=== PATIENT | female | born 1960 | race Caucasian/White ===

== ENCOUNTER 2019-03-13 21:57 | Emergency (ER) | payer MEDICAID, SELFPAY ==
--- NOTE | 2019-03-13 22:05 | XR_ITS ---
WS: [id number] Sacrum and coccyx, 3 views, 03/14/2019 Clinical Data: injury Comparison: AP pelvis, 05/30/2015. Findings: No fractures or dislocations are seen. The SI joints and pubic symphysis are unremarkable. No bone de struction or erosion is seen. There is a large amount of air in the small bowel and colon. XR/XR sacrum coccyx min 2V [id number] Impression: Negative sacrum and coccyx.
[2019-03-13 22:13] VITALS: BP 128/95; PULSE 129; RESP 18; TEMP 36.9; O2SAT 95; BMI 15.7
--- NOTE | 2019-03-13 23:39 | ED_ITS ---
Entered by Abbie Nascimento, acting as scribe for Jw Shipman MD Mar 13, 2019 21:57 HPI - General Adult General: Chief complaint: General Medical Stated complaint: tailbone pain Time Seen by Provider: 03/13/19 23:38 Source: patient and family Mode of arrival: ambulatory Limitations: no limitations History of Present Illness: HPI narrative: 58 y/o female presents to the ED with complaint of pain from a fall. Pt states she has a hx of seizures and she fell yesterday after an episode. Pt states she has tailbone pain and difficulty walking. Pt states she has been taking her Kepra as prescribed. MD complaint: pain post fall Onset (ago): day(s) (yesterday) Location: face and buttocks Severity: mild Quality: aching Pain Consistency: constant Relieving factors: rest Exacerbating factors: movement Associated symptoms: Deny chest pain, dyspnea, headache(s), nausea, rash or vomiting Review of Systems Const: Denies: fever or chills Eyes: Denies: change in vision ENMT: Denies: throat pain or mouth pain Card: Denies: chest pain Resp: Denies: shortness of breath GI: Denies: abdominal pain, nausea, vomiting or diarrhea : Denies: difficulty urinating Musc: Reports: back pain; Denies: joint pain Skin/Breast: Denies: rash Neuro: Denies: headache or behavioral changes Psych: Denies: depression Endo: Denies: excessive urination Emmanuel/Lymph: Denies: easy bruising All/Imm: Denies: hives PFSH ED PFSH: Statuses (acute, chronic, etc) shown below reflect problem list status as previously entered and may not be historically accurate Social History Smoking and tobacco status: current every day smoker Physical Exam Const: COMMON NORMALS: no apparent distress, oriented x3 and healthy appearing HENMT: COMMON NORMALS: normocephalic and external nose normal HEAD & SCALP: normocephalic NOSE: external nose normal Eye: COMMON NORMALS: PERRL PUPIL: Yes PERRL Neck/C-Spine: COMMON NORMALS: full ROM and no lymphadenopathy Chest: COMMONS NORMALS: inspection of chest normal Resp: COMMON NORMALS: normal respiratory effort, no use of accessory muscles and clear to auscultation bilaterally AUSCULTATION: clear to auscultation bilaterally Cardio: COMMON NORMALS: regular rate and regular rhythm RATE: regular rate RHYTHM: regular rhythm GI: COMMON NORMALS: normal to inspection, nondistended, normoactive bowel sounds, soft to palpation, non-tender and no masses PALPATION: Yes soft Back/Pelvis: THORACIC SPINE/UPPER BACK: Yes normal to inspection COCCYX: tenderness on direct palpation Extremity: COMMON NORMALS: normal to inspection, full ROM and normal capillary refill Neuro: COMMON NORMALS: oriented x3 Psych: COMMON NORMALS: mental status grossly normal and cooperative Skin: COMMON NORMALS: no rashes or lesions noted GENERAL SKIN EXAM: no rashes or lesions noted Course Vital Signs: Vital signs: Vital Signs Temperature 98.4 F 03/13/19 22:13 Pulse Rate 129 H 03/13/19 22:13 Respiratory Rate 18 03/13/19 22:13 Blood Pressure 128/95 03/13/19 22:13 Pulse Oximetry 95 03/13/19 22:13 MDM - General Adult MDM Narrative: Medical decision making narrative: Patient presents with a fall with likely fracture or contusion to her coccyx. Patient has no signs of major head injury and does not require head CT. Her exam here is benign otherwise. Patient's x-ray shows a possible fracture and will prescribe her pain meds and she is stable to follow-up with primary care doctor in 3 to 5 days and return if worsening. Discharge Plan Discharge Patient Disposition: Home, Self-Care Clinical Impression: Fall Qualifiers: Encounter type: initial encounter Qualified Code(s): W19.XXXA - Unspecified fall, initial encounter Closed fracture of coccyx Qualifiers: Encounter type: initial encounter Qualified Code(s): S32.2XXA - Fracture of coccyx, initial encounter for closed fracture Condition: Stable Prescriptions: New [place] 5-325 mg tablet 1 tab PO Q8H PRN (Reason: pain) Qty: 10 RF: 0 No Action Advair Diskus 100-50 mcg/dose Blister With Device 1 puff INHALATION BID RF: 0 albuterol sulfate 0.63 mg/3 mL Solution For Nebulization 0.63 mg INHALATION QID RF: 0 cetirizine 10 mg Capsule 10 mg PO DAILY RF: 0 guaifenesin 600 mg Tablet Extended Release 12hr 600 mg PO BID RF: 0 Keppra 1,000 mg Tablet 1,000 mg PO BID RF: 0 trazodone 50 mg Tablet 50 mg PO DAILY RF: 0 Miralax 17 gram Powder In Packet 17 g PO DAILY PRN (Reason: Constipation) RF: 0 Tessalon Perles 100 mg Capsule 100 mg PO TID RF: 0 Proventil HFA 90 mcg/actuation Hfa Aerosol Inhaler 1 puff INHALATION QID RF: 0 Nexium 20 mg Capsule,Delayed Release(Dr/Ec) 20 mg PO DAILY RF: 0 Spiriva with HandiHaler 18 mcg Capsule, W/Inhalation Device 1 cap INHALATION DAILY RF: 0 vitamin D3-vitamin K2 1000-90 unit-mcg Tablet,Disintegrating 2,000 tab PO RF: 0 Discharge Orders: Discharge Order (Routine); Ordered 03/14/19 Ordered By: Jw Shipman Referrals: Emma Novoa DO [Primary Care Provider] - 4-7 days Discharge Diet: Advance as tolerated Discharge Activity: Resume usual activity Patient Instructions: Coccyx Injury (ED) Coding Level of Care Code ED Sales Property Manager for Chg Fwd Exam Problem Focused The documentation recorded by the Azam phipps Ashley, accurately reflects the service I personally performed and the decisions made by Umberto nuñez Korby, MD Mar 13, 2019 21:57
[2019-03-14] MEDS: HYDROcodone-acetaminophen 7.5-325 mg Tablet 1 TAB PO (00:30)
[2019-03-14 00:48] VITALS: BP 144/90; PULSE 95; RESP 18; TEMP 36.4; O2SAT 96
== END 2019-03-14 00:49 | disposition home or self-care (01) ==
PROVIDERS: Emergency Provider Emergency Medicine; Family Provider Family Medicine; PCP Family Medicine
DX: S32.2XXA Fracture of coccyx, initial encounter for closed fracture (principal); W19.XXXA Unspecified fall, initial encounter; F17.210 Nicotine dependence, cigarettes, uncomplicated
CPT/HCPCS: 72220; 99281

== ENCOUNTER 2019-03-19 14:20 | Emergency (ER) | payer MEDICAID, SELFPAY ==
[2019-03-19 15:09] VITALS: BP 122/66; PULSE 107; RESP 20; TEMP 36.9; O2SAT 95; BMI 16.2
--- NOTE | 2019-03-19 15:21 | W.ED.GENADLT ---
HPI - General Adult General: Chief complaint: General Medical Stated complaint: tailbone pain Time Seen by Provider: 03/19/19 15:16 Source: patient Mode of arrival: ambulatory Limitations: no limitations History of Present Illness: HPI narrative: Patient is a 58-year-old female who presents to ED today with complaints of tailbone pain; patient states approximately 5 days ago she injured her tailbone after having a seizure; she was evaluated at our facility and told she had a coccyx fracture and given 10 hydrocodone; patient states that hydrocodone has lasted her this long but states she has ran out and continues to have pain; she has follow-up with her PCP in 2 weeks for further evaluation Onset (ago): day(s) Location: pelvis Radiation: non-radiation Pain Consistency: constant Exacerbating factors: other (sitting) Associated symptoms: Reports no associated symptoms Review of Systems GI: Denies: painful bowel movements Musc: Reports: back pain (coccyx); Denies: joint pain PFSH ED PFSH: Statuses (acute, chronic, etc) shown below reflect problem list status as previously entered and may not be historically accurate Social History Smoking and tobacco status: current every day smoker Physical Exam Const: COMMON NORMALS: no apparent distress, average body habitus, oriented x3 and alert Back/Pelvis: COMMON NORMALS: thoracic and lumbar spine normal to inspection, thoraco-lumbar ROM normal and straight leg raise negative bilaterally THORACIC SPINE/UPPER BACK: Yes normal to inspection and Yes thoracic ROM normal LUMBAR SPINE/LOWER BACK: Yes normal to inspection and Yes lumbar ROM normal PELVIS: Yes buttocks normal, Yes no pain with anterior-posterior compression and No tenderness over symphysis pubis SACROILIAC JOINTS: Yes SI joints normal COCCYX: tenderness Neuro: COMMON NORMALS: oriented x3 SENSORIUM/ORIENTATION: Yes alert Course Vital Signs: Vital signs: Vital Signs Temperature 98.5 F 03/19/19 15:09 Pulse Rate 109 H 03/19/19 15:58 Respiratory Rate 20 H 03/19/19 15:58 Blood Pressure 120/70 03/19/19 15:58 Pulse Oximetry 96 03/19/19 15:58 MDM - General Adult MDM Narrative: Medical decision making narrative: radiologist overread from previous XRs does not show coccyx fracture; will step down pain meds from hydrocodone to tramadol and have her follow up with PCP Discharge Plan Discharge Patient Disposition: Home, Self-Care Clinical Impression: Coccyx contusion Qualifiers: Encounter type: initial encounter Qualified Code(s): S30.0XXA - Contusion of lower back and pelvis, initial encounter Condition: Stable Prescriptions: New tramadol 50 mg tablet 50 mg PO TID PRN (Reason: pain) Qty: 14 RF: 0 Discontinued hydrocodone-acetaminophen [[place]] 5-325 mg tablet 1 tab PO Q8H PRN (Reason: pain) Qty: 10 RF: 0 No Action Advair Diskus 100-50 mcg/dose Blister With Device 1 puff INHALATION BID RF: 0 albuterol sulfate 0.63 mg/3 mL Solution For Nebulization 0.63 mg INHALATION QID RF: 0 cetirizine 10 mg Capsule 10 mg PO DAILY RF: 0 guaifenesin 600 mg Tablet Extended Release 12hr 600 mg PO BID RF: 0 Keppra 1,000 mg Tablet 1,000 mg PO BID RF: 0 trazodone 50 mg Tablet 50 mg PO DAILY RF: 0 Miralax 17 gram Powder In Packet 17 g PO DAILY PRN (Reason: Constipation) RF: 0 Tessalon Perles 100 mg Capsule 100 mg PO TID RF: 0 Proventil HFA 90 mcg/actuation Hfa Aerosol Inhaler 1 puff INHALATION QID RF: 0 Nexium 20 mg Capsule,Delayed Release(Dr/Ec) 20 mg PO DAILY RF: 0 Spiriva with HandiHaler 18 mcg Capsule, W/Inhalation Device 1 cap INHALATION DAILY RF: 0 vitamin D3-vitamin K2 1000-90 unit-mcg Tablet,Disintegrating 2,000 tab PO RF: 0 Discharge Orders: Discharge Order (Routine); Ordered 03/19/19 Ordered By: Hortencia Davis Referrals: Emma Novoa DO [Primary Care Provider] - Discharge Diet: Usual diet Discharge Activity: Resume usual activity Patient Instructions: Coccyx Injury, Coccyx Injury (ED) Discharge Date/Time: 03/19/19 15:59 Coding Level of Care Code ED Finisher [employer] for Chg Fwd Exam Problem Focused
[2019-03-19 15:58] VITALS: BP 120/70; PULSE 109; RESP 20; O2SAT 96
== END 2019-03-19 15:59 | disposition home or self-care (01) ==
PROVIDERS: Emergency Provider Emergency Medicine; Family Provider Family Medicine; PCP Family Medicine
DX: S30.0XXA Contusion of lower back and pelvis, initial encounter (principal); X58.XXXA Exposure to other specified factors, initial encounter; F17.210 Nicotine dependence, cigarettes, uncomplicated
CPT/HCPCS: 99281

== ENCOUNTER 2019-03-27 23:27 | Emergency (ER) | payer MEDICAID, SELFPAY ==
[2019-03-27] VITALS (7 sets, daily range): BP systolic 135–136; BP diastolic 76–77; PULSE 112–124; RESP 16–22; TEMP 37.9; O2SAT 92–95; BMI 16.9
--- NOTE | 2019-03-27 23:33 | ED_ITS ---
Entered by Abbie Nascimento, acting as scribe for Mila Foster HPI - Chest Pain General: Chief Complaint: Chest Pain Stated Complaint: CHEST PAIN Time Seen by Provider: 03/27/19 23:34 Source: patient and EMS Mode of arrival: EMS History of Present Illness: HPI narrative: 58 y/o female presents to the ED with complaint of chest pain. Pt states this started around 2100 and felt like heartburn. Pt states she belched and had some relief of pain. Pt has hx of COPD and has had a non productive cough. She is a current smoker. She denies any associated symptoms such as diaphoresis, nausea/vomiting, radiation of her pain or otherwise. She denies any history of heart disease. She states she is feeling better again after belching but she still has minimal burning in her epigastric area. MD complaint: chest pain Pertinent past history: other (COPD) Onset (ago): hour(s) Timing of current episode: constant Prior episodes: Yes Onset: during rest Severity: mild Relieving factors: other (belching) Associated symptoms: Deny diaphoresis or fever(s) Review of Systems Const: Denies: fever, chills, body aches, fatigue, malaise or diaphoresis Eyes: Denies: change in vision or blurry vision ENMT: Denies: throat pain, painful swallowing, hoarseness, ear pain, ear discharge, Change in hearing or nasal discharge Card: Reports: other (see HPI) Resp: Reports: other (see HPI) GI: Reports: other (see HPI) : Denies: flank pain, painful urination, urinary frequency, urinary urgency, decreased urine ouput, urinary incontinence or blood in urine Musc: Denies: neck pain, back pain, extremity pain, extremity swelling, joint pain, joint swelling, joint warmth or joint stiffness Skin/Breast: Denies: rash, skin tenderness or yellow skin Neuro: Denies: headache, numbness in extremities, weakness in extremities, changes in sensation, lack of coordination, difficulty walking, dizziness, vertigo or confusion Endo: Denies: excessive thirst, tired all the time, cold intolerance, excessive sweating, flushing or hot flashes Emmanuel/Lymph: Denies: easy bruising, easy bleeding, petechiae or enlarged lymph nodes All/Imm: Denies: hives, throat swelling, tongue swelling, facial swelling or acute wheezing PFSH ED PFSH: Statuses (acute, chronic, etc) shown below reflect problem list status as previously entered and may not be historically accurate Social History Smoking and tobacco status: current every day smoker Physical Exam Const: COMMON NORMALS: oriented x3 GENERAL APPEARANCE: well kempt HENMT: COMMON NORMALS: normocephalic, head/scalp atraumatic, hearing grossly normal bilaterally, external ears normal, EAC's normal, external nose normal and moist oral mucous membranes HEAD & SCALP: normal to inspection, normocephalic and atraumatic FACE & SINUS: normal facial exam and face symmetric NOSE: external nose normal and nares normal EXTERNAL EAR: Yes external ears normal EXTERNAL AUDITORY CANAL: EAC's normal MOUTH: oral and palatal mucosa normal and tongue normal Eye: COMMON NORMALS: PERRL, EOMs intact bilaterally, conjunctivae normal and no scleral icterus GENERAL EYE: normal appearance of both eyes and normal light reflex CONJUNCTIVA: Yes conjunctivae normal SCLERA: sclerae normal CORNEA: Yes corneas normal PUPIL: Yes PERRL DIRECT OPHTHALMOSCOPY: Yes normal light reflex Neck/C-Spine: COMMON NORMALS: full ROM, no lymphadenopathy, supple, no meningeal signs and no JVD GENERAL: Yes normal visual inspection and Yes trachea midline CERVICAL SPINE: Yes cervical ROM normal Chest: COMMONS NORMALS: inspection of chest normal and palpation of chest normal Cardio: COMMON NORMALS: no JVD GI: COMMON NORMALS: soft to palpation, non-tender, no hepatosplenomegaly and no masses INSPECTION: Yes normal to inspection PALPATION: Yes soft and Yes no hepatosplenomegaly : COMMON NORMALS: Yes no CVA tenderness BLADDER/KIDNEY EXAM: Yes no CVA tenderness Back/Pelvis: COMMON NORMALS: no CVA tenderness, thoracic and lumbar spine normal to inspection, no thoracic nor lumbar tenderness and thoraco-lumbar ROM normal Extremity: COMMON NORMALS: normal to inspection, full ROM, normal capillary refill, no joint enlargement, no clubbing, cyanosis or edema and no calf te nderness Neuro: COMMON NORMALS: oriented x3, CN's II-XII intact bilaterally, moves all extremities, no focal motor deficits and no sensory deficits noted MENINGEAL SIGNS: Yes no meningeal signs Psych: COMMON NORMALS: mental status grossly normal, thought process normal, cooperative, affect normal, speech normal and activity/motor behavior normal APPEARANCE: Yes well kempt SPEECH: Yes normal speech THOUGHT PROCESS: normal thought process Skin: COMMON NORMALS: no rashes or lesions noted, skin turgor normal, no jaundice, no petechiae and no mottling GENERAL SKIN EXAM: no rashes or lesions noted and turgor normal Course Vital Signs: Vital signs: Vital Signs Temperature 100.2 F H 03/27/19 23:32 Pulse Rate 105 H 03/28/19 02:00 Respiratory Rate 16 03/28/19 02:00 Blood Pressure 90/49 03/28/19 02:00 Pulse Oximetry 96 03/28/19 02:00 MDM - Chest Pain MDM Narrative: Medical decision making narrative: Maryjo is a very nice 58-year-old female who comes in complaining of burning epigastric pain with associated nausea. She has no other symptoms do sound as though she has acute coronary syndrome. She had improvement with belching and she had complete resolution of her symptoms here with a GI cocktail. The patient was significantly tachycardic when she came in but she was also wheezing and rhonchorous. She has been given a breathing treatments and she is feeling much better. Her troponin has gone up minimally and I have informed her that she may be at risk of heart attack but she feels as though this is reflux and she declines admission for observation. She understands the risks of heart attack including ultimately or severe permanent disability, I am also informed her about the possibility of pulmonary embolism although this does not clinically sound like pulmonary embolism and the only thing to make me think that is her tachycardia. As her symptoms are gone and she is feeling better she does not want to stay for any further care. The patient has been warned in layman's terms about the possibilities of missed PE or heart attack including ultimately or severe permanent disability but she still refuses and wants to be discharged. She understands that she is welcome to return I will place her on gastritis type medications for home. Lab Data: Attestation: I reviewed the patient's lab results. Labs: Lab Results 03/27/19 03/27/19 03/27/19 Range/Units 00:25 00:25 00:25 WBC 10.6 H (4.0-10.0) 10^3/ uL RBC 4.01 L (4.1-5.3) 10^6/u L Hgb 13.5 (11.5-15.3) g/dL Hct 40.3 (37.0-47.0) % MCV 100.5 H (81-99) fL MCH 33.7 (28.0-34.0) pg MCHC 33.5 (30.0-36.0) g/dL RDW 12.3 (12.1-15.1) % Plt Count 152 (130-400) 10^3/c mm MPV 11.2 H (7.4-10.4) fL Neut % (Auto) 84.2 % Lymph % (Auto) 7.8 % [place] % (Auto) 7.5 % Eos % (Auto) 0.0 % Baso % (Auto) 0.2 % Neut # (Auto) 8.9 H (1.8-7.7) 10^3/u L Lymph # (Auto) 0.8 (0.8-4.8) 10^3/u L [place] # (Auto) 0.8 (0.2-0.9) 10^3/u L Eos # (Auto) 0.0 (0.0-0.8) 10^3/u L Baso # (Auto) 0.0 (0.0-0.1) 10^3/u L Nucleated RBC % (a uto) 0 % Nucleated RBCs # 0.0 /100WBC PT 13.40 H (10.5-13.3) SECO NDS INR 0.99 (0.8-1.2) Sodium 139 (136-145) mmol/L Potassium 3.7 (3.5-5.1) mmol/L Chloride 102 (98-107) mmol/L Carbon Dioxide 23 (22-29) mmol/L Anion Gap 17.7 (5-19) BUN 9 (6-20) mg/dL Creatinine 0.6 (0.5-0.9) mg/dL GFR Calculation 102.3 (90-130) mL/min Glucose 121 H (74-109) mg/dL Calcium 10.0 (8.6-10.0) mg/Dl Magnesium 1.9 (1.7-2.3) mg/dL Total Bilirubin 0.5 (0.15-1.2) mg/dL AST 16 (0-32) U/L ALT 11 (0-33) U/L Alkaline Phosphata se 109 H (35-105) IU/L Troponin T Baselin e (0-10) ng/mL Troponin T 120 Min [place] (0-10) ng/mL NT-Pro-B Natriuret Pep 584 H (0-125) pg/mL Total Protein 6.8 (6.6-8.7) g/dL Albumin 4.6 (3.5-5.2) g/dL Globulin 2.2 (1.3-4.6) g/dL Ethyl Alcohol < 10 (0-10) mg/dL 03/27/19 03/28/19 Range/Units 00:25 02:13 WBC (4.0-10.0) 10^3/ uL RBC (4.1-5.3) 10^6/u L Hgb (11.5-15.3) g/dL Hct (37.0-47.0) % MCV (81-99) fL MCH (28.0-34.0) pg MCHC (30.0-36.0) g/dL RDW (12.1-15.1) % Plt Count (130-400) 10^3/c mm MPV (7.4-10.4) fL Neut % (Auto) % Lymph % (Auto) % [place] % (Auto) % Eos % (Auto) % Baso % (Auto) % Neut # (Auto) (1.8-7.7) 10^3/u L Lymph # (Auto) (0.8-4.8) 10^3/u L [place] # (Auto) (0.2-0.9) 10^3/u L Eos # (Auto) (0.0-0.8) 10^3/u L Baso # (Auto) (0.0-0.1) 10^3/u L Nucleated RBC % (a uto) % Nucleated RBCs # /100WBC PT (10.5-13.3) SECO NDS INR (0.8-1.2) Sodium (136-145) mmol/L Potassium (3.5-5.1) mmol/L Chloride (98-107) mmol/L Carbon Dioxide (22-29) mmol/L Anion Gap (5-19) BUN (6-20) mg/dL Creatinine (0.5-0.9) mg/dL GFR Calculation (90-130) mL/min Glucose (74-109) mg/dL Calcium (8.6-10.0) mg/Dl Magnesium (1.7-2.3) mg/dL Total Bilirubin (0.15-1.2) mg/dL AST (0-32) U/L ALT (0-33) U/L Alkaline Phosphata se (35-105) IU/L Troponin T Baselin e 17 H (0-10) ng/mL Troponin T 120 Min [place] 22.82 H (0-10) ng/mL NT-Pro-B Natriuret Pep (0-125) pg/mL Total Protein (6.6-8.7) g/dL Albumin (3.5-5.2) g/dL Globulin (1.3-4.6) g/dL Ethyl Alcohol (0-10) mg/dL Imaging Data^: CXR: My impression: No acute cardiopulmonary findings. COPD changes. EKG Data^: EKG 1: Attestation: I personally reviewed and interpreted this EKG as follows: Interpretation: EKG performed and read at 2344 -normal sinus rhythm at 104 beats a minute, LVH, nonspecific ST and T wave changes, anterior Q waves, normal QTC. EKG 2: Attestation: I personally reviewed and interpreted this EKG as follows: Interpretation: EKG performed and read at 0311 -normal sinus rhythm at 96 beats a minute, LVH, left axis deviation, possible anterior Q waves, unchanged from previous. Discharge Plan Discharge Patient Disposition: Home, Self-Care Clinical Impression: Chest pain Qualifiers: Chest pain type: unspecified Qualified Code(s): R07.9 - Chest pain, unspecified Gastritis Qualifiers: Gastritis type: unspecified gastritis Chronicity: acute Gastritis bleeding: without bleeding Qualified Code(s): K29.00 - Acute gastritis without bleeding Condition: Stable Prescriptions: New Protonix 40 mg tablet,delayed release (DR/EC) 40 mg PO DAILY Qty: 30 RF: 0 Carafate 1 gram tablet 1 gm PO TID Qty: 30 RF: 0 Zofran 4 mg tablet 4 mg PO DAILY PRN (Reason: nausea and vomiting) 4 Days RF: 0 No Action Advair Diskus 100-50 mcg/dose Blister With Device 1 puff INHALATION BID RF: 0 albuterol sulfate 0.63 mg/3 mL Solution For Nebulization 0.63 mg INHALATION QID RF: 0 cetirizine 10 mg Capsule 10 mg PO DAILY RF: 0 guaifenesin 600 mg Tablet Extended Release 12hr 600 mg PO BID RF: 0 Keppra 1,000 mg Tablet 1,000 mg PO BID RF: 0 trazodone 50 mg Tablet 50 mg PO DAILY RF: 0 Miralax 17 gram Powder In Packet 17 g PO DAILY PRN (Reason: Constipation) RF: 0 Tessalon Perles 100 mg Capsule 100 mg PO TID RF: 0 Proventil HFA 90 mcg/actuation Hfa Aerosol Inhaler 1 puff INHALATION QID RF: 0 Nexium 20 mg Capsule,Delayed Release(Dr/Ec) 20 mg PO DAILY RF: 0 Spiriva with HandiHaler 18 mcg Capsule, W/Inhalation Device 1 cap INHALATION DAILY RF: 0 vitamin D3-vitamin K2 1000-90 unit-mcg Tablet,Disintegrating 2,000 tab PO RF: 0 tramadol 50 mg tablet 50 mg PO TID PRN (Reason: pain) Qty: 14 RF: 0 Discharge Orders: Discharge Order (Routine); Ordered 03/28/19 Ordered By: Mila Foster Referrals: Darinel Styles MD [Physician] - 4-7 days Emma Novoa DO [Primary Care Provider] - 1-3 days Discharge Diet: Advance as tolerated Discharge Activity: Increase activity as tolerated Patient Instructions: Chest Pain (ED), Gastritis (ED) Activity Restrictions/Additional Instructions: You're leaving AGAINST MEDICAL ADVICE and are at risk for or severe permanent disability by doing so. You are more than welcome to return at any time for recheck and for further evaluation and care suture change you change your mind. Your risk of heart attack or blood clot in your chest causing your symptoms and it declined to stay for further evaluation. Of course these problems can be life-threatening so if you change your mind please return to the ER for recheck immediately. Stop your Nexium until the Protonix I have prescribed you is finished. Be certain to follow-up with your doctor as soon as possible as well as with Dr. Styles for possible outpatient scoping of your stomach. Coding Level of Care Code ED Group Supervisor [employer] for Nickg Fwd The documentation recorded by the mikalibAzam de la torre Ashley, accurately reflects the service I personally performed and the decisions made by , Mila Foster Mar 27, 2019 23:27
--- NOTE | 2019-03-27 23:36 | XR_ITS ---
WS: [id number] PORTABLE CHEST HISTORY: cough COMPARISON: 01/13/2019 Marked pulmonary hyperinflation. New opacification at the LEFT lung base. This may involve the lingul a and/or LEFT lower lobe. Pulmonary vasculature is normal. No pleural effusion or pneumothorax. Cardiac size: Normal. Mediastinum/Aorta: Normal mediastinum. Mild osteopenia. XR/XR chest 1V portable [id number] IMPRESSION: 1. New LEFT lower lung opacification consistent with pneumonia. Lingula and/or LEFT lower lobe. 2. Severe emphysema.
--- NOTE | 2019-03-27 23:36 | ECG_ITS ---
Measurements Intervals [place] Rate: 104 P: 71 MO: 137 QRS: -56 QRSD: 93 T: 81 QT: 337 QTc: 445 SINUS TACHYCARDIA INCOMPLETE RIGHT BUNDLE BRANCH BLOCK [90+ ms QRS DURATION, TERMINAL R IN V1/V2, 4 40+ ms S IN I/aVL/V4/V5/V6] LEFT ANTERIOR FASCICULAR BLOCK [QRS AXIS <= -45, QR IN I, RS IN II] VOLTAGE CRITERIA FOR LVH [MEETS CRITERIA IN ONE OF: R(aVL), S(V1), R(V5), R(V5 (V5/V6)+S(V1)] POSSIBLE ANTERIOR MYOCARDIAL INFARCTION , OF INDETERMINATE AGE [30 ms Q WAVE IN V3/V4, OR R < 0.2 mV IN V4] Compared to ECG 01/14/2019 04:37:13 Myocardial infarct finding now present T-wave abnormality no longer present Electronically Signed On 03-28-2019 15:25:49 SECTION HAND by Richard Madsen M.D. [email or web address]
--- NOTE | 2019-03-27 23:58 | PC.NURSE ---
pt refuses flu swab stating she just had one done on 03/13/19 and doesnt need another. also states she has had the flu and PN vaccine this year
[2019-03-28] VITALS (28 sets, daily range): BP systolic 90–136; BP diastolic 49–76; PULSE 94–125; RESP 14–31; O2SAT 92–97
[2019-03-28 00:40] LABS: Basophils % 0.2 %; Hematocrit 40.3 % (37.0-47.0); Hemoglobin 13.5 g/dL (11.5-15.3); Lymphocytes # 0.8 10^3/uL (0.8-4.8); Lymphocytes % 7.8 %; Mean Corpuscular HGB Conc 33.5 g/dL (30.0-36.0); Mean Corpuscular Hemoglobin 33.7 pg (28.0-34.0); Mean Corpuscular Volume 100.5 fL (81-99); Mean Platelet Volume 11.2 fL (7.4-10.4); Monocytes # 0.8 10^3/uL (0.2-0.9); Monocytes % 7.5 %; Neutrophils # 8.9 10^3/uL (1.8-7.7); Neutrophils % 84.2 %; Nucleated Red Blood Cells % 0 %; Platelet Count 152 10^3/cmm (130-400); Red Blood Count 4.01 10^6/uL (4.1-5.3); Red Cell Distribution Width 12.3 % (12.1-15.1); White Blood Count 10.6 10^3/uL (4.0-10.0)
[2019-03-28 00:49] LABS: INR 0.99 (0.8-1.2)
[2019-03-28 00:56] LABS: Troponin(5th) Baseline 17 ng/mL (0-10)
[2019-03-28 01:06] LABS: Alanine Aminotransferase 11 U/L (0-33); Albumin Level 4.6 g/dL (3.5-5.2); Alkaline Phosphatase 109 IU/L (35-105); Anion Gap 17.7 (5-19); Aspartate Amino Transferase 16 U/L (0-32); Blood Urea Nitrogen 9 mg/dL (6-20); Carbon Dioxide 23 mmol/L (22-29); Chloride 102 mmol/L (98-107); Globulin 2.2 g/dL (1.3-4.6); Glomerular Filtration Rate 102.3 mL/min (90-130); Glucose 121 mg/dL (74-109); Magnesium 1.9 mg/dL (1.7-2.3); NT Pro B Type Natriuretic Pept 584 pg/mL (0-125); Potassium 3.7 mmol/L (3.5-5.1); Sodium 139 mmol/L (136-145); Total Bilirubin 0.5 mg/dL (0.15-1.2); Total Protein 6.8 g/dL (6.6-8.7)
[2019-03-28 01:15] LABS: Alcohol Level < 10 mg/dL (0-10)
--- NOTE | 2019-03-28 01:36 | ECG_ITS ---
Measurements Intervals [place] Rate: 96 P: 66 DE: 136 QRS: -57 QRSD: 100 T: 60 QT: 359 QTc: 455 SINUS RHYTHM INCOMPLETE RIGHT BUNDLE BRANCH BLOCK [90+ ms QRS DURATION, TERMINAL R IN V1/V2, 40+ ms S IN I/aVL/V4/V5/V6] LEFT ANTERIOR FASCICULAR BLOCK [QRS AXIS <= -45, QR IN I, RS IN II] VOLTAGE CRITERIA FOR LVH [MEETS CRITERIA IN ONE OF: R(aVL), S(V1), R(V5), R (V5/V6)+S(V1)] POSSIBLE ANTERIOR MYOCARDIAL INFARCTION , OF INDETERMINATE AGE [30 ms Q WAVE IN V3/V4, OR R < 0.2 mV IN V4] Compared to ECG 01/14/2019 04:37:13 Incomplete right bundle-branch block now present Myocardial infarct finding now present T-wave abnormality no longer present Possible ischemia no longer present Electronically Signed On 03-28-2019 15:28:31 SCALLOP BINDER by Richard Madsen M.D. [id number]
--- NOTE | 2019-03-28 01:39 | US_ITS ---
WS: [id number] Complete ABDOMINAL ULTRASOUND HISTORY: Abdominal Pain COMPARISON: None available. Liver: 13.3 cm in length. Liver is normal size. Portal triads are mildly echogenic. No mass or bile d uct dilatation. Gallbladder: Normally distended with no gallstones, wall thickening or pericholecystic fluid. Gallbladder wall thickness: 2.0 mm. Pancreas: Normal size and echogenicity. CBD: 2.4 mm. Right kidney: 10.0 cm x 4.0 cm x 3.5 cm. No mass, cortical thickening or hydronephrosis. Previously described stones are not visualized. Left kidney: 9.3 cm x 4.8 cm x 3.4 cm. No mass, cortical thickening or hydronephrosis. Previous the described stones are not visualized. Spleen: Normal size and echogenicity. Abdominal aorta and IVC are within normal limits. No ascites. US/US abdomen complete* [id number] IMPRESSION: 1. Normal gallbladder. 2. Normal size liver. Mildly echogenic portal triads may be normal but also ca n be seen with hepatitis.
[2019-03-28 02:40] LABS: Troponin 5 2HR 22.82 ng/mL (0-10)
== END 2019-03-28 03:35 | disposition home or self-care (01) ==
PROVIDERS: Emergency Provider Emergency Medicine; Family Provider Family Medicine; PCP Family Medicine
DX: R07.9 Chest pain, unspecified (principal); K29.00 Acute gastritis without bleeding; F17.210 Nicotine dependence, cigarettes, uncomplicated
CPT/HCPCS: 36415; 71045; 76700; 80053; 80307; 83735; 83880; 84484; 85025; 85610; 87040; 93005; 99283

== ENCOUNTER → 2019-10-23 14:53 | Outpatient (BNVA) | payer MEDICAID, SELFPAY | PROVIDERS: Family Provider Family Medicine; PCP Family Medicine; Visit Provider Specialist | DX: G40.309 Generalized idiopathic epilepsy and epileptic syndromes, not intractable, without status epilepticus (principal); F17.210 Nicotine dependence, cigarettes, uncomplicated | CPT/HCPCS: 99213 ==

== ENCOUNTER 2019-10-31 14:22 | Outpatient (CLI) | payer MEDICAID, SELFPAY ==
--- NOTE | 2019-10-31 14:27 | MM_ITS ---
WS: [id number] BILATERAL DIGITAL SCREENING MAMMOGRAPHY WITH CAD CLINICAL INFORMATION: SCREENING HISTORY: Screening mammogram. No current complaints. COMPARISON: TECHNIQUE: Bilateral CC and MLO views. FINDINGS: The breasts are composed of heterogeneous fibroglandular density tissue, which can limit the detectio n of small underlying mass lesions. No suspicious mass, asymmetry, calcifications, or architectural d istortion. No evidence of malignancy. MM/[place] [id number] IMPRESSION: BI-RADS: 1-Negative FOLLOW UP: 1 Year Follow-up Recommend return to annual screening mammography.
== END 2019-10-31 14:23 | disposition home or self-care (01) ==
LOC: RADSHAW 14:26
PROVIDERS: PCP Family Medicine; Visit Provider Family Medicine
DX: Z12.31 Encounter for screening mammogram for malignant neoplasm of breast (principal)
CPT/HCPCS: 77067

== ENCOUNTER 2019-12-17 05:24 | Emergency (ER) | payer MEDICAID, SELFPAY ==
[2019-12-17 05:37] VITALS: BP 138/85; PULSE 103; RESP 26; TEMP 36.9; O2SAT 100; BMI 17.7
--- NOTE | 2019-12-17 05:42 | XRR_ITS ---
PROCEDURE INFORMATION: Exam: XR Chest, 1 View Exam date and time: 12/17/2019 5:51 AM Age: 59 years old Clinical indication: Dyspnea; Additional info: Dyspnea x 2 days TECHNIQUE: Imaging protocol: XR of the chest Views: 1 view. COMPARISON: CR XR chest 1V portable [id number] 03/28/2019 12:00 AM FINDINGS: Lungs: COPD and interstitial prominence. Bilobed 1.6 x 1.0 cm ovoid density overlying the right upper lobe, warranting CT correlation. Pleural space: No pleural effusion. Heart/Mediastinum: No cardiomegaly. Bones/joints: osteopenia and scoliosis. XR/XR chest 1V portable [id number] IMPRESSION: COPD and bilobed 1.6 x 1.0 cm ovoid density overlying the right upper lobe, warranting CT correlation.
--- NOTE | 2019-12-17 05:43 | ECG_ITS ---
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 Measurements Intervals [place] Rate: 97 P: 77 [place]: 159 QRS: -67 QRSD: 103 T: 85 QT: 367 QTc: 468 Interpretive Statements SINUS RHYTHM LEFT ANTERIOR FASCICULAR BLOCK [QRS AXIS <= -45, QR IN I, RS IN II] MODERATE VOLTAGE CRITERIA FOR LVH, CONSIDER NORMAL VARIANT [MEETS CRITERIA IN ONE OF: R(aVL), S(V1), R(V5), R(V5/V6)+S(V1)] POSSIBLE SEPTAL MYOCARDIAL INFARCTION [30 ms Q WAVE IN V1/V2], PROBABLY OLD Compared to ECG 03/28/2019 03:11:18 Incomplete right bundle-branch block no longer present Myocardial infarct finding still present Electronically Signed On 12-17-2019 13:19:22 CDT by Hair Costello M.D. [id number]
--- NOTE | 2019-12-17 05:45 | ED_ITS ---
Documented by User: Mila Foster 12/17/19 05:49 HPI - SOB/Dyspnea General: Chief Complaint: Shortness of Breath/Dyspnea Stated Complaint: cp/sob Time Seen by Provider: 12/17/19 05:38 Source: patient Mode of arrival: ambulatory Limitations: no limitations History of Present Illness: HPI Narrative: Ms. Gomez is a 59-year-old female who comes in complaining of cough, shortness of breath, fever and generalized malaise. Her symptoms have been going on for the past 2 days. She denies any hemoptysis. She has chest pain in her chest describes as a cough that is sharp and hurts when she takes a deep breath. Patient denies any exposure to the COVID-19 virus but states that she is getting progressively worse with her symptoms. She denies any leg pain or swelling. Associated symptoms: Reports fever(s); Deny abdominal pain, chest pain, dizziness, extremity pain, hemoptysis, lightheadedness, nausea, orthopnea, palpitations, syncope or vomiting Review of Systems Const: Reports: fever(s), chills, body aches, fatigue and malaise Eyes: Denies: change in vision, blurry vision, photophobia, eye discomfort, eye discharge, eye redness or yellow eyes ENMT: Denies: throat pain, odynophagia, hoarseness, swelling of lips/tongue, ear or mastoid pain, ear discharge, change in hearing or nasal discharge Card: Denies: chest pain, palpitations, irregular heart rhythm, edema, lightheadedness, syncope, pre-syncope, dyspnea on exertion or orthopnea Resp: Reports: dyspnea, productive cough, non-productive cough and wheezing; Denies: hemoptysis GI: Denies: abdominal pain, nausea, vomiting, hematemesis, coffee ground emesis, heartburn, diarrhea, constipation, GI cramping, hematochezia or melena : Denies: flank pain, dysuria, urinary frequency, urinary urgency or hematuria Musc: Denies: neck pain, back pain, extremity pain, extremity swelling, joint pain, joint swelling, joint redness, joint warmth or joint stiffness Skin/Breast: Denies: rash, pruritus, erythema, skin pain or skin tenderness Neuro: Denies: headache(s), numbness in extremities, weakness in extremities, sensory changes, lack of coordination, difficulty walking, dizziness, vertigo, confusion, Slurred speech present or seizure-like activity Emmanuel/Lymph: Denies: easy bruising, easy bleeding, petechiae, purpura or enlarged lymph nodes All/Imm: Denies: urticaria, throat swelling, tongue swelling, facial swelling or acute wheezing PFSH ED PFSH: Medical History Chronic constipation COPD (chronic obstructive pulmonary disease) GERD (gastroesophageal reflux disease) Insomnia Seizure disorder Surgical History H/O section Family History Other CAD (coronary artery disease) Cancer Diabetes Social History Smoking and tobacco status: current every day smoker cigarettes Packs smoked per day: 0.5 Alcohol intake: never Physical Exam Const: COMMON NORMALS: no acute distress, patient oriented x3, no limitations and alert GENERAL APPEARANCE: cooperative HENMT: COMMON NORMALS: normocephalic, atraumatic, external ears normal, EAC's normal and Normal external nose present HEAD & SCALP: normal to inspection, normocephalic and atraumatic FACE & SINUS: normal facial exam and face symmetric NOSE: Normal external nose present and Normal nares present EXTERNAL EAR: Yes external ears normal EXTERNAL AUDITORY CANAL: EAC's normal MOUTH: Normal oral and palatal mucosa present, lip normal and tongue normal Eye: COMMON NORMALS: Equal, round and reactive pupils present and conjunctivae normal GENERAL EYE: appearance normal, both eyes and all related structures ALIGNMENT: Yes alignment normal PERIORBITAL: periorbital findings normal EYELID: eyelids normal CONJUNCTIVA: Yes conjunctivae normal SCLERA: sclerae normal PUPIL: Yes Equal, round and reactive pupils present Neck/C-Spine: COMMON NORMALS: full ROM, no lymphadenopathy, supple, no meningeal signs and no JVD GENERAL: Yes normal visual inspection and Yes trachea midline Chest: COMMONS NORMALS: normal inspection of the chest and normal palpation of entire chest wall Resp: COMMON NORMALS: normal respiratory effort, No retractions, No use of accessory muscles and clear to auscultation bilaterally EFFORT & INSPECTION: Yes able to speak in complete sentences and Yes symmetric chest movement AUSCULTATION: clear to auscultation bilaterally, no crackles, no rales, rhonchi and wheezes Cardio: COMMON NORMALS: no JVD, regular rate, regular rhythm, S1 normal heart sound present and S2 normal heart sound present RATE: regular rate RHYTHM: regular rhythm HEART SOUNDS: S1 normal heart sound present, S2 normal heart sound present, no click, no gallops, no murmurs and no rubs GI: COMMON NORMALS: Soft to palpation and No hepatosplenomegaly present PALPATION: Yes Soft to palpation, No Tenderness to palpation present (GI), No Guarding due to palpation present (GI), No Rigid due to palpation, Yes No hepatosplenomegaly present, No Hernia present, No Palpable mass present and No Pulsatile mass present : COMMON NORMALS: Yes no CVA tenderness BLADDER/KIDNEY EXAM: Yes no CVA tenderness EXTERNAL FEMALE EXAM: No Hernia present Back/Pelvis: COMMON NORMALS: no CVA tenderness, thoracic and lumbar spine normal to inspection, no thoracic nor lumbar tenderness and thoraco-lumbar ROM normal Extremity: COMMON NORMALS: normal to inspection, full ROM, capillary refill n ormal, no joint enlargement, no clubbing, cyanosis or edema and no calf tenderness Neuro: COMMON NORMALS: patient oriented x3, CN's II-XII intact bilaterally, moves all extremities, no focal motor deficits and no sensory deficits noted SENSORIUM/ORIENTATION: Yes alert MENINGEAL SIGNS: Yes no meningeal signs SPEECH: speech normal Psych: COMMON NORMALS: mental status grossly normal, Normal thought process present, cooperative, normal affect, speech normal and activity/motor behavior normal SPEECH: Yes normal speech THOUGHT PROCESS: Normal thought process present Skin: COMMON NORMALS: no rashes or lesions noted, turgor normal, no jaundice, no petechiae and no mottling GENERAL SKIN EXAM: no rashes or lesions noted and turgor normal Course Vital Signs: Vital signs: Vital Signs Temperature 98.5 F 12/17/19 05:37 Pulse Rate 93 12/17/19 09:35 Respiratory Rate 18 12/17/19 09:35 Blood Pressure 114/72 12/17/19 09:35 Pulse Oximetry 99 12/17/19 09:35 MDM - SOB/Dyspnea Lab Data: Labs: Lab Results 12/17/19 12/17/19 12/17/19 Range/Units 05:45 05:45 05:45 WBC 5.7 (4.0-10.0) 10^3/ uL RBC 4.14 (4.1-5.3) 10^6/u L Hgb 14.1 (11.5-15.3) g/dL Hct 42.6 (37.0-47.0) % MCV 102.9 H (81-99) fL MCH 34.1 H (28.0-34.0) pg MCHC 33.1 (30.0-36.0) g/dL RDW 12.3 (12.1-15.1) % Plt Count 134 (130-400) 10^3/c mm MPV 11.3 H (7.4-10.4) fL Neut % (Auto) 75.2 % Lymph % (Auto) 11.0 % [place] % (Auto) 12.6 % Eos % (Auto) 0.7 % Baso % (Auto) 0.3 % Neut # (Auto) 4.30 (1.8-7.7) 10^3/u L Lymph # (Auto) 0.6 L (0.8-4.8) 10^3/u L [place] # (Auto) 0.7 (0.2-0.9) 10^3/u L Eos # (Auto) 0.0 (0.0-0.8) 10^3/u L Baso # (Auto) 0.0 (0.0-0.1) 10^3/u L Nucleated RBC % (a uto) 0 % Nucleated RBCs # 0.0 /100WBC Specimen Type Sample Site ABG pH (7.35-7.45) ABG pCO2 (35-45) mmHg ABG pO2 (80.0-100.0) mmH g ABG HCO3 (22-26) mmol/L ABG Base Excess (-2.0-2.0) mmol/ L Jean Test Hematocrit (37-47) % O2 Delivery Device O2 Liters/Min % FiO2 % Engineering And Operations Director ID Sodium 143 (136-145) mmol/L Potassium 3.7 (3.5-5.1) mmol/L Chloride 108 H (98-107) mmol/L Carbon Dioxide 23 (22-29) mmol/L Anion Gap 15.7 (5-19) BUN 5 L (8-23) mg/dL Creatinine 0.5 (0.5-0.9) mg/dL GFR Calculation 125.9 (90-130) mL/min Glucose 108 (65-115) mg/dL Calculated Osmolal ity 294 (285-295) mOsm/k g Lactic Acid (0.5-2.2) mmol/L Calcium 9.2 (8.5-10.5) mg/dL Magnesium 2.1 (1.7-2.3) mg/dL Total Bilirubin 0.2 (0.15-1.2) mg/dL AST 20 (0-32) U/L ALT 12 (0-33) U/L Alkaline Phosphata se 114 H (35-105) IU/L Troponin T Baselin e 24 H (0-10) ng/L Troponin T 120 Min [place] (0-10) ng/L Delta Troponin T (0-10) ABS# Total Protein 6.5 L (6.6-8.7) g/dL Albumin 4.4 (3.5-5.2) g/dL Globulin 2.1 (1.3-4.6) g/dL Urine Color (Yellow) Urine Appearance (CLEAR) Urine pH (5-7) Ur Specific Gravit y (1.005-1.030) Urine Protein (Negative) Urine Glucose (UA) (Normal) Urine Ketones (Negative) Urine Blood (Negative) Urine Nitrate (Negative) Urine Bilirubin (Negative) Urine Urobilinogen (Negative) mg/dL Ur Leukocyte [place] ase (Negative) Urine RBC (0-2) /hpf Urine WBC (0-5) /hpf Ur Squamous Epith Cells (0-5) /hpf Amorphous Sediment Urine Bacteria (NONE) /hpf Influenza Type A A g (Negative) Influenza Type B A g (Negative) SARS-CoV-2 Ag (Rap id) (Negative) 12/17/19 12/17/19 12/17/19 Range/Units 05:56 05:56 07:20 WBC (4.0-10.0) 10^3/ uL RBC (4.1-5.3) 10^6/u L Hgb (11.5-15.3) g/dL Hct (37.0-47.0) % MCV (81-99) fL MCH (28.0-34.0) pg MCHC (30.0-36.0) g/dL RDW (12.1-15.1) % Plt Count (130-400) 10^3/c mm MPV (7.4-10.4) fL Neut % (Auto) % Lymph % (Auto) % [place] % (Auto) % Eos % (Auto) % Baso % (Auto) % Neut # (Auto) (1.8-7.7) 10^3/u L Lymph # (Auto) (0.8-4.8) 10^3/u L [place] # (Auto) (0.2-0.9) 10^3/u L Eos # (Auto) (0.0-0.8) 10^3/u L Baso # (Auto) (0.0-0.1) 10^3/u L Nucleated RBC % (a uto) % Nucleated RBCs # /100WBC Specimen Type Arterial Sample Site Brachial, left ABG pH 7.32 L (7.35-7.45) ABG pCO2 43.2 (35-45) mmHg ABG pO2 122.0 H (80.0-100.0) mmH g ABG HCO3 22.4 (22-26) mmol/L ABG Base Excess -3.6 L (-2.0-2.0) mmol/ L Jean Test Pos Hematocrit 41.3 (37-47) % O2 Delivery Device Nc O2 Liters/Min 2.0 % FiO2 28.0 % Engineering And Operations Director ID Amh Sodium (136-145) mmol/L Potassium (3.5-5.1) mmol/L Chloride (98-107) mmol/L Carbon Dioxide (22-29) mmol/L Anion Gap (5-19) BUN (8-23) mg/dL Creatinine (0.5-0.9) mg/dL GFR Calculation (90-130) mL/min Glucose (65-115) mg/dL Calculated Osmolal ity (285-295) mOsm/k g Lactic Acid (0.5-2.2) mmol/L Calcium (8.5-10.5) mg/dL Magnesium (1.7-2.3) mg/dL Total Bilirubin (0.15-1.2) mg/dL AST (0-32) U/L ALT (0-33) U/L Alkaline Phosphata se (35-105) IU/L Troponin T Baselin e (0-10) ng/L Troponin T 120 Min [place] (0-10) ng/L Delta Troponin T (0-10) ABS# Total Protein (6.6-8.7) g/dL Albumin (3.5-5.2) g/dL Globulin (1.3-4.6) g/dL Urine Color (Yellow) Urine Appearance (CLEAR) Urine pH (5-7) Ur Specific Gravit y (1.005-1.030) Urine Protein (Negative) Urine Glucose (UA) (Normal) Urine Ketones (Negative) Urine Blood (Negative) Urine Nitrate (Negative) Urine Bilirubin (Negative) Urine Urobilinogen (Negative) mg/dL Ur Leukocyte [place] ase (Negative) Urine RBC (0-2) /hpf Urine WBC (0-5) /hpf Ur Squamous Epith Cells (0-5) /hpf Amorphous Sediment Urine Bacteria (NONE) /hpf Influenza Type A A g Negative (Negative) Influenza Type B A g Negative (Negative) SARS-CoV-2 Ag (Rap id) Negative (Negative) 12/17/19 12/17/19 12/17/19 Range/Units 07:52 08:12 08:12 WBC (4.0-10.0) 10^3/ uL RBC (4.1-5.3) 10^6/u L Hgb (11.5-15.3) g/dL Hct (37.0-47.0) % MCV (81-99) fL MCH (28.0-34.0) pg MCHC (30.0-36.0) g/dL RDW (12.1-15.1) % Plt Count (130-400) 10^3/c mm MPV (7.4-10.4) fL Neut % (Auto) % Lymph % (Auto) % [place] % (Auto) % Eos % (Auto) % Baso % (Auto) % Neut # (Auto) (1.8-7.7) 10^3/u L Lymph # (Auto) (0.8-4.8) 10^3/u L [place] # (Auto) (0.2-0.9) 10^3/u L Eos # (Auto) (0.0-0.8) 10^3/u L Baso # (Auto) (0.0-0.1) 10^3/u L Nucleated RBC % (a uto) % Nucleated RBCs # /100WBC Specimen Type Sample Site ABG pH (7.35-7.45) ABG pCO2 (35-45) mmHg ABG pO2 (80.0-100.0) mmH g ABG HCO3 (22-26) mmol/L ABG Base Excess (-2.0-2.0) mmol/ L Jean Test Hematocrit (37-47) % O2 Delivery Device O2 Liters/Min % FiO2 % Engineering And Operations Director ID Sodium (136-145) mmol/L Potassium (3.5-5.1) mmol/L Chloride (98-107) mmol/L Carbon Dioxide (22-29) mmol/L Anion Gap (5-19) BUN (8-23) mg/dL Creatinine (0.5-0.9) mg/dL GFR Calculation (90-130) mL/min Glucose (65-115) mg/dL Calculated Osmolal ity (285-295) mOsm/k g Lactic Acid 0.6 (0.5-2.2) mmol/L Calcium (8.5-10.5) mg/dL Magnesium (1.7-2.3) mg/dL Total Bilirubin (0.15-1.2) mg/dL AST (0-32) U/L ALT (0-33) U/L Alkaline Phosphata se (35-105) IU/L Troponin T Baselin e (0-10) ng/L Troponin T 120 Min [place] 21.67 H (0-10) ng/L Delta Troponin T -2.33 L (0-10) ABS# Total Protein (6.6-8.7) g/dL Albumin (3.5-5.2) g/dL Globulin (1.3-4.6) g/dL Urine Color Yellow (Yellow) Urine Appearance Sl hazy (CLEAR) Urine pH 5.0 (5-7) Ur Specific Gravit y 1.005 (1.005-1.030) Urine Protein Neg (Negative) Urine Glucose (UA) Norm (Normal) Urine Ketones Negative (Negative) Urine Blood Neg (Negative) Urine Nitrate Negative (Negative) Urine Bilirubin Neg (Negative) Urine Urobilinogen Norm (Negative) mg/dL Ur Leukocyte [place] ase Trace H (Negative) Urine RBC None (0-2) /hpf Urine WBC 0-4 H (0-5) /hpf Ur Squamous Epith Cells Rare (0-5) /hpf Amorphous Sediment Not Reportable Urine Bacteria 2+ H (NONE) /hpf Influenza Type A A g (Negative) Influenza Type B A g (Negative) SARS-CoV-2 Ag (Rap id) (Negative) Imaging Data^: CXR: Attestation: I personally reviewed and interpreted this imaging study as follows: My impression: No acute cardiopulmonary findings. EKG Data^: EKG 1: Attestation: I personally reviewed and interpreted this EKG as follows: EKG Interpretation Date: 12/17/19 EKG interpretation time: 05:40 Interpretation: Sinus tachycardia 103 beats a minute, LVH, left axis deviation, nonspecific ST and T wave changes. Discharge Plan Discharge Patient Disposition: Home Clinical Impression: Acute exacerbation of chronic obstructive airways disease Condition: Stable Prescriptions: New Medrol (Ihsan) 4 mg tablets,dose pack See Rx Instructions .ROUTE .COMPLEX Qty: 21 RF: 0 No Action Chantix 1 mg tablet 1 mg PO BID Qty: 56 RF: 3 levetiracetam 500 mg tablet extended release 24 hr 2,000 mg PO Q24H Qty: 120 RF: 11 fluticasone propion-salmeterol [Wixela Inhub] 250-50 mcg/dose blister with device 1 inh INHALATION BID RF: 0 doxycycline hyclate 100 mg capsule 100 mg PO BID Qty: 20 RF: 0 Miralax 17 gram powder in packet 17 g PO DAILY Qty: 30 RF: 1 albuterol sulfate 2.5 mg /3 mL (0.083 %) solution for nebulization 2.5 mg INHALATION QID PRN (Reason: shortness of breath or wheezing) Qty: 180 RF: 3 trazodone 50 mg tablet 50 mg PO DAILY Qty: 90 RF: 0 Carafate 1 gram tablet 1 gm PO TID Qty: 90 RF: 3 Proventil HFA 90 mcg/actuation HFA aerosol inhaler 1 puff INHALATION QID Qty: 6.7 RF: 2 cetirizine 10 mg capsule 10 mg PO DAILY Qty: 90 RF: 1 Spiriva with HandiHaler 18 mcg capsule, w/inhalation device 1 cap INHALATION DAILY Qty: 90 RF: 1 cholecalciferol (vitamin D3) 50 mcg (2,000 unit) capsule 50 mcg PO DAILY Qty: 30 RF: 5 fluticasone propionate [Flonase Allergy Relief] 50 mcg/actuation spray,s uspension 2 spray INTRANASAL DAILY Qty: 15.8 RF: 0 guaifenesin 600 mg Tablet Extended Release 12hr 600 mg PO BID RF: 0 Tessalon Perles 100 mg Capsule 100 mg PO TID RF: 0 vitamin D3-vitamin K2 1000-90 unit-mcg Tablet,Disintegrating 2,000 tab PO RF: 0 tramadol 50 mg tablet 50 mg PO TID PRN (Reason: pain) Qty: 14 RF: 0 Protonix 40 mg tablet,delayed release (DR/EC) 40 mg PO DAILY Qty: 30 RF: 0 Discharge Orders: Discharge Order (Routine); Ordered 12/17/19 Ordered By: Dex Phillips Referrals: Emma Novoa DO [Primary Care Provider] - Discharge Diet: Usual diet Discharge Activity: Limit activity as instructed Activity Restrictions/Additional Instructions: Discharge home on steroid taper, complete doxycycline previously prescribed. Follow-up with primary care provider within the next 3 to 5 days. A second more definitive Covid test has been ordered you should remain in self quarantine until that result is returned. Discharge Date/Time: 12/17/19 09:35 Sign Out Sign Out Data: Patient Sign Out occurred on 12/17/19 at 07:09. Patient's care was discussed, and care was transferred from to Dex Phillips DO. Coding Level of Care Code ED Product Safety Associate for Chg Fwd Exam Comprehensive Documented by User: Dex Phillips DO 12/17/19 09:57 HPI - SOB/Dyspnea General: Chief Complaint: Shortness of Breath/Dyspnea Stated Complaint: cp/sob Time Seen by Provider: 12/17/19 05:38 PFSH ED PFSH: Medical History Chronic constipation COPD (chronic obstructive pulmonary disease) GERD (gastroesophageal reflux disease) Insomnia Seizure disorder Surgical History H/O section Family History Other CAD (coronary artery disease) Cancer Diabetes Social History Smoking and tobacco status: current every day smoker cigarettes Packs smoked per day: 0.5 Alcohol intake: never Course Vital Signs: Vital signs: Vital Signs Temperature 98.5 F 12/17/19 05:37 Pulse Rate 93 12/17/19 09:35 Respiratory Rate 18 12/17/19 09:35 Blood Pressure 114/72 12/17/19 09:35 Pulse Oximetry 99 12/17/19 09:35 MDM - SOB/Dyspnea MDM Narrative: Medical decision making narrative: Case assumed from Dr. Cruz at change of shift. Rapid Covid is negative we will get a [facility] PCR test. UA is unremarkable for infection she is maintaining her oxygenation on her usual 2 L/min. Complete the course of doxycycline previously prescribed add Medrol Dosepak continue to use beta agonist monitor sats at home and follow-up with your primary care doctor within the week return sooner if has further problems. Lab Data: Labs: Lab Results 12/17/19 12/17/19 12/17/19 Range/Units 05:45 05:45 05:45 WBC 5.7 (4.0-10.0) 10^3/ uL RBC 4.14 (4.1-5.3) 10^6/u L Hgb 14.1 (11.5-15.3) g/dL Hct 42.6 (37.0-47.0) % MCV 102.9 H (81-99) fL MCH 34.1 H (28.0-34.0) pg MCHC 33.1 (30.0-36.0) g/dL RDW 12.3 (12.1-15.1) % Plt Count 134 (130-400) 10^3/c mm MPV 11.3 H (7.4-10.4) fL Neut % (Auto) 75.2 % Lymph % (Auto) 11.0 % [place] % (Auto) 12.6 % Eos % (Auto) 0.7 % Baso % (Auto) 0.3 % Neut # (Auto) 4.30 (1.8-7.7) 10^3/u L Lymph # (Auto) 0.6 L (0.8-4.8) 10^3/u L [place] # (Auto) 0.7 (0.2-0.9) 10^3/u L Eos # (Auto) 0.0 (0.0-0.8) 10^3/u L Baso # (Auto) 0.0 (0.0-0.1) 10^3/u L Nucleated RBC % (a uto) 0 % Nucleated RBCs # 0.0 /100WBC Specimen Type Sample Site ABG pH (7.35-7.45) ABG pCO2 (35-45) mmHg ABG pO2 (80.0-100.0) mmH g ABG HCO3 (22-26) mmol/L ABG Base Excess (-2.0-2.0) mmol/ L Jean Test Hematocrit (37-47) % O2 Delivery Device O2 Liters/Min % FiO2 % Engineering And Operations Director ID Sodium 143 (136-145) mmol/L Potassium 3.7 (3.5-5.1) mmol/L Chloride 108 H (98-107) mmol/L Carbon Dioxide 23 (22-29) mmol/L Anion Gap 15.7 (5-19) BUN 5 L (8-23) mg/dL Creatinine 0.5 (0.5-0.9) mg/dL GFR Calculation 125.9 (90-130) mL/min Glucose 108 (65-115) mg/dL Calculated Osmolal ity 294 (285-295) mOsm/k g Lactic Acid (0.5-2.2) mmol/L Calcium 9.2 (8.5-10.5) mg/dL Magnesium 2.1 (1.7-2.3) mg/dL Total Bilirubin 0.2 (0.15-1.2) mg/dL AST 20 (0-32) U/L ALT 12 (0-33) U/L Alkaline Phosphata se 114 H (35-105) IU/L Troponin T Baselin e 24 H (0-10) ng/L Troponin T 120 Min [place] (0-10) ng/L Delta Troponin T (0-10) ABS# Total Protein 6.5 L (6.6-8.7) g/dL Albumin 4.4 (3.5-5.2) g/dL Globulin 2.1 (1.3-4.6) g/dL Urine Color (Yellow) Urine Appearance (CLEAR) Urine pH (5-7) Ur Specific Gravit y (1.005-1.030) Urine Protein (Negative) Urine Glucose (UA) (Normal) Urine Ketones (Negative) Urine Blood (Negative) Urine Nitrate (Negative) Urine Bilirubin (Negative) Urine Urobilinogen (Negative) mg/dL Ur Leukocyte [place] ase (Negative) Urine RBC (0-2) /hpf Urine WBC (0-5) /hpf Ur Squamous Epith Cells (0-5) /hpf Amorphous Sediment Urine Bacteria (NONE) /hpf Influenza Type A A g (Negative) Influenza Type B A g (Negative) SARS-CoV-2 Ag (Rap id) (Negative) 12/17/19 12/17/19 12/17/19 Range/Units 05:56 05:56 07:20 WBC (4.0-10.0) 10^3/ uL RBC (4.1-5.3) 10^6/u L Hgb (11.5-15.3) g/dL Hct (37.0-47.0) % MCV (81-99) fL MCH (28.0-34.0) pg MCHC (30.0-36.0) g/dL RDW (12.1-15.1) % Plt Count (130-400) 10^3/c mm MPV (7.4-10.4) fL Neut % (Auto) % Lymph % (Auto) % [place] % (Auto) % Eos % (Auto) % Baso % (Auto) % Neut # (Auto) (1.8-7.7) 10^3/u L Lymph # (Auto) (0.8-4.8) 10^3/u L [place] # (Auto) (0.2-0.9) 10^3/u L Eos # (Auto) (0.0-0.8) 10^3/u L Baso # (Auto) (0.0-0.1) 10^3/u L Nucleated RBC % (a uto) % Nucleated RBCs # /100WBC Specimen Type Arterial Sample Site Brachial, left ABG pH 7.32 L (7.35-7.45) ABG pCO2 43.2 (35-45) mmHg ABG pO2 122.0 H (80.0-100.0) mmH g ABG HCO3 22.4 (22-26) mmol/L ABG Base Excess -3.6 L (-2.0-2.0) mmol/ L Jean Test Pos Hematocrit 41.3 (37-47) % O2 Delivery Device Nc O2 Liters/Min 2.0 % FiO2 28.0 % Engineering And Operations Director ID Amh Sodium (136-145) mmol/L Potassium (3.5-5.1) mmol/L Chloride (98-107) mmol/L Carbon Dioxide (22-29) mmol/L Anion Gap (5-19) BUN (8-23) mg/dL Creatinine (0.5-0.9) mg/dL GFR Calculation (90-130) mL/min Glucose (65-115) mg/dL Calculated Osmolal ity (285-295) mOsm/k g Lactic Acid (0.5-2.2) mmol/L Calcium (8.5-10.5) mg/dL Magnesium (1.7-2.3) mg/dL Total Bilirubin (0.15-1.2) mg/dL AST (0-32) U/L ALT (0-33) U/L Alkaline Phosphata se (35-105) IU/L Troponin T Baselin e (0-10) ng/L Troponin T 120 Min [place] (0-10) ng/L Delta Troponin T (0-10) ABS# Total Protein (6.6-8.7) g/dL Albumin (3.5-5.2) g/dL Globulin (1.3-4.6) g/dL Urine Color (Yellow) Urine Appearance (CLEAR) Urine pH (5-7) Ur Specific Gravit y (1.005-1.030) Urine Protein (Negative) Urine Glucose (UA) (Normal) Urine Ketones (Negative) Urine Blood (Negative) Urine Nitrate (Negative) Urine Bilirubin (Negative) Urine Urobilinogen (Negative) mg/dL Ur Leukocyte [place] ase (Negative) Urine RBC (0-2) /hpf Urine WBC (0-5) /hpf Ur Squamous Epith Cells (0-5) /hpf Amorphous Sediment Urine Bacteria (NONE) /hpf Influenza Type A A g Negative (Negative) Influenza Type B A g Negative (Negative) SARS-CoV-2 Ag (Rap id) Negative (Negative) 12/17/19 12/17/19 12/17/19 Range/Units 07:52 08:12 08:12 WBC (4.0-10.0) 10^3/ uL RBC (4.1-5.3) 10^6/u L Hgb (11.5-15.3) g/dL Hct (37.0-47.0) % MCV (81-99) fL MCH (28.0-34.0) pg MCHC (30.0-36.0) g/dL RDW (12.1-15.1) % Plt Count (130-400) 10^3/c mm MPV (7.4-10.4) fL Neut % (Auto) % Lymph % (Auto) % [place] % (Auto) % Eos % (Auto) % Baso % (Auto) % Neut # (Auto) (1.8-7.7) 10^3/u L Lymph # (Auto) (0.8-4.8) 10^3/u L [place] # (Auto) (0.2-0.9) 10^3/u L Eos # (Auto) (0.0-0.8) 10^3/u L Baso # (Auto) (0.0-0.1) 10^3/u L Nucleated RBC % (a uto) % Nucleated RBCs # /100WBC Specimen Type Sample Site ABG pH (7.35-7.45) ABG pCO2 (35-45) mmHg ABG pO2 (80.0-100.0) mmH g ABG HCO3 (22-26) mmol/L ABG Base Excess (-2.0-2.0) mmol/ L Jean Test Hematocrit (37-47) % O2 Delivery Device O2 Liters/Min % FiO2 % Engineering And Operations Director ID Sodium (136-145) mmol/L Potassium (3.5-5.1) mmol/L Chloride (98-107) mmol/L Carbon Dioxide (22-29) mmol/L Anion Gap (5-19) BUN (8-23) mg/dL Creatinine (0.5-0.9) mg/dL GFR Calculation (90-130) mL/min Glucose (65-115) mg/dL Calculated Osmolal ity (285-295) mOsm/k g Lactic Acid 0.6 (0.5-2.2) mmol/L Calcium (8.5-10.5) mg/dL Magnesium (1.7-2.3) mg/dL Total Bilirubin (0.15-1.2) mg/dL AST (0-32) U/L ALT (0-33) U/L Alkaline Phosphata se (35-105) IU/L Troponin T Baselin e (0-10) ng/L Troponin T 120 Min [place] 21.67 H (0-10) ng/L Delta Troponin T -2.33 L (0-10) ABS# Total Protein (6.6-8.7) g/dL Albumin (3.5-5.2) g/dL Globulin (1.3-4.6) g/dL Urine Color Yellow (Yellow) Urine Appearance Sl hazy (CLEAR) Urine pH 5.0 (5-7) Ur Specific Gravit y 1.005 (1.005-1.030) Urine Protein Neg (Negative) Urine Glucose (UA) Norm (Normal) Urine Ketones Negative (Negative) Urine Blood Neg (Negative) Urine Nitrate Negative (Negative) Urine Bilirubin Neg (Negative) Urine Urobilinogen Norm (Negative) mg/dL Ur Leukocyte [place] Trace H (Negative) Urine RBC None (0-2) /hpf Urine WBC 0-4 H (0-5) /hpf Ur Squamous Epith Cells Rare (0-5) /hpf Amorphous Sediment Not Reportable Urine Bacteria 2+ H (NONE) /hpf Influenza Type A A g (Negative) Influenza Type B A g (Negative) SARS-CoV-2 Ag (Rap id) (Negative) Discharge Plan Discharge Patient Disposition: Home Clinical Impression: Acute exacerbation of chronic obstructive airways disease Condition: Stable Prescriptions: New Medrol (Ihsan) 4 mg tablets,dose pack See Rx Instructions .ROUTE .COMPLEX Qty: 21 RF: 0 No Action Chantix 1 mg tablet 1 mg PO BID Qty: 56 RF: 3 levetiracetam 500 mg tablet extended release 24 hr 2,000 mg PO Q24H Qty: 120 RF: 11 fluticasone propion-salmeterol [Wixela Inhub] 250-50 mcg/dose blister with device 1 inh INHALATION BID RF: 0 doxycycline hyclate 100 mg capsule 100 mg PO BID Qty: 20 RF: 0 Miralax 17 gram powder in packet 17 g PO DAILY Qty: 30 RF: 1 albuterol sulfate 2.5 mg /3 mL (0.083 %) solution for nebulization 2.5 mg INHALATION QID PRN (Reason: shortness of breath or wheezing) Qty: 180 RF: 3 trazodone 50 mg tablet 50 mg PO DAILY Qty: 90 RF: 0 Carafate 1 gram tablet 1 gm PO TID Qty: 90 RF: 3 Proventil HFA 90 mcg/actuation HFA aerosol inhaler 1 puff INHALATION QID Qty: 6.7 RF: 2 cetirizine 10 mg capsule 10 mg PO DAILY Qty: 90 RF: 1 Spiriva with HandiHaler 18 mcg capsule, w/inhalation device 1 cap INHALATION DAILY Qty: 90 RF: 1 cholecalciferol (vitamin D3) 50 mcg (2,000 unit) capsule 50 mcg PO DAILY Qty: 30 RF: 5 fluticasone propionate [Flonase Allergy Relief] 50 mcg/actuation spray,suspension 2 spray INTRANASAL DAILY Qty: 15.8 RF: 0 guaifenesin 600 mg Tablet Extended Release 12hr 600 mg PO BID RF: 0 Tessalon Perles 100 mg Capsule 100 mg PO TID RF: 0 vitamin D3-vitamin K2 1000-90 unit-mcg Tablet,Disintegrating 2,000 tab PO RF: 0 tramadol 50 mg tablet 50 mg PO TID PRN (Reason: pain) Qty: 14 RF: 0 Protonix 40 mg tablet,delayed release (DR/EC) 40 mg PO DAILY Qty: 30 RF: 0 Discharge Orders: Discharge Order (Routine); Ordered 12/17/19 Ordered By: Dex Phillips Referrals: Emma Novoa DO [Primary Care Provider] - Discharge Diet: Usual diet Discharge Activity: Limit activity as instructed Activity Restrictions/Additional Instructions: Discharge home on steroid taper, complete doxycycline previously prescribed. Follow-up with primary care provider within the next 3 to 5 days. A second more definitive Covid test has been ordered you should remain in self quarantine until that result is returned. Discharge Date/Time: 12/17/19 09:35 Sign Out Sign Out Data: Patient Sign Out occurred on 12/17/19 at 07:09. Patient's care was discussed, and care was transferred from to Dex Phillips DO. Coding Level of Care Code ED Product Safety Associate for Nickg Fwd Exam Comprehensive
[2019-12-17 05:48] VITALS: BP 91/59; PULSE 76; RESP 19; O2SAT 97
[2019-12-17 05:55] LABS: Basophils % 0.3 %; Eosinophils % 0.7 %; Hematocrit 42.6 % (37.0-47.0); Hemoglobin 14.1 g/dL (11.5-15.3); Lymphocytes # 0.6 10^3/uL (0.8-4.8); Mean Corpuscular HGB Conc 33.1 g/dL (30.0-36.0); Mean Corpuscular Hemoglobin 34.1 pg (28.0-34.0); Mean Corpuscular Volume 102.9 fL (81-99); Mean Platelet Volume 11.3 fL (7.4-10.4); Monocytes # 0.7 10^3/uL (0.2-0.9); Monocytes % 12.6 %; Neutrophils % 75.2 %; Nucleated Red Blood Cells % 0 %; Platelet Count 134 10^3/cmm (130-400); Red Blood Count 4.14 10^6/uL (4.1-5.3); Red Cell Distribution Width 12.3 % (12.1-15.1); White Blood Count 5.7 10^3/uL (4.0-10.0)
[2019-12-17 06:08] LABS: Alanine Aminotransferase 12 U/L (0-33); Albumin Level 4.4 g/dL (3.5-5.2); Alkaline Phosphatase 114 IU/L (35-105); Anion Gap 15.7 (5-19); Aspartate Amino Transferase 20 U/L (0-32); Blood Urea Nitrogen 5 mg/dL (8-23); Calcium 9.2 mg/dL (8.5-10.5); Carbon Dioxide 23 mmol/L (22-29); Chloride 108 mmol/L (98-107); Globulin 2.1 g/dL (1.3-4.6); Glomerular Filtration Rate 125.9 mL/min (90-130); Glucose 108 mg/dL (65-115); Magnesium 2.1 mg/dL (1.7-2.3); Osmolality Calculated 294 mOsm/kg (285-295); Potassium 3.7 mmol/L (3.5-5.1); Sodium 143 mmol/L (136-145); Total Bilirubin 0.2 mg/dL (0.15-1.2); Total Protein 6.5 g/dL (6.6-8.7)
[2019-12-17 06:20] LABS: Troponin(5th) Baseline 24 ng/L (0-10)
[2019-12-17 06:36] LABS: Influenza A by IFA Negative (Negative); Influenza B by IFA Negative (Negative); SARS Covid-2 Antigen Negative (Negative)
[2019-12-17] MEDS: dexamethasone 10 mg/mL INJ IVP (06:42)
[2019-12-17] MEDS: sodium chloride 0.9% 1,000 ML 100 ML IV (06:44)
[2019-12-17 06:45] VITALS: BP 126/84; PULSE 100; RESP 16; O2SAT 98
[2019-12-17] MEDS: albuterol 8 gm MDI 6 PUFF INHALATION (07:15)
[2019-12-17 07:35] LABS: ABG PCO2 43.2 mmHg (35-45); ABG PH Result 7.32 (7.35-7.45); Arterial Blood Gas Hematocrit 41.3 % (37-47); Base Excess ABG -3.6 mmol/L (-2.0-2.0); Blood Gas Allen Test Pos; Blood Gas Operator Identificat AMH; Blood Gas Sample Site Brachial, left; Blood Gas Sample Type Arterial; HCO3 ABG 22.4 mmol/L (22-26); Oxygen Device NC
[2019-12-17 07:36] VITALS: PULSE 100; RESP 16; O2SAT 98
[2019-12-17 08:43] LABS: Urine Appearance SL Hazy (CLEAR); Urine Color Yellow (Yellow)
[2019-12-17 08:44] LABS: Add Urine Culture? Yes; Add Urine Microscopic? YES; Bacteria Urine 2+ /hpf; Bilirubin Urine Neg (Negative); Blood Urine Neg (Negative); Glucose Urine UA Norm (Normal); Ketones Urine Negative (Negative); Leukocyte Esterase Urine Trace (Negative); Nitrate Urine Negative (Negative); Protein Urine Neg (Negative); Specific Gravity, Urine 1.005 (1.005-1.030); Squamous Epithelial Cell Urine RARE /hpf (0-5); Urobilinogen Urine Norm (Negative); WBC Urine 0-4 /hpf (0-5)
[2019-12-17 08:54] LABS: Lactic Sepsis W/Reflex 0.6 mmol/L (0.5-2.2)
[2019-12-17 09:02] LABS: Troponin 5 2HR 21.67 ng/L (0-10)
[2019-12-17 09:03] LABS: Troponin 5 2HR Delta -2.33 ABS# (0-10)
[2019-12-17 09:35] VITALS: BP 114/72; PULSE 93; RESP 18; O2SAT 99
[2019-12-18 22:28] LABS: Quest SARS-CoV-2 RNA NOT DETECTED (NOT DETECTED)
--- NOTE | 2019-12-20 16:56 | PC.NURSE ---
Pt called and notified of negative COVID result.
== END 2019-12-17 09:35 | disposition home or self-care (01) ==
PROVIDERS: Emergency Medicine; Emergency Provider Family Medicine; PCP Family Medicine
DX: J44.1 Chronic obstructive pulmonary disease with (acute) exacerbation (principal); F17.210 Nicotine dependence, cigarettes, uncomplicated
CPT/HCPCS: 12345; 36415; 36600; 71045; 80053; 81001; 82803; 83605; 83735; 84484; 85025; 87040; 87077; 87086; 87186; 87426; 87635; 87804; 93005; 94640; 96361; 96374; 96375; 99284; J1100; J3535; J7030

== ENCOUNTER 2020-01-15 21:01 | Observation (INO) | payer MEDICAID, SELFPAY ==
--- NOTE | 2020-01-15 21:12 | XR_ITS ---
WS: [id number] Portable AP upright chest, 01/16/2020 Clinical Data: cp Comparison: Portable chest, 12/17/2019. Findings: No masses or effusions are seen. The heart is normal. The pulmonary vascularity is not incr eased. No pneumonia or pneumothorax is seen. The right upper lobe nodule remains unchanged. The diaph ragms are flattened. Monitor leads are on the chest wall. There is minimal left lower lobe linear ate lectasis. XR/XR chest 1V portable [id number] Impression: 1. No change in right upper lobe nodule. 2. Hyperinflation.
--- NOTE | 2020-01-15 21:13 | ECG_ITS ---
[facility] Test Date: 2020-01-15 Pat Name: Maryjo Gomez Department: Room: Gender: Female Solutions Developer: : 1960 Requested By: Jw Shipman Order Number: [id number] Serina MD: Hair Costello M.D. Measurements Intervals [place] Rate: 135 P: 85 VT: 135 QRS: -64 QRSD: 98 T: 92 QT: 278 QTc: 418 Interpretive Statements SINUS TACHYCARDIA LEFT ANTERIOR FASCICULAR BLOCK [QRS AXIS <= -45, QR IN I, RS IN II] LEFT VENTRICULAR HYPERTROPHY AND ST-T CHANGE [VOLTAGE CRITERIA PLUS ST/T ABNORMALITY] Compared to ECG 12/17/2019 07:44:07 ST (T wave) deviation now present Sinus rhythm no longer present Myocardial infarct finding still present Electronically Signed On 01-17-2020 20:10:29 TORCH HEATER by Hair Costello M.D. [id number] f
[2020-01-15 21:15] VITALS: BP 125/84; PULSE 143; RESP 22; TEMP 36.8; O2SAT 94; BMI 17.2
--- NOTE | 2020-01-15 22:49 | W.ED.SOB ---
HPI - SOB/Dyspnea General: Chief Complaint: Shortness of Breath/Dyspnea Stated Complaint: CHEST PAID, SOB, COUGH Time Seen by Provider: 01/15/20 22:47 Source: patient Mode of arrival: ambulatory Limitations: no limitations History of Present Illness: HPI Narrative: Maryjo is a nice 59-year-old female who comes in complaining of shortness of breath, cough and flulike symptoms. Patient states that she has COPD and has to wear 2 L of nasal cannula oxygen. She has flareups like this quite often. She states this 1 most recently started about 3 to 4 days ago. Her cough is dry but occasionally productive of colored sputum. She is not had a fever. She not been chilled. She not been around anybody that has the Covid virus that she is aware of. She otherwise denies any complaints or concerns. She has chest discomfort only when she coughs. She denies any chest pain when she takes a deep breath. Associated symptoms: Reports chest congestion; Deny abdominal pain, chest pain, diaphoresis, dizziness, extremity pain, fever(s), hemoptysis, lightheadedness, nausea, orthopnea, palpitations, syncope or vomiting Review of Systems Const: Reports: body aches, fatigue and malaise; Denies: fever(s), chills or diaphoresis Eyes: Denies: change in vision, blurry vision, photophobia, eye discomfort, eye discharge, eye redness or yellow eyes ENMT: Denies: throat pain, odynophagia, hoarseness, swelling of lips/tongue, ear or mastoid pain, ear discharge, change in hearing or nasal discharge Card: Denies: chest pain, palpitations, irregular heart rhythm, edema, lightheadedness, syncope, pre-syncope, dyspnea on exertion or orthopnea Resp: Reports: dyspnea, non-productive cough, wheezing and chest congestion; Denies: productive cough or hemoptysis GI: Denies: abdominal pain, nausea, vomiting, hematemesis, coffee ground emesis, heartburn, diarrhea, constipation, GI cramping, hematochezia or melena : Denies: flank pain, dysuria, urinary frequency, urinary urgency or hematuria Musc: Denies: neck pain, back pain, extremity pain, extremity swelling, joint pain, joint swelling, joint redness, joint warmth or joint stiffness Skin/Breast: Denies: rash, pruritus, erythema, skin pain or skin tenderness Neuro: Denies: headache(s), numbness in extremities, weakness in extremities, sensory changes, lack of coordination, difficulty walking, dizziness, vertigo, confusion, Slurred speech present or seizure-like activity Emmanuel/Lymph: Denies: easy bruising, easy bleeding, petechiae, purpura or enlarged lymph nodes All/Imm: Denies: urticaria, throat swelling, tongue swelling, facial swelling or acute wheezing PFSH ED PFSH: Medical History Chronic constipation COPD (chronic obstructive pulmonary disease) GERD (gastroesophageal reflux disease) Insomnia Seizure disorder Surgical History H/O section Family History Other CAD (coronary artery disease) Cancer Diabetes Social History Smoking and tobacco status: current every day smoker cigarettes Packs smoked per day: 0.5 Alcohol intake: never Physical Exam Const: COMMON NORMALS: no acute distress, patient oriented x3, no limitations and alert GENERAL APPEARANCE: cooperative HENMT: COMMON NORMALS: normocephalic, atraumatic, external ears normal, EAC's normal and Normal external nose present HEAD & SCALP: normal to inspection, normocephalic and atraumatic FACE & SINUS: normal facial exam and face symmetric NOSE: Normal external nose present and Normal nares present EXTERNAL EAR: Yes external ears normal EXTERNAL AUDITORY CANAL: EAC's normal MOUTH: Normal oral and palatal mucosa present, lip normal and tongue normal Eye: COMMON NORMALS: Equal, round and reactive pupils present and conjunctivae normal GENERAL EYE: appearance normal, both eyes and all related structures ALIGNMENT: Yes alignment normal PERIORBITAL: periorbital findings normal EYELID: eyelids normal CONJUNCTIVA: Yes conjunctivae normal SCLERA: sclerae normal PUPIL: Yes Equal, round and reactive pupils present Neck/C-Spine: COMMON NORMALS: full ROM, no lymphadenopathy, supple, no meningeal signs and no JVD GENERAL: Yes normal visual inspection and Yes trachea midline Chest: COMMONS NORMALS: normal inspection of the chest and normal palpation of entire chest wall Resp: EFFORT & INSPECTION: Yes symmetric chest movement, Yes Actively coughing, Yes uses accessory muscles and Yes audible wheezes AUSCULTATION: no crackles, no rales, rhonchi, wheezes and diminished lung sounds Cardio: COMMON NORMALS: no JVD, regular rhythm, S1 normal heart sound present and S2 normal heart sound present RATE: tachycardic RHYTHM: regular rhythm HEART SOUNDS: S1 normal heart sound present, S2 normal heart sound present, no click, no gallops, no murmurs and no rubs GI: COMMON NORMALS: Soft to palpation and No hepatosplenomegaly present PALPATION: Yes Soft to palpation, No Tenderness to palpation present (GI), No Guarding due to palpation present (GI), No Rigid due to palpation, Yes No hepatosplenomegaly present, No Hernia present, No Palpable mass present and No Pulsatile mass present : COMMON NORMALS: Yes no CVA tenderness BLADDER/KIDNEY EXAM: Yes no CVA tenderness EXTERNAL FEMALE EXAM: No Hernia present Back/Pelvis: COMMON NORMALS: no CVA tenderness, thoracic and lumbar spine normal to inspection, no thoracic nor lumbar tenderness and thoraco-lumbar ROM normal Extremity: COMMON NORMALS: normal to inspection, full ROM, capillary refill normal, no joint enlargement, no clubbing, cyanosis or edema and no calf tenderness Neuro: COMMON NORMALS: patient oriented x3, CN's II-XII intact bilaterally, moves all extremities, no focal motor deficits and no sensory deficits noted SENSORIUM/ORIENTATION: Yes alert MENINGEAL SIGNS: Yes no meningeal signs SPEECH: speech normal Psych: COMMON NORMALS: mental status grossly normal, Normal thought process present, cooperative, normal affect, speech normal and activity/motor behavior normal SPEECH: Yes normal speech THOUGHT PROCESS: Normal thought process present Skin: COMMON NORMALS: no rashes or lesions noted, turgor normal, no jaundice, no petechiae and no mottling GENERAL SKIN EXAM: no rashes or lesions noted and turgor normal Course Vital Signs: Vital signs: Vital Signs Temperature 98.3 F 01/15/20 21:15 Pulse Rate 128 H 01/16/20 00:26 Respiratory Rate 20 H 01/16/20 00:26 Blood Pressure 118/76 01/16/20 00:26 Pulse Oximetry 99 01/16/20 00:26 MDM - SOB/Dyspnea Lab Data: Labs: Lab Results 01/15/20 01/15/20 01/15/20 Range/Units 22:44 22:44 22:44 WBC 10.3 H (4.0-10.0) 10^3/ uL RBC 4.31 (4.1-5.3) 10^6/u L Hgb 14.7 (11.5-15.3) g/dL Hct 44.5 (37.0-47.0) % MCV 103.2 H (81-99) fL MCH 34.1 H (28.0-34.0) pg MCHC 33.0 (30.0-36.0) g/dL RDW 12.9 (12.1-15.1) % Plt Count 197 (130-400) 10^3/c mm MPV 11.5 H (7.4-10.4) fL Neut % (Auto) 86.5 % Lymph % (Auto) 5.3 % Bath % (Auto) 7.3 % Eos % (Auto) 0.2 % Baso % (Auto) 0.3 % Neut # (Auto) 8.93 H (1.8-7.7) 10^3/u L Lymph # (Auto) 0.6 L (0.8-4.8) 10^3/u L Bath # (Auto) 0.8 (0.2-0.9) 10^3/u L Eos # (Auto) 0.0 (0.0-0.8) 10^3/u L Baso # (Auto) 0.0 (0.0-0.1) 10^3/u L Nucleated RBC % (a uto) 0 % Nucleated RBCs # 0.0 /100WBC D-Dimer (0-0.59) ug/mIFE U Specimen Type Sample Site ABG pH (7.35-7.45) ABG pCO2 (35-45) mmHg ABG pO2 (80.0-100.0) mmH g ABG HCO3 (22-26) mmol/L ABG Base Excess (-2.0-2.0) mmol/ L Jean Test Hematocrit (37-47) % O2 Delivery Device O2 Liters/Min % Spray Drier Operator ID Sodium 136 (136-145) mmol/L Potassium 3.7 (3.5-5.1) mmol/L Chloride 101 (98-107) mmol/L Carbon Dioxide 25 (22-29) mmol/L Anion Gap 13.7 (5-19) BUN 12 (8-23) mg/dL Creatinine 0.6 (0.5-0.9) mg/dL GFR Calculation 102.0 (90-130) mL/min Glucose 113 (65-115) mg/dL Calculated Osmolal ity 283 L (285-295) mOsm/k g Calcium 9.7 (8.5-10.5) mg/dL Total Bilirubin 0.3 (0.15-1.2) mg/dL AST 14 (0-32) U/L ALT 10 (0-33) U/L Alkaline Phosphata se 141 H (35-105) IU/L Troponin T Baselin e 37 H (0-10) ng/L Total Protein 7.4 (6.6-8.7) g/dL Albumin 4.3 (3.5-5.2) g/dL Globulin 3.1 (1.3-4.6) g/dL 01/15/20 01/16/20 Range/Units 23:29 00:01 WBC (4.0-10.0) 10^3/ uL RBC (4.1-5.3) 10^6/u L Hgb (11.5-15.3) g/dL Hct (37.0-47.0) % MCV (81-99) fL MCH (28.0-34.0) pg MCHC (30.0-36.0) g/dL RDW (12.1-15.1) % Plt Count (130-400) 10^3/c mm MPV (7.4-10.4) fL Neut % (Auto) % Lymph % (Auto) % Bath % (Auto) % Eos % (Auto) % Baso % (Auto) % Neut # (Auto) (1.8-7.7) 10^3/u L Lymph # (Auto) (0.8-4.8) 10^3/u L Bath # (Auto) (0.2-0.9) 10^3/u L Eos # (Auto) (0.0-0.8) 10^3/u L Baso # (Auto) (0.0-0.1) 10^3/u L Nucleated RBC % (a uto) % Nucleated RBCs # /100WBC D-Dimer 0.80 H (0-0.59) ug/mIFE U Specimen Type Arterial Sample Site Brachial, right ABG pH 7.39 (7.35-7.45) ABG pCO2 37.9 (35-45) mmHg ABG pO2 60.3 L (80.0-100.0) mmH g ABG HCO3 22.7 (22-26) mmol/L ABG Base Excess -2.0 (-2.0-2.0) mmol/ L Jean Test N/a Hematocrit 46.6 (37-47) % O2 Delivery Device Nc O2 Liters/Min 2.0 % Spray Drier Operator ID [email or web address] Sodium (136-145) mmol/L Potassium (3.5-5.1) mmol/L Chloride (98-107) mmol/L Carbon Dioxide (22-29) mmol/L Anion Gap (5-19) BUN (8-23) mg/dL Creatinine (0.5-0.9) mg/dL GFR Calculation (90-130) mL/min Glucose (65-115) mg/dL Calculated Osmolal ity (285-295) mOsm/k g Calcium (8.5-10.5) mg/dL Total Bilirubin (0.15-1.2) mg/dL AST (0-32) U/L ALT (0-33) U/L Alkaline Phosphata se (35-105) IU/L Troponin T Baselin e (0-10) ng/L Total Protein (6.6-8.7) g/dL Albumin (3.5-5.2) g/dL Globulin (1.3-4.6) g/dL Imaging Data^: CXR: Attestation: I personally reviewed and interpreted this imaging study as follows: My impression: No acute cardiopulmonary findings. Discharge Plan Discharge Prescriptions: No Action Chantix 1 mg tablet 1 mg PO BID Qty: 56 RF: 3 levetiracetam 500 mg tablet extended release 24 hr 2,000 mg PO Q24H Qty: 120 RF: 11 doxycycline hyclate 100 mg capsule 100 mg PO BID Qty: 20 RF: 0 Miralax 17 gram powder in packet 17 g PO DAILY Qty: 30 RF: 1 albuterol sulfate 2.5 mg /3 mL (0.083 %) solution for nebulization 2.5 mg INHALATION QID PRN (Reason: shortness of breath or wheezing) Qty: 180 RF: 3 trazodone 50 mg tablet 50 mg PO DAILY Qty: 90 RF: 0 Carafate 1 gram tablet 1 gm PO TID Qty: 90 RF: 3 Proventil HFA 90 mcg/actuation HFA aerosol inhaler 1 puff INHALATION QID Qty: 6.7 RF: 2 cetirizine 10 mg capsule 10 mg PO DAILY Qty: 90 RF: 1 Spiriva with HandiHaler 18 mcg capsule, w/inhalation device 1 cap INHALATION DAILY Qty: 90 RF: 1 cholecalciferol (vitamin D3) 50 mcg (2,000 unit) capsule 50 mcg PO DAILY Qty: 30 RF: 5 fluticasone propionate [Flonase Allergy Relief] 50 mcg/actuation spray,suspension 2 spray INTRANASAL DAILY Qty: 15.8 RF: 0 fluticasone propion-salmeterol [Wixela Inhub] 250-50 mcg/dose blister with device 1 inh INHALATION BID Qty: 60 RF: 0 guaifenesin 600 mg Tablet Extended Release 12hr 600 mg PO BID RF: 0 Tessalon Perles 100 mg Capsule 100 mg PO TID RF: 0 vitamin D3-vitamin K2 1000-90 unit-mcg Tablet,Disintegrating 2,000 tab PO RF: 0 tramadol 50 mg tablet 50 mg PO TID PRN (Reason: pain) Qty: 14 RF: 0 Medrol (Ihsan) 4 mg tablets,dose pack See Rx Instructions .ROUTE .COMPLEX Qty: 21 RF: 0 Protonix 40 mg tablet,delayed release (DR/EC) 40 mg PO DAILY Qty: 30 RF: 0 Coding Level of Care Code ED Medical Device Engineer for Chg Fwd Exam Comprehensive
[2020-01-15 23:04] LABS: Basophils % 0.3 %; Eosinophils % 0.2 %; Hematocrit 44.5 % (37.0-47.0); Hemoglobin 14.7 g/dL (11.5-15.3); Lymphocytes # 0.6 10^3/uL (0.8-4.8); Lymphocytes % 5.3 %; Mean Corpuscular Hemoglobin 34.1 pg (28.0-34.0); Mean Corpuscular Volume 103.2 fL (81-99); Mean Platelet Volume 11.5 fL (7.4-10.4); Monocytes # 0.8 10^3/uL (0.2-0.9); Monocytes % 7.3 %; Neutrophils # 8.93 10^3/uL (1.8-7.7); Neutrophils % 86.5 %; Nucleated Red Blood Cells % 0 %; Platelet Count 197 10^3/cmm (130-400); Red Blood Count 4.31 10^6/uL (4.1-5.3); Red Cell Distribution Width 12.9 % (12.1-15.1); White Blood Count 10.3 10^3/uL (4.0-10.0)
[2020-01-15] MEDS: albuterol 8 gm MDI 6 PUFF INHALATION (23:12)
[2020-01-15 23:13] VITALS: PULSE 140; RESP 22; O2SAT 96
[2020-01-15 23:13] LABS: Alanine Aminotransferase 10 U/L (0-33); Albumin Level 4.3 g/dL (3.5-5.2); Alkaline Phosphatase 141 IU/L (35-105); Anion Gap 13.7 (5-19); Aspartate Amino Transferase 14 U/L (0-32); Blood Urea Nitrogen 12 mg/dL (8-23); Calcium 9.7 mg/dL (8.5-10.5); Carbon Dioxide 25 mmol/L (22-29); Chloride 101 mmol/L (98-107); Creatinine Clr Calc Pharmacy 77.1913; Globulin 3.1 g/dL (1.3-4.6); Glucose 113 mg/dL (65-115); Osmolality Calculated 283 mOsm/kg (285-295); Potassium 3.7 mmol/L (3.5-5.1); Sodium 136 mmol/L (136-145); Total Bilirubin 0.3 mg/dL (0.15-1.2); Total Protein 7.4 g/dL (6.6-8.7)
--- NOTE | 2020-01-15 23:13 | ECG_ITS ---
[facility] Test Date: 2020-01-15 Pat Name: Maryjo Gomez Department: Room: Gender: Female Emt Driver: : 1960 Requested By: Jw Shipman Order Number: [id number] Smalls MD: Hair Costello M.D. Measurements Intervals [place] Rate: 138 P: 81 IN: 128 QRS: -62 QRSD: 104 T: 95 QT: 285 QTc: 433 Interpretive Statements SINUS TACHYCARDIA LEFT ANTERIOR FASCICULAR BLOCK [QRS AXIS <= -45, QR IN I, RS IN II] LEFT VENTRICULAR HYPERTROPHY AND ST-T CHANGE [VOLTAGE CRITERIA PLUS ST/T ABNORMALITY] Compared to ECG 01/15/2020 22:35:58 No significant changes Electronically Signed On 01-17-2020 20:23:15 REMOTE MORTGAGE UNDERWRITER by Hair Costello M.D. [id number]
[2020-01-15 23:14] LABS: Troponin(5th) Baseline 37 ng/L (0-10)
[2020-01-15 23:17] VITALS: BP 136/80; PULSE 135; RESP 23; O2SAT 95
[2020-01-15 23:41] LABS: ABG PCO2 37.9 mmHg (35-45); ABG PH Result 7.39 (7.35-7.45); Arterial Blood Gas Hematocrit 46.6 % (37-47); Blood Gas Sample Site Brachial, right; Blood Gas Sample Type Arterial; HCO3 ABG 22.7 mmol/L (22-26); Oxygen Device NC; PO2 ABG 60.3 mmHg (80.0-100.0)
[2020-01-15 23:43] VITALS: PULSE 142; RESP 42; O2SAT 100
[2020-01-15 23:56] VITALS: BP 120/86; PULSE 138; RESP 31; O2SAT 97
[2020-01-16] VITALS (10 sets, daily range): BP systolic 102–118; BP diastolic 67–85; PULSE 89–128; RESP 16–25; TEMP 36.5–37; O2SAT 85–99
--- NOTE | 2020-01-16 00:58 | P.HP_ITS ---
Providers/Chief Complaint Primary Care Provider: Emma Novoa DO Chief Complaint: CHEST PAID, SOB, COUGH History of Present Illness Maryjo Gomez is a 59 year old female who is an active smoker, oxygen dependent COPD uses 2 L mostly at night, came in with chief complaint of worsening shortness of breath. Patient is stating that for last few weeks she has been experiencing nonproductive cough, she has not noticed any fever, nausea, or vomiting. Today she started experiencing right shoulder pain, with epigastric discomfort and worsening shortness of breath. Initially dyspnea was on exertion now experiencing at rest, smoking half pack a day, she is also noticing some nasal congestion. She is pointing towards epigastric region for discomfort which has subsided after albuterol regimen. Diagnosis in the ER revealed tachycardia, sinus tachycardia, tachypnea, hypoxic respiratory failure on 2 L nasal cannula, currently she is on CPAP settings 12 cmH2O, D-dimer high, Covid antigen negative, I have requested CTA chest, she received doxycycline in the ER. At the time my evaluation no active wheezing or respiratory distress no active chest pain, friend at the bedside. She has received 6 puffs of albuterol which relieved her symptoms. Review of Systems Const: Reports: chills, body aches and fatigue; Denies: fever(s) Eyes: Denies: change in vision ENMT: Denies: throat pain Card: Reports: dyspnea on exertion; Denies: chest pain, palpitations, swelling of feet/ankles or orthopnea Resp: Reports: dyspnea, non-productive cough and chest congestion GI: Reports: abdominal pain; Denies: nausea or diarrhea : Denies: flank pain Musc: Denies: neck pain Skin/Breast: Denies: rash Neuro: Denies: headache(s) Psych: Reports: anxiety Endo: Denies: polyuria Emmanuel/Lymph: Denies: easy bruising All/Imm: Denies: urticaria Medications/Allergies Home Medications Medication Instructions Recorded Confirmed Last Taken Type benzonatate [Tessalon Perles] 100 mg PO TID 03/13/19 10/23/19 03/13/19 History 100 guaifenesin 600 mg PO BID 03/13/19 10/23/19 03/13/19 History 600 vitamin D3-vitamin K2 2,000 tab PO 03/13/19 10/23/19 03/13/19 History 1000 tramadol 50 mg PO TID PRN #14 tab 03/19/19 10/23/19 Unknown Rx pantoprazole [Protonix] 40 mg PO DAILY #30 tab 03/28/19 10/23/19 Unknown Rx doxycycline hyclate 100 mg capsule 100 mg PO BID #20 cap 04/05/19 10/23/19 Unknown Rx polyethylene glycol 3350 17 gram 17 g PO DAILY #30 packet 05/13/19 10/23/19 Unknown Rx oral powder packet albuterol sulfate 2.5 mg INHALATION QID PRN #180 ml 05/28/19 10/23/19 Unknown Rx sucralfate 1 gram tablet 1 gm PO TID #90 tab 08/07/19 10/23/19 Unknown Rx trazodone 50 mg tablet 50 mg PO DAILY #90 tab 08/07/19 10/23/19 Unknown Rx albuterol sulfate 90 mcg/actuation 1 puff INHALATION QID #6.7 gm 09/03/19 10/23/19 Unknown Rx aerosol inhaler cetirizine 10 mg capsule 10 mg PO DAILY #90 cap 09/03/19 10/23/19 Unknown Rx tiotropium bromide 18 mcg capsule 1 cap INHALATION DAILY #90 inh 10/10/19 10/23/19 Unknown Rx with inhalation device levetiracetam 500 mg 2,000 mg PO Q24H #120 tab 10/23/19 10/23/19 Unknown Rx tablet,extended release 24 hr varenicline 1 mg tablet 1 mg PO BID #56 tab 10/23/19 10/23/19 Unknown Rx cholecalciferol (vitamin D3) 50 50 mcg PO DAILY #30 cap 11/12/19 Unknown Rx mcg (2,000 unit) capsule methylprednisolone [Medrol (Ihsan)] See Rx Instructions .ROUTE 12/17/19 Unknown Rx .COMPLEX #21 each fluticasone 250 mcg-salmeterol 50 1 inh INHALATION BID #60 each 01/10/20 Unknown Rx mcg/dose blistr powdr for inhalation fluticasone propionate 50 2 spray INTRANASAL DAILY #15.8 ml 01/10/20 Unknown Rx mcg/actuation nasal spray,suspension Allergies Allergy/AdvReac Type Severity Reaction Status Date / Time No Known Allergies Allergy Verified 12/17/19 05:43 PFSH Acute PFSH: Medical History (Updated 01/16/20 @ 01:42 by Vel Zamorano MD) Chronic constipation COPD (chronic obstructive pulmonary disease) GERD (gastroesophageal reflux disease) Insomnia Seizure disorder Surgical History H/O section Family History (Updated 01/16/20 @ 01:40 by Vel Zamorano MD) Other CAD (coronary artery disease) Cancer Diabetes Social History (Updated 01/16/20 @ 01:39 by Vel Zamorano MD) Smoking and tobacco status: current every day smoker cigarettes Packs smoked per day: 0.5 Alcohol intake: never Substance/Drug Use: never Lives independently: Yes Housing: House Vitals/I&O/Wt Last Vital Signs Temp 98.3 F 01/15/20 21:15 Pulse 128 H 01/16/20 00:26 Resp 20 H 01/16/20 00:26 BP 118/76 01/16/20 00:26 Pulse Ox 99 01/16/20 00:26 Weight last 48 hrs Weight 43.998 kg Physical Exam Narrative: EXAM NARRATIVE: Frail middle-aged female Appears more than stated age currently on CPAP settings 12 cmH2O Saturating 97% Very agitated and irritable No active wheezing or stridor heard No acute respiratory distress, bilateral assisted breath sounds without significant wheezing There was strong nicotine smell in the room when I entered Friend at the bedside Patient is awake alert oriented x3 GCS 15, no neurological deficit EOMI, PERRLA S1, S2 sinus tach cardia no signs of heart failure Abdomen soft nontender bowel sound present Lower extremity no edema gangrene ulcer Irritable mood Data : 01/15/20 22:44 01/15/20 22:44 A&P Assessment and plan (1) Acute and chronic respiratory failure with hypoxia: Status: Acute (2) Sinus tachycardia: Status: Acute (3) Nicotine dependence, cigarettes, with unspecified nicotine-induced disorders: Status: Acute (4) Gastritis: Status: Acute Qualifiers: Gastritis type: unspecified gastritis Chronicity: chronic Gastritis bleeding: presence of bleeding unspecified Qualified Code(s): K29.50 - Unspecified chronic gastritis without bleeding Additional A&P Information Acute on chronic hypoxic respiratory failure with underlying COPD Worsening hypoxia due to active smoking, no infiltrate seen on chest x-ray Rule out PE Patient currently has sinus tachycardia along high D-dimer, I have requested CTA chest First therapeutic dose of Lovenox given in the ER She received first dose of doxycycline as well which I will discontinue, Patient is endorsing nonproductive cough, she is not septic afebrile, mild leukocytosis We will keep her on prednisone 40 mg Patient counseled on smoking cessation Epigastric discomfort secondary to gastritis I will keep her on Protonix for now Nicotine dependence Patient is stating that she is try to cut down her cigarette usage, she has cut down from 2 packs a day to half a pack a day Need extensive reinforcement History of epilepsy: Continue Keppra regimen Full code DVT prophylaxis Lovenox Cardiac diet Attestations Medical Necessity Statement*: During discharge in less than 48 hours continued overnight monitoring for acute on chronic hypoxic respiratory failure, need to rule out PE awaiting CTA results Time Spent in Patient Care: (>than 50% of time spent in counselling and/or direct pt care on unit) . 35mins Coding Level of Care Code Acute Land Measurer for [place] Diagnoses Acute and chronic respiratory failure with hypoxia J96.21 Sinus tachycardia R00.0 Nicotine dependence, cigarettes, with unspecified nicotine-induced disorders F17.219 Gastritis K29.50 Gastritis type: unspecified gastritis Chronicity: chronic Gastritis bleeding: presence of bleeding unspecified
--- NOTE | 2020-01-16 01:08 | CTR_ITS ---
PROCEDURE INFORMATION: Exam: CT Angiography Chest With Contrast Exam date and time: 01/16/2020 1:26 AM Age: 59 years old Clinical indication: Cough and shortness of breath; Chest pain; Additional info: Pe TECHNIQUE: Imaging protocol: Computed tomographic angiography of the chest with intravenous contrast. 3D rendering (Not supervised by radiologist): MIP and/or 3D reconstructed images were created by the technologist. Radiation optimization: All CT scans at this facility use at least one of these dose optimization techniques: automated exposure control; mA and/or kV adjustment per patient size (includes targeted exams where dose is matched to clinical indication); or iterative reconstruction. Contrast material: OMNI 350; Contrast volume: 95 ml; Contrast route: INTRAVENOUS (IV); COMPARISON: CT Chest/Abdomen/Pelvis w IV* 07/31/2014 9:53 AM RADIATION DOSE METRICS: Total DLP (mGy-cm): 359.01 FINDINGS: Pulmonary arteries: Normal. No pulmonary emboli. Motion degradation limits detailed assessment of peripheral segmental and subsegmental arteries. Aorta: Unremarkable. No aortic aneurysm. No aortic dissection. Lungs: Emphysematous changes with areas of pleuroparenchymal scarring. Partially calcified nodule right upper lobe measures 2.0 cm demonstrates interval progression of the noncalcified component at the superior aspect of the nodule. 0.37 cm nodule right lower lobe is stable. Oval slightly nodular configured pleuroparenchymal opacity right lower lobe posteriorly near the diaphragmatic margin is similar. Slightly more focal interstitial process in the left lower lobe medially could not exclude minor acute pneumonitis. Perihilar airway thickening with areas of bronchiectasis. Pleural space: Unremarkable. No pneumothorax. No pleural effusion. Heart: Cardiac enlargement with left ventricular dilatation. Trace calcification thoracic aorta and distribution of coronary arteries. Mediastinal space: Air distention throughout the esophagus. Lymph nodes: Few scattered paratracheal in subcarinal mediastinal lymph nodes largest at the tracheal bifurcation measures 1.5 cm. Liver: Two indeterminate foci of irregular hyperenhancement in the right hepatic lobe laterally measures 1.2 cm and within the lower anterior margin of right hepatic lobe measures 0.9 cm. Adrenals: Nodular thickening left adrenal gland. Bones/joints: Unremarkable. No acute fracture. Soft tissues: Unremarkable. CT/CT angio chest PE protcl [id number] IMPRESSION: 1. No visualized pulmonary embolus. 2. Cardiomegaly. 3. Mild mediastinal adenopathy could be reactive. 4. Partially calcified nodule right upper lobe with interval progression of the noncalcified component superiorly. Additional nodule right lower lobe. For patients at low risk (minimal or absent history of smoking and of other known risk factors), recommend CT Chest at 3-6 months, then consider CT Chest at 18-24 months. For patients at high risk (history of smoking or of other known risk factors), recommend CT Chest at 3-6 months, then CT Chest at 18-24 months. (Reference: Tami) 5. Emphysematous changes with multifocal areas of pleuroparenchymal scarring bilaterally. 6. Indeterminate hyperenhancing foci within the right hepatic lobe. Consider further follow-up multiphase CT of the abdomen. REFERENCES: Tami Piña, et al. Guidelines for Management of Incidental Pulmonary Nodules Detected on CT Images: From the Fleischner Society 2017. Radiology. 2017;284(1):228-243. Radiation Dose CTDIVOL = (mGy): DLP = 359.01 (mGy-cm)
[2020-01-16 01:15] LABS: SARS Covid-2 Antigen Negative (Negative)
[2020-01-16] MEDS: iohexol 350 mg/mL 100 mL Btl IV (01:42)
--- NOTE | 2020-01-16 02:08 | PC.NURSE ---
Patient refused subcutaneous Lovenox
[2020-01-16] MEDS: levETIRAcetam 500 mg Tablet 2000 MG PO (03:37)
[2020-01-16 04:16] LABS: Troponin 5 6HR 26.53 ng/L (0-10)
[2020-01-16 04:17] LABS: Basophils % 0.1 %; Hematocrit 41.1 % (37.0-47.0); Hemoglobin 13.3 g/dL (11.5-15.3); Lymphocytes # 0.2 10^3/uL (0.8-4.8); Lymphocytes % 2.1 %; Mean Corpuscular HGB Conc 32.4 g/dL (30.0-36.0); Mean Corpuscular Hemoglobin 33.9 pg (28.0-34.0); Mean Corpuscular Volume 104.8 fL (81-99); Mean Platelet Volume 11.5 fL (7.4-10.4); Monocytes # 0.1 10^3/uL (0.2-0.9); Monocytes % 1.2 %; Neutrophils # 9.09 10^3/uL (1.8-7.7); Neutrophils % 96.3 %; Nucleated Red Blood Cells % 0 %; Platelet Count 175 10^3/cmm (130-400); Red Blood Count 3.92 10^6/uL (4.1-5.3); White Blood Count 9.4 10^3/uL (4.0-10.0)
[2020-01-16 04:20] LABS: Troponin 5 6HR Delta -10.47 ng/L (0-12)
[2020-01-16 04:57] LABS: Blood Urea Nitrogen 13 mg/dL (8-23); Calcium 9.7 mg/dL (8.5-10.5); Carbon Dioxide 24 mmol/L (22-29); Chloride 106 mmol/L (98-107); Creatinine Clr Calc Pharmacy 77.1913; Glucose 109 mg/dL (65-115); Osmolality Calculated 295 mOsm/kg (285-295); Sodium 142 mmol/L (136-145)
[2020-01-16] MEDS: pantoprazole DR 40 mg Tablet PO (08:50)
[2020-01-16] MEDS: benzonatate 100 mg Capsule PO ×2 (08:50→15:14)
[2020-01-16] MEDS: predniSONE 20 mg Tablet 40 MG PO (08:50)
[2020-01-16] MEDS: ipratropium-albuterol 3 mL Neb INHALATION (11:18)
--- NOTE | 2020-01-16 12:46 | P.DS_ITS ---
Discharge Providers Date of Admission: 01/16/20 01:03 Date of Discharge: January 16, 2020 Attending Provider at Admission: Vel Zamorano MD Attending Provider at Discharge: Jairo Ham MD Primary Care Provider: Emma Novoa DO Diagnoses at Discharge Discharge Diagnosis (1) Acute and chronic respiratory failure with hypoxia: Status: Acute (2) Sinus tachycardia: Status: Acute (3) Nicotine dependence, cigarettes, with unspecified nicotine-induced disorders: Status: Acute (4) Gastritis: Status: Acute Qualifiers: Gastritis type: unspecified gastritis Chronicity: chronic Gastritis bleeding: presence of bleeding unspecified Qualified Code(s): K29.50 - Unspecified chronic gastritis without bleeding Reason for Visit Reason for Visit: CHEST PAID, SOB, COUGH Hospital Course Hospital Course Maryjo is a 59-year-old white female smoker who presented to the hospital with cough, shortness of breath. She had had some epigastric discomfort as well. This seemed to improve with the breathing treatment. While in the emergency department she had some tachycardia, was actively wheezing. Chest x-ray demonstrated no infiltrate. She was started on Protonix, pulmonary toilet, prednisone. A CTA was obtained which demonstrated no evidence of pneumonia or pulmonary embolism. A pulmonary nodule was noted that will require follow-up in 3 months. Liver demonstrated some decreased attenuation which can be followed up as an outpatient. While in the hospital she rapidly improved, reporting her breathing was back to baseline in the afternoon on January 15. She indicated she would like to go home. A home oxygen evaluation will be done. She will discharge on 4 more days of prednisone. Doxycycline will be added for concern of bronchitis. Protonix will be continued. She will follow-up with her primary care provider regarding her pulmonary nodule. When she gets follow-up of her CT chest in [address] abdomen and pelvis with contrast for follow- up of liver abnormality.. Discussed briefly with radiology. Note that abdominal ultrasound March 2019 demonstrated normal liver, echogenic portal triads, no masses. Physical Exam Narrative: EXAM NARRATIVE: General exam no apparent distress Cardiovascular regular rate and rhythm without murmur Lungs clear Abdomen is soft with positive bowel sounds Extremities no cyanosis clubbing or edema. Discharge Data Data Completed and Pending: Completed Studies During Hospitalization Category Date Time Status CT angio chest PE protcl [id number] Stat Cat Scan 01/16/20 01:08 Completed XR chest 1V maria dolores ble [id number] Stat Exams 01/15/20 21:12 Completed Labs from last 24 hours 01/16/20 01/16/20 01/16/20 03:30 03:30 03:30 WBC 9.4 RBC 3.92 L Hgb 13.3 Hct 41.1 MCV 104.8 H MCH 33.9 MCHC 32.4 RDW 13.0 Plt Count 175 MPV 11.5 H Neut % (Auto) 96.3 Lymph % (Auto) 2.1 [place] % (Auto) 1.2 Eos % (Auto) 0.0 Baso % (Auto) 0.1 Neut # (Auto) 9.09 H Lymph # (Auto) 0.2 L [place] # (Auto) 0.1 L Eos # (Auto) 0.0 Baso # (Auto) 0.0 Nucleated RBC % (a uto) 0 Nucleated RBCs # 0.0 D-Dimer Specimen Type Sample Site ABG pH ABG pCO2 ABG pO2 ABG HCO3 ABG Base Excess Jean Test Hematocrit O2 Delivery Device O2 Liters/Min Laboratory Apparatus Glass Grinder ID Sodium 142 Potassium 4.0 Chloride 106 Carbon Dioxide 24 Anion Gap 16.0 BUN 13 Creatinine 0.6 GFR Calculation 102.0 Glucose 109 Calculated Osmolal ity 295 Calcium 9.7 Total Bilirubin AST ALT Alkaline Phosphata se Troponin T Baselin e Troponin T 120 Min tanesha Delta Troponin T Troponin T Hi Sens 6Hr 26.53 H Troponin T Hi Sens 6Hr Delta -10.47 L Total Protein Albumin Globulin SARS-CoV-2 Ag (Rap id) 01/16/20 01/16/20 01/16/20 01:41 00:14 00:01 WBC RBC Hgb Hct MCV MCH MCHC RDW Plt Count MPV Neut % (Auto) Lymph % (Auto) [place] % (Auto) Eos % (Auto) Baso % (Auto) Neut # (Auto) Lymph # (Auto) [place] # (Auto) Eos # (Auto) Baso # (Auto) Nucleated RBC % (a uto) Nucleated RBCs # D-Dimer 0.80 H Specimen Type Sample Site ABG pH ABG pCO2 ABG pO2 ABG HCO3 ABG Base Excess Jean Test Hematocrit O2 Delivery Device O2 Liters/Min Laboratory Apparatus Glass Grinder ID Sodium Potassium Chloride Carbon Dioxide Anion Gap BUN Creatinine GFR Calculation Glucose Calculated Osmolal ity Calcium Total Bilirubin AST ALT Alkaline Phosphata se Troponin T Baselin e Troponin T 120 Min tanesha 30.10 H Delta Troponin T -6.90 L Troponin T Hi Sens 6Hr Troponin T Hi Sens 6Hr Delta Total Protein Albumin Globulin SARS-CoV-2 Ag (Rap id) Negative 01/15/20 01/15/20 01/15/20 23:29 22:44 22:44 WBC RBC Hgb Hct MCV MCH MCHC RDW Plt Count MPV Neut % (Auto) Lymph % (Auto) [place] % (Auto) Eos % (Auto) Baso % (Auto) Neut # (Auto) Lymph # (Auto) [place] # (Auto) Eos # (Auto) Baso # (Auto) Nucleated RBC % (a uto) Nucleated RBCs # D-Dimer Specimen Type Arterial Sample Site Brachial, right ABG pH 7.39 ABG pCO2 37.9 ABG pO2 60.3 L ABG HCO3 22.7 ABG Base Excess -2.0 Jean Test N/a Hematocrit 46.6 O2 Delivery Device Nc O2 Liters/Min 2.0 Laboratory Apparatus Glass Grinder ID vossa Sodium 136 Potassium 3.7 Chloride 101 Carbon Dioxide 25 Anion Gap 13.7 BUN 12 Creatinine 0.6 GFR Calculation 102.0 Glucose 113 Calculated Osmolal ity 283 L Calcium 9.7 Total Bilirubin 0.3 AST 14 ALT 10 Alkaline Phosphata se 141 H Troponin T Baselin e 37 H Troponin T 120 Min tanesha Delta Troponin T Troponin T Hi Sens 6Hr Troponin T Hi Sens 6Hr Delta Total Protein 7.4 Albumin 4.3 Globulin 3.1 SARS-CoV-2 Ag (Rap id) 01/15/20 22:44 WBC 10.3 H RBC 4.31 Hgb 14.7 Hct 44.5 MCV 103.2 H MCH 34.1 H MCHC 33.0 RDW 12.9 Plt Count 197 MPV 11.5 H Neut % (Auto) 86.5 Lymph % (Auto) 5.3 [place] % (Auto) 7.3 Eos % (Auto) 0.2 Baso % (Auto) 0.3 Neut # (Auto) 8.93 H Lymph # (Auto) 0.6 L [place] # (Auto) 0.8 Eos # (Auto) 0.0 Baso # (Auto) 0.0 Nucleated RBC % (a uto) 0 Nucleated RBCs # 0.0 D-Dimer Specimen Type Sample Site ABG pH ABG pCO2 ABG pO2 ABG HCO3 ABG Base Excess Jean Test Hematocrit O2 Delivery Device O2 Liters/Min Laboratory Apparatus Glass Grinder ID Sodium Potassium Chloride Carbon Dioxide Anion Gap BUN Creatinine GFR Calculation Glucose Calculated Osmolal ity Calcium Total Bilirubin AST ALT Alkaline Phosphata se Troponin T Baselin e Troponin T 120 Min tanesha Delta Troponin T Troponin T Hi Sens 6Hr Troponin T Hi Sens 6Hr Delta Total Protein Albumin Globulin SARS-CoV-2 Ag (Rap id) Vitals: Last Vital Signs Temp 98.6 F 01/16/20 11:07 Pulse 100 01/16/20 11:19 Resp 18 01/16/20 11:19 BP 103/67 01/16/20 11:07 Pulse Ox 92 01/16/20 11:19 Discharge Plan Discharge Patient Disposition: Home Condition: Stable Prescriptions: New doxycycline monohydrate 100 mg capsule 100 mg PO BID 7 Days Qty: 14 RF: 0 pantoprazole 40 mg Tablet,Delayed Release (Dr/Ec) 40 mg PO DAILY Qty: 30 RF: 0 prednisone 20 mg Tablet 40 mg PO DAILY Qty: 8 RF: 0 Continued levetiracetam 500 mg tablet extended release 24 hr 2,000 mg PO Q24H Qty: 120 RF: 11 Miralax 17 gram powder in packet 17 g PO DAILY Qty: 30 RF: 1 albuterol sulfate 2.5 mg /3 mL (0.083 %) solution for nebulization 2.5 mg INHALATION QID PRN (Reason: shortness of breath or wheezing) Qty: 180 RF: 3 trazodone 50 mg tablet 50 mg PO DAILY Qty: 90 RF: 0 Proventil HFA 90 mcg/actuation HFA aerosol inhaler 1 puff INHALATION QID Qty: 6.7 RF: 2 cetirizine 10 mg capsule 10 mg PO DAILY Qty: 90 RF: 1 Spiriva with HandiHaler 18 mcg capsule, w/inhalation device 1 cap INHALATION DAILY Qty: 90 RF: 1 cholecalciferol (vitamin D3) 50 mcg (2,000 unit) capsule 50 mcg PO DAILY Qty: 30 RF: 5 fluticasone propionate [Flonase Allergy Relief] 50 mcg/actuation spray,suspension 2 spray INTRANASAL DAILY Qty: 15.8 RF: 0 guaifenesin 600 mg Tablet Extended Release 12hr 600 mg PO BID PRN (Reason: Congestion) RF: 0 benzonatate [Tessalon Perles] 100 mg Capsule 100 mg PO TID PRN (Reason: Cough) RF: 0 vitamin D3-vitamin K2 1000-90 unit-mcg Tablet,Disintegrating 2,000 tab PO DAILY RF: 0 tramadol 50 mg tablet 50 mg PO TID PRN (Reason: pain) Qty: 14 RF: 0 Advair Diskus 250-50 mcg/dose Blister With Device 1 inh INHALATION BID RF: 0 Discharge Orders: Discharge Order (Routine); Ordered 01/16/20 Ordered By: Jairo Ham Referrals: Emma Novoa DO [Primary Care Provider] - 4-7 days (Consider follow-up CT chest, noncontrast, 3 to 6 months secondary to pulmonary nodule. ) Discharge Diet: Regular Discharge Activity: Increase activity as tolerated Activity Restrictions/Additional Instructions: Home oxygen evaluation prior to discharge Do not smoke Take all medicine as prescribed Your CT scan demonstrated a pulmonary nodule, your primary care provider will arrange follow-up for this. 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
--- NOTE | 2020-01-16 15:16 | PC.NURSE ---
DC instruction given to patient. IV DC'd cath intact bleeding controlled with 2x2 's and coban.to main entrance via wheelchair to private vehicle with zero difficulties
--- NOTE | 2020-01-17 08:24 | PC.RESP ---
SMOKING CESSATION AND PULMONARY REHAB INFORMATION SENT TO PATIENT.
--- NOTE | 2020-01-17 10:22 | PC.SOCIAL ---
[facility] pharmacy called to see if can change Doxycycline Monohydrate to Doxycycline Hydrate. Verified with Dr Ham that this is acceptable. updated pharmacy
== END 2020-01-16 15:16 | disposition home or self-care (01) ==
LOC: ER 01-16 02:00 → MEDSURG 01-16 02:42
PROVIDERS: Emergency Medicine; Admitting Provider Internal Medicine; Emergency Provider Emergency Medicine; PCP Family Medicine; Visit Provider Internal Medicine
DX: J96.21 Acute and chronic respiratory failure with hypoxia (principal); J44.9 Chronic obstructive pulmonary disease, unspecified; K59.00 Constipation, unspecified; K21.9 Gastro-esophageal reflux disease without esophagitis; G47.00 Insomnia, unspecified; F17.210 Nicotine dependence, cigarettes, uncomplicated; R91.8 Other nonspecific abnormal finding of lung field; G40.909 Epilepsy, unspecified, not intractable, without status epilepticus; K29.50 Unspecified chronic gastritis without bleeding; R00.0 Tachycardia, unspecified; Z99.81 Dependence on supplemental oxygen; Z79.51 Long term (current) use of inhaled steroids
CPT/HCPCS: 12345; 36415; 36600; 71045; 71275; 80048; 80053; 82803; 84484; 85025; 85378; 87426; 93005; 94640; 96372; 96374; 99283; 99285; G0378; J2930; J3535; J7512; Q9967

== ENCOUNTER 2020-01-17 21:14 | Emergency (ER) | payer MEDICAID, SELFPAY ==
[2020-01-17] VITALS (8 sets, daily range): BP systolic 103–120; BP diastolic 50–93; PULSE 92–116; RESP 15–26; TEMP 36.2; O2SAT 95–100; BMI 17.2
--- NOTE | 2020-01-17 21:44 | XRR_ITS ---
PROCEDURE INFORMATION: Exam: XR Chest, 1 View Exam date and time: 01/17/2020 10:08 PM Age: 59 years old Clinical indication: Shortness of breath; Patient HX: Cough; Additional info: SOB TECHNIQUE: Imaging protocol: XR of the chest Views: 1 view. COMPARISON: CR XR chest 1V portable [id number] 01/16/2020 12:02 AM FINDINGS: Lungs: The there is a background of emphysema and mild parenchymal scarring. There are some increased interstitial markings seen in the lower hemithoraces bilaterally, findings that could represent mild superimposed interstitial pneumonitis versus atelectasis. Pleural space: Unremarkable. No pleural effusion. No pneumothorax. Heart/Mediastinum: Unremarkable. No cardiomegaly. Bones/joints: Unremarkable. XR/XR chest 1V portable [id number] IMPRESSION: There is a background of emphysema. Increased interstitial markings are seen in the lower hemithoraces bilaterally, findings could represent mild superimposed interstitial pneumonitis versus atelectasis.
--- NOTE | 2020-01-17 21:48 | ECG_ITS ---
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 Measurements Intervals [place] Rate: 100 P: 73 MI: 130 QRS: -67 QRSD: 107 T: 85 QT: 347 QTc: 448 Interpretive Statements SINUS TACHYCARDIA POSSIBLE LEFT ATRIAL ENLARGEMENT [-0.1mV P WAVE IN V1/V2] POSSIBLE RIGHT VENTRICULAR CONDUCTION DELAY [RSR (QR) IN V1/V2] Nonspecific T wave changes LEFT ANTERIOR FASCICULAR BLOCK [QRS AXIS <= -45, QR IN I, RS IN II] LEFT VENTRICULAR HYPERTROPHY AND ST-T CHANGE [VOLTAGE CRITERIA PLUS ST/T ABNORMALITY] POSSIBLE ANTERIOR MYOCARDIAL INFARCTION , OF INDETERMINATE AGE [30 ms Q WAVE IN V3/V4, OR R < 0.2 mV IN V4] Compared to ECG 01/15/2020 23:19:51 Myocardial infarct finding now present ST (T wave) deviation still present Electronically Signed On 01-18-2020 18:52:49 ROTARY VENEER MACHINE OPERATOR by Deny Casper M.D. [id number]
--- NOTE | 2020-01-17 21:51 | ED_ITS ---
HPI - SOB/Dyspnea General: Chief Complaint: Shortness of Breath/Dyspnea Stated Complaint: DIFF BREATHING, CP, THROAT SORE/DRY Time Seen by Provider: 01/17/20 21:24 History of Present Illness: MD elicited complaint: shortness of breath, cough and pain with inspiration Pertinent past history: COPD and congestive heart failure Onset (ago): day(s) Context: recent illness Severity: moderate Exacerbating factors: lying flat and exertion Relieving factors: oxygen Known history of: COPD and congestive heart failure Associated symptoms: Reports cough and myalgias; Deny abdominal pain, chest pain, dizziness, fever(s), nausea, palpitations or vomiting Treatment prior to arrival: oxygen and bronchodilator Review of Systems Const: Denies: fever(s) Eyes: Denies: change in vision ENMT: Reports: odynophagia; Denies: swelling of lips/tongue or sinus pain Card: Denies: chest pain, palpitations or irregular heart rhythm Resp: Denies: dyspnea, productive cough, non-productive cough or wheezing GI: Denies: abdominal pain, nausea or vomiting : Denies: dysuria or hematuria Musc: Denies: back pain or joint warmth Skin/Breast: Denies: rash Neuro: Denies: dizziness Psych: Denies: anxiety PFSH ED PFSH: Medical History (Updated 01/17/20 @ 00:00 by ) Chronic constipation COPD (chronic obstructive pulmonary disease) GERD (gastroesophageal reflux disease) Insomnia Seizure disorder Surgical History H/O section Family History (Updated 01/16/20 @ 01:40 by Vel Zamorano MD) Other CAD (coronary artery disease) Cancer Diabetes Social History (Updated 01/16/20 @ 01:39 by Vel Zamorano MD) Smoking and tobacco status: current every day smoker cigarettes Packs smoked per day: 0.5 Alcohol intake: never Lives independently: Yes Housing: House Physical Exam Const: GENERAL APPEARANCE: frail appearing and appears older than stated age ORIENTATION/CONSCIOUSNESS: Yes oriented to person, Yes oriented to place and Yes oriented to time HENMT: COMMON NORMALS: normocephalic, external ears normal and Normal external nose present HEAD & SCALP: normocephalic; no scalp tenderness FACE & SINUS: normal facial exam NOSE: Normal external nose present and No nasal discharge present EXTERNAL EAR: Yes external ears normal MOUTH: tongue normal THROAT: posterior oropharynx normal; no peritonsillar mass Eye: COMMON NORMALS: Equal, round and reactive pupils present, EOMs intact bilaterally and conjunctivae normal EYELID: eyelids normal CONJUNCTIVA: Yes conjunctivae normal PUPIL: Yes Equal, round and reactive pupils present Neck/C-Spine: GENERAL: No tracheal deviation Chest: COMMONS NORMALS: normal inspection of the chest CHEST: No tenderness Resp: COMMON NORMALS: clear to auscultation bilaterally EFFORT & IN SPECTION: Yes tachypneic, No respiratory distress, No retractions, No uses accessory muscles and No tracheal deviation AUSCULTATION: clear to auscultation bilaterally, no rhonchi, no wheezes and lung sounds not diminished Cardio: COMMON NORMALS: regular rate and regular rhythm RATE: regular rate RHYTHM: regular rhythm HEART SOUNDS: no murmurs PERIPHERAL PULSES: radial pulses present GI: INSPECTION: No abdominal distension AUSCULTATION: No Hyperactive bowel sounds present and No Hypoactive bowel sounds present PALPATION: No Guarding due to palpation present (GI) and No Rigid due to palpation PERCUSSION: no dullness to percussion and no tympanic to percussion Neuro: SENSORIUM/ORIENTATION: Yes oriented to person, Yes oriented to place and Yes oriented to time Psych: COMMON NORMALS: mental status grossly normal Skin: COMMON NORMALS: no rashes or lesions noted GENERAL SKIN EXAM: no rashes or lesions noted Course Vital Signs: Vital signs: Vital Signs Temperature 97.2 F L 01/17/20 21:18 Pulse Rate 112 H 01/18/20 00:45 Respiratory Rate 22 H 01/18/20 00:45 Blood Pressure 118/75 01/18/20 00:06 Pulse Oximetry 96 01/18/20 00:45 MDM - SOB/Dyspnea MDM Narrative: Medical decision making narrative: 59-year-old female, recently discharged from the hospital. She comes in short of breath, and with a sore throat and trouble swallowing. She does not have any significant tonsillar swelling or signs of Ole's angina on exam. She is tolerating her own secretions well. She received a breathing treatment and did well here. She is satting above 95% on her home O2 settings, and there is no retention of CO2 on her blood gas. Her pH is 7.4. Her chest x-ray looks essentially stable from prior her white blood cell count is 11, but she has had steroids. She has been covered with doxycycline and prednisone. She is received 80 mg of Solu-Medrol here with some improvement. She will be allowed discharge. She knows to return for any worsening symptoms. Lab Data: Labs: Lab Results 01/17/20 01/17/20 01/17/20 Range/Units 21:40 21:40 21:40 WBC 11.2 H (4.0-10.0) 10^3/ uL RBC 3.93 L (4.1-5.3) 10^6/u L Hgb 13.3 (11.5-15.3) g/dL Hct 40.3 (37.0-47.0) % MCV 102.5 H (81-99) fL MCH 33.8 (28.0-34.0) pg MCHC 33.0 (30.0-36.0) g/dL RDW 13.2 (12.1-15.1) % Plt Count 217 (130-400) 10^3/c mm MPV 12.6 H (7.4-10.4) fL Neut % (Auto) 94.9 % Lymph % (Auto) 2.4 % [place] % (Auto) 2.1 % Eos % (Auto) 0.0 % Baso % (Auto) 0.4 % Neut # (Auto) 10.63 H (1.8-7.7) 10^3/u L Lymph # (Auto) 0.3 L (0.8-4.8) 10^3/u L [place] # (Auto) 0.2 (0.2-0.9) 10^3/u L Eos # (Auto) 0.0 (0.0-0.8) 10^3/u L Baso # (Auto) 0.0 (0.0-0.1) 10^3/u L Nucleated RBC % (a uto) 0 % Nucleated RBCs # 0.0 /100WBC Specimen Type Sample Site ABG pH (7.35-7.45) ABG pCO2 (35-45) mmHg ABG pO2 (80.0-100.0) mmH g ABG HCO3 (22-26) mmol/L ABG Base Excess (-2.0-2.0) mmol/ L Jean Test Hematocrit (37-47) % Hgb O2 Saturation (95-100) % Carboxyhemoglobin (0.4-20.1) %THgb Methemoglobin (0.4-1.5) % Total Hemoglobin (12-16) g/dL O2 Delivery Device O2 Liters/Min % FiO2 % Leaflet Or Newspaper Deliverer ID Sodium 142 (136-145) mmol/L Potassium 4.0 (3.5-5.1) mmol/L Chloride 105 (98-107) mmol/L Carbon Dioxide 25 (22-29) mmol/L Anion Gap 16.0 (5-19) BUN 13 (8-23) mg/dL Creatinine 0.5 (0.5-0.9) mg/dL GFR Calculation 125.9 (90-130) mL/min Glucose 130 H (65-115) mg/dL Calculated Osmolal ity 296 H (285-295) mOsm/k g Lactic Acid 1.3 (0.5-2.2) mmol/L Calcium 9.7 (8.5-10.5) mg/dL Total Bilirubin 0.3 (0.15-1.2) mg/dL AST 122 H (0-32) U/L ALT 63 H (0-33) U/L Alkaline Phosphata se 280 H (35-105) IU/L Troponin T Baselin e (0-10) ng/L NT-Pro-B Natriuret Pep 2420 H (0-125) pg/mL Total Protein 6.7 (6.6-8.7) g/dL Albumin 4.2 (3.5-5.2) g/dL Globulin 2.5 (1.3-4.6) g/dL 01/17/20 01/17/20 Range/Units 21:40 22:05 WBC (4.0-10.0) 10^3/ uL RBC (4.1-5.3) 10^6/u L Hgb (11.5-15.3) g/dL Hct (37.0-47.0) % MCV (81-99) fL MCH (28.0-34.0) pg MCHC (30.0-36.0) g/dL RDW (12.1-15.1) % Plt Count (130-400) 10^3/c mm MPV (7.4-10.4) fL Neut % (Auto) % Lymph % (Auto) % [place] % (Auto) % Eos % (Auto) % Baso % (Auto) % Neut # (Auto) (1.8-7.7) 10^3/u L Lymph # (Auto) (0.8-4.8) 10^3/u L [place] # (Auto) (0.2-0.9) 10^3/u L Eos # (Auto) (0.0-0.8) 10^3/u L Baso # (Auto) (0.0-0.1) 10^3/u L Nucleated RBC % (a uto) % Nucleated RBCs # /100WBC Specimen Type Arterial Sample Site Brachial, right ABG pH 7.40 (7.35-7.45) ABG pCO2 42.7 (35-45) mmHg ABG pO2 98.9 (80.0-100.0) mmH g ABG HCO3 26.2 H (22-26) mmol/L ABG Base Excess 1.1 (-2.0-2.0) mmol/ L Jean Test Pos Hematocrit 41.1 (37-47) % Hgb O2 Saturation 96.1 (95-100) % Carboxyhemoglobin 1.5 (0.4-20.1) %THgb Methemoglobin 0.7 (0.4-1.5) % Total Hemoglobin 13.4 (12-16) g/dL O2 Delivery Device Nc O2 Liters/Min 3.0 % FiO2 32.0 % Leaflet Or Newspaper Deliverer ID [id number] Sodium (136-145) mmol/L Potassium (3.5-5.1) mmol/L Chloride (98-107) mmol/L Carbon Dioxide (22-29) mmol/L Anion Gap (5-19) BUN (8-23) mg/dL Creatinine (0.5-0.9) mg/dL GFR Calculation (90-130) mL/min Glucose (65-115) mg/dL Calculated Osmolal ity (285-295) mOsm/k g Lactic Acid (0.5-2.2) mmol/L Calcium (8.5-10.5) mg/dL Total Bilirubin (0.15-1.2) mg/dL AST (0-32) U/L ALT (0-33) U/L Alkaline Phosphata se (35-105) IU/L Troponin T Baselin e 21 H (0-10) ng/L NT-Pro-B Natriuret Pep (0-125) pg/mL Total Protein (6.6-8.7) g/dL Albumin (3.5-5.2) g/dL Globulin (1.3-4.6) g/dL Discharge Plan Discharge Condition: Stable Prescriptions: No Action levetiracetam 500 mg tablet extended release 24 hr 2,000 mg PO Q24H Qty: 120 RF: 11 Miralax 17 gram powder in packet 17 g PO DAILY Qty: 30 RF: 1 albuterol sulfate 2.5 mg /3 mL (0.083 %) solution for nebulization 2.5 mg INHALATION QID PRN (Reason: shortness of breath or wheezing) Qty: 180 RF: 3 trazodone 50 mg tablet 50 mg PO DAILY Qty: 90 RF: 0 Proventil HFA 90 mcg/actuation HFA aerosol inhaler 1 puff INHALATION QID Qty: 6.7 RF: 2 cetirizine 10 mg capsule 10 mg PO DAILY Qty: 90 RF: 1 Spiriva with HandiHaler 18 mcg capsule, w/inhalation device 1 cap INHALATION DAILY Qty: 90 RF: 1 cholecalciferol (vitamin D3) 50 mcg (2,000 unit) capsule 50 mcg PO DAILY Qty: 30 RF: 5 fluticasone propionate [Flonase Allergy Relief] 50 mcg/actuation spray, suspension 2 spray INTRANASAL DAILY Qty: 15.8 RF: 0 guaifenesin 600 mg Tablet Extended Release 12hr 600 mg PO BID PRN (Reason: Congestion) RF: 0 benzonatate [Tessalon Perles] 100 mg Capsule 100 mg PO TID PRN (Reason: Cough) RF: 0 vitamin D3-vitamin K2 1000-90 unit-mcg Tablet,Disintegrating 2,000 tab PO DAILY RF: 0 tramadol 50 mg tablet 50 mg PO TID PRN (Reason: pain) Qty: 14 RF: 0 Advair Diskus 250-50 mcg/dose Blister With Device 1 inh INHALATION BID RF: 0 prednisone 20 mg Tablet 40 mg PO DAILY Qty: 8 RF: 0 pantoprazole 40 mg Tablet,Delayed Release (Dr/Ec) 40 mg PO DAILY Qty: 30 RF: 0 doxycycline monohydrate 100 mg capsule 100 mg PO BID 7 Days Qty: 14 RF: 0 Discharge Orders: Discharge Order (Routine); Ordered 01/18/20 Ordered By: Jhon Schneider Referrals: Emma Novoa DO [Primary Care Provider] - 1-3 days Discharge Diet: Advance as tolerated Discharge Activity: Increase activity as tolerated Patient Instructions: Chronic Obstructive Pulmonary Disease (ED) Activity Restrictions/Additional Instructions: Return for worsening shortness of breath despite treatment, fever greater than 100, mental status changes, other concerning symptoms. You may skip your prednisone tonight, as you were given steroids in the ER. Resume medications tomorrow. Use your nebulizer treatments instead of your inhaler for the next 48 hours. Coding Level of Care Code ED Die Baker for [place] Fwd Exam Comprehensive
[2020-01-17 21:58] LABS: Basophils % 0.4 %; Hematocrit 40.3 % (37.0-47.0); Hemoglobin 13.3 g/dL (11.5-15.3); Lymphocytes # 0.3 10^3/uL (0.8-4.8); Lymphocytes % 2.4 %; Mean Corpuscular Hemoglobin 33.8 pg (28.0-34.0); Mean Corpuscular Volume 102.5 fL (81-99); Mean Platelet Volume 12.6 fL (7.4-10.4); Monocytes # 0.2 10^3/uL (0.2-0.9); Monocytes % 2.1 %; Neutrophils # 10.63 10^3/uL (1.8-7.7); Neutrophils % 94.9 %; Nucleated Red Blood Cells % 0 %; Platelet Count 217 10^3/cmm (130-400); Red Blood Count 3.93 10^6/uL (4.1-5.3); Red Cell Distribution Width 13.2 % (12.1-15.1); White Blood Count 11.2 10^3/uL (4.0-10.0)
[2020-01-17 22:10] LABS: Lactic Sepsis W/Reflex 1.3 mmol/L (0.5-2.2)
[2020-01-17 22:13] LABS: Troponin(5th) Baseline 21 ng/L (0-10)
[2020-01-17 22:17] LABS: ABG PCO2 42.7 mmHg (35-45); Arterial Blood Gas Hematocrit 41.1 % (37-47); Base Excess ABG 1.1 mmol/L (-2.0-2.0); Blood Gas Allen Test Pos; Blood Gas Sample Site Brachial, right; Blood Gas Sample Type Arterial; Carboxyhemoglobin 1.5 %THgb (0.4-20.1); HCO3 ABG 26.2 mmol/L (22-26); HGB O2 Sat 96.1 % (95-100); Methemoglobin 0.7 % (0.4-1.5); Oxygen Device NC; PO2 ABG 98.9 mmHg (80.0-100.0); Total Hemoglobin 13.4 g/dL (12-16)
[2020-01-17 22:22] LABS: Alanine Aminotransferase 63 U/L (0-33); Albumin Level 4.2 g/dL (3.5-5.2); Alkaline Phosphatase 280 IU/L (35-105); Aspartate Amino Transferase 122 U/L (0-32); Blood Urea Nitrogen 13 mg/dL (8-23); Calcium 9.7 mg/dL (8.5-10.5); Carbon Dioxide 25 mmol/L (22-29); Chloride 105 mmol/L (98-107); Globulin 2.5 g/dL (1.3-4.6); Glomerular Filtration Rate 125.9 mL/min (90-130); Glucose 130 mg/dL (65-115); NT Pro B Type Natriuretic Pept 2420 pg/mL (0-125); Osmolality Calculated 296 mOsm/kg (285-295); Sodium 142 mmol/L (136-145); Total Bilirubin 0.3 mg/dL (0.15-1.2); Total Protein 6.7 g/dL (6.6-8.7)
--- NOTE | 2020-01-17 23:48 | ECG_ITS ---
[facility] Test Date: 2020-01-17 Pat Name: Maryjo Gomez Department: Room: Gender: Female Exhibition Specialist: : 1960 Requested By: Jhon Schmitt Order Number: [id number] Smalls MD: Deny Casper M.D. Measurements Intervals [place] Rate: 97 P: 72 CO: 140 QRS: -63 QRSD: 101 T: 85 QT: 344 QTc: 438 Interpretive Statements SINUS RHYTHM POSSIBLE LEFT ATRIAL ENLARGEMENT [-0.1mV P WAVE IN V1/V2] POSSIBLE RIGHT VENTRICULAR CONDUCTION DELAY [RSR (QR) IN V1/V2] LEFT ANTERIOR FASCICULAR BLOCK [QRS AXIS <= -45, QR IN I, RS IN II] LEFT VENTRICULAR HYPERTROPHY AND ST-T CHANGE [VOLTAGE CRITERIA PLUS ST/T ABNORMALITY] POSSIBLE ANTEROSEPTAL MYOCARDIAL INFARCTION , OF INDETERMINATE AGE [30 ms Q WAVE IN V1-V4] Compared to ECG 01/17/2020 21:46:42 Sinus tachycardia no longer present ST (T wave) deviation still present Myocardial infarct finding still present Electronically Signed On 01-18-2020 18:59:03 TECHNOLOGY INSTRUCTOR by Deny Casper M.D. [id number]
--- NOTE | 2020-01-17 23:55 | PC.NURSE ---
EKG done at 2350 and shown to ER doctor
[2020-01-18 00:06] VITALS: BP 118/75; PULSE 105; RESP 22; O2SAT 97
[2020-01-18] MEDS: ipratropium-albuterol 3 mL Neb INHALATION (00:40)
[2020-01-18 00:41] VITALS: PULSE 108; RESP 24; O2SAT 96
[2020-01-18 00:45] VITALS: PULSE 112; RESP 22; O2SAT 96
[2020-01-18 00:48] LABS: Troponin 5 2HR 19.93 ng/L (0-10)
[2020-01-18 00:57] LABS: Troponin 5 2HR Delta -1.07 ABS# (0-10)
[2020-01-18 01:00] VITALS: BP 117/67; PULSE 101; RESP 17; O2SAT 94
[2020-01-18 01:24] VITALS: BP 117/69; PULSE 99; RESP 20; O2SAT 96
== END 2020-01-18 01:47 ==
PROVIDERS: Emergency Provider Emergency Medicine; PCP Family Medicine
DX: R06.02 Shortness of breath (principal); R05 Cough; J44.9 Chronic obstructive pulmonary disease, unspecified; F17.210 Nicotine dependence, cigarettes, uncomplicated
CPT/HCPCS: 12345; 36600; 71045; 80053; 82805; 83605; 83880; 84484; 85025; 87040; 93005; 94640; 96374; 99283; 99284; J2930

== ENCOUNTER → 2020-01-29 14:26 | Outpatient (BNVA) | payer MEDICAID, SELFPAY | PROVIDERS: PCP Family Medicine; Visit Provider Family Medicine | DX: J44.1 Chronic obstructive pulmonary disease with (acute) exacerbation (principal); R91.1 Solitary pulmonary nodule | CPT/HCPCS: 87635 ==

== ENCOUNTER 2020-02-04 07:07 | Outpatient (CLI) | payer MEDICAID, SELFPAY ==
--- NOTE | 2020-02-04 11:02 | PFTS_ITS ---
Date of Study:02/04/20 Date of Dictation: MECHANICS: Forced vital capacity (FVC) is reduced. Forced expiratory volume in one second (FEV1) is reduced. FEV1/FVC is reduced. FLOW VOLUME LOOP: Reduced flow at all lung volumes with significant scooping. LUNG VOLUMES: Lung volumes are not measured DIFFUSING CAPACITY FOR CARBON MONOXIDE: Gas exchange was not measured. INTERPRETATION: The prebronchodilator spirometry is consistent with severe airflow obstruction. A component of restriction cannot be ruled out in the absence of lung volume measurements. MTDD
== END 2020-02-04 07:08 | disposition home or self-care (01) ==
LOC: RT 07:13
PROVIDERS: PCP Family Medicine; Visit Provider Family Medicine
DX: J44.1 Chronic obstructive pulmonary disease with (acute) exacerbation (principal)
CPT/HCPCS: 94010

== ENCOUNTER 2020-02-11 12:00 | Outpatient (CLI) | payer MEDICAID, SELFPAY | END 2020-02-11 12:01 | disposition home or self-care (01) | LOC: SLEEP 02-12 16:26 | PROVIDERS: PCP Family Medicine; Visit Provider Family Medicine | DX: R09.02 Hypoxemia (principal) | CPT/HCPCS: 94762 ==

== ENCOUNTER 2020-02-14 21:37 | Emergency (ER) | payer MEDICAID, SELFPAY ==
[2020-02-14 21:42] VITALS: BP 108/69; PULSE 118; RESP 20; TEMP 36.5; O2SAT 997; BMI 15.5
--- NOTE | 2020-02-14 21:47 | ECG_ITS ---
[facility] Test Date: 2020-02-14 Pat Name: Maryjo Gomez Department: Room: Gender: Female Room Service Runner: : 1960 Requested By: Mila Monk Order Number: [id number] Serina MD: FAYE SANTOYO Measurements Intervals Lane Rate: 105 P: 69 ME: 120 QRS: -54 QRSD: 107 T: 92 QT: 346 QTc: 458 Interpretive Statements SINUS TACHYCARDIA WITH OCCASIONAL VENTRICULAR PREMATURE COMPLEXES POSSIBLE LEFT ATRIAL ENLARGEMENT [-0.1mV P WAVE IN V1/V2] LEFT ANTERIOR FASCICULAR BLOCK [QRS AXIS <= -45, QR IN I, RS IN II] LEFT VENTRICULAR HYPERTROPHY AND ST-T CHANGE [VOLTAGE CRITERIA PLUS ST/T ABNORMALITY] POSSIBLE SEPTAL MYOCARDIAL INFARCTION [30 ms Q WAVE IN V1/V2], OF INDETERMINATE AGE Compared to ECG 01/17/2020 23:52:48 Ventricular premature complex(es) now present Sinus rhythm no longer present ST (T wave) deviation still present Myocardial infarct finding still present Electronically Signed On 02-15-2020 18:55:18 INDUSTRIAL HIRE SALES ASSISTANT by FAYE SANTOYO [id number]
--- NOTE | 2020-02-14 21:48 | XRR_ITS ---
PROCEDURE INFORMATION: Exam: XR Chest, 1 View Exam date and time: 02/14/2020 10:09 PM Age: 59 years old Clinical indication: Cough and shortness of breath and other: Dizziness; Patient HX: C/O shortness of breath; Cough; Dizziness; Additional info: SOB TECHNIQUE: Imaging protocol: XR of the chest Views: 1 view. COMPARISON: CR XR chest 1V portable [id number] 01/17/2020 10:04 PM FINDINGS: Lungs: There is a partially calcified density seen in the right upper hemithorax compatible with a benign partially calcified granuloma. Pleural space: Unremarkable. No pleural effusion. No pneumothorax. Heart/Mediastinum: Unremarkable. No cardiomegaly. Bones/joints: Unremarkable. XR/XR chest 1V portable [id number] IMPRESSION: There are no acute chest findings.
--- NOTE | 2020-02-14 21:48 | ECG_ITS ---
[facility] Test Date: 2020-02-15 Pat Name: Maryjo Gomez Department: Room: Gender: Female Property Loss Insurance Claim Adjuster: : 1960 Requested By: Esmer Forrest Order Number: [id number] Reading MD: FAYE SANTOYO Measurements Intervals [place] Rate: 92 P: 75 OH: 145 QRS: -64 QRSD: 109 T: 89 QT: 369 QTc: 458 Interpretive Statements SINUS RHYTHM POSSIBLE LEFT ATRIAL ENLARGEMENT [-0.1mV P WAVE IN V1/V2] LEFT ANTERIOR FASCICULAR BLOCK [QRS AXIS <= -45, QR IN I, RS IN II] LEFT VENTRICULAR HYPERTROPHY AND ST-T CHANGE [VOLTAGE CRITERIA PLUS ST/T ABNORMALITY] POSSIBLE SEPTAL MYOCARDIAL INFARCTION [30 ms Q WAVE IN V1/V2], PROBABLY OLD WARNING: DATA QUALITY MAY AFFECT INTERPRETATION Compared to ECG 02/14/2020 21:55:27 Sinus tachycardia no longer present Ventricular premature complex(es) no longer present ST (T wave) deviation still present Myocardial infarct finding still present Electronically Signed On 02-15-2020 18:55:08 CANTILEVER CRANE OPERATOR by FAYE SANTOYO [id number]
--- NOTE | 2020-02-14 22:11 | ED_ITS ---
Documented by User: Esmer Cantrell MD 02/15/20 00:24 HPI - Chest Pain General: Chief Complaint: Chest Pain Stated Complaint: COUGH/SOB Time Seen by Provider: 02/14/20 21:48 History of Present Illness: HPI narrative: This patient is a 59 year old female with history of severe COPD, presenting today with chest pain for the past 2 days. The pain comes and goes, without pattern. She says that she is very active and that activity doesn't seem to make it worse. She also doesn't notice that it gets worse with cough or breathing. Her SOB is slightly worse than normal for her. She was admitted to the hospital in the middle of January for COPD exacerbation and was treated with doxycycline and prednisone - she has completed both. She was also started on protonix and has run out of that. She has had a follow up with her PCP. She normally uses 3 L oxygen at home. She smokes at least a pack per day. She is out of her albuterol inhaler. She has had similar chest pains in the past - she has never had a heart attack. She has not had a fever. She had one episode of diarrhea yesterday. complaint: chest pain Onset (ago): day(s) (2) Timing of current episode: episodic Prior episodes: Yes Onset: during rest and during exertion Pain location: substernal and epigastric Pain radiation: left shoulder and right shoulder Severity: moderate Quality: aching and sharp Relieving factors: nothing Exacerbating factors: nothing Associated symptoms: Reports no associated symptoms and dyspnea; Deny abdominal pain, fever(s), nausea or vomiting Review of Systems General: Reports: 10 or more systems reviewed and unremarkable except in HPI and below Const: Denies: fever(s), chills, fatigue or malaise Eyes: Denies: change in vision ENMT: Denies: odynophagia Card: Reports: chest pain; Denies: swelling of feet/ankles Resp: Reports: dyspnea and non-productive cough; Denies: productive cough GI: Denies: abdominal pain, nausea or vomiting : Denies: flank pain or difficulty voiding Musc: Denies: neck pain or back pain Skin/Breast: Denies: rash Neuro: Denies: headache(s), numbness in extremities or weakness in extremities Emmanuel/Lymph: Denies: easy bruising or easy bleeding PFSH ED PFSH: Medical History (Updated 02/15/20 @ 01:09 by Mila Foster) Chronic constipation COPD (chronic obstructive pulmonary disease) GERD (gastroesophageal reflux disease) Insomnia Seizure disorder Surgical History H/O section Family History Other CAD (coronary artery disease) Cancer Diabetes Social History Smoking and tobacco status: current every day smoker cigarettes Packs smoked per day: 0.5 Alcohol intake: never Lives independently: Yes Housing: House Physical Exam Const: COMMON NORMALS: no acute distress, patient oriented x3, no limitations and alert GENERAL APPEARANCE: cooperative and comfortable NUTRITIONAL APPEARANCE: cachectic HENMT: HEAD & SCALP: normal to inspection FACE & SINUS: normal facial exam Eye: GENERAL EYE: appearance normal, both eyes and all related structures Neck/C-Spine: COMMON NORMALS: supple, no meningeal signs and no JVD Chest: COMMONS NORMALS: normal inspection of the chest Resp: EFFORT & INSPECTION: Yes retractions and Yes uses accessory muscles AUSCULTATION: diminished lung sounds Cardio: COMMON NORMALS: no JVD, regular rate, regular rhythm and No murmurs present (Cardio) RATE: regular rate RHYTHM: regular rhythm GI: COMMON NORMALS: Normal to inspection, nondistended, normoactive bowel so unds present, Soft to palpation and non-tender INSPECTION: Yes normal to inspection AUSCULTATION: Yes normoactive bowel sounds PALPATION: Yes Soft to palpation Back/Pelvis: COMMON NORMALS: thoracic and lumbar spine normal to inspection Extremity: COMMON NORMALS: normal to inspection Neuro: COMMON NORMALS: patient oriented x3, moves all extremities, no focal motor deficits and no sensory deficits noted SENSORIUM/ORIENTATION: Yes alert MENINGEAL SIGNS: Yes no meningeal signs Psych: COMMON NORMALS: mental status grossly normal, cooperative and normal affect Skin: COMMON NORMALS: no rashes or lesions noted and turgor normal GENERAL SKIN EXAM: no rashes or lesions noted and turgor normal Course ED course: Patient with COPD, gastritis, anxiety history. Here with epigastric pain. Initial trop slightly elevated, but appears to be baseline after review or prior labs. CXR unremarkable for any acute findings. Sat 100%. Waiting on second troponin, if neg will d/c home. Vital Signs: Vital signs: Vital Signs Temperature 97.7 F 02/14/20 21:42 Pulse Rate 94 02/15/20 01:46 Respiratory Rate 26 H 02/15/20 01:46 Blood Pressure 95/66 02/15/20 01:46 Pulse Oximetry 99 02/15/20 01:46 MDM - Chest Pain Lab Data: Labs: Lab Results 02/14/20 02/14/20 02/14/20 Range/Units 22:22 22:22 22:22 WBC 6.3 (4.0-10.0) 10^3/ uL RBC 3.74 L (4.1-5.3) 10^6/u L Hgb 12.5 (11.5-15.3) g/dL Hct 39.5 (37.0-47.0) % MCV 105.6 H (81-99) fL MCH 33.4 (28.0-34.0) pg MCHC 31.6 (30.0-36.0) g/dL RDW 13.5 (12.1-15.1) % Plt Count 159 (130-400) 10^3/c mm MPV 10.9 H (7.4-10.4) fL Neut % (Auto) 69.2 % Lymph % (Auto) 19.6 % Bradford % (Auto) 9.9 % Eos % (Auto) 0.8 % Baso % (Auto) 0.3 % Neut # (Auto) 4.34 (1.8-7.7) 10^3/u L Lymph # (Auto) 1.2 (0.8-4.8) 10^3/u L Bradford # (Auto) 0.6 (0.2-0.9) 10^3/u L Eos # (Auto) 0.1 (0.0-0.8) 10^3/u L Baso # (Auto) 0.0 (0.0-0.1) 10^3/u L Nucleated RBC % (a uto) 0 % Nucleated RBCs # 0.0 /100WBC Sodium 143 (136-145) mmol/L Potassium 3.3 L (3.5-5.1) mmol/L Chloride 109 H (98-107) mmol/L Carbon Dioxide 27 (22-29) mmol/L Anion Gap 10.3 (5-19) BUN 14 (8-23) mg/dL Creatinine 0.5 (0.5-0.9) mg/dL GFR Calculation 125.9 (90-130) mL/min Glucose 124 H (65-115) mg/dL Calculated Osmolal ity 298 H (285-295) mOsm/k g Calcium 9.3 (8.5-10.5) mg/dL Total Bilirubin 0.2 (0.15-1.2) mg/dL AST 16 (0-32) U/L ALT 13 (0-33) U/L Alkaline Phosphata se 109 H (35-105) IU/L Troponin T Baselin e 27 H (0-10) ng/L Troponin T 120 Min [place] (0-10) ng/L Delta Troponin T (0-10) ABS# Total Protein 5.8 L (6.6-8.7) g/dL Albumin 3.8 (3.5-5.2) g/dL Globulin 2.0 (1.3-4.6) g/dL 02/15/20 Range/Units 00:10 WBC (4.0-10.0) 10^3/ uL RBC (4.1-5.3) 10^6/u L Hgb (11.5-15.3) g/dL Hct (37.0-47.0) % MCV (81-99) fL MCH (28.0-34.0) pg MCHC (30.0-36.0) g/dL RDW (12.1-15.1) % Plt Count (130-400) 10^3/c mm MPV (7.4-10.4) fL Neut % (Auto) % Lymph % (Auto) % Bradford % (Auto) % Eos % (Auto) % Baso % (Auto) % Neut # (Auto) (1.8-7.7) 10^3/u L Lymph # (Auto) (0.8-4.8) 10^3/u L Bradford # (Auto) (0.2-0.9) 10^3/u L Eos # (Auto) (0.0-0.8) 10^3/u L Baso # (Auto) (0.0-0.1) 10^3/u L Nucleated RBC % (a uto) % Nucleated RBCs # /100WBC Sodium (136-145) mmol/L Potassium (3.5-5.1) mmol/L Chloride (98-107) mmol/L Carbon Dioxide (22-29) mmol/L Anion Gap (5-19) BUN (8-23) mg/dL Creatinine (0.5-0.9) mg/dL GFR Calculation (90-130) mL/min Glucose (65-115) mg/dL Calculated Osmolal ity (285-295) mOsm/k g Calcium (8.5-10.5) mg/dL Total Bilirubin (0.15-1.2) mg/dL AST (0-32) U/L ALT (0-33) U/L Alkaline Phosphata se (35-105) IU/L Troponin T Baselin e (0-10) ng/L Troponin T 120 Min [place] 27.64 H (0-10) ng/L Delta Troponin T 0.64 (0-10) ABS# Total Protein (6.6-8.7) g/dL Albumin (3.5-5.2) g/dL Globulin (1.3-4.6) g/dL Discharge Plan Discharge Patient Disposition: Home Clinical Impression: Chest pain Qualifiers: Chest pain type: unspecified Qualified Code(s): R07.9 - Chest pain, unspecified Gastritis Qualifiers: Gastritis type: unspecified gastritis Chronicity: acute Gastritis bleeding: without bleeding Qualified Code(s): K29.00 - Acute gastritis without bleeding Condition: Stable Prescriptions: New Protonix 40 mg tablet,delayed release (DR/EC) 40 mg PO DAILY Qty: 30 RF: 0 albuterol sulfate 90 mcg/actuation HFA aerosol inhaler 2 inh INHALATION Q4H PRN (Reason: shortness of breath or wheezing) Qty: 6.7 RF: 0 No Action levetiracetam 500 mg tablet extended release 24 hr 2,000 mg PO Q24H Qty: 120 RF: 11 Advair Diskus 250-50 mcg/dose blister with device 1 inh INHALATION BID Qty: 60 RF: 3 fluticasone propionate [Flonase Allergy Relief] 50 mcg/actuation spray,suspension 2 spray INTRANASAL DAILY Qty: 15.8 RF: 3 Miralax 17 gram powder in packet 17 g PO DAILY Qty: 30 RF: 1 trazodone 50 mg tablet 50 mg PO DAILY Qty: 90 RF: 0 Proventil HFA 90 mcg/actuation HFA aerosol inhaler 1 puff INHALATION QID Qty: 6.7 RF: 2 cetirizine 10 mg capsule 10 mg PO DAILY Qty: 90 RF: 1 Spiriva with HandiHaler 18 mcg capsule, w/inhalation device 1 cap INHALATION DAILY Qty: 90 RF: 1 cholecalciferol (vitamin D3) 50 mcg (2,000 unit) capsule 50 mcg PO DAILY Qty: 30 RF: 5 guaifenesin 600 mg Tablet Extended Release 12hr 600 mg PO BID PRN (Reason: Congestion) RF: 0 benzonatate [Tessalon Perles] 100 mg Capsule 100 mg PO TID PRN (Reason: Cough) RF: 0 tramadol 50 mg tablet 50 mg PO TID PRN (Reason: pain) Qty: 14 RF: 0 pantoprazole 40 mg Tablet,Delayed Release (Dr/Ec) 40 mg PO DAILY Qty: 30 RF: 0 Discharge Orders: Discharge ED (Routine); Ordered 02/15/20 Ordered By: Mila Foster Referrals: Emma Novoa DO [Primary Care Provider] - 1-3 days Discharge Diet: Advance as tolerated Discharge Activity: Increase activity as tolerated Patient Instructions: Chest Pain (ED) Activity Restrictions/Additional Instructions: Please return to the ER immediately for any of the signs or symptoms listed on your discharge instruction sheets, worsening/changing of your symptoms, you are not getting better as quickly as expected, or for ANY other cause or concerns. You have been offered further evaluation and care of your heart but have declined. If your symptoms change or worsen or you become sicker in any way please return here to the ER immediately for recheck. Sign Out Sign Out Data: Patient Sign Out occurred on 02/15/20 at 00:31. Patient's care was discussed, and care was transferred from to Mila Foster. Coding Level of Care Code ED Pack Mule Worker for Chg Fwd Exam Comprehensive Documented by User: Mila Foster 02/15/20 03:48 HPI - Chest Pain General: Chief Complaint: Chest Pain Stated Complaint: COUGH/SOB Time Seen by Provider: 02/14/20 21:48 PFSH ED PFSH: Medical History (Updated 02/15/20 @ 01:09 by Mila Foster) Chronic constipation COPD (chronic obstructive pulmonary disease) GERD (gastroesophageal reflux disease) Insomnia Seizure disorder Surgical History H/O section Family History Other CAD (coronary artery disease) Cancer Diabetes Social History Smoking and tobacco status: current every day smoker cigarettes Packs smoked per day: 0.5 Alcohol intake: never Lives independently: Yes Housing: House Course Vital Signs: Vital signs: Vital Signs Temperature 97.7 F 02/14/20 21:42 Pulse Rate 94 02/15/20 01:46 Respiratory Rate 26 H 02/15/20 01:46 Blood Pressure 95/66 02/15/20 01:46 Pulse Oximetry 99 02/15/20 01:46 MDM - Chest Pain MDM Narrative: Medical decision making narrative: 0112 -patient care turned over to me at change of shift from Dr. Cantrell. Please see her note for history, physical exam and medical decision-making notes. Patient's pain sounds atypical to me. Her cardiac enzymes are within the normal range for her and if not had a significant delta to suggest ongoing acute coronary syndrome. Because of her multiple risk factors though I have offered to put her in the hospital for further evaluation and care including formal cardiac rule out and stress testing but she declines. She wants to go home. She agrees to return should her symptoms change or worsen but at this time she is ready for discharge. She does verbalize her understanding of how serious a heart problem can be including candy th or severe permanent disability. The patient has been warned that she is also been welcomed to return. At this time I definitely do not see any sign of acute coronary syndrome, pulmonary embolism, aortic dissection or otherwise. Patient's symptoms, history, exam and findings do favor gastritis at this time. Patient is adamant I refill her albuterol and Protonix at discharge. I will do this and dispense home and albuterol inhaler with her and give her a dose of Protonix here before she goes. Lab Data: Attestation: I reviewed the patient's lab results. Labs: Lab Results 02/14/20 02/14/20 02/14/20 Range/Units 22:22 22:22 22:22 WBC 6.3 (4.0-10.0) 10^3/ uL RBC 3.74 L (4.1-5.3) 10^6/u L Hgb 12.5 (11.5-15.3) g/dL Hct 39.5 (37.0-47.0) % MCV 105.6 H (81-99) fL MCH 33.4 (28.0-34.0) pg MCHC 31.6 (30.0-36.0) g/dL RDW 13.5 (12.1-15.1) % Plt Count 159 (130-400) 10^3/c mm MPV 10.9 H (7.4-10.4) fL Neut % (Auto) 69.2 % Lymph % (Auto) 19.6 % Bradford % (Auto) 9.9 % Eos % (Auto) 0.8 % Baso % (Auto) 0.3 % Neut # (Auto) 4.34 (1.8-7.7) 10^3/u L Lymph # (Auto) 1.2 (0.8-4.8) 10^3/u L Bradford # (Auto) 0.6 (0.2-0.9) 10^3/u L Eos # (Auto) 0.1 (0.0-0.8) 10^3/u L Baso # (Auto) 0.0 (0.0-0.1) 10^3/u L Nucleated RBC % (a uto) 0 % Nucleated RBCs # 0.0 /100WBC Sodium 143 (136-145) mmol/L Potassium 3.3 L (3.5-5.1) mmol/L Chloride 109 H (98-107) mmol/L Carbon Dioxide 27 (22-29) mmol/L Anion Gap 10.3 (5-19) BUN 14 (8-23) mg/dL Creatinine 0.5 (0.5-0.9) mg/dL GFR Calculation 125.9 (90-130) mL/min Glucose 124 H (65-115) mg/dL Calculated Osmolal ity 298 H (285-295) mOsm/k g Calcium 9.3 (8.5-10.5) mg/dL Total Bilirubin 0.2 (0.15-1.2) mg/dL AST 16 (0-32) U/L ALT 13 (0-33) U/L Alkaline Phosphata se 109 H (35-105) IU/L Troponin T Baselin e 27 H (0-10) ng/L Troponin T 120 Min [place] (0-10) ng/L Delta Troponin T (0-10) ABS# Total Protein 5.8 L (6.6-8.7) g/dL Albumin 3.8 (3.5-5.2) g/dL Globulin 2.0 (1.3-4.6) g/dL 02/15/20 Range/Units 00:10 WBC (4.0-10.0) 10^3/ uL RBC (4.1-5.3) 10^6/u L Hgb (11.5-15.3) g/dL Hct (37.0-47.0) % MCV (81-99) fL MCH (28.0-34.0) pg MCHC (30.0-36.0) g/dL RDW (12.1-15.1) % Plt Count (130-400) 10^3/c mm MPV (7.4-10.4) fL Neut % (Auto) % Lymph % (Auto) % Bradford % (Auto) % Eos % (Auto) % Baso % (Auto) % Neut # (Auto) (1.8-7.7) 10^3/u L Lymph # (Auto) (0.8-4.8) 10^3/u L Bradford # (Auto) (0.2-0.9) 10^3/u L Eos # (Auto) (0.0-0.8) 10^3/u L Baso # (Auto) (0.0-0.1) 10^3/u L Nucleated RBC % (a uto) % Nucleated RBCs # /100WBC Sodium (136-145) mmol/L Potassium (3.5-5.1) mmol/L Chloride (98-107) mmol/L Carbon Dioxide (22-29) mmol/L Anion Gap (5-19) BUN (8-23) mg/dL Creatinine (0.5-0.9) mg/dL GFR Calculation (90-130) mL/min Glucose (65-115) mg/dL Calculated Osmolal ity (285-295) mOsm/k g Calcium (8.5-10.5) mg/dL Total Bilirubin (0.15-1.2) mg/dL AST (0-32) U/L ALT (0-33) U/L Alkaline Phosphata se (35-105) IU/L Troponin T Baselin e (0-10) ng/L Troponin T 120 Min [place] 27.64 H (0-10) ng/L Delta Troponin T 0.64 (0-10) ABS# Total Protein (6.6-8.7) g/dL Albumin (3.5-5.2) g/dL Globulin (1.3-4.6) g/dL Imaging Data^: CXR: Attestation: I personally reviewed and interpreted this imaging study as follows: My impression: Changes consistent with COPD. No focal infiltrates. No acute cardiopulmonary findings. EKG Data^: EKG 1: Attestation: I personally reviewed and interpreted this EKG as follows: EKG interpretation date: 02/15/20 EKG interpretation time: 21:55 Interpretation: Sinus tachycardia 105 beats a minute, LVH, interventricular conduction delay, unchanged from previous. EKG 2: Attestation: I personally reviewed and interpreted this EKG as follows: EKG interpretation date: 02/15/20 EKG interpretation time: 00:20 Interpretation: Normal sinus rhythm at 92 beats a minute, LVH, no blocks, no ST- T wave changes. Similar to previous. Discharge Plan Discharge Patient Disposition: Home Clinical Impression: Chest pain Qualifiers: Chest pain type: unspecified Qualified Code(s): R07.9 - Chest pain, unspecified Gastritis Qualifiers: Gastritis type: unspecified gastritis Chronicity: acute Gastritis bleeding: without bleeding Qualified Code(s): K29.00 - Acute gastritis without bleeding Condition: Stable Prescriptions: New Protonix 40 mg tablet,delayed release (DR/EC) 40 mg PO DAILY Qty: 30 RF: 0 albuterol sulfate 90 mcg/actuation HFA aerosol inhaler 2 inh INHALATION Q4H PRN (Reason: shortness of breath or wheezing) Qty: 6.7 RF: 0 No Action levetiracetam 500 mg tablet extended release 24 hr 2,000 mg PO Q24H Qty: 120 RF: 11 Advair Diskus 250-50 mcg/dose blister with device 1 inh INHALATION BID Qty: 60 RF: 3 fluticasone propionate [Flonase Allergy Relief] 50 mcg/actuation spray,suspension 2 spray INTRANASAL DAILY Qty: 15.8 RF: 3 Miralax 17 gram powder in packet 17 g PO DAILY Qty: 30 RF: 1 trazodone 50 mg tablet 50 mg PO DAILY Qty: 90 RF: 0 Proventil HFA 90 mcg/actuation HFA aerosol inhaler 1 puff INHALATION QID Qty: 6.7 RF: 2 cetirizine 10 mg capsule 10 mg PO DAILY Qty: 90 RF: 1 Spiriva with HandiHaler 18 mcg capsule, w/inhalation device 1 cap INHALATION DAILY Qty: 90 RF: 1 cholecalciferol (vitamin D3) 50 mcg (2,000 unit) capsule 50 mcg PO DAILY Qty: 30 RF: 5 guaifenesin 600 mg Tablet Extended Release 12hr 600 mg PO BID PRN (Reason: Congestion) RF: 0 benzonatate [Tessalon Perles] 100 mg Capsule 100 mg PO TID PRN (Reason: Cough) RF: 0 tramadol 50 mg tablet 50 mg PO TID PRN (Reason: pain) Qty: 14 RF: 0 pantoprazole 40 mg Tablet,Delayed Release (Dr/Ec) 40 mg PO DAILY Qty: 30 RF: 0 Discharge Orders: Discharge ED (Routine); Ordered 02/15/20 Ordered By: Mila Foster Referrals: Emma Novoa DO [Primary Care Provider] - 1-3 days Discharge Diet: Advance as tolerated Discharge Activity: Increase activity as tolerated Patient Instructions: Chest Pain (ED) Activity Restrictions/Additional Instructions: Please return to the ER immediately for any of the signs or symptoms listed on your discharge instruction sheets, worsening/changing of your symptoms, you are not getting better as quickly as expected, or for ANY other cause or concerns. You have been offered further evaluation and care of your heart but have declined. If your symptoms change or worsen or you become sicker in any way please return here to the ER immediately for recheck. Sign Out Sign Out Data: Patient Sign Out occurred on 02/15/20 at 00:31. Patient's care was discussed, and care was transferred from to Mila Foster. Coding Level of Care Code ED Pack Mule Worker for Nickg Fwd Exam Comprehensive
[2020-02-14] MEDS: lidocaine 2% viscous 15 ML, aluminum-mag hydrox-simethicon 30 ML, sucralfate oral liq 1 GM PO (22:29)
[2020-02-14 22:46] LABS: Basophils % 0.3 %; Eosinophils # 0.1 10^3/uL (0.0-0.8); Eosinophils % 0.8 %; Hematocrit 39.5 % (37.0-47.0); Hemoglobin 12.5 g/dL (11.5-15.3); Lymphocytes # 1.2 10^3/uL (0.8-4.8); Lymphocytes % 19.6 %; Mean Corpuscular HGB Conc 31.6 g/dL (30.0-36.0); Mean Corpuscular Hemoglobin 33.4 pg (28.0-34.0); Mean Corpuscular Volume 105.6 fL (81-99); Mean Platelet Volume 10.9 fL (7.4-10.4); Monocytes # 0.6 10^3/uL (0.2-0.9); Monocytes % 9.9 %; Neutrophils # 4.34 10^3/uL (1.8-7.7); Neutrophils % 69.2 %; Nucleated Red Blood Cells % 0 %; Platelet Count 159 10^3/cmm (130-400); Red Blood Count 3.74 10^6/uL (4.1-5.3); Red Cell Distribution Width 13.5 % (12.1-15.1); White Blood Count 6.3 10^3/uL (4.0-10.0)
[2020-02-14 23:01] LABS: Alanine Aminotransferase 13 U/L (0-33); Albumin Level 3.8 g/dL (3.5-5.2); Alkaline Phosphatase 109 IU/L (35-105); Anion Gap 10.3 (5-19); Aspartate Amino Transferase 16 U/L (0-32); Blood Urea Nitrogen 14 mg/dL (8-23); Calcium 9.3 mg/dL (8.5-10.5); Carbon Dioxide 27 mmol/L (22-29); Chloride 109 mmol/L (98-107); Glomerular Filtration Rate 125.9 mL/min (90-130); Glucose 124 mg/dL (65-115); Osmolality Calculated 298 mOsm/kg (285-295); Potassium 3.3 mmol/L (3.5-5.1); Sodium 143 mmol/L (136-145); Total Bilirubin 0.2 mg/dL (0.15-1.2); Total Protein 5.8 g/dL (6.6-8.7); Troponin(5th) Baseline 27 ng/L (0-10)
[2020-02-15 01:00] LABS: Troponin 5 2HR 27.64 ng/L (0-10); Troponin 5 2HR Delta 0.64 ABS# (0-10)
[2020-02-15 01:30] VITALS: PULSE 103; RESP 18; O2SAT 99
[2020-02-15] MEDS: albuterol 8 gm MDI 2 PUFF INHALATION (01:30)
[2020-02-15 01:35] VITALS: PULSE 101
[2020-02-15] MEDS: pantoprazole DR 40 mg Tablet 80 MG PO (01:40)
[2020-02-15 01:46] VITALS: BP 95/66; PULSE 94; RESP 26; O2SAT 99
== END 2020-02-15 01:46 | disposition home or self-care (01) ==
PROVIDERS: Emergency Medicine; Emergency Provider Emergency Medicine; PCP Family Medicine
DX: R07.9 Chest pain, unspecified (principal); K29.00 Acute gastritis without bleeding; J44.9 Chronic obstructive pulmonary disease, unspecified; F17.210 Nicotine dependence, cigarettes, uncomplicated
CPT/HCPCS: 12345; 36415; 71045; 80053; 84484; 85025; 93005; 94640; 99282; 99284; J3535

== ENCOUNTER 2020-02-17 00:08 | Emergency (ER) | payer MEDICAID, SELFPAY ==
[2020-02-17 00:11] VITALS: BP 119/82; PULSE 91; RESP 20; TEMP 36.8; O2SAT 99; BMI 16.5
--- NOTE | 2020-02-17 00:19 | XR_ITS ---
WS: [id number] XR chest 1V portable [id number] REASON FOR EXAM: cp FINDINGS: The chest is unchanged compared to 02/14/2020. The heart and mediastinum are within normal limits. Calcified granulomatous changes in both hemithoraces. Possibly minimal infiltrate residual from bibasilar infiltrates noted 01/17/2020. XR/XR chest 1V portable [id number] IMPRESSION: The chest is unchanged compared to 02/14/2020. There may be minimal infiltrative residual in the left lower lung.
--- NOTE | 2020-02-17 00:19 | ECG_ITS ---
[facility] Test Date: 2020-02-17 Pat Name: Maryjo Gomez Department: Room: Gender: Female Mobile Marketing Manager: : 1960 Requested By: Jhon Schmitt Order Number: [id number] Smalls MD: Madyson Chen M.D. Measurements Intervals [place] Rate: 90 P: 72 MS: 139 QRS: -58 QRSD: 110 T: 88 QT: 356 QTc: 438 Interpretive Statements SINUS RHYTHM WITH OCCASIONAL VENTRICULAR PREMATURE COMPLEXES POSSIBLE LEFT ATRIAL ENLARGEMENT [-0.1mV P WAVE IN V1/V2] INCOMPLETE RIGHT BUNDLE BRANCH BLOCK LEFT ANTERIOR FASCICULAR BLOCK LEFT VENTRICULAR HYPERTROPHY AND ST-T CHANGE POSSIBLE SEPTAL MYOCARDIAL INFARCTION, OF INDETERMINATE AGE Compared to ECG 02/15/2020 00:20:33 Ventricular premature complex(es) now present Incomplete right bundle-branch block now present ST (T wave) deviation still present Myocardial infarct finding still present Electronically Signed On 02-18-2020 19:50:52 AGRICULTURAL EQUIPMENT TEST ENGINEER by Madyson Chen M.D. [id number]
--- NOTE | 2020-02-17 00:28 | W.ED.CHESTPA ---
HPI - Chest Pain General: Chief Complaint: Chest Pain Stated Complaint: CP Time Seen by Provider: 02/17/20 00:09 History of Present Illness: HPI narrative: 59-year-old female who was here 2 days ago with chest discomfort, presents with similar complaint. She notes pain to the upper abdomen and lower chest. It does not seem to radiate. She has shortness of breath, which is mildly above her baseline. She has a history of severe COPD. She has no coronary disease history. She is mildly nauseated. She is tender to the touch in her abdomen she says. The pain became worse tonight again, so she called an ambulance. She received minimal relief with nitroglycerin. She has had aspirin as well in route. MD complaint: chest pain Pertinent past history: other Onset (ago): day(s) (4) Timing of current episode: episodic Prior episodes: Yes Onset: during rest Pain location: substernal and epigastric Pain radiation: none Severity: moderate Quality: aching Relieving factors: nitroglycerin Exacerbating factors: nothing Associated symptoms: Reports abdominal pain, dyspnea and nausea; Deny diaphoresis, fever(s), leg edema, palpitations or vomiting Review of Systems Const: Denies: fever(s) or diaphoresis Eyes: Denies: change in vision Card: Reports: chest pain; Denies: palpitations, irregular heart rhythm or edema Resp: Reports: dyspnea GI: Reports: abdominal pain and nausea; Denies: vomiting : Denies: difficulty voiding Neuro: Reports: dizziness; Denies: headache(s) PFS ED PFSH: Medical History (Updated 02/17/20 @ 03:32 by Jhon Schneider DO) Chronic constipation COPD (chronic obstructive pulmonary disease) GERD (gastroesophageal reflux disease) Insomnia Seizure disorder Surgical History H/O section Family History Other CAD (coronary artery disease) Cancer Diabetes Social History Smoking and tobacco status: current every day smoker cigarettes Packs smoked per day: 0.5 Alcohol intake: never Lives independently: Yes Housing: House Physical Exam Const: GENERAL APPEARANCE: anxious NUTRITIONAL APPEARANCE: thin ORIENTATION/CONSCIOUSNESS: Yes awake, Yes oriented to person, Yes oriented to place and Yes oriented to time HENMT: COMMON NORMALS: normocephalic HEAD & SCALP: normocephalic Chest: COMMONS NORMALS: normal inspection of the chest and normal palpation of entire chest wall Resp: COMMON NORMALS: normal respiratory effort, No retractions, No use of accessory muscles and clear to auscultation bilaterally AUSCULTATION: clear to auscultation bilaterally Cardio: COMMON NORMALS: regular rhythm RATE: tachycardic RHYTHM: regular rhythm HEART SOUNDS: no murmurs Neuro: SENSORIUM/ORIENTATION: Yes oriented to person, Yes oriented to place and Yes oriented to time Course Vital Signs: Vital signs: Vital Signs Temperature 98.2 F 02/17/20 00:11 Pulse Rate 91 02/17/20 02:54 Respiratory Rate 19 H 02/17/20 02:54 Blood Pressure 100/70 02/17/20 02:54 Pulse Oximetry 99 02/17/20 02:54 MDM - Chest Pain MDM Narrative: Medical decision making narrative: 59-year-old female with epigastric discomfort. Pain is reproducible. EKG shows a sinus rhythm with both incomplete right and left blocks, stable from prior. Her troponin is stable from prior and did not change at 2 hours. Her lipase is normal her liver enzymes are normal. Other labs are benign. Chest x-ray is clear. Pain improved with GI cocktail. She will be allowed home. She has Protonix prescription. We will write her for Carafate as well. Lab Data: Labs: Lab Results 02/17/20 02/17/20 02/17/20 Range/Units 00:15 00:15 00:15 WBC 7.3 (4.0-10.0) 10^3/ uL RBC 4.14 (4.1-5.3) 10^6/u L Hgb 13.9 (11.5-15.3) g/dL Hct 43.4 (37.0-47.0) % MCV 104.8 H (81-99) fL MCH 33.6 (28.0-34.0) pg MCHC 32.0 (30.0-36.0) g/dL RDW 13.4 (12.1-15.1) % Plt Count 166 (130-400) 10^3/c mm MPV 11.9 H (7.4-10.4) fL Neut % (Auto) 73.4 % Lymph % (Auto) 16.2 % Banks % (Auto) 8.9 % Eos % (Auto) 0.8 % Baso % (Auto) 0.4 % Neut # (Auto) 5.38 (1.8-7.7) 10^3/u L Lymph # (Auto) 1.2 (0.8-4.8) 10^3/u L Banks # (Auto) 0.7 (0.2-0.9) 10^3/u L Eos # (Auto) 0.1 (0.0-0.8) 10^3/u L Baso # (Auto) 0.0 (0.0-0.1) 10^3/u L Nucleated RBC % (a uto) 0 % Nucleated RBCs # 0.0 /100WBC Sodium 143 (136-145) mmol/L Potassium 3.8 (3.5-5.1) mmol/L Chloride 106 (98-107) mmol/L Carbon Dioxide 28 (22-29) mmol/L Anion Gap 12.8 (5-19) BUN 8 (8-23) mg/dL Creatinine 0.5 (0.5-0.9) mg/dL GFR Calculation 125.9 (90-130) mL/min Glucose 129 H (65-115) mg/dL Calculated Osmolal ity 296 H (285-295) mOsm/k g Calcium 9.7 (8.5-10.5) mg/dL Total Bilirubin 0.3 (0.15-1.2) mg/dL AST 40 H (0-32) U/L ALT 33 (0-33) U/L Alkaline Phosphata se 150 H (35-105) IU/L Creatine Kinase 55 (26-192) U/L Troponin T Baselin e 31 H (0-10) ng/L Troponin T 120 Min upper [place] (0-10) ng/L Delta Troponin T (0-10) ABS# NT-Pro-B Natriuret Pep 4104 H (0-125) pg/mL Total Protein 6.7 (6.6-8.7) g/dL Albumin 4.3 (3.5-5.2) g/dL Globulin 2.4 (1.3-4.6) g/dL Lipase 23 (13-60) U/L Urine Color (Yellow) Urine Appearance (CLEAR) Urine pH (5-7) Ur Specific Gravit y (1.005-1.030) Urine Protein (Negative) Urine Glucose (UA) (Normal) Urine Ketones (Negative) Urine Blood (Negative) Urine Nitrate (Negative) Urine Bilirubin (Negative) Urine Urobilinogen (Negative) mg/dL Ur Leukocyte [place] ase (Negative) 02/17/20 02/17/20 Range/Units 01:22 02:20 WBC (4.0-10.0) 10^3/ uL RBC (4.1-5.3) 10^6/u L Hgb (11.5-15.3) g/dL Hct (37.0-47.0) % MCV (81-99) fL MCH (28.0-34.0) pg MCHC (30.0-36.0) g/dL RDW (12.1-15.1) % Plt Count (130-400) 10^3/c mm MPV (7.4-10.4) fL Neut % (Auto) % Lymph % (Auto) % Banks % (Auto) % Eos % (Auto) % Baso % (Auto) % Neut # (Auto) (1.8-7.7) 10^3/u L Lymph # (Auto) (0.8-4.8) 10^3/u L Banks # (Auto) (0.2-0.9) 10^3/u L Eos # (Auto) (0.0-0.8) 10^3/u L Baso # (Auto) (0.0-0.1) 10^3/u L Nucleated RBC % (a uto) % Nucleated RBCs # /100WBC Sodium (136-145) mmol/L Potassium (3.5-5.1) mmol/L Chloride (98-107) mmol/L Carbon Dioxide (22-29) mmol/L Anion Gap (5-19) BUN (8-23) mg/dL Creatinine (0.5-0.9) mg/dL GFR Calculation (90-130) mL/min Glucose (65-115) mg/dL Calculated Osmolal ity (285-295) mOsm/k g Calcium (8.5-10.5) mg/dL Total Bilirubin (0.15-1.2) mg/dL AST (0-32) U/L ALT (0-33) U/L Alkaline Phosphata se (35-105) IU/L Creatine Kinase (26-192) U/L Troponin T Baselin e (0-10) ng/L Troponin T 120 Min upper [place] 34.36 H (0-10) ng/L Delta Troponin T 3.36 (0-10) ABS# NT-Pro-B Natriuret Pep (0-125) pg/mL Total Protein (6.6-8.7) g/dL Albumin (3.5-5.2) g/dL Globulin (1.3-4.6) g/dL Lipase (13-60) U/L Urine Color Yellow (Yellow) Urine Appearance Clear (CLEAR) Urine pH 5 (5-7) Ur Specific Gravit y 1.010 (1.005-1.030) Urine Protein Neg (Negative) Urine Glucose (UA) Norm (Normal) Urine Ketones Negative (Negative) Urine Blood Neg (Negative) Urine Nitrate Negative (Negative) Urine Bilirubin Neg (Negative) Urine Urobilinogen Norm (Negative) mg/dL Ur Leukocyte [place] ase Negative (Negative) Discharge Plan Discharge Patient Disposition: Home Clinical Impression: Gastritis Qualifiers: Gastritis type: unspecified gastritis Chronicity: acute Gastritis bleeding: without bleeding Qualified Code(s): K29.00 - Acute gastritis without bleeding Condition: Stable Prescriptions: New Carafate 1 gram tablet 1 g PO Q6H Qty: 60 RF: 0 No Action levetiracetam 500 mg tablet extended release 24 hr 2,000 mg PO Q24H Qty: 120 RF: 11 Advair Diskus 250-50 mcg/dose blister with device 1 inh INHALATION BID Qty: 60 RF: 3 fluticasone propionate [Flonase Allergy Relief] 50 mcg/actuation spray,suspension 2 spray INTRANASAL DAILY Qty: 15.8 RF: 3 Miralax 17 gram powder in packet 17 g PO DAILY Qty: 30 RF: 1 trazodone 50 mg tablet 50 mg PO DAILY Qty: 90 RF: 0 Proventil HFA 90 mcg/actuation HFA aerosol inhaler 1 puff INHALATION QID Qty: 6.7 RF: 2 cetirizine 10 mg capsule 10 mg PO DAILY Qty: 90 RF: 1 Spiriva with HandiHaler 18 mcg capsule, w/inhalation device 1 cap INHALATION DAILY Qty: 90 RF: 1 cholecalciferol (vitamin D3) 50 mcg (2,000 unit) capsule 50 mcg PO DAILY Qty: 30 RF: 5 guaifenesin 600 mg Tablet Extended Release 12hr 600 mg PO BID PRN (Reason: Congestion) RF: 0 benzonatate [Tessalon Perles] 100 mg Capsule 100 mg PO TID PRN (Reason: Cough) RF: 0 tramadol 50 mg tablet 50 mg PO TID PRN (Reason: pain) Qty: 14 RF: 0 Protonix 40 mg tablet,delayed release (DR/EC) 40 mg PO DAILY Qty: 30 RF: 0 albuterol sulfate 90 mcg/actuation HFA aerosol inhaler 2 inh INHALATION Q4H PRN (Reason: shortness of breath or wheezing) Qty: 6.7 RF: 0 pantoprazole 40 mg Tablet,Delayed Release (Dr/Ec) 40 mg PO DAILY Qty: 30 RF: 0 Discharge Orders: Discharge ED (Routine); Ordered 02/17/20 Ordered By: Jhon Schneider Referrals: Emma Novoa DO [Primary Care Provider] - 1-3 days Discharge Diet: Advance as tolerated Discharge Activity: Increase activity as tolerated Patient Instructions: Gastritis (ED) Activity Restrictions/Additional Instructions: Return for worsening symptoms despite treatment. See your family doctor in the next couple of days. More outpatient tests may need to be done. Coding Level of Care Code ED Credit Department Manager for Chg Fwd Exam Detailed
[2020-02-17 00:31] VITALS: RESP 26; O2SAT 99
[2020-02-17] MEDS: ondansetron 2 mg/ML SDV 2 mL 4 MG IVP (00:31)
[2020-02-17] MEDS: morphine 4 mg/mL SDV 1 mL IVP (00:31)
[2020-02-17 00:32] LABS: Basophils % 0.4 %; Eosinophils # 0.1 10^3/uL (0.0-0.8); Eosinophils % 0.8 %; Hematocrit 43.4 % (37.0-47.0); Hemoglobin 13.9 g/dL (11.5-15.3); Lymphocytes # 1.2 10^3/uL (0.8-4.8); Lymphocytes % 16.2 %; Mean Corpuscular Hemoglobin 33.6 pg (28.0-34.0); Mean Corpuscular Volume 104.8 fL (81-99); Mean Platelet Volume 11.9 fL (7.4-10.4); Monocytes # 0.7 10^3/uL (0.2-0.9); Monocytes % 8.9 %; Neutrophils # 5.38 10^3/uL (1.8-7.7); Neutrophils % 73.4 %; Nucleated Red Blood Cells % 0 %; Platelet Count 166 10^3/cmm (130-400); Red Blood Count 4.14 10^6/uL (4.1-5.3); Red Cell Distribution Width 13.4 % (12.1-15.1); White Blood Count 7.3 10^3/uL (4.0-10.0)
[2020-02-17] MEDS: lidocaine 2% viscous 15 ML, aluminum-mag hydrox-simethicon 30 ML, sucralfate oral liq 1 GM PO (00:33)
[2020-02-17 00:36] VITALS: BP 114/73; PULSE 98; RESP 16; O2SAT 98
[2020-02-17 00:49] LABS: Troponin(5th) Baseline 31 ng/L (0-10)
[2020-02-17 00:58] LABS: Alanine Aminotransferase 33 U/L (0-33); Albumin Level 4.3 g/dL (3.5-5.2); Alkaline Phosphatase 150 IU/L (35-105); Anion Gap 12.8 (5-19); Aspartate Amino Transferase 40 U/L (0-32); Blood Urea Nitrogen 8 mg/dL (8-23); Calcium 9.7 mg/dL (8.5-10.5); Carbon Dioxide 28 mmol/L (22-29); Chloride 106 mmol/L (98-107); Creatine Phosphokinase 55 U/L (26-192); Globulin 2.4 g/dL (1.3-4.6); Glomerular Filtration Rate 125.9 mL/min (90-130); Glucose 129 mg/dL (65-115); Lipase 23 U/L (13-60); NT Pro B Type Natriuretic Pept 4104 pg/mL (0-125); Osmolality Calculated 296 mOsm/kg (285-295); Potassium 3.8 mmol/L (3.5-5.1); Sodium 143 mmol/L (136-145); Total Bilirubin 0.3 mg/dL (0.15-1.2); Total Protein 6.7 g/dL (6.6-8.7)
[2020-02-17 01:12] VITALS: BP 105/68; PULSE 92; RESP 16; O2SAT 98
[2020-02-17 01:36] LABS: Add Urine Microscopic? NO
[2020-02-17 01:46] LABS: Bilirubin Urine Neg (Negative); Blood Urine Neg (Negative); Glucose Urine UA Norm (Normal); Ketones Urine Negative (Negative); Leukocyte Esterase Urine Negative (Negative); Nitrate Urine Negative (Negative); Protein Urine Neg (Negative); Urine Appearance Clear (CLEAR); Urine Color Yellow (Yellow); Urobilinogen Urine Norm (Negative); pH Urine 5 (5-7)
[2020-02-17] MEDS: sodium chloride 0.9% 500 ML 999 ML IV (02:00)
--- NOTE | 2020-02-17 02:19 | ECG_ITS ---
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 Measurements Intervals [place] Rate: 80 P: 68 NC: 143 QRS: -62 QRSD: 113 T: 76 QT: 390 QTc: 451 Interpretive Statements SINUS RHYTHM WITH OCCASIONAL VENTRICULAR PREMATURE COMPLEXES MARKED LEFT AXIS DEVIATION [QRS AXIS < -30] INCOMPLETE RIGHT BUNDLE BRANCH BLOCK VOLTAGE CRITERIA FOR LVH POSSIBLE SEPTAL MYOCARDIAL INFARCTION, PROBABLY OLD Compared to ECG 02/15/2020 00:20:33 Ventricular premature complex(es) now present Left-axis deviation now present Incomplete right bundle-branch block now present Left anterior fascicular block no longer present ST (T wave) deviation no longer present Myocardial infarct finding still present Electronically Signed On 02-18-2020 20:33:57 OBSERVATION ASSISTANT by Madyson Chen M.D. [email or web address]
[2020-02-17 02:52] LABS: Troponin 5 2HR 34.36 ng/L (0-10); Troponin 5 2HR Delta 3.36 ABS# (0-10)
[2020-02-17 02:54] VITALS: BP 100/70; PULSE 91; RESP 19; O2SAT 99
[2020-02-17 04:18] VITALS: BP 98/69; PULSE 77; RESP 18; O2SAT 100
== END 2020-02-17 04:18 | disposition home or self-care (01) ==
PROVIDERS: Emergency Provider Emergency Medicine; PCP Family Medicine
DX: K29.00 Acute gastritis without bleeding (principal); J44.9 Chronic obstructive pulmonary disease, unspecified; F17.210 Nicotine dependence, cigarettes, uncomplicated
CPT/HCPCS: 12345; 71045; 80053; 81003; 82550; 83690; 83880; 84484; 85025; 93005; 96374; 96375; 99283; 99284; J2270; J2405; J7040

== ENCOUNTER 2020-02-24 19:41 | Emergency (ER) | payer MEDICAID, SELFPAY ==
--- NOTE | 2020-02-24 19:51 | XRR_ITS ---
PROCEDURE INFORMATION: Exam: XR Chest, 2 Views Exam date and time: 02/24/2020 8:12 PM Age: 59 years old Clinical indication: Cough; Chest pain; Type not specified TECHNIQUE: Imaging protocol: XR of the chest Views: 2 views. COMPARISON: CR XR chest 1V portable [id number] 02/17/2020 12:15 AM FINDINGS: Lungs: No focal consolidation. Pleural space: Unremarkable. No pleural effusion. No pneumothorax. Heart/Mediastinum: Heart size is similar. Bones/joints: Irregular slightly hyperdense partially rounded or nodular opacity in the right upper lobe overlying the level of 4th anterior and 5th posterior ribs. Osteopenia. XR/XR chest 2V* [id number] IMPRESSION: 1. No focal consolidation. 2. Opacity of the right upper lobe somewhat hyperdense is similar to the prior chest image of 02/14/2020. This finding corresponds to recent CT demonstrated nodule with partial calcification. Further follow-up recommendations based on CT recommended follow-up.
[2020-02-24 20:26] VITALS: BP 115/77; PULSE 121; RESP 18; TEMP 36.6; O2SAT 94; BMI 16.5
[2020-02-25] MEDS: ondansetron 2 mg/ML SDV 2 mL 4 MG IVP (02:49)
[2020-02-25] MEDS: sodium chloride 0.9% 1,000 ML 999 ML IV (02:50)
--- NOTE | 2020-02-25 02:51 | ED_ITS ---
HPI - Nausea/Vomiting/Diarrhea General: Chief complaint: Nausea/Vomiting/Diarrhea Stated complaint: COUGH W/CP, STUFFY NOSE, H/A Time Seen by Provider: 02/25/20 02:38 Source: patient Mode of arrival: ambulatory Limitations: no limitations History of Present Illness: HPI Narrative: Maryjo is a 59-year-old female who states she has had nausea vomiting over the last 2 to 3 days. States she had slight abdominal pain she rates a 1 out of 10 that is been cramping in nature. States she is also had left ear pain and a sore throat. She denies any fevers. Denies any worsening improving factors. Patient is resting comfortably in the room currently. Associated nausea: Yes Associated symtoms: Reports nausea; Denies chest pain, dysuria or headache(s) Review of Systems Const: Denies: fever(s), chills, body aches or change in appetite Eyes: Denies: blurry vision or eye discomfort ENMT: Denies: throat pain or dental pain Card: Denies: chest pain Resp: Denies: dyspnea GI: Reports: nausea and vomiting : Denies: dysuria Musc: Denies: neck pain or back pain Skin/Breast: Denies: rash Neuro: Denies: headache(s) Psych: Denies: depression Emmanuel/Lymph: Denies: easy bruising All/Imm: Denies: urticaria PFSH ED PFSH: Medical History (Updated 02/25/20 @ 03:36 by Jw Shipman MD) Chronic constipation COPD (chronic obstructive pulmonary disease) GERD (gastroesophageal reflux disease) Insomnia Seizure disorder Surgical History H/O section Family History Other CAD (coronary artery disease) Cancer Diabetes Social History Smoking and tobacco status: current every day smoker cigarettes Packs smoked per day: 0.5 Alcohol intake: never Lives independently: Yes Housing: House Physical Exam Const: COMMON NORMALS: no acute distress, patient oriented x3 and healthy appearing HENMT: COMMON NORMALS: normocephalic and atraumatic HEAD & SCALP: normocephalic and atraumatic Eye: COMMON NORMALS: Equal, round and reactive pupils present and EOMs intact bilaterally PUPIL: Yes Equal, round and reactive pupils present Neck/C-Spine: COMMON NORMALS: full ROM and supple Chest: COMMONS NORMALS: normal inspection of the chest and normal palpation of entire chest wall Resp: COMMON NORMALS: normal respiratory effort, No retractions, No use of accessory muscles and clear to auscultation bilaterally AUSCULTATION: clear to auscultation bilaterally Cardio: COMMON NORMALS: regular rate, regular rhythm and No murmurs present (Cardio) RATE: regular rate RHYTHM: regular rhythm GI: COMMON NORMALS: Normal to inspection, nondistended, normoactive bowel sounds present, Soft to palpation, non-tender and no masses PALPATION: Yes Soft to palpation Extremity: COMMON NORMALS: normal to inspection and full ROM Neuro: COMMON NORMALS: patient oriented x3, moves all extremities and no focal motor deficits Psych: COMMON NORMALS: mental status grossly normal, Normal thought process present and cooperative THOUGHT PROCESS: Normal thought process present Skin: COMMON NORMALS: no rashes or lesions noted and no wounds GENERAL SKIN EXAM: no rashes or lesions noted Course Vital Signs: Vital signs: Vital Signs Temperature 97.9 F 02/24/20 20:26 Pulse Rate 94 02/25/20 02:57 Respiratory Rate 18 02/24/20 20:26 Blood Pressure 122/78 02/25/20 02:57 Pulse Oximetry 100 02/25/20 02:57 MDM - Nausea/Vomiting/Diarrhea MDM Narrative: Medical decision making narrative: Maryjo presents here with nausea vomiting since resolved. Her abdominal exam here is benign she has no signs of acute surgical abdomen. Patient's blood work here is normal as well. She has had some congestion and sore throat we will test her for Covid. Will prescribe her Zofran. She is to follow-up with PCP in 2 to 4 days. She is to return if she has any worsening symptoms and is to return immediately she has any abdominal pain. She understands and agrees to this plan. Lab Data: Labs: Lab Results 02/25/20 02/25/20 02/25/20 Range/Units 02:53 02:53 02:53 WBC 5.9 (4.0-10.0) 10^3/ uL RBC 4.15 (4.1-5.3) 10^6/u L Hgb 13.7 (11.5-15.3) g/dL Hct 43.9 (37.0-47.0) % MCV 105.8 H (81-99) fL MCH 33.0 (28.0-34.0) pg MCHC 31.2 (30.0-36.0) g/dL RDW 13.5 (12.1-15.1) % Plt Count 190 (130-400) 10^3/c mm MPV 11.7 H (7.4-10.4) fL Neut % (Auto) 68.5 % Lymph % (Auto) 20.8 % [place] % (Auto) 9.5 % Eos % (Auto) 0.7 % Baso % (Auto) 0.3 % Neut # (Auto) 4.04 (1.8-7.7) 10^3/u L Lymph # (Auto) 1.2 (0.8-4.8) 10^3/u L [place] # (Auto) 0.6 (0.2-0.9) 10^3/u L Eos # (Auto) 0.0 (0.0-0.8) 10^3/u L Baso # (Auto) 0.0 (0.0-0.1) 10^3/u L Nucleated RBC % (a uto) 0 % Nucleated RBCs # 0.0 /100WBC PT 13.40 (12.1-14.9) SECO NDS INR 0.99 (0.8-1.2) Sodium 142 (136-145) mmol/L Potassium 3.8 (3.5-5.1) mmol/L Chloride 104 (98-107) mmol/L Carbon Dioxide 29 (22-29) mmol/L Anion Gap 12.8 (5-19) BUN 6 L (8-23) mg/dL Creatinine 0.6 (0.5-0.9) mg/dL GFR Calculation 102.0 (90-130) mL/min Glucose 89 (65-115) mg/dL Calculated Osmolal ity 291 (285-295) mOsm/k g Calcium 9.6 (8.5-10.5) mg/dL Total Bilirubin 0.5 (0.15-1.2) mg/dL AST 19 (0-32) U/L ALT 21 (0-33) U/L Alkaline Phosphata se 134 H (35-105) IU/L Total Protein 6.9 (6.6-8.7) g/dL Albumin 4.3 (3.5-5.2) g/dL Globulin 2.6 (1.3-4.6) g/dL Lipase 16 (13-60) U/L Discharge Plan Discharge Patient Disposition: Home Clinical Impression: Sore throat Vomiting Qualifiers: Vomiting type: unspecified Vomiting Intractability: non-intractable Nausea presence: with nausea Qualified Code(s): R11.2 - Nausea with vomiting, unspecified Condition: Stable Prescriptions: New ondansetron 4 mg tablet,disintegrating 4 mg PO Q6H PRN (Reason: nausea and vomiting) Qty: 14 RF: 0 No Action levetiracetam 500 mg tablet extended release 24 hr 2,000 mg PO Q24H Qty: 120 RF: 11 Advair Diskus 250-50 mcg/dose blister with device 1 inh INHALATION BID Qty: 60 RF: 3 fluticasone propionate [Flonase Allergy Relief] 50 mcg/actuation spray,suspension 2 spray INTRANASAL DAILY Qty: 15.8 RF: 3 Miralax 17 gram powder in packet 17 g PO DAILY Qty: 30 RF: 1 trazodone 50 mg tablet 50 mg PO DAILY Qty: 90 RF: 0 cetirizine 10 mg capsule 10 mg PO DAILY Qty: 90 RF: 1 Spiriva with HandiHaler 18 mcg capsule, w/inhalation device 1 cap INHALATION DAILY Qty: 90 RF: 1 cholecalciferol (vitamin D3) 50 mcg (2,000 unit) capsule 50 mcg PO DAILY Qty: 30 RF: 5 benzonatate [Tessalon Perles] 100 mg Capsule 100 mg PO TID PRN (Reason: Cough) RF: 0 albuterol sulfate 90 mcg/actuation HFA aerosol inhaler 2 inh INHALATION Q4H PRN (Reason: shortness of breath or wheezing) Qty: 6.7 RF: 0 Protonix 40 mg tablet,delayed release (DR/EC) 40 mg PO BID Qty: 60 RF: 0 Carafate 1 gram tablet 1 g PO Q6H Qty: 60 RF: 0 Discharge Orders: Discharge ED (Routine); Ordered 12/22/20 Ordered By: Jw Shipman Referrals: Emma Novoa DO [Primary Care Provider] - 1-3 days Discharge Diet: Advance as tolerated Discharge Activity: Resume usual activity Patient Instructions: Acute Nausea and Vomiting (ED) Coding Level of Care Code ED Hosiery Bagger for Chg Fwd Exam Comprehensive
[2020-02-25 02:57] VITALS: BP 122/78; PULSE 94; O2SAT 100
[2020-02-25 03:04] LABS: Basophils % 0.3 %; Eosinophils % 0.7 %; Hematocrit 43.9 % (37.0-47.0); Hemoglobin 13.7 g/dL (11.5-15.3); Lymphocytes # 1.2 10^3/uL (0.8-4.8); Lymphocytes % 20.8 %; Mean Corpuscular HGB Conc 31.2 g/dL (30.0-36.0); Mean Corpuscular Volume 105.8 fL (81-99); Mean Platelet Volume 11.7 fL (7.4-10.4); Monocytes # 0.6 10^3/uL (0.2-0.9); Monocytes % 9.5 %; Neutrophils # 4.04 10^3/uL (1.8-7.7); Neutrophils % 68.5 %; Nucleated Red Blood Cells % 0 %; Platelet Count 190 10^3/cmm (130-400); Red Blood Count 4.15 10^6/uL (4.1-5.3); Red Cell Distribution Width 13.5 % (12.1-15.1); White Blood Count 5.9 10^3/uL (4.0-10.0)
[2020-02-25 03:17] LABS: INR 0.99 (0.8-1.2)
[2020-02-25 03:23] LABS: Alanine Aminotransferase 21 U/L (0-33); Albumin Level 4.3 g/dL (3.5-5.2); Alkaline Phosphatase 134 IU/L (35-105); Anion Gap 12.8 (5-19); Aspartate Amino Transferase 19 U/L (0-32); Blood Urea Nitrogen 6 mg/dL (8-23); Calcium 9.6 mg/dL (8.5-10.5); Carbon Dioxide 29 mmol/L (22-29); Chloride 104 mmol/L (98-107); Globulin 2.6 g/dL (1.3-4.6); Glucose 89 mg/dL (65-115); Lipase 16 U/L (13-60); Osmolality Calculated 291 mOsm/kg (285-295); Potassium 3.8 mmol/L (3.5-5.1); Sodium 142 mmol/L (136-145); Total Bilirubin 0.5 mg/dL (0.15-1.2); Total Protein 6.9 g/dL (6.6-8.7)
[2020-02-25 03:49] VITALS: BP 101/73; PULSE 117; O2SAT 98
[2020-02-25 15:11] LABS: Coronavirus Test Green County Not Detected
== END 2020-02-25 04:24 | disposition home or self-care (01) ==
PROVIDERS: Emergency Provider Emergency Medicine; PCP Family Medicine
DX: R11.2 Nausea with vomiting, unspecified (principal); J02.9 Acute pharyngitis, unspecified; J44.9 Chronic obstructive pulmonary disease, unspecified; F17.210 Nicotine dependence, cigarettes, uncomplicated
CPT/HCPCS: 12345; 71046; 80053; 83690; 85025; 85610; 87635; 96374; 99283; J2405; J7030

== ENCOUNTER 2020-02-27 20:05 | Emergency (ER) | payer MEDICAID, SELFPAY ==
[2020-02-27 20:13] VITALS: BP 110/75; PULSE 130; RESP 18; TEMP 36.3; O2SAT 98; BMI 16.5
[2020-02-27 21:30] LABS: Basophils % 0.3 %; Eosinophils % 0.2 %; Hematocrit 43.1 % (37.0-47.0); Hemoglobin 13.5 g/dL (11.5-15.3); Lymphocytes # 0.8 10^3/uL (0.8-4.8); Lymphocytes % 8.7 %; Mean Corpuscular HGB Conc 31.3 g/dL (30.0-36.0); Mean Corpuscular Hemoglobin 32.8 pg (28.0-34.0); Mean Corpuscular Volume 104.6 fL (81-99); Mean Platelet Volume 12.1 fL (7.4-10.4); Monocytes # 0.6 10^3/uL (0.2-0.9); Monocytes % 6.9 %; Neutrophils # 7.24 10^3/uL (1.8-7.7); Neutrophils % 83.7 %; Nucleated Red Blood Cells % 0 %; Platelet Count 175 10^3/cmm (130-400); Red Blood Count 4.12 10^6/uL (4.1-5.3); Red Cell Distribution Width 13.3 % (12.1-15.1); White Blood Count 8.7 10^3/uL (4.0-10.0)
[2020-02-27 21:42] LABS: Alanine Aminotransferase 20 U/L (0-33); Albumin Level 3.9 g/dL (3.5-5.2); Alkaline Phosphatase 129 IU/L (35-105); Anion Gap 14.3 (5-19); Aspartate Amino Transferase 22 U/L (0-32); Blood Urea Nitrogen 7 mg/dL (8-23); Calcium 9.1 mg/dL (8.5-10.5); Carbon Dioxide 26 mmol/L (22-29); Chloride 105 mmol/L (98-107); Globulin 2.6 g/dL (1.3-4.6); Glomerular Filtration Rate 125.9 mL/min (90-130); Glucose 134 mg/dL (65-115); Lipase 19 U/L (13-60); Osmolality Calculated 292 mOsm/kg (285-295); Potassium 4.3 mmol/L (3.5-5.1); Sodium 141 mmol/L (136-145); Total Bilirubin 0.5 mg/dL (0.15-1.2); Total Protein 6.5 g/dL (6.6-8.7)
[2020-02-27 22:05] LABS: Slide Review Slide Review Perform
--- NOTE | 2020-02-27 22:20 | ED_ITS ---
HPI - Abdominal Pain General: Chief Complaint: Abdominal Pain Stated Complaint: constipation, n/v Time Seen by Provider: 02/27/20 22:10 Source: patient Mode of arrival: ambulatory Limitations: no limitations History of Present Illness: HPI narrative: 59-year-old female states been having abdominal pain along with nausea vomiting for last 2 days. She states that she is feels like she is not been able to eat anything. States pain is cramping and rates it a 7 out of 10. She denies any fever or diarrhea. Associated Symptoms: Reports nausea and vomiting; Denies chills, dysuria and fever(s) Review of Systems Const: Denies: fever(s), chills, body aches or change in appetite Eyes: Denies: blurry vision or eye discomfort ENMT: Denies: throat pain or dental pain Card: Denies: chest pain Resp: Denies: dyspnea GI: Reports: abdominal pain, nausea and vomiting : Denies: dysuria Musc: Denies: neck pain or back pain Skin/Breast: Denies: rash Neuro: Denies: headache(s) Psych: Denies: depression Emmanuel/Lymph: Denies: easy bruising All/Imm: Denies: urticaria PFSH ED PFSH: Medical History (Updated 02/28/20 @ 01:18 by Jw Shipman MD) Chronic constipation COPD (chronic obstructive pulmonary disease) GERD (gastroesophageal reflux disease) Insomnia Seizure disorder Surgical History H/O section Family History Other CAD (coronary artery disease) Cancer Diabetes Social History Smoking and tobacco status: current every day smoker cigarettes Packs smoked per day: 0.5 Alcohol intake: never Lives independently: Yes Housing: House Physical Exam Const: COMMON NORMALS: no acute distress, patient oriented x3 and healthy appearing HENMT: COMMON NORMALS: normocephalic and atraumatic HEAD & SCALP: normocephalic and atraumatic Eye: COMMON NORMALS: Equal, round and reactive pupils present and EOMs intact bilaterally PUPIL: Yes Equal, round and reactive pupils present Neck/C-Spine: COMMON NORMALS: full ROM and supple Chest: COMMONS NORMALS: normal inspection of the chest and normal palpation of entire chest wall Resp: COMMON NORMALS: normal respiratory effort, No retractions, No use of accessory muscles and clear to auscultation bilaterally AUSCULTATION: clear to auscultation bilaterally Cardio: COMMON NORMALS: regular rate, regular rhythm and No murmurs present (Cardio) RATE: regular rate RHYTHM: regular rhythm GI: COMMON NORMALS: Normal to inspection, nondistended, normoactive bowel sounds present, Soft to palpation, non-tender and no masses PALPATION: Yes Soft to palpation Extremity: COMMON NORMALS: normal to inspection and full ROM Neuro: COMMON NORMALS: patient oriented x3, moves all extremities and no focal motor deficits Psych: COMMON NORMALS: mental status grossly normal, Normal thought process present and cooperative THOUGHT PROCESS: Normal thought process present Skin: COMMON NORMALS: no rashes or lesions noted and no wounds GENERAL SKIN EXAM: no rashes or lesions noted Course Vital Signs: Vital signs: Vital Signs Temperature 97.4 F L 02/27/20 20:13 Pulse Rate 84 02/28/20 00:46 Respiratory Rate 20 H 02/28/20 00:55 Blood Pressure 115/79 02/28/20 00:46 Pulse Oximetry 97 02/28/20 00:55 MDM - Abdominal Pain MDM Narrative: Medical decision making narrative: Maryjo presents here with abdominal pain has been chronic in nature. Patient's blood work here is normal. Patient's ultrasound showed pericholecystic fluid is likely from her ascites less likely cholecystitis. She has no right upper quadrant tenderness. Patient stable for discharge and is to follow-up with PCP and return if worsening. She also has an appointment with Dr. Garnett in 2 weeks. Lab Data: Labs: Lab Results 02/27/20 02/27/20 Range/Units 21:17 21:17 WBC 8.7 (4.0-10.0) 10^3/ uL RBC 4.12 (4.1-5.3) 10^6/u L Hgb 13.5 (11.5-15.3) g/dL Hct 43.1 (37.0-47.0) % MCV 104.6 H (81-99) fL MCH 32.8 (28.0-34.0) pg MCHC 31.3 (30.0-36.0) g/dL RDW 13.3 (12.1-15.1) % Plt Count 175 (130-400) 10^3/c mm MPV 12.1 H (7.4-10.4) fL Neut % (Auto) 83.7 % Lymph % (Auto) 8.7 % [place] % (Auto) 6.9 % Eos % (Auto) 0.2 % Baso % (Auto) 0.3 % Neut # (Auto) 7.24 (1.8-7.7) 10^3/u L Lymph # (Auto) 0.8 (0.8-4.8) 10^3/u L [place] # (Auto) 0.6 (0.2-0.9) 10^3/u L Eos # (Auto) 0.0 (0.0-0.8) 10^3/u L Baso # (Auto) 0.0 (0.0-0.1) 10^3/u L Nucleated RBC % (a uto) 0 % Nucleated RBCs # 0.0 /100WBC Sodium 141 (136-145) mmol/L Potassium 4.3 (3.5-5.1) mmol/L Chloride 105 (98-107) mmol/L Carbon Dioxide 26 (22-29) mmol/L Anion Gap 14.3 (5-19) BUN 7 L (8-23) mg/dL Creatinine 0.5 (0.5-0.9) mg/dL GFR Calculation 125.9 (90-130) mL/min Glucose 134 H (65-115) mg/dL Calculated Osmolal ity 292 (285-295) mOsm/k g Calcium 9.1 (8.5-10.5) mg/dL Total Bilirubin 0.5 (0.15-1.2) mg/dL AST 22 (0-32) U/L ALT 20 (0-33) U/L Alkaline Phosphata se 129 H (35-105) IU/L Total Protein 6.5 L (6.6-8.7) g/dL Albumin 3.9 (3.5-5.2) g/dL Globulin 2.6 (1.3-4.6) g/dL Lipase 19 (13-60) U/L Imaging Data ^: US: Radiologist's impression: [employer] [place] [id number] Ultrasound Report Signed Patient: Maryjo Gomez Unit #: [id number] : 1960 Age/Sex: 59 / F ADM Date: 02/27/20 Loc: ER Room/Bed: Attending Dr: Ordering Provider/Ordering MD: Jw Shipman MD Date of Service: 02/28/20 Procedure(s): US gall bladder [id number] Accession Number(s): [id number] Report Number: [id number] PROCEDURE INFORMATION: Exam: US Abdomen, Limited; Right Upper Quadrant Exam date and time: 02/28/2020 12:00 PM Age: 59 years old Clinical indication: Abdominal pain; Acute; Patient HX: PT is npo. Complaint of constipation. PT states this is ongoing problem. Is scheduled for endo on mar 16; Additional info: Abd pain TECHNIQUE: Imaging protocol: US abdomen. Real time ultrasound with image documentation. Limited exam focused on the right upper quadrant. COMPARISON: CT abdomen pelvis w con* [id number] 02/27/2020 10:55 PM FINDINGS: Liver: 2.4 cm hyperechoic lesion in the left hepatic lobe likely reflect some focal fatty infiltration. Gallbladder: Gallbladder wall thickening with some pericholecystic edema without cholelithiasis, may be related to liver dysfunction given some ascites in the abdomen, acalculous cholecystitis is felt less likely, please correlate clinically. Common bile duct: Normal. No stones. No dilation. Pancreas: Visualized pancreas is unremarkable. Right kidney: Normal. No mass. No hydronephrosis. Intraperitoneal space: Small amount of ascites. US/US gall bladder [id number] IMPRESSION: 1. Gallbladder wall thickening with some pericholecystic edema without cholelithiasis, may be related to liver dysfunction given some ascites in the abdomen, acalculous cholecystitis is felt less likely, please correlate clinically. 2. 2.4 cm hyperechoic lesion in the left hepatic lobe likely reflect some focal fatty infiltration. 3. Small amount of ascites. CT Abd/Pel: Radiologist's impression: [employer] [address] [place] [id number] Scan Report Signed Patient: Maryjo Gomez Unit #: [id number] : 1960 Age/Sex: 59 / F ADM Date: 02/27/20 Loc: ER Room/Bed: Attending Dr: Ordering Provider/Ordering MD: Jw Shipman MD Date of Service: 02/27/20 Procedure(s): CT abdomen pelvis w con* [id number] Accession Number(s): [id number] Report Number: [id number] PROCEDURE INFORMATION: Exam: CT Abdomen And Pelvis With Contrast Exam date and time: 02/27/2020 10:50 PM Age: 59 years old Clinical indication: Abdominal pain; Generalized; Additional info: Abd pain TECHNIQUE: Imaging protocol: Computed tomography of the abdomen and pelvis with intravenous contrast. Radiation optimization: All CT scans at this facility use at least one of these dose optimization techniques: automated exposure control; mA and/or kV adjustment per patient size (includes targeted exams where dose is matched to clinical indication); or iterative reconstruction. Contrast material: OMNI 300; Contrast volume: 75 ml; Contrast route: INTRAVENOUS (IV); COMPARISON: CT abdomen pelvis w con* [id number] 03/25/2017 9:22 AM RADIATION DOSE METRICS: Total DLP (mGy-cm): 163.14 FINDINGS: Lungs: Bibasilar atelectasis versus minimal infiltrate. Right lower lobe 4.1 mm nodule. Heart: Cardiomegaly. Liver: Normal. No mass. Gallbladder and bile ducts: Pericholecystic edema and nonlocalized fluid, ultrasound could further characterize this if there is concern for cholecystitis. Pancreas: Normal. No ductal dilation. Spleen: Normal. No splenomegaly. Adrenal glands: Normal. No mass. Kidneys and ureters: Right kidney benign cyst, negative for follow-up. Stomach and bowel: Left colon mild wall thickening may be due to underlying ascites in the abdomen, a colitis is also consideration depending on the clinical scenario. Appendix: No evidence of appendicitis. Intraperitoneal space: Moderate nonspecific fluid/ascites in the pelvis. Vasculature: Unremarkable. No abdominal aortic aneurysm. Lymph nodes: Unremarkable. No enlarged lymph nodes. Urinary bladder: Unremarkable as visualized. Reproductive: Bilateral benign renal cysts, negative for follow-up. Bones/joints: Unremarkable. No acute fracture. Soft tissues: Unremarkable. Other findings: Emphysematous changes. CT/CT abdomen pelvis w con* [id number] IMPRESSION: 1. Pericholecystic edema and nonlocalized fluid, ultrasound could further characterize this if there is concern for cholecystitis. 2. Left colon mild wall thickening may be due to underlying ascites in the abdomen, a colitis is also consideration depending on the clinical scenario. 3. Emphysematous changes. 4. Bibasilar atelectasis versus minimal infiltrate. 5. Right lower lobe 4.1 mm nodule. For patients at low risk (minimal or absent history of smoking and of other known risk factors), no routine follow-up is indicated. For patients at high risk (history of smoking or of other known risk factors), consider optional CT Chest at 12 months. (Reference: Tami) 6. Cardiomegaly. 7. Bilateral benign renal cysts, negative for follow-up. 8. Moderate nonspecific fluid/ascites in the pelvis. 9. Right ovary 2.4 cm cyst.No further imaging is recommended. (Reference: Laci) COMMENTS: Consistent with the [employer]'s Incidental Findings Committee white paper (J Am Aparna Radiol 2018): Any incidental renal lesion less than 1 cm or classified as too small to characterize, or any incidental cystic renal lesion characterized as simple-appearing, is likely benign. No follow-up imaging is recommended for these lesions per consensus recommendations based on imaging criteria. Discharge Plan Discharge Patient Disposition: Home Clinical Impression: Abdominal pain Qualifiers: Abdominal location: generalized Qualified Code(s): R10.84 - Generalized abdominal pain Vomiting Qualifiers: Vomiting type: unspecified Vomiting Intractability: non-intractable Nausea presence: with nausea Qualified Code(s): R11.2 - Nausea with vomiting, unspecified Condition: Stable Prescriptions: No Action levetiracetam 500 mg tablet extended release 24 hr 2,000 mg PO Q24H Qty: 120 RF: 11 Advair Diskus 250-50 mcg/dose blister with device 1 inh INHALATION BID Qty: 60 RF: 3 fluticasone propionate [Flonase Allergy Relief] 50 mcg/actuation spray,suspension 2 spray INTRANASAL DAILY Qty: 15.8 RF: 3 Miralax 17 gram powder in packet 17 g PO DAILY Qty: 30 RF: 1 trazodone 50 mg tablet 50 mg PO DAILY Qty: 90 RF: 0 cetirizine 10 mg capsule 10 mg PO DAILY Qty: 90 RF: 1 Spiriva with HandiHaler 18 mcg capsule, w/inhalation device 1 cap INHALATION DAILY Qty: 90 RF: 1 cholecalciferol (vitamin D3) 50 mcg (2,000 unit) capsule 50 mcg PO DAILY Qty: 30 RF: 5 benzonatate [Tessalon Perles] 100 mg Capsule 100 mg PO TID PRN (Reason: Cough) RF: 0 albuterol sulfate 90 mcg/actuation HFA aerosol inhaler 2 inh INHALATION Q4H PRN (Reason: shortness of breath or wheezing) Qty: 6.7 RF: 0 Protonix 40 mg tablet,delayed release (DR/EC) 40 mg PO BID Qty: 60 RF: 0 Carafate 1 gram tablet 1 g PO Q6H Qty: 60 RF: 0 ondansetron 4 mg tablet,disintegrating 4 mg PO Q6H PRN (Reason: nausea and vomiting) Qty: 14 RF: 0 Discharge Orders: Discharge ED (Routine); Ordered 02/28/20 Ordered By: Jw Shipman Referrals: Darinel Styles MD [Physician] - 1-3 days Emma Novoa DO [Primary Care Provider] - Discharge Diet: Advance as tolerated Discharge Activity: Resume usual activity Patient Instructions: Abdominal Pain (ED) Coding Level of Care Code ED Activity Therapy Teacher for Chg Fwd Exam Comprehensive
[2020-02-27] MEDS: iohexol 300 mg/mL 100 mL Btl IV (23:08)
[2020-02-28] MEDS: sodium chloride 0.9% 1,000 ML 999 ML IV (00:19)
[2020-02-28 00:46] VITALS: BP 115/79; PULSE 84; RESP 20; O2SAT 100
[2020-02-28 00:55] VITALS: RESP 20; O2SAT 97
[2020-02-28] MEDS: morphine 4 mg/mL SDV 1 mL IVP (00:55)
[2020-02-28 03:14] VITALS: BP 115/83; PULSE 93; RESP 18; O2SAT 95
--- NOTE | 2020-02-28 23:29 | USR_ITS ---
PROCEDURE INFORMATION: Exam: US Abdomen, Limited; Right Upper Quadrant Exam date and time: 02/28/2020 12:00 PM Age: 59 years old Clinical indication: Abdominal pain; Acute; Patient HX: PT is npo. Complaint of constipation. PT states this is ongoing problem. Is scheduled for endo on mar 16; Additional info: Abd pain TECHNIQUE: Imaging protocol: US abdomen. Real time ultrasound with image documentation. Limited exam focused on the right upper quadrant. COMPARISON: CT abdomen pelvis w con* [id number] 02/27/2020 10:55 PM FINDINGS: Liver: 2.4 cm hyperechoic lesion in the left hepatic lobe likely reflect some focal fatty infiltration. Gallbladder: Gallbladder wall thickening with some pericholecystic edema without cholelithiasis, may be related to liver dysfunction given some ascites in the abdomen, acalculous cholecystitis is felt less likely, please correlate clinically. Common bile duct: Normal. No stones. No dilation. Pancreas: Visualized pancreas is unremarkable. Right kidney: Normal. No mass. No hydronephrosis. Intraperitoneal space: Small amount of ascites. US/US gall bladder [id number] IMPRESSION: 1. Gallbladder wall thickening with some pericholecystic edema without cholelithiasis, may be related to liver dysfunction given some ascites in the abdomen, acalculous cholecystitis is felt less likely, please correlate clinically. 2. 2.4 cm hyperechoic lesion in the left hepatic lobe likely reflect some focal fatty infiltration. 3. Small amount of ascites.
== END 2020-02-28 02:45 | disposition home or self-care (01) ==
PROVIDERS: Emergency Provider Emergency Medicine; PCP Family Medicine
DX: R10.84 Generalized abdominal pain (principal); R11.2 Nausea with vomiting, unspecified; J44.9 Chronic obstructive pulmonary disease, unspecified; F17.210 Nicotine dependence, cigarettes, uncomplicated
CPT/HCPCS: 12345; 74177; 76705; 80053; 83690; 85025; 96361; 96374; 99282; 99283; J2270; J7030; Q9967

== ENCOUNTER 2020-02-29 20:42 | Emergency (ER) | payer MEDICAID, SELFPAY ==
[2020-02-29 21:01] VITALS: BP 107/72; PULSE 116; RESP 18; TEMP 36.7; O2SAT 100; BMI 16.5
--- NOTE | 2020-03-01 00:43 | XRR_ITS ---
PROCEDURE INFORMATION: Exam: XR Abdomen, 1 View Exam date and time: 03/01/2020 12:47 AM Age: 59 years old Clinical indication: Constipation TECHNIQUE: Imaging protocol: XR of the abdomen. Views: Frontal supine view of the abdomen. 1 View. COMPARISON: CT abdomen pelvis w con* [id number] 02/27/2020 10:55 PM FINDINGS: Gastrointestinal tract: Normal. No bowel dilation. Bones/joints: Unremarkable. XR/XR KUB portable [id number] IMPRESSION: No acute findings.
--- NOTE | 2020-03-01 00:44 | ED_ITS ---
HPI - General Adult General: Chief complaint: Abdominal Pain Stated complaint: DIZZNESS, DIFFICULTY BREATHING, PAIN ALL OVER Time Seen by Provider: 03/01/20 00:39 History of Present Illness: HPI narrative: Patient complains about generalized pain and constipation. Said that her MiraLAX not help anymore and her pain medicine which is Tylenol does not help with her pain that she has. complaint: Generalized pain and constipation Onset (ago): week(s) Location: abdomen Associated symptoms: Deny chest pain, dyspnea, headache(s), nausea, rash or vomiting Review of Systems Const: Denies: fever(s), chills or body aches Eyes: Denies: change in vision or blurry vision ENMT: Denies: throat pain or nasal congestion Card: Denies: chest pain or dyspnea on exertion Resp: Denies: dyspnea, productive cough or non-productive cough GI: Reports: change in bowel habits; Denies: abdominal pain, nausea or vomiting Musc: Reports: extremity pain Skin/Breast: Denies: rash Neuro: Denies: headache(s) Psych: Denies: anxiety or depression Emmanuel/Lymph: Denies: easy bruising PFSH ED PFSH: Medical History (Updated 02/28/20 @ 01:18 by Jw Shipman MD) Chronic constipation COPD (chronic obstructive pulmonary disease) GERD (gastroesophageal reflux disease) Insomnia Seizure disorder Surgical History H/O section Family History Other CAD (coronary artery disease) Cancer Diabetes Social History Smoking and tobacco status: current every day smoker cigarettes Packs smoked per day: 0.5 Alcohol intake: never Lives independently: Yes Housing: House Physical Exam Const: COMMON NORMALS: no acute distress, average body habitus and patient oriented x3 HENMT: COMMON NORMALS: normocephalic HEAD & SCALP: normal to inspection and normocephalic FACE & SINUS: normal facial exam Eye: COMMON NORMALS: conjunctivae normal GENERAL EYE: appearance normal, both eyes and all related structures CONJUNCTIVA: Yes conjunctivae normal Neck/C-Spine: COMMON NORMALS: no JVD Chest: COMMONS NORMALS: normal inspection of the chest Resp: COMMON NORMALS: normal respiratory effort and clear to auscultation bilaterally AUSCULTATION: clear to auscultation bilaterally Cardio: COMMON NORMALS: no JVD, regular rate and regular rhythm RATE: regular rate RHYTHM: regular rhythm GI: INSPECTION: Yes normal to inspection AUSCULTATION: Yes Hypoactive bowel sounds present Extremity: COMMON NORMALS: normal to inspection and full ROM Neuro: COMMON NORMALS: patient oriented x3 Course Vital Signs: Vital signs: Vital Signs Temperature 98.0 F 02/29/20 21:01 Pulse Rate 116 H 02/29/20 21:01 Respiratory Rate 18 02/29/20 21:01 Blood Pressure 107/72 02/29/20 21:01 Pulse Oximetry 100 02/29/20 21:01 Discharge Plan Discharge Prescriptions: No Action levetiracetam 500 mg tablet extended release 24 hr 2,000 mg PO Q24H Qty: 120 RF: 11 Advair Diskus 250-50 mcg/dose blister with device 1 inh INHALATION BID Qty: 60 RF: 3 fluticasone propionate [Flonase Allergy Relief] 50 mcg/actuation spray,suspension 2 spray INTRANASAL DAILY Qty: 15.8 RF: 3 Miralax 17 gram powder in packet 17 g PO DAILY Qty: 30 RF: 1 trazodone 50 mg tablet 50 mg PO DAILY Qty: 90 RF: 0 cetirizine 10 mg capsule 10 mg PO DAILY Qty: 90 RF: 1 Spiriva with HandiHaler 18 mcg capsule, w/inhalation device 1 cap INHALATION DAILY Qty: 90 RF: 1 cholecalciferol (vitamin D3) 50 mcg (2,000 unit) capsule 50 mcg PO DAILY Qty: 30 RF: 5 benzonatate [Tessalon Perles] 100 mg Capsule 100 mg PO TID PRN (Reason: Cough) RF: 0 albuterol sulfate 90 mcg/actuation HFA aerosol inhaler 2 inh INHALATION Q4H PRN (Reason: shortness of breath or wheezing) Qty: 6.7 RF: 0 Protonix 40 mg tablet,delayed release (DR/EC) 40 mg PO BID Qty: 60 RF: 0 Carafate 1 gram tablet 1 g PO Q6H Qty: 60 RF: 0 ondansetron 4 mg tablet,disintegrating 4 mg PO Q6H PRN (Reason: nausea and vomiting) Qty: 14 RF: 0 Coding Level of Care Code ED Stained Glass Joiner for Juana Byrd
[2020-03-01] MEDS: ondansetron 2 mg/ML SDV 2 mL 4 MG IVP (01:06)
[2020-03-01 01:08] VITALS: RESP 18; O2SAT 92
[2020-03-01] MEDS: morphine 4 mg/mL SDV 1 mL 2 MG IVP (01:08)
[2020-03-01] MEDS: lactulose oral liq 20 gm/30 mL UDC PO (01:09)
[2020-03-01 01:11] VITALS: BP 111/71; PULSE 99; RESP 18; O2SAT 99
[2020-03-01 01:31] LABS: Basophils % 0.4 %; Eosinophils % 0.4 %; Hemoglobin 13.2 g/dL (11.5-15.3); Lymphocytes # 1.1 10^3/uL (0.8-4.8); Lymphocytes % 16.1 %; Mean Corpuscular HGB Conc 31.4 g/dL (30.0-36.0); Mean Platelet Volume 12.2 fL (7.4-10.4); Monocytes # 0.7 10^3/uL (0.2-0.9); Monocytes % 10.3 %; Neutrophils # 5.04 10^3/uL (1.8-7.7); Neutrophils % 72.5 %; Nucleated Red Blood Cells % 0 %; Platelet Count 159 10^3/cmm (130-400); Red Cell Distribution Width 13.5 % (12.1-15.1)
[2020-03-01 01:49] LABS: Alanine Aminotransferase 19 U/L (0-33); Albumin Level 3.7 g/dL (3.5-5.2); Alkaline Phosphatase 125 IU/L (35-105); Anion Gap 11.7 (5-19); Aspartate Amino Transferase 21 U/L (0-32); Blood Urea Nitrogen 7 mg/dL (8-23); Calcium 9.3 mg/dL (8.5-10.5); Carbon Dioxide 28 mmol/L (22-29); Chloride 104 mmol/L (98-107); Globulin 2.6 g/dL (1.3-4.6); Glomerular Filtration Rate 125.9 mL/min (90-130); Glucose 101 mg/dL (65-115); Lipase 17 U/L (13-60); Osmolality Calculated 288 mOsm/kg (285-295); Potassium 3.7 mmol/L (3.5-5.1); Sodium 140 mmol/L (136-145); Total Bilirubin 0.6 mg/dL (0.15-1.2); Total Protein 6.3 g/dL (6.6-8.7)
[2020-03-01 02:00] VITALS: BP 116/66; PULSE 103; RESP 20; O2SAT 99
[2020-03-01 02:18] VITALS: BP 102/71; PULSE 101; RESP 18; O2SAT 97
== END 2020-03-01 02:19 | disposition home or self-care (01) ==
PROVIDERS: Emergency Medicine; Emergency Provider Nurse Practitioner Family; PCP Family Medicine
DX: R10.9 Unspecified abdominal pain (principal); J44.9 Chronic obstructive pulmonary disease, unspecified; F17.210 Nicotine dependence, cigarettes, uncomplicated
CPT/HCPCS: 12345; 74018; 80053; 83690; 83735; 85025; 96374; 96375; 99283; J2270; J2405

== ENCOUNTER 2020-03-02 20:19 | Emergency (ER) | payer MEDICAID, SELFPAY ==
[2020-03-02 20:28] VITALS: BP 117/82; PULSE 120; RESP 18; TEMP 36.6; O2SAT 99; BMI 16.5
[2020-03-03 00:52] VITALS: BP 80/61; PULSE 92; RESP 18; O2SAT 100
[2020-03-03 01:10] LABS: Basophils % 0.7 %; Eosinophils # 0.1 10^3/uL (0.0-0.8); Eosinophils % 1.2 %; Hematocrit 43.2 % (37.0-47.0); Hemoglobin 13.2 g/dL (11.5-15.3); Lymphocytes # 1.2 10^3/uL (0.8-4.8); Mean Corpuscular HGB Conc 30.6 g/dL (30.0-36.0); Mean Corpuscular Hemoglobin 32.8 pg (28.0-34.0); Mean Corpuscular Volume 107.2 fL (81-99); Mean Platelet Volume 12.4 fL (7.4-10.4); Monocytes # 0.7 10^3/uL (0.2-0.9); Monocytes % 11.2 %; Neutrophils # 3.93 10^3/uL (1.8-7.7); Neutrophils % 66.7 %; Nucleated Red Blood Cells % 0 %; Platelet Count 176 10^3/cmm (130-400); Red Blood Count 4.03 10^6/uL (4.1-5.3); Red Cell Distribution Width 13.7 % (12.1-15.1); White Blood Count 5.9 10^3/uL (4.0-10.0)
--- NOTE | 2020-03-03 01:25 | ED_ITS ---
HPI - Abdominal Pain General: Chief Complaint: Abdominal Pain Stated Complaint: pain on left side body Time Seen by Provider: 03/03/20 00:40 History of Present Illness: HPI narrative: Patient is a 59-year-old female comes to the ED with abdominal pain and constipation. Patient has a past medical history of COPD, and GERD. She is on 3 L of oxygen continuously at home. Patient was seen here for same complaint on February 26 and . Patient says she has not had a bowel movement in over a week. She is having left lower quadrant abdominal pain. Pain is rated an 8 out of 10. Patient says she takes MiraLAX daily, but is not helping. Patient says she has been able to eat and drink normally and denies any nausea/vomiting, fever, chills. Associated Symptoms: Reports constipation; Denies chills, diarrhea, dysuria, fever(s), hematochezia, hematuria, nausea and vomiting Review of Systems Const: Denies: fever(s), chills or fatigue Eyes: Denies: change in vision or eye discomfort ENMT: Denies: throat pain, odynophagia, nasal discharge or nasal congestion Card: Denies: chest pain, palpitations, edema, swelling of feet/ankles, dyspnea on exertion or orthopnea Resp: Denies: dyspnea, productive cough or non-productive cough GI: Reports: abdominal pain (LLQ) and constipation; Denies: nausea, vomiting, diarrhea or hematochezia : Denies: flank pain, dysuria or hematuria Musc: Denies: neck pain, back pain or extremity swelling Skin/Breast: Denies: rash or new lesions Neuro: Denies: headache(s), numbness in extremities or weakness in extremities PFSH ED PFSH: Medical History Chronic constipation COPD (chronic obstructive pulmonary disease) GERD (gastroesophageal reflux disease) Insomnia Seizure disorder Surgical History H/O section Family History Other CAD (coronary artery disease) Cancer Diabetes Social History Smoking and tobacco status: current every day smoker cigarettes Packs smoked per day: 0.5 Alcohol intake: never Lives independently: Yes Housing: House Physical Exam Const: COMMON NORMALS: no acute distress, patient oriented x3 and alert GENERAL APPEARANCE: cooperative and comfortable NUTRITIONAL APPEARANCE: thin HENMT: COMMON NORMALS: normocephalic HEAD & SCALP: normocephalic MOUTH: Normal oral and palatal mucosa present THROAT: posterior oropharynx normal and uvula midline Eye: COMMON NORMALS: Equal, round and reactive pupils present PUPIL: Yes Equal, round and reactive pupils present Neck/C-Spine: COMMON NORMALS: supple GENERAL: Yes normal visual inspection Resp: COMMON NORMALS: normal respiratory effort, No retractions, No use of accessory muscles and clear to auscultation bilaterally AUSCULTATION: clear to auscultation bilaterally Cardio: COMMON NORMALS: regular rate, regular rhythm, S1 normal heart sound present, S2 normal heart sound present, No gallops present (Cardio), No clicks present (Cardio), No murmurs present (Cardio) and Peripheral pulses 2+ throughout RATE: regular rate RHYTHM: regular rhythm HEART SOUNDS: S1 normal heart sound present and S2 normal heart sound present PERIPHERAL PULSES: Peripheral pulses 2+ throughout GI: COMMON NORMALS: Normal to inspection, nondistended, normoactive bowel sounds present, Soft to palpation and no masses PALPATION: Yes Soft to palpation and Yes Tenderness to palpation present (GI) Details: LLQ (mild tenderness) : COMMON NORMALS: Yes no CVA tenderness BLADDER/KIDNEY EXAM: Yes no CVA tenderness Back/Pelvis: COMMON NORMALS: no CVA tenderness Extremity: COMMON NORMALS: normal to inspection Neuro: COMMON NORMALS: patient oriented x3 SENSORIUM/ORIENTATION: Yes alert GAIT: Yes Normal gait present Skin: GENERAL SKIN EXAM: dry skin Course Vital Signs: Vital signs: Vital Signs Temperature 97.9 F 03/02/20 20:28 Pulse Rate 87 03/03/20 03:17 Respiratory Rate 16 03/03/20 03:17 Blood Pressure 93/70 03/03/20 03:17 Pulse Oximetry 96 03/03/20 03:17 MDM - Abdominal Pain MDM Narrative: Medical decision making narrative: Patient is a 59-year-old female comes to the ED with constipation. She has been seen here for same complaint on February 26 March 01. Exam findings unremarkable. CBC and CMP were unremarkable. KUB showed no acute findings and no signs of fecal impaction. Patient was discharged with a bottle of mag citrate to take at home to help cleanse the bowels. She was told to drink plenty of fluids and stay hydrated. Continue using MiraLAX and eat high fiber diet. Return to ED precautions given. Follow-up with PCP in 7 to 10 days. Patient understood agree with plan. Lab Data: Attestation: I reviewed the patient's lab results. Labs: Lab Results 03/02/20 03/02/20 Range/Units 00:55 00:55 WBC 5.9 (4.0-10.0) 10^3/ uL RBC 4.03 L (4.1-5.3) 10^6/u L Hgb 13.2 (11.5-15.3) g/dL Hct 43.2 (37.0-47.0) % MCV 107.2 H (81-99) fL MCH 32.8 (28.0-34.0) pg MCHC 30.6 (30.0-36.0) g/dL RDW 13.7 (12.1-15.1) % Plt Count 176 (130-400) 10^3/c mm MPV 12.4 H (7.4-10.4) fL Neut % (Auto) 66.7 % Lymph % (Auto) 20.0 % [place] % (Auto) 11.2 % Eos % (Auto) 1.2 % Baso % (Auto) 0.7 % Neut # (Auto) 3.93 (1.8-7.7) 10^3/u L Lymph # (Auto) 1.2 (0.8-4.8) 10^3/u L [place] # (Auto) 0.7 (0.2-0.9) 10^3/u L Eos # (Auto) 0.1 (0.0-0.8) 10^3/u L Baso # (Auto) 0.0 (0.0-0.1) 10^3/u L Nucleated RBC % (a uto) 0 % Nucleated RBCs # 0.0 /100WBC Sodium 141 (136-145) mmol/L Potassium 3.9 (3.5-5.1) mmol/L Chloride 105 (98-107) mmol/L Carbon Dioxide 30 H (22-29) mmol/L Anion Gap 9.9 (5-19) BUN 8 (8-23) mg/dL Creatinine 0.5 (0.5-0.9) mg/dL GFR Calculation 125.9 (90-130) mL/min Glucose 90 (65-115) mg/dL Calculated Osmolal ity 290 (285-295) mOsm/k g Calcium 9.2 (8.5-10.5) mg/dL Total Bilirubin 0.3 (0.15-1.2) mg/dL AST 20 (0-32) U/L ALT 18 (0-33) U/L Alkaline Phosphata se 129 H (35-105) IU/L Total Protein 6.1 L (6.6-8.7) g/dL Albumin 3.7 (3.5-5.2) g/dL Globulin 2.4 (1.3-4.6) g/dL Lipase 17 (13-60) U/L Imaging Data ^: KUB: Attestation: I personally reviewed and interpreted this imaging study as follows: Radiologist's impression: [address] [address] XRay Report Signed Patient: Maryjo Gomez Unit #: [id number] : 1960 Age/Sex: 59 / F ADM Date: 03/02/20 Loc: ER Room/Bed: Attending Dr: Ordering Provider/Ordering MD: Oskar Ba Date of Service: 03/03/20 Procedure(s): XR KUB portable [id number] Accession Number(s): [id number] Report Number: [id number] PROCEDURE INFORMATION: Exam: XR Abdomen, 1 View Exam date and time: 03/03/2020 1:42 AM Age: 59 years old Clinical indication: Constipation TECHNIQUE: Imaging protocol: XR of the abdomen. Views: Frontal supine view of the abdomen. 1 View. COMPARISON: CR (ABDOMEN, ) 03/01/2020 12:46 AM FINDINGS: Gastrointestinal tract: Normal. No bowel dilation. Bones/joints: Unremarkable. XR/XR KUB portable [id number] IMPRESSION: No acute findings. Dictated By: Ezequiel Pimentel Signed By: Ezequiel Pimentel Signed Date/Time: 03/03/20305 DD/ 030 Discharge Plan Discharge Patient Disposition: Home Clinical Impression: Constipation Qualifiers: Constipation type: slow transit constipation Qualified Code(s): K59.01 - Slow transit constipation Condition: Stable Prescriptions: No Action levetiracetam 500 mg tablet extended release 24 hr 2,000 mg PO Q24H Qty: 120 RF: 11 Miralax 17 gram powder in packet 17 g PO DAILY Qty: 30 RF: 1 trazodone 50 mg tablet 50 mg PO DAILY Qty: 90 RF: 0 cetirizine 10 mg capsule 10 mg PO DAILY Qty: 90 RF: 1 Spiriva with HandiHaler 18 mcg capsule, w/inhalation device 1 cap INHALATION DAILY Qty: 90 RF: 1 cholecalciferol (vitamin D3) 50 mcg (2,000 unit) capsule 50 mcg PO DAILY Qty: 30 RF: 5 fluticasone propionate [Flonase Allergy Relief] 50 mcg/actuation spray,suspension 2 spray INTRANASAL DAILY Qty: 15.8 RF: 3 Advair Diskus 250-50 mcg/dose blister with device 1 inh INHALATION BID Qty: 60 RF: 3 benzonatate [Tessalon Perles] 100 mg Capsule 100 mg PO TID PRN (Reason: Cough) RF: 0 albuterol sulfate 90 mcg/actuation HFA aerosol inhaler 2 inh INHALATION Q4H PRN (Reason: shortness of breath or wheezing) Qty: 6.7 RF: 0 Protonix 40 mg tablet,delayed release (DR/EC) 40 mg PO BID Qty: 60 RF: 0 Carafate 1 gram tablet 1 g PO Q6H Qty: 60 RF: 0 ondansetron 4 mg tablet,disintegrating 4 mg PO Q6H PRN (Reason: nausea and vomiting) Qty: 14 RF: 0 lactulose 10 gram packet 10 g PO DAILY PRN (Reason: constipation) Qty: 15 RF: 0 tramadol 50 mg tablet 50 mg PO TID PRN (Reason: pain) Qty: 14 RF: 0 Discharge Orders: Discharge ED (Routine); Ordered 03/03/20 Ordered By: Oskar Ba Referrals: Emma Novoa DO [Primary Care Provider] - Discharge Diet: Regular Discharge Activity: Resume usual activity Patient Instructions: Constipation (ED) Activity Restrictions/Additional Instructions: Follow-up with medical provider as directed in 7 to 10 days for reevaluation. Take mag citrate tomorrow to help clear out bowels. Make sure you drink plenty of fluids and stay hydrated. Continue using your MiraLAX daily and to eat a high-fiber diet. Continue taking all home medications as prescribed. Return to the ER or your medical provider if condition worsens. Please read and understand discharge instructions. If any questions, please ask. Coding Level of Care Code ED Sem Manager for Chg Fwd Exam Comprehensive
[2020-03-03 01:43] VITALS: BP 116/70; PULSE 99; RESP 16; O2SAT 97
[2020-03-03 01:51] LABS: Alanine Aminotransferase 18 U/L (0-33); Albumin Level 3.7 g/dL (3.5-5.2); Alkaline Phosphatase 129 IU/L (35-105); Anion Gap 9.9 (5-19); Aspartate Amino Transferase 20 U/L (0-32); Blood Urea Nitrogen 8 mg/dL (8-23); Calcium 9.2 mg/dL (8.5-10.5); Carbon Dioxide 30 mmol/L (22-29); Chloride 105 mmol/L (98-107); Globulin 2.4 g/dL (1.3-4.6); Glomerular Filtration Rate 125.9 mL/min (90-130); Glucose 90 mg/dL (65-115); Lipase 17 U/L (13-60); Osmolality Calculated 290 mOsm/kg (285-295); Potassium 3.9 mmol/L (3.5-5.1); Sodium 141 mmol/L (136-145); Total Bilirubin 0.3 mg/dL (0.15-1.2); Total Protein 6.1 g/dL (6.6-8.7)
[2020-03-03 03:17] VITALS: BP 93/70; PULSE 87; RESP 16; O2SAT 96
[2020-03-03 03:41] VITALS: RESP 16; O2SAT 97
[2020-03-03] MEDS: morphine 4 mg/mL SDV 1 mL IVP (03:41)
[2020-03-03 03:43] VITALS: BP 111/78; PULSE 100; RESP 16; O2SAT 97
[2020-03-03] MEDS: magnesium citrate Btl 296 mL PO (03:47)
[2020-03-03 03:53] VITALS: BP 111/78; PULSE 100; RESP 18; O2SAT 96
== END 2020-03-03 03:57 | disposition home or self-care (01) ==
PROVIDERS: Emergency Medicine; Emergency Provider Physician Assistant; PCP Family Medicine
DX: K59.01 Slow transit constipation (principal); J44.9 Chronic obstructive pulmonary disease, unspecified; F17.210 Nicotine dependence, cigarettes, uncomplicated
CPT/HCPCS: 12345; 74018; 80053; 83690; 85025; 96374; 99283; J2270

== ENCOUNTER 2020-03-04 03:21 | Emergency (ER) | payer MEDICAID, SELFPAY ==
[2020-03-04 03:28] VITALS: BP 123/63; PULSE 114; RESP 18; TEMP 36.1; O2SAT 98; BMI 16.5
--- NOTE | 2020-03-04 03:29 | XRR_ITS ---
PROCEDURE INFORMATION: Exam: XR Abdomen, 1 View Exam date and time: 03/04/2020 3:42 AM Age: 59 years old Clinical indication: Constipation; Prior surgery; Surgery type: C section TECHNIQUE: Imaging protocol: XR of the abdomen. Views: Frontal supine view of the abdomen. 1 View. COMPARISON: CR XR KUB portable [id number] 03/03/2020 1:43 AM FINDINGS: Gastrointestinal tract: Normal. No bowel dilation. Bones/joints: Degenerative changes are present in the hip joints with osteophytes on the femoral heads.. XR/XR KUB portable [id number] IMPRESSION: No acute findings.
--- NOTE | 2020-03-04 03:44 | W.ED.ABDPA2 ---
HPI - Abdominal Pain General: Chief Complaint: Abdominal Pain Stated Complaint: constipation, lower back pain Time Seen by Provider: 03/04/20 03:33 Source: patient Mode of arrival: ambulatory Limitations: no limitations History of Present Illness: HPI narrative: 59-year-old female who has been seen here multiple times over the last week for constipation. Patient states she has not had a bowel movement. She is got some cramping pain in her lower abdomen she rates 2 out of 10. She denies any worsening or improving factors. She denies any vomiting or diarrhea. She denies any fevers. Associated Symptoms: Reports constipation; Denies chills, dysuria and fever(s) Review of Systems Const: Denies: fever(s), chills, body aches or change in appetite Eyes: Denies: blurry vision or eye discomfort ENMT: Denies: throat pain or dental pain Card: Denies: chest pain Resp: Denies: dyspnea GI: Reports: abdominal pain and constipation : Denies: dysuria Musc: Denies: neck pain or back pain Skin/Breast: Denies: rash Neuro: Denies: headache(s) Psych: Denies: depression Emmanuel/Lymph: Denies: easy bruising All/Imm: Denies: urticaria PFSH ED PFSH: Medical History (Updated 03/04/20 @ 05:29 by Jw Shipman MD) Chronic constipation COPD (chronic obstructive pulmonary disease) GERD (gastroesophageal reflux disease) Insomnia Seizure disorder Surgical History H/O section Family History Other CAD (coronary artery disease) Cancer Diabetes Social History Smoking and tobacco status: current every day smoker cigarettes Packs smoked per day: 0.5 Alcohol intake: never Lives independently: Yes Housing: House Physical Exam Const: COMMON NORMALS: no acute distress, patient oriented x3 and healthy appearing HENMT: COMMON NORMALS: normocephalic and atraumatic HEAD & SCALP: normocephalic and atraumatic Eye: COMMON NORMALS: Equal, round and reactive pupils present and EOMs intact bilaterally PUPIL: Yes Equal, round and reactive pupils present Neck/C-Spine: COMMON NORMALS: full ROM and supple Chest: COMMONS NORMALS: normal inspection of the chest and normal palpation of entire chest wall Resp: COMMON NORMALS: normal respiratory effort, No retractions, No use of accessory muscles and clear to auscultation bilaterally AUSCULTATION: clear to auscultation bilaterally Cardio: COMMON NORMALS: regular rate, regular rhythm and No murmurs present (Cardio) RATE: regular rate RHYTHM: regular rhythm GI: COMMON NORMALS: Normal to inspection, nondistended, normoactive bowel sounds present, Soft to palpation, non-tender and no masses PALPATION: Yes Soft to palpation Extremity: COMMON NORMALS: normal to inspection and full ROM Neuro: COMMON NORMALS: patient oriented x3, moves all extremities and no focal motor deficits Psych: COMMON NORMALS: mental status grossly normal, Normal thought process present and cooperative THOUGHT PROCESS: Normal thought process present Skin: COMMON NORMALS: no rashes or lesions noted and no wounds GENERAL SKIN EXAM: no rashes or lesions noted Course Vital Signs: Vital signs: Vital Signs Temperature 96.9 F L 03/04/20 03:28 Pulse Rate 100 03/04/20 05:11 Respiratory Rate 18 03/04/20 05:11 Blood Pressure 118/72 03/04/20 05:11 Pulse Oximetry 100 03/04/20 05:11 MDM - Abdominal Pain MDM Narrative: Medical decision making narrative: Patient presents here with what she thinks is constipation. Her CT scan here shows no signs of constipation informed her she needs to eat a regular diet high in fiber. CT shows no acute findings and blood work is normal. She is stable for discharge and is to follow-up PCP and return if worsening. She understands and agrees to plan. Lab Data: Labs: Lab Results 03/04/20 03/04/20 Range/Units 03:55 04:00 WBC 5.0 (4.0-10.0) 10^3/ uL RBC 3.83 L (4.1-5.3) 10^6/u L Hgb 12.5 (11.5-15.3) g/dL Hct 39.7 (37.0-47.0) % MCV 103.7 H (81-99) fL MCH 32.6 (28.0-34.0) pg MCHC 31.5 (30.0-36.0) g/dL RDW 13.6 (12.1-15.1) % Plt Count 153 (130-400) 10^3/c mm MPV 12.3 H (7.4-10.4) fL Neut % (Auto) 65.3 % Lymph % (Auto) 22.6 % [place] % (Auto) 10.5 % Eos % (Auto) 0.6 % Baso % (Auto) 0.4 % Neut # (Auto) 3.23 (1.8-7.7) 10^3/u L Lymph # (Auto) 1.1 (0.8-4.8) 10^3/u L [place] # (Auto) 0.5 (0.2-0.9) 10^3/u L Eos # (Auto) 0.0 (0.0-0.8) 10^3/u L Baso # (Auto) 0.0 (0.0-0.1) 10^3/u L Nucleated RBC % (a uto) 0 % Nucleated RBCs # 0.0 /100WBC Sodium 139 (136-145) mmol/L Potassium 3.5 (3.5-5.1) mmol/L Chloride 103 (98-107) mmol/L Carbon Dioxide 25 (22-29) mmol/L Anion Gap 14.5 (5-19) BUN 7 L (8-23) mg/dL Creatinine 0.5 (0.5-0.9) mg/dL GFR Calculation 125.9 (90-130) mL/min Glucose 115 (65-115) mg/dL Calculated Osmolal ity 287 (285-295) mOsm/k g Calcium 9.4 (8.5-10.5) mg/dL Total Bilirubin 0.5 (0.15-1.2) mg/dL AST 25 (0-32) U/L ALT 19 (0-33) U/L Alkaline Phosphata se 128 H (35-105) IU/L Total Protein 6.4 L (6.6-8.7) g/dL Albumin 3.8 (3.5-5.2) g/dL Globulin 2.6 (1.3-4.6) g/dL Lipase 15 (13-60) U/L Imaging Data ^: CT Abd/Pel: Radiologist's impression: [employer] [address] [address] Scan Report Signed Patient: Maryjo Gomez Unit #: [id number] : 1960 Age/Sex: 59 / F ADM Date: 03/04/20 Loc: ER Room/Bed: Attending Dr: Ordering Provider/Ordering MD: Jw Shipman MD Date of Service: 03/04/20 Procedure(s): CT abdomen pelvis w con* [id number] Accession Number(s): [id number] Report Number: [id number] PROCEDURE INFORMATION: Exam: CT Abdomen And Pelvis With Contrast Exam date and time: 03/04/2020 4:08 AM Age: 59 years old Clinical indication: Abdominal pain; Generalized; Prior surgery; Surgery type: Csection; Patient HX: Abd pain with constipation TECHNIQUE: Imaging protocol: Computed tomography of the abdomen and pelvis with intravenous contrast. Radiation optimization: All CT scans at this facility use at least one of these dose optimization techniques: automated exposure control; mA and/or kV adjustment per patient size (includes targeted exams where dose is matched to clinical indication); or iterative reconstruction. Contrast material: VISI 320; Contrast volume: 75 ml; Contrast route: INTRAVENOUS (IV); COMPARISON: CT abdomen pelvis w con* [id number] 02/27/2020 10:55 PM RADIATION DOSE METRICS: Total DLP (mGy-cm): 280.95 FINDINGS: Pleural space: Bilateral trace pleural effusions are again seen. Liver: Fatty change is present. No mass. Gallbladder and bile ducts: Normal. No calcified stones. No ductal dilation. Pancreas: Normal. No ductal dilation. Spleen: Normal. No splenomegaly. Adrenal glands: Normal. No mass. Kidneys and ureters: Bilateral tiny simple cortical cysts are again seen. No hydronephrosis. Stomach and bowel: Unremarkable. No obstruction. Fluid content is noted in the colon. No mucosal thickening. Appendix: No evidence of appendicitis. The appendix is partially seen. Intraperitoneal space: Unremarkable. No free air. Small amount of fluid is seen in the pelvis. Vasculature: Unremarkable. No abdominal aortic aneurysm. Lymph nodes: Unremarkable. No enlarged lymph nodes. Urinary bladder: Unremarkable as visualized. Reproductive: Unremarkable as visualized. The right ovarian cyst seen on the previous examination not identified Bones/joints: Degenerative changes are present. No acute fracture. Soft tissues: Unremarkable. CT/CT abdomen pelvis w con* [id number] IMPRESSION: 1. Small amount of free fluid is still seen in the pelvis. 2. Resolution of the pericholecystic fluid is seen. 3. Resolution of the right ovarian cyst is seen. 4. Mild fatty change is present liver. 5. Bilateral simple renal cortical cysts are again seen. 6. Bilateral trace pleural effusions are again seen. 7. Fluid content is seen in the colon usually seen with diarrheal conditions. No wall thickening or inflammation is present. Discharge Plan Discharge Patient Disposition: Home Clinical Impression: Constipation Qualifiers: Constipation type: unspecified constipation type Qualified Code(s): K59.00 - Constipation, unspecified Condition: Stable Prescriptions: No Action levetiracetam 500 mg tablet extended release 24 hr 2,000 mg PO Q24H Qty: 120 RF: 11 Miralax 17 gram powder in packet 17 g PO DAILY Qty: 30 RF: 1 trazodone 50 mg tablet 50 mg PO DAILY Qty: 90 RF: 0 cetirizine 10 mg capsule 10 mg PO DAILY Qty: 90 RF: 1 Spiriva with HandiHaler 18 mcg capsule, w/inhalation device 1 cap INHALATION DAILY Qty: 90 RF: 1 cholecalciferol (vitamin D3) 50 mcg (2,000 unit) capsule 50 mcg PO DAILY Qty: 30 RF: 5 fluticasone propionate [Flonase Allergy Relief] 50 mcg/actuation spray,suspension 2 spray INTRANASAL DAILY Qty: 15.8 RF: 3 Advair Diskus 250-50 mcg/dose blister with device 1 inh INHALATION BID Qty: 60 RF: 3 benzonatate [Tessalon Perles] 100 mg Capsule 100 mg PO TID PRN (Reason: Cough) RF: 0 albuterol sulfate 90 mcg/actuation HFA aerosol inhaler 2 inh INHALATION Q4H PRN (Reason: shortness of breath or wheezing) Qty: 6.7 RF: 0 Protonix 40 mg tablet,delayed release (DR/EC) 40 mg PO BID Qty: 60 RF: 0 Carafate 1 gram tablet 1 g PO Q6H Qty: 60 RF: 0 ondansetron 4 mg tablet,disintegrating 4 mg PO Q6H PRN (Reason: nausea and vomiting) Qty: 14 RF: 0 lactulose 10 gram packet 10 g PO DAILY PRN (Reason: constipation) Qty: 15 RF: 0 tramadol 50 mg tablet 50 mg PO TID PRN (Reason: pain) Qty: 14 RF: 0 Discharge Orders: Discharge ED (Routine); Ordered 03/04/20 Ordered By: Jw Shipman Referrals: Emma Novoa DO [Primary Care Provider] - 1-3 days Discharge Diet: Advance as tolerated Discharge Activity: Resume usual activity Patient Instructions: Constipation (ED) Coding Level of Care Code ED Price Accuracy Supervisor for Chg Fwd Exam Comprehensive
--- NOTE | 2020-03-04 03:51 | CTR_ITS ---
PROCEDURE INFORMATION: Exam: CT Abdomen And Pelvis With Contrast Exam date and time: 03/04/2020 4:08 AM Age: 59 years old Clinical indication: Abdominal pain; Generalized; Prior surgery; Surgery type: Csection; Patient HX: Abd pain with constipation TECHNIQUE: Imaging protocol: Computed tomography of the abdomen and pelvis with intravenous contrast. Radiation optimization: All CT scans at this facility use at least one of these dose optimization techniques: automated exposure control; mA and/or kV adjustment per patient size (includes targeted exams where dose is matched to clinical indication); or iterative reconstruction. Contrast material: VISI 320; Contrast volume: 75 ml; Contrast route: INTRAVENOUS (IV); COMPARISON: CT abdomen pelvis w con* [id number] 02/27/2020 10:55 PM RADIATION DOSE METRICS: Total DLP (mGy-cm): 280.95 FINDINGS: Pleural space: Bilateral trace pleural effusions are again seen. Liver: Fatty change is present. No mass. Gallbladder and bile ducts: Normal. No calcified stones. No ductal dilation. Pancreas: Normal. No ductal dilation. Spleen: Normal. No splenomegaly. Adrenal glands: Normal. No mass. Kidneys and ureters: Bilateral tiny simple cortical cysts are again seen. No hydronephrosis. Stomach and bowel: Unremarkable. No obstruction. Fluid content is noted in the colon. No mucosal thickening. Appendix: No evidence of appendicitis. The appendix is partially seen. Intraperitoneal space: Unremarkable. No free air. Small amount of fluid is seen in the pelvis. Vasculature: Unremarkable. No abdominal aortic aneurysm. Lymph nodes: Unremarkable. No enlarged lymph nodes. Urinary bladder: Unremarkable as visualized. Reproductive: Unremarkable as visualized. The right ovarian cyst seen on the previous examination not identified Bones/joints: Degenerative changes are present. No acute fracture. Soft tissues: Unremarkable. CT/CT abdomen pelvis w con* [id number] IMPRESSION: 1. Small amount of free fluid is still seen in the pelvis. 2. Resolution of the pericholecystic fluid is seen. 3. Resolution of the right ovarian cyst is seen. 4. Mild fatty change is present liver. 5. Bilateral simple renal cortical cysts are again seen. 6. Bilateral trace pleural effusions are again seen. 7. Fluid content is seen in the colon usually seen with diarrheal conditions. No wall thickening or inflammation is present. Radiation Dose CTDIVOL = (mGy): DLP = 280.95 (mGy-cm)
[2020-03-04 04:14] LABS: Basophils % 0.4 %; Eosinophils % 0.6 %; Hematocrit 39.7 % (37.0-47.0); Hemoglobin 12.5 g/dL (11.5-15.3); Lymphocytes # 1.1 10^3/uL (0.8-4.8); Lymphocytes % 22.6 %; Mean Corpuscular HGB Conc 31.5 g/dL (30.0-36.0); Mean Corpuscular Hemoglobin 32.6 pg (28.0-34.0); Mean Corpuscular Volume 103.7 fL (81-99); Mean Platelet Volume 12.3 fL (7.4-10.4); Monocytes # 0.5 10^3/uL (0.2-0.9); Monocytes % 10.5 %; Neutrophils # 3.23 10^3/uL (1.8-7.7); Neutrophils % 65.3 %; Nucleated Red Blood Cells % 0 %; Platelet Count 153 10^3/cmm (130-400); Red Blood Count 3.83 10^6/uL (4.1-5.3); Red Cell Distribution Width 13.6 % (12.1-15.1)
[2020-03-04 04:15] LABS: Alanine Aminotransferase 19 U/L (0-33); Albumin Level 3.8 g/dL (3.5-5.2); Alkaline Phosphatase 128 IU/L (35-105); Blood Urea Nitrogen 7 mg/dL (8-23); Calcium 9.4 mg/dL (8.5-10.5); Carbon Dioxide 25 mmol/L (22-29); Chloride 103 mmol/L (98-107); Globulin 2.6 g/dL (1.3-4.6); Glomerular Filtration Rate 125.9 mL/min (90-130); Glucose 115 mg/dL (65-115); Lipase 15 U/L (13-60); Osmolality Calculated 287 mOsm/kg (285-295); Sodium 139 mmol/L (136-145); Total Bilirubin 0.5 mg/dL (0.15-1.2); Total Protein 6.4 g/dL (6.6-8.7)
[2020-03-04 04:17] LABS: Anion Gap 14.5 (5-19); Aspartate Amino Transferase 25 U/L (0-32); Potassium 3.5 mmol/L (3.5-5.1)
[2020-03-04] MEDS: iohexol 300 mg/mL 100 mL Btl IV (04:55)
[2020-03-04 05:11] VITALS: BP 118/72; PULSE 100; RESP 18; O2SAT 100
[2020-03-04 06:04] VITALS: BP 109/77; PULSE 105; RESP 18; O2SAT 100
== END 2020-03-04 06:08 | disposition home or self-care (01) ==
PROVIDERS: Physician Assistant; Emergency Provider Emergency Medicine; PCP Family Medicine
DX: K59.00 Constipation, unspecified (principal); J44.9 Chronic obstructive pulmonary disease, unspecified; F17.210 Nicotine dependence, cigarettes, uncomplicated
CPT/HCPCS: 12345; 74018; 74177; 80053; 83690; 85025; 99283; Q9967

== ENCOUNTER 2020-03-04 21:29 | Emergency (ER) | payer MEDICAID, SELFPAY ==
[2020-03-04 21:32] VITALS: BP 116/65; RESP 17; TEMP 36.6; O2SAT 97; BMI 16.5
--- NOTE | 2020-03-04 21:35 | ECG_ITS ---
[facility] Test Date: 2020-03-04 Pat Name: Maryjo Gomez Department: Room: Gender: Female Hop Weigher: : 1960 Requested By: Jw Shipman Order Number: [id number] Smalls MD: Madyson Chen M.D. Measurements Intervals [place] Rate: 106 P: 71 MN: 116 QRS: -56 QRSD: 109 T: 92 QT: 351 QTc: 468 Interpretive Statements SINUS TACHYCARDIA WITH SHORT MN INTERVAL WITH OCCASIONAL VENTRICULAR PREMATURE COMPLEXES POSSIBLE LEFT ATRIAL ENLARGEMENT [-0.1mV P WAVE IN V1/V2] LEFT ANTERIOR FASCICULAR BLOCK [QRS AXIS <= -45, QR IN I, RS IN II] LEFT VENTRICULAR HYPERTROPHY AND ST-T CHANGE POSSIBLE SEPTAL MYOCARDIAL INFARCTION , OF INDETERMINATE AGE Compared to ECG 02/17/2020 02:14:48 Left anterior fascicular block now present ST (T wave) deviation now present Left-axis deviation no longer present Incomplete right bundle-branch block no longer present Myocardial infarct finding still present Electronically Signed On 03-05-2020 9:23:56 SAP DATA ANALYST by Madyson Chen M.D. [id number]
--- NOTE | 2020-03-04 21:35 | XR_ITS ---
WS: [id number] Exam: XR chest 1V portable [id number] Date/Time of Exam: 03/04/2020 9:53 PM Reason For Exam: cp Comparison 02/24/2020. The lungs are hyperinflated and clear. Stable partially calcified nodule in the right upper lobe. No pleural effusions. Heart size is top limits normal. There has been some increase in heart size since previous exams. Regional bony elements are intact. Monitoring leads superimpose the chest. XR/XR chest 1V portable [id number] IMPRESSION: 1. Pulmonary hyperinflation which may indicate obstructive lung disease. No acu te process. 2. Heart size top limits normal. There has been some increase in heart size sin ce prior exams.
--- NOTE | 2020-03-04 21:36 | W.ED.CHESTPA ---
HPI - Chest Pain General: Chief Complaint: Chest Pain Stated Complaint: STEMI Time Seen by Provider: 03/04/20 21:34 Source: patient and EMS Mode of arrival: EMS Limitations: no limitations History of Present Illness: HPI narrative: 59-year-old female who is well-known to the ER states started having chest pain at 6 tonight. States pain is sharp in nature and worse with palpation. She denies any shortness of breath. She denies any fever. She states she still has abdominal pain and has not had a bowel movement. Denies any vomiting or radiation of her pain. MD complaint: chest pain Associated symptoms: Deny abdominal pain, dyspnea, fever(s), nausea or vomiting Review of Systems Const: Denies: fever(s), chills, body aches or change in appetite Eyes: Denies: blurry vision or eye discomfort ENMT: Denies: throat pain or dental pain Card: Reports: chest pain Resp: Denies: dyspnea GI: Denies: abdominal pain, nausea, vomiting or diarrhea : Denies: dysuria Musc: Denies: neck pain or back pain Skin/Breast: Denies: rash Neuro: Denies: headache(s) Psych: Denies: depression Emmanuel/Lymph: Denies: easy bruising All/Imm: Denies: urticaria PFSH ED PFSH: Medical History (Updated 03/05/20 @ 00:31 by Jw Shipman MD) Chronic constipation COPD (chronic obstructive pulmonary disease) GERD (gastroesophageal reflux disease) Insomnia Seizure disorder Surgical History H/O section Family History Other CAD (coronary artery disease) Cancer Diabetes Social History Smoking and tobacco status: current every day smoker cigarettes Packs smoked per day: 0.5 Alcohol intake: never Lives independently: Yes Housing: House Physical Exam Const: COMMON NORMALS: no acute distress, patient oriented x3 and healthy appearing HENMT: COMMON NORMALS: normocephalic and atraumatic HEAD & SCALP: normocephalic and atraumatic Eye: COMMON NORMALS: Equal, round and reactive pupils present and EOMs intact bilaterally PUPIL: Yes Equal, round and reactive pupils present Neck/C-Spine: COMMON NORMALS: full ROM and supple Chest: COMMONS NORMALS: normal inspection of the chest and normal palpation of entire chest wall Resp: COMMON NORMALS: normal respiratory effort, No retractions, No use of accessory muscles and clear to auscultation bilaterally AUSCULTATION: clear to auscultation bilaterally Cardio: COMMON NORMALS: regular rate, regular rhythm and No murmurs present (Cardio) RATE: regular rate RHYTHM: regular rhythm GI: COMMON NORMALS: Normal to inspection, nondistended, normoactive bowel sounds present, Soft to palpation, non-tender and no masses PALPATION: Yes Soft to palpation Extremity: COMMON NORMALS: normal to inspection and full ROM Neuro: COMMON NORMALS: patient oriented x3, moves all extremities and no focal motor deficits Psych: COMMON NORMALS: mental status grossly normal, Normal thought process present and cooperative THOUGHT PROCESS: Normal thought process present Skin: COMMON NORMALS: no rashes or lesions noted and no wounds GENERAL SKIN EXAM: no rashes or lesions noted Course Vital Signs: Vital signs: Vital Signs Temperature 97.8 F 03/04/20 21:32 Pulse Rate 104 H 03/05/20 00:42 Respiratory Rate 28 H 03/05/20 00:42 Blood Pressure 106/74 03/05/20 00:42 Pulse Oximetry 100 03/05/20 00:42 MDM - Chest Pain MDM Narrative: Medical decision making narrative: Maryjo presents with chest pain is atypical in nature. She is point tender on exam and repeat troponin shows no change. She has no signs of acute coronary syndrome. She has no signs of pulmonary embolism. She is stable for discharge and is to follow-up PCP and return if worsening. Lab Data: Labs: Lab Results 03/04/20 03/04/20 03/04/20 Range/Units 21:40 21:40 21:40 WBC 5.6 (4.0-10.0) 10^3/ uL RBC 4.13 (4.1-5.3) 10^6/u L Hgb 13.4 (11.5-15.3) g/dL Hct 42.3 (37.0-47.0) % MCV 102.4 H (81-99) fL MCH 32.4 (28.0-34.0) pg MCHC 31.7 (30.0-36.0) g/dL RDW 13.5 (12.1-15.1) % Plt Count 176 (130-400) 10^3/c mm MPV 12.2 H (7.4-10.4) fL Neut % (Auto) 76.4 % Lymph % (Auto) 15.1 % Todd % (Auto) 7.6 % Eos % (Auto) 0.2 % Baso % (Auto) 0.5 % Neut # (Auto) 4.31 (1.8-7.7) 10^3/u L Lymph # (Auto) 0.9 (0.8-4.8) 10^3/u L Todd # (Auto) 0.4 (0.2-0.9) 10^3/u L Eos # (Auto) 0.0 (0.0-0.8) 10^3/u L Baso # (Auto) 0.0 (0.0-0.1) 10^3/u L Nucleated RBC % (a uto) 0 % Nucleated RBCs # 0.0 /100WBC Sodium 141 (136-145) mmol/L Potassium 3.5 (3.5-5.1) mmol/L Chloride 103 (98-107) mmol/L Carbon Dioxide 28 (22-29) mmol/L Anion Gap 13.5 (5-19) BUN 6 L (8-23) mg/dL Creatinine 0.5 (0.5-0.9) mg/dL GFR Calculation 125.9 (90-130) mL/min Glucose 144 H (65-115) mg/dL Calculated Osmolal ity 292 (285-295) mOsm/k g Calcium 9.3 (8.5-10.5) mg/dL Total Bilirubin 0.6 (0.15-1.2) mg/dL AST 19 (0-32) U/L ALT 16 (0-33) U/L Alkaline Phosphata se 121 H (35-105) IU/L Troponin T Baselin e 34 H (0-10) ng/L Troponin T 120 Min [place] (0-10) ng/L Delta Troponin T (0-10) ABS# Total Protein 5.9 L (6.6-8.7) g/dL Albumin 3.7 (3.5-5.2) g/dL Globulin 2.2 (1.3-4.6) g/dL 03/04/ Range/Units 23:37 WBC (4.0-10.0) 10^3/ uL RBC (4.1-5.3) 10^6/u L Hgb (11.5-15.3) g/dL Hct (37.0-47.0) % MCV (81-99) fL MCH (28.0-34.0) pg MCHC (30.0-36.0) g/dL RDW (12.1-15.1) % Plt Count (130-400) 10^3/c mm MPV (7.4-10.4) fL Neut % (Auto) % Lymph % (Auto) % Todd % (Auto) % Eos % (Auto) % Baso % (Auto) % Neut # (Auto) (1.8-7.7) 10^3/u L Lymph # (Auto) (0.8-4.8) 10^3/u L Todd # (Auto) (0.2-0.9) 10^3/u L Eos # (Auto) (0.0-0.8) 10^3/u L Baso # (Auto) (0.0-0.1) 10^3/u L Nucleated RBC % (a uto) % Nucleated RBCs # /100WBC Sodium (136-145) mmol/L Potassium (3.5-5.1) mmol/L Chloride (98-107) mmol/L Carbon Dioxide (22-29) mmol/L Anion Gap (5-19) BUN (8-23) mg/dL Creatinine (0.5-0.9) mg/dL GFR Calculation (90-130) mL/min Glucose (65-115) mg/dL Calculated Osmolal ity (285-295) mOsm/k g Calcium (8.5-10.5) mg/dL Total Bilirubin (0.15-1.2) mg/dL AST (0-32) U/L ALT (0-33) U/L Alkaline Phosphata se (35-105) IU/L Troponin T Baselin e (0-10) ng/L Troponin T 120 Min [place] 34.25 H (0-10) ng/L Delta Troponin T 0.25 (0-10) ABS# Total Protein (6.6-8.7) g/dL Albumin (3.5-5.2) g/dL Globulin (1.3-4.6) g/dL Imaging Data^: CXR: Attestation: I personally reviewed and interpreted this imaging study as follows: My impression: no acute abnormalities EKG Data^: EKG 1: Attestation: I personally reviewed and interpreted this EKG as follows: EKG interpretation date: 03/04/20 EKG interpretation time: 21:32 Interpretation: sinus tach hr [address] elevation qrs 109 qtc 413 unchanged 02/17/20 EKG 2: Attestation: I personally reviewed and interpreted this EKG as follows: EKG interpretation date: 03/04/20 EKG interpretation time: 23:33 Interpretation: Sinus tach heart rate [address] or T wave normalities QRS 110 QTC 417 Discharge Plan Discharge Patient Disposition: Home Clinical Impression: Chest pain Qualifiers: Chest pain type: unspecified Qualified Code(s): R07.9 - Chest pain, unspecified Condition: Stable Prescriptions: No Action levetiracetam 500 mg tablet extended release 24 hr 2,000 mg PO Q24H Qty: 120 RF: 11 Miralax 17 gram powder in packet 17 g PO DAILY Qty: 30 RF: 1 trazodone 50 mg tablet 50 mg PO DAILY Qty: 90 RF: 0 cetirizine 10 mg capsule 10 mg PO DAILY Qty: 90 RF: 1 Spiriva with HandiHaler 18 mcg capsule, w/inhalation device 1 cap INHALATION DAILY Qty: 90 RF: 1 cholecalciferol (vitamin D3) 50 mcg (2,000 unit) capsule 50 mcg PO DAILY Qty: 30 RF: 5 fluticasone propionate [Flonase Allergy Relief] 50 mcg/actuation spray,suspension 2 spray INTRANASAL DAILY Qty: 15.8 RF: 3 Advair Diskus 250-50 mcg/dose blister with device 1 inh INHALATION BID Qty: 60 RF: 3 benzonatate [Tessalon Perles] 100 mg Capsule 100 mg PO TID PRN (Reason: Cough) RF: 0 albuterol sulfate 90 mcg/actuation HFA aerosol inhaler 2 inh INHALATION Q4H PRN (Reason: shortness of breath or wheezing) Qty: 6.7 RF: 0 Protonix 40 mg tablet,delayed release (DR/EC) 40 mg PO BID Qty: 60 RF: 0 Carafate 1 gram tablet 1 g PO Q6H Qty: 60 RF: 0 ondansetron 4 mg tablet,disintegrating 4 mg PO Q6H PRN (Reason: nausea and vomiting) Qty: 14 RF: 0 lactulose 10 gram packet 10 g PO DAILY PRN (Reason: constipation) Qty: 15 RF: 0 tramadol 50 mg tablet 50 mg PO TID PRN (Reason: pain) Qty: 14 RF: 0 Discharge Orders: Discharge ED (Routine); Ordered 03/05/20 Ordered By: Jw Shipman Referrals: Emma Novoa DO [Primary Care Provider] - 1-3 days Discharge Diet: Advance as tolerated Discharge Activity: Resume usual activity Patient Instructions: Chest Pain (ED) Coding Level of Care Code ED Message Broker Developer for Chg Fwd Exam Comprehensive
[2020-03-04 21:48] LABS: Basophils % 0.5 %; Eosinophils % 0.2 %; Hematocrit 42.3 % (37.0-47.0); Hemoglobin 13.4 g/dL (11.5-15.3); Lymphocytes # 0.9 10^3/uL (0.8-4.8); Lymphocytes % 15.1 %; Mean Corpuscular HGB Conc 31.7 g/dL (30.0-36.0); Mean Corpuscular Hemoglobin 32.4 pg (28.0-34.0); Mean Corpuscular Volume 102.4 fL (81-99); Mean Platelet Volume 12.2 fL (7.4-10.4); Monocytes # 0.4 10^3/uL (0.2-0.9); Monocytes % 7.6 %; Neutrophils # 4.31 10^3/uL (1.8-7.7); Neutrophils % 76.4 %; Nucleated Red Blood Cells % 0 %; Platelet Count 176 10^3/cmm (130-400); Red Blood Count 4.13 10^6/uL (4.1-5.3); Red Cell Distribution Width 13.5 % (12.1-15.1); White Blood Count 5.6 10^3/uL (4.0-10.0)
[2020-03-04 22:08] LABS: Alanine Aminotransferase 16 U/L (0-33); Albumin Level 3.7 g/dL (3.5-5.2); Alkaline Phosphatase 121 IU/L (35-105); Anion Gap 13.5 (5-19); Aspartate Amino Transferase 19 U/L (0-32); Blood Urea Nitrogen 6 mg/dL (8-23); Calcium 9.3 mg/dL (8.5-10.5); Carbon Dioxide 28 mmol/L (22-29); Chloride 103 mmol/L (98-107); Globulin 2.2 g/dL (1.3-4.6); Glomerular Filtration Rate 125.9 mL/min (90-130); Glucose 144 mg/dL (65-115); Osmolality Calculated 292 mOsm/kg (285-295); Potassium 3.5 mmol/L (3.5-5.1); Sodium 141 mmol/L (136-145); Total Bilirubin 0.6 mg/dL (0.15-1.2); Total Protein 5.9 g/dL (6.6-8.7)
[2020-03-04 22:09] LABS: Troponin(5th) Baseline 34 ng/L (0-10)
[2020-03-04 22:17] VITALS: BP 105/69; PULSE 112; RESP 24; O2SAT 98
[2020-03-04 22:58] VITALS: BP 108/73; PULSE 100; RESP 16; O2SAT 98
--- NOTE | 2020-03-04 23:35 | ECG_ITS ---
[facility] Test Date: 2020-03-04 Pat Name: Maryjo Gomez Department: Room: Gender: Female Director Orange: : 1960 Requested By: Jw Shipman Order Number: [id number] Smalls MD: Madyson Chen M.D. Measurements Intervals [place] Rate: 103 P: 75 MD: 135 QRS: -63 QRSD: 110 T: 89 QT: 357 QTc: 469 Interpretive Statements SINUS TACHYCARDIA LEFT ANTERIOR FASCICULAR BLOCK [QRS AXIS <= -45, QR IN I, RS IN II] LEFT VENTRICULAR HYPERTROPHY AND ST-T CHANGE [VOLTAGE CRITERIA PLUS ST/T ABNORMALITY] POSSIBLE ANTEROSEPTAL MYOCARDIAL INFARCTION , OF INDETERMINATE AGE [30 ms Q WAVE IN V1-V4] Compared to ECG 02/17/2020 02:14:48 Left anterior fascicular block now present ST (T wave) deviation now present Sinus rhythm no longer present Ventricular premature complex(es) no longer present Left-axis deviation no longer present Incomplete right bundle-branch block no longer present Myocardial infarct finding still present Electronically Signed On 03-05-2020 9:24:48 PROFESSOR OF ENVIRONMENTAL ENGINEERING by Madyson Chen M.D. [id number]
--- NOTE | 2020-03-04 23:44 | PC.NURSE ---
EKG done at 2335 and shown to ER doctor
[2020-03-05] LABS: Troponin 5 2HR 34.25 ng/L (0-10); Troponin 5 2HR Delta 0.25 ABS# (0-10)
[2020-03-05 00:21] VITALS: BP 89/71; PULSE 87; RESP 19; O2SAT 99
[2020-03-05 00:42] VITALS: BP 106/74; PULSE 104; RESP 28; O2SAT 100
== END 2020-03-05 00:42 | disposition home or self-care (01) ==
PROVIDERS: Emergency Provider Emergency Medicine; PCP Family Medicine
DX: R07.9 Chest pain, unspecified (principal); J44.9 Chronic obstructive pulmonary disease, unspecified; F17.210 Nicotine dependence, cigarettes, uncomplicated
CPT/HCPCS: 12345; 71045; 80053; 84484; 85025; 93005; 99281; 99283

== ENCOUNTER 2020-03-05 20:04 | Emergency (ER) | payer MEDICAID, SELFPAY ==
[2020-03-05 20:09] VITALS: BP 121/78; PULSE 111; RESP 16; TEMP 36.8; O2SAT 98; BMI 16.5
[2020-03-05 20:30] VITALS: BP 116/69; PULSE 115; RESP 16; O2SAT 99
--- NOTE | 2020-03-05 20:30 | XR_ITS ---
WS: [id number] Exam: XR hip LT 2-3V wo/w pel* [id number] Date/Time of Exam: 03/05/2020 8:45 PM Reason For Exam: pain No acute fracture or dislocation. Moderate DJD of the joint compartment narrowing. Normal soft tissue s. XR/XR hip LT 2-3V wo/w pel* [id number] IMPRESSION: 1. Moderate osteoarthritis of the left hip. No fracture or dislocation.
--- NOTE | 2020-03-05 20:30 | ECG_ITS ---
[facility] Test Date: 2020-03-05 Pat Name: Maryjo Gomez Department: Room: Gender: Female Lifter: : 1960 Requested By: Dragan Dhillon Order Number: [id number] Smalls MD: Hair Costello M.D. Measurements Intervals [place] Rate: 110 P: 73 DE: 137 QRS: -61 QRSD: 110 T: 107 QT: 333 QTc: 451 Interpretive Statements SINUS TACHYCARDIA WITH OCCASIONAL VENTRICULAR PREMATURE COMPLEXES LEFT ATRIAL ENLARGEMENT [-0.15mV P WAVE IN V1/V2] LEFT ANTERIOR FASCICULAR BLOCK [QRS AXIS <= -45, QR IN I, RS IN II] LEFT VENTRICULAR HYPERTROPHY AND ST-T CHANGE [VOLTAGE CRITERIA PLUS ST/T ABNORMALITY] POSSIBLE SEPTAL MYOCARDIAL INFARCTION , OF INDETERMINATE AGE [30 ms Q WAVE IN V1/V2] Compared to ECG 03/04/2020 23:33:00 Ventricular premature complex(es) now present Atrial abnormality now present ST (T wave) deviation still present Myocardial infarct finding still present Electronically Signed On 03-06-2020 18:29:32 KNITTED CLOTH EXAMINER by Hair Costello M.D. [id number]
--- NOTE | 2020-03-05 20:32 | XR_ITS ---
WS: [id number] Exam: XR ankle LT 2V [id number] Date/Time of Exam: 03/05/2020 8:40 PM Reason For Exam: ankle pain No fracture or dislocation. Soft tissues are unremarkable. XR/XR ankle LT 2V [id number] IMPRESSION: 1. Negative left ankle.
[2020-03-05] MEDS: acetaminophen 325 mg Tablet 650 MG PO (20:46)
[2020-03-05 21:10] VITALS: BP 116/69; PULSE 107; RESP 16; O2SAT 99
[2020-03-05 21:13] LABS: Basophils % 0.5 %; Eosinophils % 0.5 %; Hematocrit 37.8 % (37.0-47.0); Hemoglobin 11.9 g/dL (11.5-15.3); Lymphocytes % 18.2 %; Mean Corpuscular HGB Conc 31.5 g/dL (30.0-36.0); Mean Corpuscular Hemoglobin 32.5 pg (28.0-34.0); Mean Corpuscular Volume 103.3 fL (81-99); Mean Platelet Volume 12.1 fL (7.4-10.4); Monocytes # 0.5 10^3/uL (0.2-0.9); Monocytes % 9.6 %; Neutrophils # 3.93 10^3/uL (1.8-7.7); Nucleated Red Blood Cells % 0 %; Platelet Count 159 10^3/cmm (130-400); Red Blood Count 3.66 10^6/uL (4.1-5.3); Red Cell Distribution Width 13.7 % (12.1-15.1); White Blood Count 5.5 10^3/uL (4.0-10.0)
[2020-03-05 21:30] VITALS: BP 116/69; PULSE 107; RESP 16; O2SAT 98
[2020-03-05 21:36] LABS: Troponin(5th) Baseline 32 ng/L (0-10)
[2020-03-05 21:44] LABS: Alanine Aminotransferase 13 U/L (0-33); Albumin Level 3.5 g/dL (3.5-5.2); Alkaline Phosphatase 105 IU/L (35-105); Anion Gap 9.5 (5-19); Aspartate Amino Transferase 15 U/L (0-32); Blood Urea Nitrogen 7 mg/dL (8-23); Carbon Dioxide 30 mmol/L (22-29); Chloride 108 mmol/L (98-107); Glomerular Filtration Rate 125.9 mL/min (90-130); Glucose 126 mg/dL (65-115); NT Pro B Type Natriuretic Pept 7968 pg/mL (0-125); Osmolality Calculated 298 mOsm/kg (285-295); Potassium 3.5 mmol/L (3.5-5.1); Sodium 144 mmol/L (136-145); Total Bilirubin 0.4 mg/dL (0.15-1.2); Total Protein 5.5 g/dL (6.6-8.7)
--- NOTE | 2020-03-05 22:12 | W.ED.EXTPRO ---
HPI - Extremity Problem General: Chief complaint: Extremity Injury, Lower Stated complaint: edema in ankles Time Seen by Provider: 03/05/20 20:15 History of Present Illness: HPI Narrative: The patient is a 59-year-old female who comes to the ER today complaining of left hip and left ankle pain. She was seen here yesterday for abdominal pain and was discharged home. She denies complaints of abdominal pain today. She also denies injury to her hip and ankle but says her ankle has hurt her for years and she is not sure why her hip hurts but she came to get it checked out. She says she also has chronic CHF and COPD so was chronically fatigued with walking so the extra ache in her hip and ankle is especially cumbersome. Complaint: joint pain Onset (ago): hour(s) (3) Pain Consistency: intermittent Location: left Quality: aching Exacerbating factors: walking Associated symptoms: Deny chest pain or rash Review of Systems General: Reports: 10 or more systems reviewed and unremarkable except in HPI and below Const: Denies: fatigue Eyes: Denies: change in vision, blurry vision or eye redness ENMT: Denies: throat pain, swelling of lips/tongue, ear or mastoid pain or nasal congestion Card: Denies: chest pain, palpitations, irregular heart rhythm, edema, dyspnea on exertion or orthopnea Resp: Denies: dyspnea, productive cough or non-productive cough GI: Denies: abdominal pain, diarrhea or GI cramping : Denies: flank pain, difficulty voiding, urinary frequency or urinary urgency Musc: Denies: neck pain, back pain, extremity pain, joint pain, joint redness, limited range of motion or muscle weakness Skin/Breast: Denies: rash, pruritus, erythema, skin pain or skin tenderness Neuro: Denies: headache(s), numbness in extremities, weakness in extremities, sensory changes, difficulty walking, dizziness, confusion or Slurred speech present Psych: Denies: anxiety or depression Endo: Denies: polyuria All/Imm: Denies: urticaria, throat swelling or tongue swelling PFSH ED PFSH: Medical History (Updated 03/05/20 @ 22:17 by Dragan Dhillon MD) Chronic constipation COPD (chronic obstructive pulmonary disease) GERD (gastroesophageal reflux disease) Insomnia Seizure disorder Surgical History H/O section Family History Other CAD (coronary artery disease) Cancer Diabetes Social History Smoking and tobacco status: current every day smoker cigarettes Packs smoked per day: 0.5 Alcohol intake: never Lives independently: Yes Housing: House Physical Exam Const: COMMON NORMALS: no acute distress, average body habitus, patient oriented x3, no limitations, healthy appearing, alert and well nourished GENERAL APPEARANCE: cooperative, comfortable, well kempt and well developed ORIENTATION/CONSCIOUSNESS: Yes awake, Yes oriented to person, Yes oriented to place and Yes oriented to time HENMT: COMMON NORMALS: normocephalic, external ears normal and Normal external nose present HEAD & SCALP: normal to inspection and normocephalic NOSE: Normal external nose present EXTERNAL EAR: Yes external ears normal MOUTH: Normal oral and palatal mucosa present THROAT: posterior oropharynx normal Eye: COMMON NORMALS: Equal, round and reactive pupils present and EOMs intact bilaterally GENERAL EYE: appearance normal, both eyes and all related structures PUPIL: Yes Equal, round and reactive pupils present Neck/C-Spine: COMMON NORMALS: full ROM, no lymphadenopathy, no meningeal signs and no JVD GENERAL: Yes normal visual inspection Lymph: LYMPHATIC: no lymphadenopathy noted Chest: COMMONS NORMALS: normal inspection of the chest and normal palpation of entire chest wall Resp: COMMON NORMALS: normal respiratory effort, No retractions, No use of accessory muscles, clear to auscultation bilaterally and percussion normal EFFORT & INSPECTION: Yes able to speak in complete sentences AUSCULTATION: clear to auscultation bilaterally PERCUSSION: percussion normal Cardio: COMMON NORMALS: no JVD, regular rate, regular rhythm, S1 normal heart sound present, S2 normal heart sound present and Peripheral pulses 2+ throughout RATE: regular rate RHYTHM: regular rhythm HEART SOUNDS: S1 normal heart sound present and S2 normal heart sound present PERIPHERAL PULSES: Peripheral pulses 2+ throughout GI: COMMON NORMALS: Normal to inspection, nondistended, normoactive bowel sounds present, Soft to palpation, non-tender and no masses INSPECTION: Yes normal to inspection PALPATION: Yes Soft to palpation : COMMON NORMALS: Yes no CVA tenderness BLADDER/KIDNEY EXAM: Yes no CVA tenderness Back/Pelvis: COMMON NORMALS: no CVA tenderness, thoracic and lumbar spine normal to inspection, no thoracic nor lumbar tenderness and thoraco-lumbar ROM normal Extremity: COMMON NORMALS: normal to inspection, full ROM, capillary refill normal, no joint enlargement and no pedal edema NARRATIVE EXTREMITY EXAM: Mild tenderness to motion of the left hip joint and mild tenderness over the left ATFL ligament of her ankle. Ligaments are grossly intact and joints are stable. Neurovascularly intact throughout GENERAL: Yes normal exam except as noted Neuro: COMMON NORMALS: patient oriented x3, CN's II-XII intact bilaterally, moves all extremities, no focal motor deficits, no sensory deficits noted and gait normal SENSORIUM/ORIENTATION: Yes alert, Yes oriented to person, Yes oriented to place and Yes oriented to time MENINGEAL SIGNS: Yes no meningeal signs Psych: COMMON NORMALS: mental status grossly normal, Normal thought process present, cooperative, normal affect and speech normal APPEARANCE: Yes well kempt ATTITUDE: Yes calm SPEECH: Yes normal speech THOUGHT PROCESS: Normal thought process present Skin: COMMON NORMALS: no rashes or lesions noted GENERAL SKIN EXAM: no rashes or lesions noted Course Vital Signs: Vital signs: Vital Signs Temperature 98.2 F 03/05/20 20:09 Pulse Rate 107 H 03/05/20 21:30 Respiratory Rate 16 03/05/20 21:30 Blood Pressure 116/69 03/05/20 21:30 Pulse Oximetry 98 03/05/20 21:30 MDM - Extremity (Nontraumatic) MDM Narrative: Medical decision making narrative: She comes in today for left hip pain and left ankle pain. Imaging are grossly normal. Lab studies are also not acute. She has chronic CHF which is why her BN P is elevated significantly. She denies chest pain, shortness of breath, and abdominal pain this evening. Stable for discharge. Recommended following up with her primary care physician in a few days to discuss further. Return to the ER with worsening symptoms Lab Data: Labs: Lab Results 03/05/20 03/05/20 03/05/20 Range/Units 20:50 20:50 20:50 WBC 5.5 (4.0-10.0) 10^3/ uL RBC 3.66 L (4.1-5.3) 10^6/u L Hgb 11.9 (11.5-15.3) g/dL Hct 37.8 (37.0-47.0) % MCV 103.3 H (81-99) fL MCH 32.5 (28.0-34.0) pg MCHC 31.5 (30.0-36.0) g/dL RDW 13.7 (12.1-15.1) % Plt Count 159 (130-400) 10^3/c mm MPV 12.1 H (7.4-10.4) fL Neut % (Auto) 71.0 % Lymph % (Auto) 18.2 % [place] % (Auto) 9.6 % Eos % (Auto) 0.5 % Baso % (Auto) 0.5 % Neut # (Auto) 3.93 (1.8-7.7) 10^3/u L Lymph # (Auto) 1.0 (0.8-4.8) 10^3/u L [place] # (Auto) 0.5 (0.2-0.9) 10^3/u L Eos # (Auto) 0.0 (0.0-0.8) 10^3/u L Baso # (Auto) 0.0 (0.0-0.1) 10^3/u L Nucleated RBC % (a uto) 0 % Nucleated RBCs # 0.0 /100WBC Sodium 144 (136-145) mmol/L Potassium 3.5 (3.5-5.1) mmol/L Chloride 108 H (98-107) mmol/L Carbon Dioxide 30 H (22-29) mmol/L Anion Gap 9.5 (5-19) BUN 7 L (8-23) mg/dL Creatinine 0.5 (0.5-0.9) mg/dL GFR Calculation 125.9 (90-130) mL/min Glucose 126 H (65-115) mg/dL Calculated Osmolal ity 298 H (285-295) mOsm/k g Calcium 9.0 (8.5-10.5) mg/dL Total Bilirubin 0.4 (0.15-1.2) mg/dL AST 15 (0-32) U/L ALT 13 (0-33) U/L Alkaline Phosphata se 105 (35-105) IU/L Troponin T Baselin e 32 H (0-10) ng/L NT-Pro-B Natriuret Pep 7968 H (0-125) pg/mL Total Protein 5.5 L (6.6-8.7) g/dL Albumin 3.5 (3.5-5.2) g/dL Globulin 2.0 (1.3-4.6) g/dL Discharge Plan Discharge Patient Disposition: Home Clinical Impression: Acute hip pain Qualifiers: Laterality: left Qualified Code(s): M25.552 - Pain in left hip Acute ankle pain Qualifiers: Laterality: left Qualified Code(s): M25.572 - Pain in left ankle and joints of left foot Condition: Stable Prescriptions: No Action levetiracetam 500 mg tablet extended release 24 hr 2,000 mg PO Q24H Qty: 120 RF: 11 Miralax 17 gram powder in packet 17 g PO DAILY Qty: 30 RF: 1 trazodone 50 mg tablet 50 mg PO DAILY Qty: 90 RF: 0 cetirizine 10 mg capsule 10 mg PO DAILY Qty: 90 RF: 1 Spiriva with HandiHaler 18 mcg capsule, w/inhalation device 1 cap INHALATION DAILY Qty: 90 RF: 1 cholecalciferol (vitamin D3) 50 mcg (2,000 unit) capsule 50 mcg PO DAILY Qty: 30 RF: 5 fluticasone propionate [Flonase Allergy Relief] 50 mcg/actuation spray,suspension 2 spray INTRANASAL DAILY Qty: 15.8 RF: 3 Advair Diskus 250-50 mcg/dose blister with device 1 inh INHALATION BID Qty: 60 RF: 3 benzonatate [Tessalon Perles] 100 mg Capsule 100 mg PO TID PRN (Reason: Cough) RF: 0 albuterol sulfate 90 mcg/actuation HFA aerosol inhaler 2 inh INHALATION Q4H PRN (Reason: shortness of breath or wheezing) Qty: 6.7 RF: 0 Protonix 40 mg tablet,delayed release (DR/EC) 40 mg PO BID Qty: 60 RF: 0 Carafate 1 gram tablet 1 g PO Q6H Qty: 60 RF: 0 ondansetron 4 mg tablet,disintegrating 4 mg PO Q6H PRN (Reason: nausea and vomiting) Qty: 14 RF: 0 lactulose 10 gram packet 10 g PO DAILY PRN (Reason: constipation) Qty: 15 RF: 0 tramadol 50 mg tablet 50 mg PO TID PRN (Reason: pain) Qty: 14 RF: 0 Discharge Orders: Discharge ED (Routine); Ordered 03/05/20 Ordered By: Dragan Dhillon Referrals: Emma Novoa DO [Primary Care Provider] - Discharge Diet: Advance as tolerated Discharge Activity: Resume usual activity Patient Instructions: Arthralgia (ED) Activity Restrictions/Additional Instructions: You have hip and ankle pain of unclear cause. they are likely chronic aches that you have that are extra cumbersome with your other chronic diagnoses of heart failure and COPD. Please follow-up with your primary care physician in a few days to monitor improvement of the symptoms and return to the ER with worsening symptoms. Coding Level of Care Code ED Communications Manager for Juana Fwadwoa Exam Comprehensive
--- NOTE | 2020-03-05 22:40 | PC.NURSE ---
Call to Laura for discharge ride home. Laura stated I'm on the way .
[2020-03-05 23:46] VITALS: BP 117/67; PULSE 101; RESP 17; TEMP 36.8; O2SAT 99
== END 2020-03-05 23:46 | disposition home or self-care (01) ==
PROVIDERS: Emergency Provider Family Medicine; PCP Family Medicine
DX: M25.552 Pain in left hip (principal); M25.572 Pain in left ankle and joints of left foot; J44.9 Chronic obstructive pulmonary disease, unspecified; F17.210 Nicotine dependence, cigarettes, uncomplicated
CPT/HCPCS: 12345; 73502; 73600; 80053; 83880; 84484; 85025; 93005; 99283

== ENCOUNTER 2020-03-06 22:44 | Emergency (ER) | payer MEDICAID, SELFPAY ==
[2020-03-06 23:02] VITALS: BP 126/85; PULSE 129; RESP 22; TEMP 36.7; O2SAT 97; BMI 16.5
--- NOTE | 2020-03-06 23:17 | ECG_ITS ---
[facility] Test Date: 2020-03-06 Pat Name: Maryjo Gomez Department: Room: Gender: Female Clothing Sorter: : 1960 Requested By: Jhon Schmitt Order Number: [id number] Serina MD: Hair Costello M.D. Measurements Intervals [place] Rate: 122 P: 91 MD: 99 QRS: -67 QRSD: 137 T: 92 QT: 319 QTc: 455 Interpretive Statements SINUS TACHYCARDIA WITH SHORT MD INTERVAL MARKED LEFT AXIS DEVIATION [QRS AXIS < -30] INTRAVENTRICULAR CONDUCTION DELAY [130+ ms QRS DURATION] ANTEROSEPTAL MYOCARDIAL INFARCTION [40+ ms Q WAVE IN V1-V4], OF INDETERMINATE AGE Compared to ECG 03/05/2020 20:45:16 Short MD interval now present Left-axis deviation now present Intraventricular conduction delay now present Ventricular premature complex(es) no longer present Left anterior fascicular block no longer present Myocardial infarct finding still present Electronically Signed On 03-07-2020 17:52:49 KILN PULLER by Hair Costello M.D. [id number]
[2020-03-07 00:08] VITALS: BP 111/75; PULSE 114; RESP 16; O2SAT 99
[2020-03-07 01:24] VITALS: BP 110/75; PULSE 109; RESP 21; O2SAT 100
--- NOTE | 2020-03-07 02:33 | XRR_ITS ---
PROCEDURE INFORMATION: Exam: XR Chest, 1 View Exam date and time: 03/07/2020 2:38 AM Age: 59 years old Clinical indication: Tachypnea; Patient HX: Tachycardic; Additional info: SOB TECHNIQUE: Imaging protocol: XR of the chest Views: 1 view. COMPARISON: CR XR chest 1V portable [id number] 03/04/2020 9:43 PM FINDINGS: Lungs: No CHF/pulmonary edema. As before, hyperinflation of the lungs may indicate COPD. Partially calcified nodule in the right upper lung is not significantly changed in the short interval. This has been previously evaluated on CT thorax from 01/16/2020. Please see that report for further recommendations regarding follow-up/surveillance. Mild left lower lung opacities may represent atelectasis or parenchymal scarring. Subtle pneumonitis not excluded. Pleural space: No visible pneumothorax. Possible small bilateral pleural effusions versus pleural thickening. Heart/Mediastinum: Heart size is upper normal to mildly prominent, unchanged. Bones/joints: No significant acute finding. XR/XR chest 1V portable [id number] IMPRESSION: 1. Mild left lower lung opacities may represent atelectasis or parenchymal scarring. Subtle pneumonitis not excluded. 2. Possible small bilateral pleural effusions versus pleural thickening. 3. Right upper lung nodule, see above. 4. Other findings/details discussed above.
--- NOTE | 2020-03-07 03:18 | ED_ITS ---
HPI - SOB/Dyspnea General: Chief Complaint: Shortness of Breath/Dyspnea Stated Complaint: sob Time Seen by Provider: 03/07/20 02:26 History of Present Illness: HPI Narrative: 59-year-old female well-known to the ER. She presents with a period of palpitations and shortness of breath at home. She states she was watching TV when it happened. Its improved on exam currently, but she still having some chest tenderness. No fever. She has had a nonproductive cough. MD elicited complaint: shortness of breath and cough Pertinent past history: COPD Onset (ago): hour(s) Timing: intermittent and improved Severity: moderate Exacerbating factors: exertion and coughing Relieving factors: oxygen Known history of: COPD Associated symptoms: Reports chest pain and cough; Deny dizziness, fever(s), lightheadedness or nausea Treatment prior to arrival: oxygen Review of Systems Const: Denies: fever(s) Card: Reports: chest pain; Denies: lightheadedness Resp: Reports: dyspnea, non-productive cough and wheezing GI: Denies: nausea Neuro: Denies: headache(s), dizziness or confusion PFSH ED PFSH: Medical History (Updated 03/07/20 @ 06:00 by Jhon Schneider DO) Chronic constipation COPD (chronic obstructive pulmonary disease) GERD (gastroesophageal reflux disease) Insomnia Seizure disorder Surgical History H/O section Family History Other CAD (coronary artery disease) Cancer Diabetes Social History Smoking and tobacco status: current every day smoker cigarettes Packs smoked per day: 0.5 Alcohol intake: never Lives independently: Yes Housing: House Physical Exam Const: GENERAL APPEARANCE: well kempt and frail appearing Chest: COMMONS NORMALS: normal inspection of the chest Resp: COMMON NORMALS: normal respiratory effort, No retractions, No use of accessory muscles and clear to auscultation bilaterally AUSCULTATION: clear to auscultation bilaterally Cardio: COMMON NORMALS: regular rate and regular rhythm RATE: regular rate RHYTHM: regular rhythm GI: COMMON NORMALS: Soft to palpation INSPECTION: Yes normal to inspection PALPATION: Yes Soft to palpation and Yes Tenderness to palpation present (GI) (epigastric) Psych: APPEARANCE: Yes well kempt Course Vital Signs: Vital signs: Vital Signs Temperature 98.0 F 03/06/20 23:02 Pulse Rate 109 H 03/07/20 01:24 Respiratory Rate 21 H 03/07/20 01:24 Blood Pressure 110/75 03/07/20 01:24 Pulse Oximetry 100 03/07/20 01:24 MDM - SOB/Dyspnea MDM Narrative: Medical decision making narrative: 59-year-old female well- known to the ER. She presents with a reproducible chest and epigastric discomfort. She was given a GI cocktail with improvement, essentially resolution in her pain. Her EKG shows sinus rhythm to sinus tachycardia. There is minimal anterior ST elevation, with deflection, which appears mostly stable from prior. Her troponin was 45, which is not far off her baseline. Her chest x-ray shows minimal pleural thickening bilaterally in the lower lobes. She does have a history of esophageal reflux disease. Lab Data: Labs: Lab Results 03/07/20 03/07/20 03/07/20 Range/Units 03:05 03:15 03:15 WBC 6.3 (4.0-10.0) 10^3/ uL RBC 3.95 L (4.1-5.3) 10^6/u L Hgb 12.8 (11.5-15.3) g/dL Hct 41.1 (37.0-47.0) % MCV 104.1 H (81-99) fL MCH 32.4 (28.0-34.0) pg MCHC 31.1 (30.0-36.0) g/dL RDW 13.6 (12.1-15.1) % Plt Count 163 (130-400) 10^3/c mm MPV 11.8 H (7.4-10.4) fL Neut % (Auto) 64.7 % Lymph % (Auto) 24.1 % [place] % (Auto) 10.1 % Eos % (Auto) 0.6 % Baso % (Auto) 0.3 % Neut # (Auto) 4.05 (1.8-7.7) 10^3/u L Lymph # (Auto) 1.5 (0.8-4.8) 10^3/u L [place] # (Auto) 0.6 (0.2-0.9) 10^3/u L Eos # (Auto) 0.0 (0.0-0.8) 10^3/u L Baso # (Auto) 0.0 (0.0-0.1) 10^3/u L Nucleated RBC % (a uto) 0 % Nucleated RBCs # 0.0 /100WBC Sodium 145 (136-145) mmol/L Potassium 3.7 (3.5-5.1) mmol/L Chloride 107 (98-107) mmol/L Carbon Dioxide 26 (22-29) mmol/L Anion Gap 15.7 (5-19) BUN 9 (8-23) mg/dL Creatinine 0.5 (0.5-0.9) mg/dL GFR Calculation 125.9 (90-130) mL/min Glucose 86 (65-115) mg/dL Calculated Osmolal ity 298 H (285-295) mOsm/k g Calcium 9.0 (8.5-10.5) mg/dL Total Bilirubin 0.4 (0.15-1.2) mg/dL AST 16 (0-32) U/L ALT 12 (0-33) U/L Alkaline Phosphata se 101 (35-105) IU/L Troponin T Gen 5 n g/L 45 H (0-10) ng/L Total Protein 5.9 L (6.6-8.7) g/dL Albumin 3.5 (3.5-5.2) g/dL Globulin 2.4 (1.3-4.6) g/dL Discharge Plan Discharge Patient Disposition: Home Clinical Impression: Chest pain Qualifiers: Chest pain type: unspecified Qualified Code(s): R07.9 - Chest pain, unspecified Condition: Stable Prescriptions: No Action levetiracetam 500 mg tablet extended release 24 hr 2,000 mg PO Q24H Qty: 120 RF: 11 Miralax 17 gram powder in packet 17 g PO DAILY Qty: 30 RF: 1 trazodone 50 mg tablet 50 mg PO DAILY Qty: 90 RF: 0 cetirizine 10 mg capsule 10 mg PO DAILY Qty: 90 RF: 1 Spiriva with HandiHaler 18 mcg capsule, w/inhalation device 1 cap INHALATION DAILY Qty: 90 RF: 1 cholecalciferol (vitamin D3) 50 mcg (2,000 unit) capsule 50 mcg PO DAILY Qty: 30 RF: 5 fluticasone propionate [Flonase Allergy Relief] 50 mcg/actuation spray,suspension 2 spray INTRANASAL DAILY Qty: 15.8 RF: 3 Advair Diskus 250-50 mcg/dose blister with device 1 inh INHALATION BID Qty: 60 RF: 3 benzonatate [Tessalon Perles] 100 mg Capsule 100 mg PO TID PRN (Reason: Cough) RF: 0 albuterol sulfate 90 mcg/actuation HFA aerosol inhaler 2 inh INHALATION Q4H PRN (Reason: shortness of breath or wheezing) Qty: 6.7 RF: 0 Protonix 40 mg tablet,delayed release (DR/EC) 40 mg PO BID Qty: 60 RF: 0 Carafate 1 gram tablet 1 g PO Q6H Qty: 60 RF: 0 ondansetron 4 mg tablet,disintegrating 4 mg PO Q6H PRN (Reason: nausea and vomiting) Qty: 14 RF: 0 lactulose 10 gram packet 10 g PO DAILY PRN (Reason: constipation) Qty: 15 RF: 0 tramadol 50 mg tablet 50 mg PO TID PRN (Reason: pain) Qty: 14 RF: 0 Discharge Orders: Discharge ED (Routine); Ordered 03/07/20 Ordered By: Jhon Schneider Referrals: Emma Novoa DO [Primary Care Provider] - 4-7 days Discharge Diet: Advance as tolerated Discharge Activity: Limit activity as instructed Activity Restrictions/Additional Instructions: Return to the emergency department for return of chest discomfort, palpitations or racing heart, shortness of breath, fever, other concerning symptoms. Coding Level of Care Code ED Family Services Coordinator for Chg Fwd Exam Detailed
[2020-03-07] MEDS: lidocaine 2% viscous 15 ML, aluminum-mag hydrox-simethicon 30 ML, sucralfate oral liq 1 GM PO (03:40)
[2020-03-07 04:03] LABS: Basophils % 0.3 %; Eosinophils % 0.6 %; Hematocrit 41.1 % (37.0-47.0); Hemoglobin 12.8 g/dL (11.5-15.3); Lymphocytes # 1.5 10^3/uL (0.8-4.8); Lymphocytes % 24.1 %; Mean Corpuscular HGB Conc 31.1 g/dL (30.0-36.0); Mean Corpuscular Hemoglobin 32.4 pg (28.0-34.0); Mean Corpuscular Volume 104.1 fL (81-99); Mean Platelet Volume 11.8 fL (7.4-10.4); Monocytes # 0.6 10^3/uL (0.2-0.9); Monocytes % 10.1 %; Neutrophils # 4.05 10^3/uL (1.8-7.7); Neutrophils % 64.7 %; Nucleated Red Blood Cells % 0 %; Platelet Count 163 10^3/cmm (130-400); Red Blood Count 3.95 10^6/uL (4.1-5.3); Red Cell Distribution Width 13.6 % (12.1-15.1); White Blood Count 6.3 10^3/uL (4.0-10.0)
[2020-03-07 04:27] LABS: Troponin T (5th) Once 45 ng/L (0-10)
[2020-03-07 05:25] LABS: Slide Review Slide Review Perform
[2020-03-07 05:36] LABS: Alanine Aminotransferase 12 U/L (0-33); Albumin Level 3.5 g/dL (3.5-5.2); Alkaline Phosphatase 101 IU/L (35-105); Anion Gap 15.7 (5-19); Aspartate Amino Transferase 16 U/L (0-32); Blood Urea Nitrogen 9 mg/dL (8-23); Carbon Dioxide 26 mmol/L (22-29); Chloride 107 mmol/L (98-107); Globulin 2.4 g/dL (1.3-4.6); Glomerular Filtration Rate 125.9 mL/min (90-130); Glucose 86 mg/dL (65-115); Osmolality Calculated 298 mOsm/kg (285-295); Potassium 3.7 mmol/L (3.5-5.1); Sodium 145 mmol/L (136-145); Total Bilirubin 0.4 mg/dL (0.15-1.2); Total Protein 5.9 g/dL (6.6-8.7)
[2020-03-07 09:22] VITALS: BP 100/73; PULSE 99; RESP 19; O2SAT 100
== END 2020-03-07 08:00 | disposition home or self-care (01) ==
PROVIDERS: Emergency Provider Emergency Medicine; PCP Family Medicine
DX: R07.9 Chest pain, unspecified (principal); J44.9 Chronic obstructive pulmonary disease, unspecified; F17.210 Nicotine dependence, cigarettes, uncomplicated
CPT/HCPCS: 12345; 71045; 80053; 84484; 85025; 93005; 99281; 99283

== ENCOUNTER 2020-03-09 20:32 | Emergency (ER) | payer MEDICAID, SELFPAY ==
[2020-03-09] VITALS (32 sets, daily range): BP systolic 110–127; BP diastolic 68–76; PULSE 96–127; RESP 10–27; TEMP 36.7; O2SAT 93–100; BMI 17.2
--- NOTE | 2020-03-09 20:37 | XRR_ITS ---
PROCEDURE INFORMATION: Exam: XR Chest, 1 View Exam date and time: 03/09/2020 8:40 PM Age: 59 years old Clinical indication: Shortness of breath; Chest pain; Type not specified; Additional info: SOB TECHNIQUE: Imaging protocol: XR of the chest Views: 1 view. COMPARISON: CR XR chest 1V portable [id number] 03/07/2020 2:34 AM FINDINGS: Lungs: Lungs are well aerated without a focal area of consolidation. Pleural space: Unremarkable. No pleural effusion. No pneumothorax. Heart/Mediastinum: Cardiac silhouette is enlarged. Bones/joints: Unremarkable. XR/XR chest 1V portable [id number] IMPRESSION: Lungs are well aerated without a focal area of consolidation. Minimal scarring versus platelike atelectasis right costophrenic angle.
--- NOTE | 2020-03-09 20:38 | ECG_ITS ---
[facility] Test Date: 2020-03-09 Pat Name: Maryjo Gomez Department: Room: Gender: Female Art Coordinator: : 1960 Requested By: Jw Shipman Order Number: [id number] Reading MD: FAYE SANTOYO Measurements Intervals [place] Rate: 122 P: 74 WA: 128 QRS: -59 QRSD: 113 T: 89 QT: 325 QTc: 464 Interpretive Statements SINUS TACHYCARDIA LEFT ANTERIOR FASCICULAR BLOCK [QRS AXIS <= -45, QR IN I, RS IN II] LEFT VENTRICULAR HYPERTROPHY AND ST-T CHANGE [VOLTAGE CRITERIA PLUS ST/T ABNORMALITY] POSSIBLE ANTERIOR MYOCARDIAL INFARCTION , OF INDETERMINATE AGE [30 ms Q WAVE IN V3/V4, OR R < 0.2 mV IN V4] Compared to ECG 03/06/2020 23:12:30 Left anterior fascicular block now present Left ventricular hypertrophy now present ST (T wave) deviation now present Short [place] interval no longer present Left-axis deviation no longer present Intraventricular conduction delay no longer present Myocardial infarct finding still present Electronically Signed On 03-10-2020 19:58:54 PIPE ASSEMBLY WORKER by FAYE SANTOYO [email or web address]
--- NOTE | 2020-03-09 20:55 | ED_ITS ---
HPI - Chest Pain General: Chief Complaint: Chest Pain Stated Complaint: Chest Pain/Can't Breathe Time Seen by Provider: 03/09/20 20:54 Source: patient Mode of arrival: ambulatory Limitations: no limitations History of Present Illness: HPI narrative: Maryjo is a 59-year-old female who states she has been having shortness of breath for days. Patient has been seen in the ER multiple times over the last 2 weeks. Patient does have a history of COPD is on 3 L at baseline. Her pulse ox here is 98% on that 3 L. She denies any cough or fever. Denies any vomiting or diarrhea. MD complaint: chest pain Associated symptoms: Reports dyspnea; Deny abdominal pain, fever(s), nausea or vomiting Review of Systems Const: Denies: fever(s), chills, body aches or change in appetite Eyes: Denies: blurry vision or eye discomfort ENMT: Denies: throat pain or dental pain Card: Reports: chest pain Resp: Reports: dyspnea GI: Denies: abdominal pain, nausea, vomiting or diarrhea : Denies: dysuria Musc: Denies: neck pain or back pain Skin/Breast: Denies: rash Neuro: Denies: headache(s) Psych: Denies: depression Emmanuel/Lymph: Denies: easy bruising All/Imm: Denies: urticaria PFSH ED PFSH: Medical History (Updated 03/09/20 @ 23:55 by Jw Shipman MD) Chronic constipation COPD (chronic obstructive pulmonary disease) GERD (gastroesophageal reflux disease) Insomnia Seizure disorder Surgical History H/O section Family History Other CAD (coronary artery disease) Cancer Diabetes Social History Smoking and tobacco status: current every day smoker cigarettes Packs smoked per day: 0.5 Alcohol intake: never Lives independently: Yes Housing: House Physical Exam Const: COMMON NORMALS: no acute distress, patient oriented x3 and healthy appearing HENMT: COMMON NORMALS: normocephalic and atraumatic HEAD & SCALP: normocephalic and atraumatic Eye: COMMON NORMALS: Equal, round and reactive pupils present and EOMs intact bilaterally PUPIL: Yes Equal, round and reactive pupils present Neck/C-Spine: COMMON NORMALS: full ROM and supple Chest: COMMONS NORMALS: normal inspection of the chest and normal palpation of entire chest wall Resp: COMMON NORMALS: normal respiratory effort, No retractions, No use of accessory muscles and clear to auscultation bilaterally AUSCULTATION: clear to auscultation bilaterally Cardio: COMMON NORMALS: regular rhythm and No murmurs present (Cardio) RATE: tachycardic RHYTHM: regular rhythm GI: COMMON NORMALS: Normal to inspection, nondistended, normoactive bowel sounds present, Soft to palpation, non-tender and no masses PALPATION: Yes Soft to palpation Extremity: COMMON NORMALS: normal to inspection and full ROM Neuro: COMMON NORMALS: patient oriented x3, moves all extremities and no focal motor deficits Psych: COMMON NORMALS: mental status grossly normal, Normal thought process present and cooperative THOUGHT PROCESS: Normal thought process present Skin: COMMON NORMALS: no rashes or lesions noted and no wounds GENERAL SKIN EXAM: no rashes or lesions noted Course Vital Signs: Vital signs: Vital Signs Temperature 98.1 F 03/09/20 20:38 Pulse Rate 109 H 03/10/20 00:25 Respiratory Rate 16 03/10/20 00:25 Blood Pressure 124/77 03/10/20 00:25 Pulse Oximetry 98 03/10/20 00:25 MDM - Chest Pain MDM Narrative: Medical decision making narrative: Cherry presents with dyspnea. She does have slightly elevated BNP but no increase in weight over her oxygen requirement. CT shows no pulmonary embolism or pulmonary edema. Patient is stable for discharge we will start her on Lasix. She is to follow-up with PCP in 2 to 4 days and return to ER if worsening. She understands and agrees to plan. She had no changes in her troponin. Lab Data: Labs: Lab Results 03/09/20 03/09/20 03/09/20 Range/Units 21:15 21:15 21:15 WBC 6.2 (4.0-10.0) 10^3/ uL RBC 4.02 L (4.1-5.3) 10^6/u L Hgb 13.1 (11.5-15.3) g/dL Hct 41.2 (37.0-47.0) % MCV 102.5 H (81-99) fL MCH 32.6 (28.0-34.0) pg MCHC 31.8 (30.0-36.0) g/dL RDW 13.7 (12.1-15.1) % Plt Count 169 (130-400) 10^3/c mm MPV 12.2 H (7.4-10.4) fL Lymph % (Auto) Not Reportable [place] % (Auto) Not Reportable Lymph # (Auto) Not Reportable [place] # (Auto) Not Reportable Total Counted 100 (0-100) Atypical Lymphs % 0.0 (0-5) % Absolute Neutrophi ls 4.9 (1.4-6.5) 10^3/c mm Segmented Neutroph ils 79 % Abs Segm Neuts (Ma n) 4.9 (1.6-7.1) 10/cmm Band Neutrophils 0.0 % Abs Band Neuts (Ma n) 0.0 (0.0-1.2) 10^3/c mm Lymphocytes (Manua l) 14 % Monocytes (Manual) 7.0 % Absolute Monocytes 0.4 (0.1-0.6) 10^3/c mm Eosinophils (Manua l) 0 % Absolute Eosinophi ls 0.0 (0.0-0.7) 10^3/c mm Basophils (Manual) 0.0 % Absolute Basophils 0.0 (0.0-0.2) 10^3/c mm Platelet Estimate Normal (Normal) Anisocytosis Trace Macrocytosis Trace PT 14.00 (12.1-14.9) SECO NDS INR 1.05 (0.8-1.2) D-Dimer 0.68 H (0-0.59) ug/mIFE U Sodium 141 (136-145) mmol/L Potassium 4.0 (3.5-5.1) mmol/L Chloride 105 (98-107) mmol/L Carbon Dioxide 27 (22-29) mmol/L Anion Gap 13.0 (5-19) BUN 7 L (8-23) mg/dL Creatinine 0.4 L (0.5-0.9) mg/dL GFR Calculation 162.8 H (90-130) mL/min Glucose 139 H (65-115) mg/dL Calculated Osmolal ity 292 (285-295) mOsm/k g Calcium 9.5 (8.5-10.5) mg/dL Total Bilirubin 0.3 (0.15-1.2) mg/dL AST 25 (0-32) U/L ALT 13 (0-33) U/L Alkaline Phosphata se 95 (35-105) IU/L Troponin T Baselin e (0-10) ng/L Troponin T 120 Min [place] (0-10) ng/L Delta Troponin T (0-10) ABS# NT-Pro-B Natriuret Pep [id number] H (0-125) pg/mL Total Protein 6.2 L (6.6-8.7) g/dL Albumin 4.0 (3.5-5.2) g/dL Globulin 2.2 (1.3-4.6) g/dL 03/09/20 03/09/20 Range/Units 21:15 23:02 WBC (4.0-10.0) 10^3/ uL RBC (4.1-5.3) 10^6/u L Hgb (11.5-15.3) g/dL Hct (37.0-47.0) % MCV (81-99) fL MCH (28.0-34.0) pg MCHC (30.0-36.0) g/dL RDW (12.1-15.1) % Plt Count (130-400) 10^3/c mm MPV (7.4-10.4) fL Lymph % (Auto) [place] % (Auto) Lymph # (Auto) [place] # (Auto) Total Counted (0-100) Atypical Lymphs % (0-5) % Absolute Neutrophi ls (1.4-6.5) 10^3/c mm Segmented Neutroph ils % Abs Segm Neuts (Ma n) (1.6-7.1) 10/cmm Band Neutrophils % Abs Band Neuts (Ma n) (0.0-1.2) 10^3/c mm Lymphocytes (Manua l) % Monocytes (Manual) % Absolute Monocytes (0.1-0.6) 10^3/c mm Eosinophils (Manua l) % Absolute Eosinophi ls (0.0-0.7) 10^3/c mm Basophils (Manual) % Absolute Basophils (0.0-0.2) 10^3/c mm Platelet Estimate (Normal) Anisocytosis Macrocytosis PT (12.1-14.9) SECO NDS INR (0.8-1.2) D-Dimer (0-0.59) ug/mIFE U Sodium (136-145) mmol/L Potassium (3.5-5.1) mmol/L Chloride (98-107) mmol/L Carbon Dioxide (22-29) mmol/L Anion Gap (5-19) BUN (8-23) mg/dL Creatinine (0.5-0.9) mg/dL GFR Calculation (90-130) mL/min Glucose (65-115) mg/dL Calculated Osmolal ity (285-295) mOsm/k g Calcium (8.5-10.5) mg/dL Total Bilirubin (0.15-1.2) mg/dL AST (0-32) U/L ALT (0-33) U/L Alkaline Phosphata se (35-105) IU/L Troponin T Baselin e 37 H (0-10) ng/L Troponin T 120 Min [place] 42.06 H (0-10) ng/L Delta Troponin T 5.06 (0-10) ABS# NT-Pro-B Natriuret Pep (0-125) pg/mL Total Protein (6.6-8.7) g/dL Albumin (3.5-5.2) g/dL Globulin (1.3-4.6) g/dL Imaging Data^: CT Chest: Radiologist's impression: [address] [address] [address] Scan Report Signed Patient: Maryjo Gomez Unit #: [id number] : 1960 Age/Sex: 59 / F ADM Date: 03/09/20 Loc: ER Room/Bed: Attending Dr: Ordering Provider/Ordering MD: Jw Shipman MD Date of Service: 03/09/20 Procedure(s): CT angio chest PE protcl [id number] Accession Number(s): [id number] Report Number: [id number] PROCEDURE INFORMATION: Exam: CT Angiography Chest With Contrast Exam date and time: 03/09/2020 9:42 PM Age: 59 years old Clinical indication: Shortness of breath; Chest pain; Additional info: Cp TECHNIQUE: Imaging protocol: Computed tomographic angiography of the chest with intravenous contrast. 3D rendering (Not supervised by radiologist): MIP and/or 3D reconstructed images were created by the technologist. Total images: 799 Radiation optimization: All CT scans at this facility use at least one of these dose optimization techniques: automated exposure control; mA and/or kV adjustment per patient size (includes targeted exams where dose is matched to clinical indication); or iterative reconstruction. Contrast material: OMNI 350; Contrast volume: 72 ml; Contrast route: INTRAVENOUS (IV); COMPARISON: CT angio chest PE protcl [id number] 01/16/2020 1:38 AM RADIATION DOSE METRICS: Total DLP (mGy-cm): 366.65 FINDINGS: Pulmonary arteries: No visible evidence of pulmonary embolism/pulmonary arterial thrombus. Aorta: The thoracic aorta is nonaneurysmal. Mild arterial sclerotic disease. Lungs: COPD/chronic bronchitis. Mild centrilobular emphysema. Calcified granulomas of antecedent disease the largest right upper lobe posterior segment measuring 14 mm in maximum diameter. Mild senile fibrosis. No visible active interstitial or alveolar airspace disease. Pleural space: Unremarkable. No pneumothorax. No pleural effusion. Heart: Cardiomegaly with left ventricular hypertrophy. Coronary artery disease. No visible pericardial effusion. Lymph nodes: Marginally prominent mediastinal and hilar lymph nodes again noted essentially stable since last evaluation. Calcified complexes of antecedent granulomatous disease. Spleen: Calcified splenic granulomas of antecedent disease. Kidneys and ureters: Stable parapelvic left renal lipoma. Bones/joints: No visible active or acute osseous pathology. Mild scoliotic curvature. Soft tissues: Cachexia. CT/CT angio chest PE protcl [id number] IMPRESSION: No visible evidence of pulmonary embolism/pulmonary arterial thrombus. Radiation Dose CTDIVOL = (mGy): DLP = 366.65 (mGy-cm) EKG Data^: EKG 1: Attestation: I personally reviewed and interpreted this EKG as follows: EKG interpretation date: 03/09/20 EKG interpretation time: 20:44 Interpretation: sinus tach hr [address] or t wave abnormalities qrs 109 qtc 379 EKG 2: Attestation: I personally reviewed and interpreted this EKG as follows: EKG interpretation date: 03/09/20 EKG interpretation time: 22:52 Interpretation: Sinus tach heart rate [address] or T wave abnormalities QRS 113 QTC 397 Discharge Plan Discharge Patient Disposition: Home Clinical Impression: CHF (congestive heart failure) Condition: Stable Prescriptions: New Lasix 40 mg tablet 40 mg PO DAILY Qty: 30 RF: 0 No Action levetiracetam 500 mg tablet extended release 24 hr 2,000 mg PO Q24H Qty: 120 RF: 11 Miralax 17 gram powder in packet 17 g PO DAILY Qty: 30 RF: 1 benzonatate [Tessalon Perles] 100 mg Capsule 100 mg PO TID PRN (Reason: Cough) RF: 0 albuterol sulfate 90 mcg/actuation HFA aerosol inhaler 2 inh INHALATION Q4H PRN (Reason: shortness of breath or wheezing) Qty: 6.7 RF: 0 Advair Diskus 250-50 mcg/dose blister with device 1 inh INHALATION BID@00,1999 RF: 0 trazodone 50 mg tablet 50 mg PO DAILY@0900 RF: 0 tramadol 50 mg tablet 50 mg PO TID@0900,1400,1999 PRN (Reason: pain) RF: 0 Protonix 40 mg tablet,delayed release (DR/EC) 40 mg PO BID@899,1999 RF: 0 Flonase Allergy Relief 50 mcg/actuation spray,suspension 2 spray INTRANASAL DAILY@0900 RF: 0 Spiriva with HandiHaler 18 mcg capsule, w/inhalation device 1 cap INHALATION DAILY@0900 RF: 0 cholecalciferol (vitamin D3) 50 mcg (2,000 unit) capsule 50 mcg PO DAILY@0900 RF: 0 cetirizine 10 mg capsule 10 mg PO DAILY@0900 RF: 0 sucralfate [Carafate] 1 gram tablet 1 g PO Q6H Qty: 60 RF: 0 ondansetron 4 mg tablet,disintegrating 4 mg PO Q6H PRN (Reason: nausea and vomiting) Qty: 14 RF: 0 lactulose 10 gram packet 10 g PO DAILY PRN (Reason: constipation) Qty: 15 RF: 0 Discharge Orders: Discharge ED (Routine); Ordered 03/10/20 Ordered By: Jw Shipman Referrals: Emma Novoa DO [Primary Care Provider] - 1-3 days Discharge Diet: Advance as tolerated Discharge Activity: Resume usual activity Patient Instructions: Heart Failure (ED) Coding Level of Care Code ED Epic Ambulatory Analysts for Chg Fwd Exam Comprehensive
[2020-03-09] MEDS: morphine 4 mg/mL SDV 1 mL IVP (21:19)
[2020-03-09] MEDS: ondansetron 2 mg/ML SDV 2 mL 4 MG IVP (21:19)
[2020-03-09 21:35] LABS: INR 1.05 (0.8-1.2)
[2020-03-09 21:37] LABS: D Dimer 0.68 ug/mIFEU (0-0.59)
[2020-03-09 21:39] LABS: Hematocrit 41.2 % (37.0-47.0); Hemoglobin 13.1 g/dL (11.5-15.3); Mean Corpuscular HGB Conc 31.8 g/dL (30.0-36.0); Mean Corpuscular Hemoglobin 32.6 pg (28.0-34.0); Mean Corpuscular Volume 102.5 fL (81-99); Mean Platelet Volume 12.2 fL (7.4-10.4); Platelet Count 169 10^3/cmm (130-400); Red Blood Count 4.02 10^6/uL (4.1-5.3); Red Cell Distribution Width 13.7 % (12.1-15.1); White Blood Count 6.2 10^3/uL (4.0-10.0)
--- NOTE | 2020-03-09 21:40 | CTR_ITS ---
PROCEDURE INFORMATION: Exam: CT Angiography Chest With Contrast Exam date and time: 03/09/2020 9:42 PM Age: 59 years old Clinical indication: Shortness of breath; Chest pain; Additional info: Cp TECHNIQUE: Imaging protocol: Computed tomographic angiography of the chest with intravenous contrast. 3D rendering (Not supervised by radiologist): MIP and/or 3D reconstructed images were created by the technologist. Total images: 799 Radiation optimization: All CT scans at this facility use at least one of these dose optimization techniques: automated exposure control; mA and/or kV adjustment per patient size (includes targeted exams where dose is matched to clinical indication); or iterative reconstruction. Contrast material: OMNI 350; Contrast volume: 72 ml; Contrast route: INTRAVENOUS (IV); COMPARISON: CT angio chest PE protcl [id number] 01/16/2020 1:38 AM RADIATION DOSE METRICS: Total DLP (mGy-cm): 366.65 FINDINGS: Pulmonary arteries: No visible evidence of pulmonary embolism/pulmonary arterial thrombus. Aorta: The thoracic aorta is nonaneurysmal. Mild arterial sclerotic disease. Lungs: COPD/chronic bronchitis. Mild centrilobular emphysema. Calcified granulomas of antecedent disease the largest right upper lobe posterior segment measuring 14 mm in maximum diameter. Mild senile fibrosis. No visible active interstitial or alveolar airspace disease. Pleural space: Unremarkable. No pneumothorax. No pleural effusion. Heart: Cardiomegaly with left ventricular hypertrophy. Coronary artery disease. No visible pericardial effusion. Lymph nodes: Marginally prominent mediastinal and hilar lymph nodes again noted essentially stable since last evaluation. Calcified complexes of antecedent granulomatous disease. Spleen: Calcified splenic granulomas of antecedent disease. Kidneys and ureters: Stable parapelvic left renal lipoma. Bones/joints: No visible active or acute osseous pathology. Mild scoliotic curvature. Soft tissues: Cachexia. CT/CT angio chest PE protcl [id number] IMPRESSION: No visible evidence of pulmonary embolism/pulmonary arterial thrombus. Radiation Dose CTDIVOL = (mGy): DLP = 366.65 (mGy-cm)
[2020-03-09 21:46] LABS: Troponin(5th) Baseline 37 ng/L (0-10)
[2020-03-09] MEDS: iohexol 350 mg/mL 100 mL Btl IV (21:54)
[2020-03-09 21:55] LABS: Alkaline Phosphatase 95 IU/L (35-105); Blood Urea Nitrogen 7 mg/dL (8-23); Calcium 9.5 mg/dL (8.5-10.5); Carbon Dioxide 27 mmol/L (22-29); Chloride 105 mmol/L (98-107); Globulin 2.2 g/dL (1.3-4.6); Glomerular Filtration Rate 162.8 mL/min (90-130); Glucose 139 mg/dL (65-115); NT Pro B Type Natriuretic Pept 10162 pg/mL (0-125); Osmolality Calculated 292 mOsm/kg (285-295); Sodium 141 mmol/L (136-145); Total Bilirubin 0.3 mg/dL (0.15-1.2); Total Protein 6.2 g/dL (6.6-8.7)
[2020-03-09 22:01] LABS: Alanine Aminotransferase 13 U/L (0-33); Aspartate Amino Transferase 25 U/L (0-32)
[2020-03-09 22:02] LABS: Total Cells Counted 100 (0-100)
[2020-03-09 22:03] LABS: Absolute Segmented Neutrophil 4.9 10/cmm (1.6-7.1); Segmented Neutrophils 79 %
[2020-03-09 22:04] LABS: Absolute Neutrophil 4.9 10^3/cmm (1.4-6.5); Anisocytosis Trace; Eosinophils 0 %; Lymphocytes 14 %; Macrocytosis Trace; Monocytes Absolute 0.4 10^3/cmm (0.1-0.6); Platelet Estimate Normal (Normal)
[2020-03-09] MEDS: LORazepam 2 mg/mL INJ 1 mL 1 MG IVP (22:28)
[2020-03-09] MEDS: FUROsemide 10 mg/mL SDV 4mL 40 MG IVP (22:28)
--- NOTE | 2020-03-09 22:38 | ECG_ITS ---
[facility] Test Date: 2020-03-09 Pat Name: Maryjo Gomez Department: Room: Gender: Female Manager Crisis: : 1960 Requested By: Jw Shipman Order Number: [id number] Reading MD: FAYE SANTOYO Measurements Intervals [place] Rate: 125 P: 72 MA: 140 QRS: -66 QRSD: 109 T: 93 QT: 305 QTc: 440 Interpretive Statements SINUS TACHYCARDIA LEFT ANTERIOR FASCICULAR BLOCK [QRS AXIS <= -45, QR IN I, RS IN II] LEFT VENTRICULAR HYPERTROPHY AND ST-T CHANGE [VOLTAGE CRITERIA PLUS ST/T ABNORMALITY] POSSIBLE ANTERIOR MYOCARDIAL INFARCTION [30 ms Q WAVE IN V3/V4, OR R < 0.2 mV IN V4], OF INDETERMINATE AGE Compared to ECG 03/06/2020 23:12:30 No significant change Electronically Signed On 03-10-2020 20:01:44 COPRA PROCESSOR by FAYE SANTOYO [email or web address] Textbook Time/store/NU/[id number] f
[2020-03-09 23:49] LABS: Troponin 5 2HR 42.06 ng/L (0-10); Troponin 5 2HR Delta 5.06 ABS# (0-10)
[2020-03-10] VITALS: BP 127/76; PULSE 102; RESP 10; O2SAT 99
[2020-03-10 00:05] VITALS: BP 127/76; PULSE 100; RESP 10; O2SAT 97
[2020-03-10 00:25] VITALS: BP 124/77; PULSE 109; RESP 16; O2SAT 98
--- NOTE | 2020-03-10 00:52 | PC.NURSE ---
Pt picked up by Laura, friend at this time. Out via wheelchair in stable condition
== END 2020-03-10 00:53 | disposition home or self-care (01) ==
PROVIDERS: Emergency Provider Emergency Medicine; PCP Family Medicine
DX: I50.9 Heart failure, unspecified (principal); J44.9 Chronic obstructive pulmonary disease, unspecified; F17.210 Nicotine dependence, cigarettes, uncomplicated
CPT/HCPCS: 12345; 71045; 71275; 80053; 83880; 84484; 85007; 85025; 85378; 85610; 93005; 96374; 96375; 99284; J1940; J2060; J2270; J2405; Q9967

== ENCOUNTER 2020-03-11 23:34 | Emergency (ER) | payer MEDICAID, SELFPAY ==
--- NOTE | 2020-03-11 23:37 | XR_ITS ---
WS: [id number] PORTABLE CHEST HISTORY: Acute onset of chest pain LEFT side. COMPARISON: 1 40,021 Mild pulmonary hyperinflation. No pneumonia. 17 mm nodule in the RIGHT upper lobe corresponds to a pa rtially calcified nodule which is probably a granuloma or hamartoma. This nodule has been present ove r multiple prior years. No pleural effusion or pneumothorax. Cardiac size: Normal. Mediastinum/Aorta: Normal mediastinum. No osseous abnormality seen. XR/XR chest 1V portable [id number] IMPRESSION: Chronic emphysema. No pneumonia.
--- NOTE | 2020-03-11 23:37 | ECG_ITS ---
[facility] Test Date: 2020-03-11 Pat Name: Maryjo Gomez Department: Room: Gender: Female Construction Secretary: : 1960 Requested By: Jw Shipman Order Number: [id number] Serina MD: Madyson Chen M.D. Measurements Intervals [place] Rate: 107 P: 74 AR: 116 QRS: -65 QRSD: 113 T: 99 QT: 352 QTc: 472 Interpretive Statements SINUS TACHYCARDIA WITH SHORT AR INTERVAL WITH OCCASIONAL VENTRICULAR PREMATURE COMPLEXES POSSIBLE LEFT ATRIAL ENLARGEMENT [-0.1mV P WAVE IN V1/V2] LEFT ANTERIOR FASCICULAR BLOCK [QRS AXIS <= -45, QR IN I, RS IN II] LEFT VENTRICULAR HYPERTROPHY AND ST-T CHANGE [VOLTAGE CRITERIA PLUS ST/T ABNORMALITY] POSSIBLE ANTERIOR MYOCARDIAL INFARCTION , OF INDETERMINATE AGE [30 ms Q WAVE IN V3/V4, OR R < 0.2 mV IN V4] Compared to ECG 03/09/2020 22:52:16 Ventricular premature complex(es) now present Short AR interval now present ST (T wave) deviation still present Myocardial infarct finding still present Electronically Signed On 03-12-2020 20:49:01 TRANSPORTATION ECONOMICS TEACHER by Madyson Chen M.D. [email or web address]/[id number]
[2020-03-11 23:39] VITALS: BP 109/61; PULSE 58; RESP 16; TEMP 36.8; O2SAT 93; BMI 16.5
[2020-03-11 23:50] LABS: Basophils % 0.5 %; Eosinophils % 0.7 %; Hematocrit 42.4 % (37.0-47.0); Hemoglobin 13.5 g/dL (11.5-15.3); Lymphocytes # 1.4 10^3/uL (0.8-4.8); Lymphocytes % 23.6 %; Mean Corpuscular HGB Conc 31.8 g/dL (30.0-36.0); Mean Corpuscular Hemoglobin 31.6 pg (28.0-34.0); Mean Corpuscular Volume 99.3 fL (81-99); Mean Platelet Volume 12.5 fL (7.4-10.4); Monocytes # 0.7 10^3/uL (0.2-0.9); Monocytes % 11.7 %; Neutrophils # 3.71 10^3/uL (1.8-7.7); Neutrophils % 63.2 %; Nucleated Red Blood Cells % 0 %; Platelet Count 200 10^3/cmm (130-400); Red Blood Count 4.27 10^6/uL (4.1-5.3); Red Cell Distribution Width 13.8 % (12.1-15.1); White Blood Count 5.9 10^3/uL (4.0-10.0)
[2020-03-11 23:56] VITALS: BP 99/51; PULSE 115; RESP 18; O2SAT 97
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
[2020-03-12 00:09] LABS: Alanine Aminotransferase 13 U/L (0-33); Alkaline Phosphatase 96 IU/L (35-105); Aspartate Amino Transferase 19 U/L (0-32); Blood Urea Nitrogen 7 mg/dL (8-23); Calcium 9.8 mg/dL (8.5-10.5); Carbon Dioxide 34 mmol/L (22-29); Chloride 97 mmol/L (98-107); Globulin 2.2 g/dL (1.3-4.6); Glomerular Filtration Rate 73.2 mL/min (90-130); Glucose 115 mg/dL (65-115); Osmolality Calculated 289 mOsm/kg (285-295); Sodium 140 mmol/L (136-145); Total Bilirubin 0.5 mg/dL (0.15-1.2); Total Protein 6.2 g/dL (6.6-8.7)
[2020-03-12 00:11] LABS: Troponin(5th) Baseline 35 ng/L (0-10)
[2020-03-12 01:30] VITALS: BP 104/65; PULSE 118; RESP 13; O2SAT 95
--- NOTE | 2020-03-12 13:40 | DCPLANNER ---
document manager had message to schedule a follow up appointment for patient with [facility]. document manager called [facility] to confirm if patient was a patient at [facility]. document manager spoke with Daisha, was told that patient is not a patient at [facility]. document manager called patient at [phone], unable to speak with patient and unable to leave a voicemail for patient. document manager was going to explain to patient that since patient has not been seen at the clinic that patient will need to go by clinic and fill out new patient paperwork, to get the process started so that patient can be seen.
== END 2020-03-12 01:15 | disposition home or self-care (01) ==
PROVIDERS: Emergency Medicine; Emergency Provider Nurse Practitioner Family; PCP Family Medicine
DX: J43.0 Unilateral pulmonary emphysema [MacLeod's syndrome] (principal); R07.89 Other chest pain; Z76.5 Malingerer [conscious simulation]; F17.210 Nicotine dependence, cigarettes, uncomplicated
CPT/HCPCS: 12345; 71045; 80053; 84484; 85025; 93005; 99282; 99283

== ENCOUNTER 2020-03-24 22:59 | Emergency (ER) | payer MEDICAID, SELFPAY ==
[2020-03-24 23:17] VITALS: BP 99/57; PULSE 60; RESP 17; TEMP 36.4; O2SAT 96; BMI 16.5
--- NOTE | 2020-03-24 23:31 | ECG_ITS ---
[facility] Test Date: 2020-03-24 Pat Name: Maryjo Gomez Department: Room: Gender: Female Engine Assembler: : 1960 Requested By: Monroe Danielle Order Number: [id number] Smalls MD: Hair Costello M.D. Measurements Intervals [place] Rate: 100 P: 72 [place]: 156 QRS: -64 QRSD: 116 T: 90 QT: 366 QTc: 472 Interpretive Statements SINUS TACHYCARDIA POSSIBLE LEFT ATRIAL ENLARGEMENT [-0.1mV P WAVE IN V1/V2] LEFT ANTERIOR FASCICULAR BLOCK [QRS AXIS <= -45, QR IN I, RS IN II] LEFT VENTRICULAR HYPERTROPHY AND ST-T CHANGE [VOLTAGE CRITERIA PLUS ST/T ABNORMALITY] ANTERIOR MYOCARDIAL INFARCTION , AGE INDETERMINATE Compared to ECG 03/11/2020 23:45:51 Short [place] interval no longer present ST (T wave) deviation still present Myocardial infarct finding still present Electronically Signed On 03-25-2020 18:03:16 PRESIDENT & CEO [employer] by Hair Costello M.D. [id number]
--- NOTE | 2020-03-24 23:31 | XR_ITS ---
WS: [id number] Portable AP upright chest, 03/24/2020 Clinical Data: chest Comparison: Portable chest, 03/11/2020 Findings: No nodules, masses or effusions are seen. The heart is normal. The pulmonary vascularity is not increased. No pneumonia or pneumothorax is seen. The aortic arch and descending aorta are tortuo us. The right upper lobe granuloma is adjacent to a monitor lead. Monitor leads are on the chest wall . XR/XR chest 1V portable [id number] Impression: Atherosclerosis.
--- NOTE | 2020-03-24 23:32 | W.ED.SOB ---
HPI - SOB/Dyspnea General: Chief Complaint: Shortness of Breath/Dyspnea Stated Complaint: HEART PROBLEMS Time Seen by Provider: 03/24/20 23:26 Source: patient Mode of arrival: ambulatory Limitations: no limitations History of Present Illness: HPI Narrative: 59-year-old female comes in tonight with complaints of midsternal chest pain upon awakening. Patient has frequent visits to the emergency department for chest discomfort. Patient has a history of COPD and emphysema. No coronary artery disease is noted. Patient appears well. Patient appears in mild to moderate pain. Pain is reproducible with palpation of the chest wall. Associated symptoms: Reports chest pain Review of Systems General: Reports: 10 or more systems reviewed and unremarkable except in HPI and below Card: Reports: chest pain [facility] ED PFSH: Medical History (Updated 03/24/20 @ 23:56 by YANICK Adamson) CHF (congestive heart failure) Chronic constipation COPD (chronic obstructive pulmonary disease) GERD (gastroesophageal reflux disease) Insomnia Seizure disorder Surgical History (Updated 03/16/20 @ 11:47 by Naun Garnett MD) H/O section Status post colonoscopy Family History Other CAD (coronary artery disease) Cancer Diabetes Social History Smoking and tobacco status: current every day smoker cigarettes Packs smoked per day: 0.5 Alcohol intake: never Lives independently: Yes Housing: House Physical Exam Const: COMMON NORMALS: no acute distress and patient oriented x3 GENERAL APPEARANCE: cooperative HENMT: COMMON NORMALS: normocephalic and Normal external nose present HEAD & SCALP: normal to inspection and normocephalic NOSE: Normal external nose present MOUTH: Normal oral and palatal mucosa present Eye: GENERAL EYE: appearance normal, both eyes and all related structures Neck/C-Spine: COMMON NORMALS: full ROM Chest: COMMONS NORMALS: normal inspection of the chest OTHER: Palpable tenderness of the chest wall. Resp: COMMON NORMALS: normal respiratory effort EFFORT & INSPECTION: Yes able to speak in complete sentences Cardio: COMMON NORMALS: regular rate and regular rhythm RATE: regular rate RHYTHM: regular rhythm GI: COMMON NORMALS: non-tender Back/Pelvis: COMMON NORMALS: thoracic and lumbar spine normal to inspection Extremity: COMMON NORMALS: normal to inspection Neuro: COMMON NORMALS: patient oriented x3 and moves all extremities Psych: COMMON NORMALS: mental status grossly normal and cooperative Skin: COMMON NORMALS: no rashes or lesions noted GENERAL SKIN EXAM: no rashes or lesions noted Course Vital Signs: Vital signs: Vital Signs Temperature 97.6 F 03/24/20 23:17 Pulse Rate 115 H 03/24/20 23:41 Respiratory Rate 18 03/24/20 23:41 Blood Pressure 95/38 03/24/20 23:41 Pulse Oximetry 96 03/24/20 23:41 MDM - SOB/Dyspnea MDM Narrative: Medical decision making narrative: Patient comes in with palpitations and chest discomfort. Patient has emphysema and a history of CHF. Patient appears well. Patient appears in no acute distress. Lungs are clear to auscultation. Vital signs are normal. Differential diagnosis includes anxiety, tachycardia, palpitations, CHF, COPD exacerbation. Chest x-ray was normal except for emphysema changes. EKG showed no changes from prior exam. Patient was given 1 tablet of benzonatate which she states she has been out of. Patient was also given 1 hydrocodone for discomfort of chest wall pain that was noted when palpation of the chest wall was noted. Patient may have a little bit of costochondritis but I think it is more malingering or anxiety. Patient was reassured with chest x-ray and EKG and felt better. Recommended follow-up with primary care for further treatment and evaluation in which patient reported understanding. EKG Data^: EKG 1: Attestation: I personally reviewed and interpreted this EKG as follows: (1150, EKG shows sinus tachycardia with a regular rate at 100 bpm, no changes are noted from prior EKG done 1 week ago.) Discharge Plan Discharge Patient Disposition: Home Clinical Impression: Heart palpitations, Anxiety Condition: Stable Prescriptions: Continued Tessalon Perles 100 mg Capsule 100 mg PO TID PRN (Reason: Cough) Qty: 30 RF: 0 No Action levetiracetam 500 mg tablet extended release 24 hr 2,000 mg PO Q24H Qty: 120 RF: 11 Miralax 17 gram powder in packet 17 g PO DAILY Qty: 30 RF: 1 albuterol sulfate 90 mcg/actuation HFA aerosol inhaler 2 inh INHALATION Q4H PRN (Reason: shortness of breath or wheezing) Qty: 6.7 RF: 0 Advair Diskus 250-50 mcg/dose blister with device 1 inh INHALATION BID@899,1999 RF: 0 trazodone 50 mg tablet 50 mg PO DAILY@0900 RF: 0 tramadol 50 mg tablet 50 mg PO TID@0900,1400,1999 PRN (Reason: pain) RF: 0 Protonix 40 mg tablet,delayed release (DR/EC) 40 mg PO BID@899,1999 RF: 0 Flonase Allergy Relief 50 mcg/actuation spray,suspension 2 spray INTRANASAL DAILY@0900 RF: 0 Spiriva with HandiHaler 18 mcg capsule, w/inhalation device 1 cap INHALATION DAILY@0900 RF: 0 cholecalciferol (vitamin D3) 50 mcg (2,000 unit) capsule 50 mcg PO DAILY@0900 RF: 0 cetirizine 10 mg capsule 10 mg PO DAILY@0900 RF: 0 Lasix 40 mg tablet 40 mg PO DAILY Qty: 30 RF: 0 sucralfate [Carafate] 1 gram tablet 1 g PO Q6H Qty: 60 RF: 0 ondansetron 4 mg tablet,disintegrating 4 mg PO Q6H PRN (Reason: nausea and vomiting) Qty: 14 RF: 0 lactulose 10 gram packet 10 g PO DAILY PRN (Reason: constipation) Qty: 15 RF: 0 Discharge Orders: Discharge ED (Routine); Ordered 03/24/20 Ordered By: Monroe Grant Referrals: Emma Novoa DO [Primary Care Provider] - Discharge Diet: Usual diet Discharge Activity: Increase activity as tolerated Activity Restrictions/Additional Instructions: Home and rest. Drink plenty of fluids. Continue with routine care. Follow-up with primary care for further treatment and evaluation. Coding Level of Care Code ED Barber Instructor for Chg Fwd Exam Comprehensive
[2020-03-24] MEDS: HYDROcodone-acetaminophen 5-325 mg Tablet 1 TAB PO (23:40)
[2020-03-24] MEDS: benzonatate 100 mg Capsule PO (23:40)
[2020-03-24 23:41] VITALS: BP 95/38; PULSE 115; RESP 18; O2SAT 96
== END 2020-03-25 00:12 | disposition home or self-care (01) ==
PROVIDERS: Emergency Provider Nurse Practitioner Family; PCP Family Medicine
DX: R00.2 Palpitations (principal); F41.9 Anxiety disorder, unspecified; I50.9 Heart failure, unspecified; J44.9 Chronic obstructive pulmonary disease, unspecified; F17.210 Nicotine dependence, cigarettes, uncomplicated
CPT/HCPCS: 12345; 71045; 93005; 99281; 99283

== ENCOUNTER → 2020-03-25 14:47 | Outpatient (BNVA) | payer MEDICAID, SELFPAY | PROVIDERS: PCP Family Medicine; Visit Provider Surgery | DX: Z01.812 Encounter for preprocedural laboratory examination (principal); K21.9 Gastro-esophageal reflux disease without esophagitis; K92.1 Melena | CPT/HCPCS: 87635 ==

== ENCOUNTER 2020-03-31 08:59 | Day surgery (SDC) | payer MEDICAID, SELFPAY ==
[2020-03-27 14:01] VITALS: BMI 17.2
[2020-03-31 09:13] VITALS: BP 112/59; PULSE 60; RESP 18; TEMP 36.4; O2SAT 94
[2020-03-31] MEDS: sodium chloride 0.9% 1,000 ML 30 ML IV (09:18)
--- NOTE | 2020-03-31 10:00 | P.ANESASSM_ITS ---
Pre-Anesthetic Assessment Pre-Anesthetic Assessment: Height/Weight: Height 1.6 m Weight 43.998 kg Temp Pulse Resp BP Pulse Ox 97.6 F 60 18 112/59 94 03/31/20 09:13 03/31/20 09:13 03/31/20 09:13 03/31/20 09:13 03/31/20 09:13 Preop Diagnosis: panendoscopy Proposed Procedure: Operation Date: 03/31/20 10:00 Proposed Procedures p EGD/colon [id number] K21.9 K92.1(Not Applicable) - Naun Garnett MD s Colonoscopy(Not Applicable) - Naun Garnett MD Was Beta Lien taken within 24 hours: N/A Last intake: Intake Last Liquid Date 03/30/20 Last Liquid Time 22:00 Last Solid Date 03/29/20 Last Solid Time 18:00 Social: Social History: Tobacco and No alcohol Exam: Pre-Anes Outpt Exam: alert, oriented x 3 and regular rate & rhythm Airway: Submandibular: WNL Cervical ROM: WNL Dentition: False Pulmonary: Pulmonary: COPD CV/HEM: CV/HEM: CAD Comments: arrhythmias GI: GI: GERD Neuropsych: Neuropsych: Seizure Anesthetic Plan: ASA status: 3 Anesthesia: MAC Risk of > 500 ml blood loss (7ml/kg in children): No Meds/Allergies Current Medications: Current Medications Generic Name Dose Route Start Last Admin Trade Name Freq PRN Reason Stop Dose Admin Sodium Chloride 1,000 mls @ 30 ml s/hr 03/31/20 09:00 03/31/20 09:18 Sodium Chloride 0.9% IV 04/01/20 08:59 30 mls/hr .Q24H JEANETTE Administration PFSH Anesthesia 2 PFSH: Medical History (Updated 03/24/20 @ 23:56 by YANICK Adamson) CHF (congestive heart failure) Chronic constipation COPD (chronic obstructive pulmonary disease) GERD (gastroesophageal reflux disease) Insomnia Seizure disorder Surgical History (Updated 03/16/20 @ 11:47 by Naun Garnett MD) H/O section Status post colonoscopy Family History Other CAD (coronary artery disease) Cancer Diabetes Social History Smoking and tobacco status: current every day smoker cigarettes Packs smoked per day: 0.5 Alcohol intake: never Lives independently: Yes Housing: House Data Anesthesia Cardiac Studies: No Data to Display
--- NOTE | 2020-03-31 10:17 | W.PM.OPSUD ---
Surgery/Procedure H&P Update DATE OF PROCEDURE: March 31, 2020 DATE H&P PERFORMED: 03/16/20 H&P UPDATE INFORMATION: I have reviewed H&P completed within last 30 days, I have examined patient prior to procedure and No changes to prior documentation PREOP DIAGNOSIS: panendoscopy PLANNED PROCEDURE: Operation Date: 03/31/20 10:00 Proposed Procedures p EGD/colon [id number] K21.9 K92.1(Not Applicable) - Naun Garnett MD s Colonoscopy(Not Applicable) - Naun Garnett MD
[2020-03-31 11:14] VITALS: BP 92/66; PULSE 93; RESP 16; TEMP 36.1; O2SAT 100
[2020-03-31 11:29] VITALS: BP 101/64; PULSE 100; RESP 18; TEMP 36.2; O2SAT 98
--- NOTE | 2020-03-31 13:31 | ANE.PACU2 ---
Inpatient post-anesthesia follow up: Airway intact: Yes Vital signs: Temperature 97.2 F Pulse Rate 100 Respiratory Rate 18 Blood Pressure 101/64 Pulse Oximetry 98 Oxygen Delivery Me thod Room Air Oxygen Flow Rate 2 Fraction of Inspir ed Oxygen Hydration adequate: Yes Nausea and vomiting: No Pain level: 1 Mental status: Baseline
== END 2020-03-31 12:15 | disposition home or self-care (01) ==
PROVIDERS: PCP Family Medicine; Visit Provider Surgery
PROC: 0DJ08ZZ Inspection of Upper Intestinal Tract, Via Natural or Artificial Opening Endoscopic (ICD-10-PCS; CPT 43235; principal; 2020-03-31 10:00)
PROC: 0DJD8ZZ Inspection of Lower Intestinal Tract, Via Natural or Artificial Opening Endoscopic (ICD-10-PCS; CPT 45378; 2020-03-31 10:00)
DX: K92.1 Melena (principal); K64.8 Other hemorrhoids; D12.2 Benign neoplasm of ascending colon; R07.9 Chest pain, unspecified; J44.9 Chronic obstructive pulmonary disease, unspecified; K21.9 Gastro-esophageal reflux disease without esophagitis; I50.9 Heart failure, unspecified; F17.210 Nicotine dependence, cigarettes, uncomplicated; I25.10 Atherosclerotic heart disease of native coronary artery without angina pectoris
CPT/HCPCS: 12345; 43235; 45381; 45385; 88305; J2370; J2704; J7030

== ENCOUNTER 2020-04-20 23:52 | Emergency (ER) | payer MEDICAID, SELFPAY ==
[2020-04-21] VITALS (8 sets, daily range): BP systolic 80–112; BP diastolic 68–79; PULSE 104–118; RESP 15–19; TEMP 36.4; O2SAT 91–98; BMI 17.7
--- NOTE | 2020-04-21 00:09 | ECG_ITS ---
[facility] Test Date: 2020-04-21 Pat Name: Maryjo Gomez Department: Room: Gender: Female Market Development Specialist: : 1960 Requested By: Oskar Ba Order Number: [id number] Smalls MD: Madyson Chen M.D. Measurements Intervals [place] Rate: 109 P: 75 [place]: 124 QRS: -66 QRSD: 104 T: 93 QT: 346 QTc: 467 Interpretive Statements SINUS TACHYCARDIA LEFT ANTERIOR FASCICULAR BLOCK [QRS AXIS <= -45, QR IN I, RS IN II] NONSPECIFIC ST & T-WAVE ABNORMALITY Compared to ECG 03/24/2020 23:43:38 T-wave abnormality now present Left ventricular hypertrophy no longer present ST (T wave) deviation no longer present Myocardial infarct finding no longer present Electronically Signed On 04-21-2020 7:58:45 WEB ANALYTICS SPECIALIST by Madyson Chen M.D. [email or web address]/store/[id number] [email or web address]
--- NOTE | 2020-04-21 00:11 | W.ED.CHESTPA ---
HPI - Chest Pain General: Chief Complaint: Chest Pain Stated Complaint: CP Time Seen by Provider: 04/20/20 23:53 History of Present Illness: HPI narrative: Patient is a 59-year-old female comes to the ED via EMS with chest pain. Patient has a past medical history of COPD, GERD and CHF. Chest pain started at home while at rest at 9 PM. Chest pain is located in the epigastric region. Pain rated 8 out of 10. CP worse when she lays flat. EMS gave patient 2 doses of nitro and 324 milligrams of aspirin before arriving to the ED. patient says the nitro and aspirin have not improved her chest pain. Associated symptoms: Reports dyspnea (chronic issue-no acute change); Deny abdominal pain, fever(s), nausea, palpitations or vomiting Review of Systems Const: Denies: fever(s), chills or fatigue Eyes: Denies: change in vision or eye discomfort ENMT: Denies: throat pain, odynophagia, nasal discharge or nasal congestion Card: Reports: chest pain (Epigastric region); Denies: palpitations, edema, swelling of feet/ankles, dyspnea on exertion or orthopnea Resp: Reports: dyspnea (chronic issue-no acute change); Denies: productive cough or non-productive cough GI: Denies: abdominal pain, nausea, vomiting, diarrhea, constipation or hematochezia : Denies: flank pain, dysuria or hematuria Musc: Denies: neck pain, back pain or extremity swelling Skin/Breast: Denies: rash or new lesions Neuro: Denies: headache(s), numbness in extremities or weakness in extremities PFS ED PFSH: Medical History CHF (congestive heart failure) Chronic constipation COPD (chronic obstructive pulmonary disease) GERD (gastroesophageal reflux disease) Insomnia Seizure disorder Surgical History H/O section H/O esophagogastroduodenoscopy Status post colonoscopy (03/31/20) Family History Other CAD (coronary artery disease) Cancer Diabetes Social History Smoking and tobacco status: current every day smoker cigarettes Packs smoked per day: 0.5 Alcohol intake: never Lives independently: Yes Housing: House Physical Exam Const: COMMON NORMALS: no acute distress, patient oriented x3 and alert GENERAL APPEARANCE: cooperative, comfortable and frail appearing NUTRITIONAL APPEARANCE: thin HENMT: COMMON NORMALS: normocephalic and EAC's normal HEAD & SCALP: normocephalic EXTERNAL AUDITORY CANAL: EAC's normal TYMPANIC MEMBRANE: TM abnormal TM laterality: bilateral with fluid behind the TM (Some fluid behind the ear but no signs of infection or erythema.); not erythematous, with no loss of landmarks and not perforated MOUTH: Normal oral and palatal mucosa present THROAT: posterior oropharynx normal and uvula midline Eye: COMMON NORMALS: Equal, round and reactive pupils present PUPIL: Yes Equal, round and reactive pupils present Neck/C-Spine: COMMON NORMALS: supple GENERAL: Yes normal visual inspection Resp: COMMON NORMALS: normal respiratory effort, No retractions and No use of accessory muscles AUSCULTATION: no wheezes and diminished lung sounds bilateral in the lower lung pickering OTHER: Patient had some diminished lung sounds lower lungs bilaterally. The rest of the lung pickering were clear to auscultation with no wheezing. Cardio: COMMON NORMALS: regular rate, regular rhythm, S1 normal heart sound present, S2 normal heart sound present, No gallops present (Cardio), No clicks present (Cardio), No murmurs present (Cardio) and Peripheral pulses 2+ throughout RATE: regular rate RHYTHM: regular rhythm HEART SOUNDS: S1 normal heart sound present and S2 normal heart sound present PERIPHERAL PULSES: Peripheral pulses 2+ throughout GI: COMMON NORMALS: Normal to inspection, nondistended, normoactive bowel sounds present, Soft to palpation and no masses PALPATION: Yes Soft to palpation and Yes Tenderness to palpation present (GI) (mild epigastric tenderness) : COMMON NORMALS: Yes no CVA tenderness BLADDER/KIDNEY EXAM: Yes no CVA tenderness Back/Pelvis: COMMON NORMALS: no CVA tenderness Extremity: COMMON NORMALS: normal to inspection and no pedal edema Neuro: COMMON NORMALS: patient oriented x3 and moves all extremities SENSORIUM/ORIENTATION: Yes alert Skin: GENERAL SKIN EXAM: dry skin Course Reevaluation(s): Reevaluation #1: After patient had an GI cocktail she said it did improve her chest pain. Time: 00:48 Reevaluation #2: Patient says her chest pain now feels a lot better and she is ready to go home and rest. Time: 02:49 Vital Signs: Vital signs: Vital Signs Temperature 97.6 F 04/21/20 00:01 Pulse Rate 105 H 04/21/20 00:59 Respiratory Rate 18 04/21/20 00:59 Blood Pressure 80/68 04/21/20 02:35 Pulse Oximetry 98 04/21/20 02:35 MDM - Chest Pain MDM Narrative: Medical decision making narrative: Patient is a 59-year-old female comes to the ED via EMS with epigastric chest pain. Patient has a past medical history of COPD, CHF and GERD. Pain started while at rest tonight and she says it gets worse when she lies flat. EMS gave patient 2 rounds of nitro and 324 mg of aspirin before arriving to the ED. Her chest pain did not improve from EMS meds. She appeared in no acute distress or pain and was resting comfortably on the exam bed when I enter the room. Patient had epigastric tenderness upon exam. Vitals stable. CBC and CMP were unremarkable. BNP was 9679 which is down from 10,162 on March 09. Troponins negative and EKG showed no acute findings or signs of TN. Chest x-ray showed no acute findings.. Patient was given a GI cocktail here in the ED and her chest pain improved. Patient diagnosed with noncardiac chest pain and discharged home. She was told to continue taking all her previously prescribed medications and she does currently take Protonix and sucralfate for GERD symptoms. Follow-up with PCP in 5 to 7 days for reevaluation. Return to ED precautions given. Patient understood and agree with plan. Lab Data: Attestation: I reviewed the patient's lab results. Labs: Lab Results 04/20/20 04/20/20 04/20/20 Range/Units 23:59 23:59 23:59 WBC 7.0 (4.0-10.0) 10^3/ uL RBC 4.63 (4.1-5.3) 10^6/u L Hgb 15.1 (11.5-15.3) g/dL Hct 47.3 H (37.0-47.0) % MCV 102.2 H (81-99) fL MCH 32.6 (28.0-34.0) pg MCHC 31.9 (30.0-36.0) g/dL RDW 14.7 (12.1-15.1) % Plt Count 169 (130-400) 10^3/c mm MPV 12.3 H (7.4-10.4) fL Neut % (Auto) 71.7 % Lymph % (Auto) 20.3 % Izard % (Auto) 7.0 % Eos % (Auto) 0.4 % Baso % (Auto) 0.3 % Neut # (Auto) 5.02 (1.8-7.7) 10^3/u L Lymph # (Auto) 1.4 (0.8-4.8) 10^3/u L Izard # (Auto) 0.5 (0.2-0.9) 10^3/u L Eos # (Auto) 0.0 (0.0-0.8) 10^3/u L Baso # (Auto) 0.0 (0.0-0.1) 10^3/u L Nucleated RBC % (a uto) 0 % Nucleated RBCs # 0.0 /100WBC Sodium 143 (136-145) mmol/L Potassium 3.9 (3.5-5.1) mmol/L Chloride 106 (98-107) mmol/L Carbon Dioxide 26 (22-29) mmol/L Anion Gap 14.9 (5-19) BUN 14 (8-23) mg/dL Creatinine 0.5 (0.5-0.9) mg/dL GFR Calculation 125.9 (90-130) mL/min Glucose 98 (65-115) mg/dL Calculated Osmolal ity 296 H (285-295) mOsm/k g Calcium 9.0 (8.5-10.5) mg/dL Total Bilirubin 0.4 (0.15-1.2) mg/dL AST 34 H (0-32) U/L ALT 30 (0-33) U/L Alkaline Phosphata se 92 (35-105) IU/L Troponin T Baselin e (0-10) ng/L Troponin T 120 Min tanesha (0-10) ng/L Delta Troponin T (0-10) ABS# NT-Pro-B Natriuret Pep 9679 H (0-125) pg/mL Total Protein 6.9 (6.6-8.7) g/dL Albumin 4.5 (3.5-5.2) g/dL Globulin 2.4 (1.3-4.6) g/dL Lipase 36 (13-60) U/L H. pylori IgG Anti body Negative (Negative) 04/20/20 04/21/20 Range/Units 23:59 01:57 WBC (4.0-10.0) 10^3/ uL RBC (4.1-5.3) 10^6/u L Hgb (11.5-15.3) g/dL Hct (37.0-47.0) % MCV (81-99) fL MCH (28.0-34.0) pg MCHC (30.0-36.0) g/dL RDW (12.1-15.1) % Plt Count (130-400) 10^3/c mm MPV (7.4-10.4) fL Neut % (Auto) % Lymph % (Auto) % Izard % (Auto) % Eos % (Auto) % Baso % (Auto) % Neut # (Auto) (1.8-7.7) 10^3/u L Lymph # (Auto) (0.8-4.8) 10^3/u L Izard # (Auto) (0.2-0.9) 10^3/u L Eos # (Auto) (0.0-0.8) 10^3/u L Baso # (Auto) (0.0-0.1) 10^3/u L Nucleated RBC % (a uto) % Nucleated RBCs # /100WBC Sodium (136-145) mmol/L Potassium (3.5-5.1) mmol/L Chloride (98-107) mmol/L Carbon Dioxide (22-29) mmol/L Anion Gap (5-19) BUN (8-23) mg/dL Creatinine (0.5-0.9) mg/dL GFR Calculation (90-130) mL/min Glucose (65-115) mg/dL Calculated Osmolal ity (285-295) mOsm/k g Calcium (8.5-10.5) mg/dL Total Bilirubin (0.15-1.2) mg/dL AST (0-32) U/L ALT (0-33) U/L Alkaline Phosphata se (35-105) IU/L Troponin T Baselin e 41 H (0-10) ng/L Troponin T 120 Min tanesha 38.94 H (0-10) ng/L Delta Troponin T -2.06 L (0-10) ABS# NT-Pro-B Natriuret Pep (0-125) pg/mL Total Protein (6.6-8.7) g/dL Albumin (3.5-5.2) g/dL Globulin (1.3-4.6) g/dL Lipase (13-60) U/L H. pylori IgG Anti body (Negative) Imaging Data^: CXR: Attestation: I personally reviewed and interpreted this imaging study as follows: My impression: Chest x-ray showed hyperinflated lungs. No other acute findings or infiltrates seen. EKG Data^: EKG 1: Attestation: I personally reviewed and interpreted this EKG as follows: EKG interpretation date: 04/21/20 Interpretation: Sinus tachycardia, 109 bpm, no ST segment elevation or depression seen. Comparing EKG with previous EKG taken on 03/24/2020 shows no acute change. Discharge Plan Discharge Patient Disposition: Home Clinical Impression: Non-cardiac chest pain Condition: Stable Prescriptions: No Action levetiracetam 500 mg tablet extended release 24 hr 2,000 mg PO Q24H Qty: 120 RF: 11 Miralax 17 gram powder in packet 17 g PO DAILY Qty: 30 RF: 1 benzonatate [Tessalon Perles] 100 mg capsule 100 mg PO TID PRN (Reason: Cough) Qty: 30 RF: 0 cetirizine 10 mg capsule 10 mg PO DAILY@0900 Qty: 30 RF: 0 albuterol sulfate 90 mcg/actuation HFA aerosol inhaler 2 inh INHALATION Q4H PRN (Reason: shortness of breath or wheezing) Qty: 6.7 RF: 2 fluticasone propion-salmeterol [Advair Diskus] 250-50 mcg/dose blister with device 1 inh INHALATION BID@0900,2000 RF: 0 trazodone 50 mg tablet 50 mg PO DAILY@0900 RF: 0 tramadol 50 mg tablet 50 mg PO TID@0900,1400,2000 PRN (Reason: pain) RF: 0 pantoprazole [Protonix] 40 mg tablet,delayed release (DR/EC) 40 mg PO BID@0900,1999 RF: 0 fluticasone propionate [Flonase Allergy Relief] 50 mcg/actuation spray,suspension 2 spray INTRANASAL DAILY@0900 RF: 0 Spiriva with HandiHaler 18 mcg capsule, w/inhalation device 1 cap INHALATION DAILY@0900 RF: 0 cholecalciferol (vitamin D3) 50 mcg (2,000 unit) capsule 50 mcg PO DAILY@0900 RF: 0 furosemide [Lasix] 40 mg tablet 40 mg PO DAILY Qty: 30 RF: 0 sucralfate [Carafate] 1 gram tablet 1 g PO Q6H Qty: 60 RF: 0 ondansetron 4 mg tablet,disintegrating 4 mg PO Q6H PRN (Reason: nausea and vomiting) Qty: 14 RF: 0 lactulose 10 gram packet 10 g PO DAILY PRN (Reason: constipation) Qty: 15 RF: 0 Discharge Orders: Discharge ED (Routine); Ordered 04/21/20 Ordered By: Oskar Ba Referrals: Emma Novoa DO [Primary Care Provider] - Discharge Diet: Regular Discharge Activity: Increase activity as tolerated Patient Instructions: Noncardiac Chest Pain (ED) Activity Restrictions/Additional Instructions: Follow-up with medical provider as directed in 5 to 7 days for reevaluation. Continue taking all home medications as prescribed. Return to the ER or your medical provider if condition worsens. Please read and understand discharge instructions. If any questions, please ask. Coding Level of Care Code ED Paper Wrapping Machine Operator for [place] Exam Comprehensive
--- NOTE | 2020-04-21 00:22 | XR_ITS ---
WS: [id number] PORTABLE CHEST HISTORY: cp COMPARISON: 03/24/2020 Hyperexpanded lungs with moderate emphysema. Focal scar contains calcification as seen on a prior kermit dy of 03/09/2020. There is a small amount of associated soft tissue. This nodule has been previously de scribed. No interval change since 01/16/2020. Indolent neoplasm is not excluded. This was also descri bed on 01/16/2020 and follow-up recommended. No pleural effusion or pneumothorax. Cardiac size: Normal. Mediastinum/Aorta: Normal mediastinum. No osseous abnormality seen. XR/XR chest 1V portable [id number] IMPRESSION: 1. Chronic emphysema with no pneumonia. 2. Focal spiculated nodule in the RIGHT upper lobe. Described on prior studies . Follow-up has been recommended to exclude indolent neoplasm as there is a sof t tissue component along with calcification. Anticipate follow-up CT in 6-12 mo nths.
[2020-04-21 00:26] LABS: Basophils % 0.3 %; Eosinophils % 0.4 %; Hematocrit 47.3 % (37.0-47.0); Hemoglobin 15.1 g/dL (11.5-15.3); Lymphocytes # 1.4 10^3/uL (0.8-4.8); Lymphocytes % 20.3 %; Mean Corpuscular HGB Conc 31.9 g/dL (30.0-36.0); Mean Corpuscular Hemoglobin 32.6 pg (28.0-34.0); Mean Corpuscular Volume 102.2 fL (81-99); Mean Platelet Volume 12.3 fL (7.4-10.4); Monocytes # 0.5 10^3/uL (0.2-0.9); Neutrophils # 5.02 10^3/uL (1.8-7.7); Neutrophils % 71.7 %; Nucleated Red Blood Cells % 0 %; Platelet Count 169 10^3/cmm (130-400); Red Blood Count 4.63 10^6/uL (4.1-5.3); Red Cell Distribution Width 14.7 % (12.1-15.1)
[2020-04-21] MEDS: lidocaine 2% viscous 15 ML, aluminum-mag hydrox-simethicon 30 ML, sucralfate oral liq 1 GM PO (00:26)
[2020-04-21 00:55] LABS: Troponin(5th) Baseline 41 ng/L (0-10)
[2020-04-21] MEDS: morphine 4 mg/mL SDV 1 mL 2 MG IVP (00:58)
[2020-04-21 01:02] LABS: H. Pylori IgG Antibody Negative (Negative)
[2020-04-21 01:04] LABS: Alanine Aminotransferase 30 U/L (0-33); Albumin Level 4.5 g/dL (3.5-5.2); Alkaline Phosphatase 92 IU/L (35-105); Anion Gap 14.9 (5-19); Aspartate Amino Transferase 34 U/L (0-32); Blood Urea Nitrogen 14 mg/dL (8-23); Carbon Dioxide 26 mmol/L (22-29); Chloride 106 mmol/L (98-107); Globulin 2.4 g/dL (1.3-4.6); Glomerular Filtration Rate 125.9 mL/min (90-130); Glucose 98 mg/dL (65-115); Lipase 36 U/L (13-60); NT Pro B Type Natriuretic Pept 9679 pg/mL (0-125); Osmolality Calculated 296 mOsm/kg (285-295); Potassium 3.9 mmol/L (3.5-5.1); Sodium 143 mmol/L (136-145); Total Bilirubin 0.4 mg/dL (0.15-1.2); Total Protein 6.9 g/dL (6.6-8.7)
[2020-04-21 02:35] LABS: Troponin 5 2HR 38.94 ng/L (0-10)
[2020-04-21 02:36] LABS: Troponin 5 2HR Delta -2.06 ABS# (0-10)
== END 2020-04-21 03:54 | disposition home or self-care (01) ==
PROVIDERS: Emergency Provider Physician Assistant; PCP Family Medicine
DX: R07.89 Other chest pain (principal); I50.9 Heart failure, unspecified; J44.9 Chronic obstructive pulmonary disease, unspecified; F17.210 Nicotine dependence, cigarettes, uncomplicated
CPT/HCPCS: 36415; 71045; 80053; 83690; 83880; 84484; 85025; 86677; 93005; 96374; 99284; J2270

== ENCOUNTER 2020-04-26 20:39 | Inpatient (IN) | payer MEDICAID, SELFPAY ==
[2020-04-26 20:44] VITALS: BP 104/71; PULSE 104; RESP 16; TEMP 36.6; O2SAT 94; BMI 17.2
--- NOTE | 2020-04-26 20:52 | XR_ITS ---
WS: [id number] Exam: XR chest 1V portable [id number] Date/Time of Exam: 04/26/2020 8:52 PM Reason For Exam: epigastric pain Comparison 04/21/2020. The lungs are hyperinflated. No consolidating infiltrates. Heart size top limits normal unchanged. 2. 2 cm spiculated indeterminate nodule in the upper lobe of the right lung unchanged in appearance. No pleural effusions. The mediastinum and bony thorax are unremarkable. XR/XR chest 1V portable [id number] IMPRESSION: 1. Pulmonary hyperinflation probably indicating obstructive lung disease. 2. 2.2 cm spiculated indeterminate nodule in the upper lobe of the right lung s howing no change since prior study.
--- NOTE | 2020-04-26 20:52 | ECG_ITS ---
[facility] Test Date: 2020-04-26 Pat Name: Maryjo Gomez Department: Room: Gender: Female Direct Mail Coordinator: : 1960 Requested By: Paulette Sheehan Order Number: [id number] Smalls MD: Madyson Chen M.D. Measurements Intervals Harris Rate: 120 P: 76 AZ: 144 QRS: -64 QRSD: 104 T: 96 QT: 312 QTc: 442 Interpretive Statements SINUS TACHYCARDIA WITH FREQUENT ECTOPIC PREMATURE COMPLEXES LEFT ANTERIOR FASCICULAR BLOCK [QRS AXIS <= -45, QR IN I, RS IN II] LEFT VENTRICULAR HYPERTROPHY AND ST-T CHANGE [VOLTAGE CRITERIA PLUS ST/T ABNORMALITY] POSSIBLE ANTERIOR MYOCARDIAL INFARCTION, OF INDETERMINATE AGE Compared to ECG 04/21/2020 00:08:53 Left ventricular hypertrophy now present ST (T wave) deviation now present Myocardial infarct finding now present T-wave abnormality no longer present Electronically Signed On 04-28-2020 6:16:51 MEDICAL NURSE by Madyson Chen M.D. [email or web address]
[2020-04-26] MEDS: lidocaine 2% viscous 15 ML, aluminum-mag hydrox-simethicon 30 ML, sucralfate oral liq 1 GM PO (22:50)
[2020-04-26 22:52] VITALS: BP 119/75; PULSE 115; RESP 18; O2SAT 92
--- NOTE | 2020-04-26 22:54 | CTR_ITS ---
PROCEDURE INFORMATION: Exam: CT Abdomen And Pelvis With Contrast Exam date and time: 04/26/2020 10:59 PM Age: 59 years old Clinical indication: Abdominal pain; Prior surgery; Surgery date: 6+ months; Surgery type: C-sect; Patient HX: C/O epigastric pain; Additional info: Pain and swelling upper abdomen x 2 days TECHNIQUE: Imaging protocol: Computed tomography of the abdomen and pelvis with contrast. Radiation optimization: All CT scans at this facility use at least one of these dose optimization techniques: automated exposure control; mA and/or kV adjustment per patient size (includes targeted exams where dose is matched to clinical indication); or iterative reconstruction. Contrast material: OMNI 300; Contrast volume: 75 ml; Contrast route: INTRAVENOUS (IV); COMPARISON: CT abdomen pelvis w con* [id number] 03/04/2020 4:46 AM RADIATION DOSE METRICS: Total DLP (mGy-cm): 160.36 FINDINGS: Lungs: 4.5 mm pulmonary nodularity seen in the right lower lobe posteriorly. This was present 03/04/2020. Liver: There is mild inhomogeneity of the hepatic parenchyma possibly representing mild fibrofatty infiltration. Gallbladder and bile ducts: There is a large amount pericholecystic fluid present. Pancreas: Normal. No ductal dilation. Spleen: Normal. No splenomegaly. Adrenal glands: Normal. No mass. Kidneys and ureters: Normal. No hydronephrosis. Stomach and bowel: Unremarkable. No obstruction. No mucosal thickening. Appendix: The appendix is visualized and is normal in configuration. Intraperitoneal space: There is some free fluid seen within the abdomen compatible with a small volume of ascites. Retroperitoneal space: There is diffuse edema seen within the retroperitoneal fascia. Some presacral edema seen as well. Vasculature: Unremarkable. No abdominal aortic aneurysm. Lymph nodes: Unremarkable. No enlarged lymph nodes. Urinary bladder: Unremarkable as visualized. Reproductive: Unremarkable as visualized. Bones/joints: Unremarkable. No acute fracture. Soft tissues: Unremarkable. CT/CT abdomen pelvis w con* [id number] IMPRESSION: 1. Inhomogeneity of the hepatic parenchyma compatible with fibrofatty infiltration. 2. Abnormal gallbladder with prominent pericholecystic fluid. 3. Diffuse retroperitoneal and presacral edema. 4. Small volume ascites 5. Stable 4.5 mm pulmonary nodularity in the right posterior costophrenic recess compared with 03/04/2020. For patients at low risk (minimal or absent history of smoking and of other known risk factors), no routine follow-up is indicated. For patients at high risk (history of smoking or of other known risk factors), consider optional CT Chest at 12 months. (Reference: Tami) REFERENCES: Tami Piña et al. Guidelines for Management of Incidental Pulmonary Nodules Detected on CT Images: From the Fleischner Society 2017. Radiology. 2017;284(1):228-243. Radiation Dose CTDIVOL = (mGy): DLP = 160.36 (mGy-cm)
[2020-04-26 23:09] LABS: Basophils % 0.5 %; Eosinophils % 0.5 %; Hematocrit 41.3 % (37.0-47.0); Hemoglobin 13.1 g/dL (11.5-15.3); Lymphocytes # 1.4 10^3/uL (0.8-4.8); Lymphocytes % 21.5 %; Mean Corpuscular HGB Conc 31.7 g/dL (30.0-36.0); Mean Corpuscular Hemoglobin 32.3 pg (28.0-34.0); Mean Platelet Volume 12.1 fL (7.4-10.4); Monocytes # 0.7 10^3/uL (0.2-0.9); Neutrophils # 4.46 10^3/uL (1.8-7.7); Neutrophils % 67.3 %; Nucleated Red Blood Cells % 0 %; Platelet Count 155 10^3/cmm (130-400); Red Blood Count 4.05 10^6/uL (4.1-5.3); Red Cell Distribution Width 15.8 % (12.1-15.1); White Blood Count 6.6 10^3/uL (4.0-10.0)
--- NOTE | 2020-04-26 23:10 | W.ED.ABDPA2 ---
HPI - Abdominal Pain General: Chief Complaint: Abdominal Pain Stated Complaint: STOMACH, CHEST, LEGS Time Seen by Provider: 04/26/20 22:41 Source: patient Mode of arrival: ambulatory Limitations: no limitations History of Present Illness: HPI narrative: 59-year-old female patient presents to the emergency department with upper abdominal pain and swelling. She reports noted swelling to her upper central abdomen x2 days. She reports out of her maintenance medication times several weeks including Protonix and Mucinex. She reports previous episodes of abdominal pain, recently evaluated in the ED on 04/21/2020 for same pain she is experiencing tonight; however, swelling was not present until 2 days ago. She denies nausea vomiting, denies constipation, reports diarrhea x1 day, denies hematochezia. She reports onset of worsening pain after eating tonight. She denies chest pain, shortness of breath. She describes pain as a sharp discomfort. MD elicited complaint: abdominal pain (upper, central abdomen) Pertinent past history: gastritis, gastrointestinal bleeding and myocardial infarction Onset (ago): week(s) (2) Pain Consistency: intermittent Location: Epigastric Severity: similar to previous episodes Quality: cramping and aching Radiation: none Migration to: no migration Exacerbating factors: eating and movement Relieving factors: rest Associated Symptoms: Reports no associated symptoms and nausea; Denies chills, constipation, diarrhea, dysuria, fever(s), heartburn and vomiting Review of Systems General: Reports: 10 or more systems reviewed and unremarkable except in HPI and below Const: Denies: fever(s), chills or diaphoresis Eyes: Denies: blurry vision or eye redness ENMT: Denies: throat pain, dental pain or disequilibrium Card: Denies: chest pain, palpitations or irregular heart rhythm Resp: Denies: dyspnea, productive cough, non-productive cough or wheezing GI: Reports: abdominal pain and nausea; Denies: vomiting, heartburn, diarrhea or constipation : Denies: difficulty voiding, dysuria, urinary urgency or urinary hesitancy Musc: Reports: muscle weakness; Denies: neck pain or back pain Skin/Breast: Denies: rash or pruritus Neuro: Denies: headache(s), weakness in extremities or behavioral changes Psych: Denies: anxiety, depression or sleeping more Emmanuel/Lymph: Denies: easy bruising PFS ED PFSH: Medical History CHF (congestive heart failure) Chronic constipation COPD (chronic obstructive pulmonary disease) GERD (gastroesophageal reflux disease) Insomnia Seizure disorder Surgical History H/O section H/O esophagogastroduodenoscopy Status post colonoscopy (03/31/20) Family History Other CAD (coronary artery disease) Cancer Diabetes Social History Smoking and tobacco status: current every day smoker cigarettes Packs smoked per day: 0.5 Alcohol intake: never Lives independently: Yes Housing: House Physical Exam Const: COMMON NORMALS: no acute distress, patient oriented x3 and alert GENERAL APPEARANCE: cooperative, comfortable, well kempt, frail appearing and well hydrated NUTRITIONAL APPEARANCE: thin ORIENTATION/CONSCIOUSNESS: Yes awake, Yes oriented to person, Yes oriented to place and Yes oriented to time HENMT: COMMON NORMALS: normocephalic, external ears normal, Normal external nose present and moist oral mucous membranes HEAD & SCALP: normocephalic FACE & SINUS: normal facial exam and face symmetric NOSE: Normal external nose present EXTERNAL EAR: Yes external ears normal MOUTH: Normal oral and palatal mucosa present THROAT: posterior oropharynx normal Eye: COMMON NORMALS: Equal, round and reactive pupils present and EOMs intact bilaterally GENERAL EYE: appearance normal, both eyes and all related structures PUPIL: Yes Equal, round and reactive pupils present Neck/C-Spine: COMMON NORMALS: full ROM and no lymphadenopathy GENERAL: Yes normal visual inspection and Yes trachea midline CERVICAL SPINE: Yes cervical ROM normal Lymph: LYMPHATIC: no lymphadenopathy noted Chest: COMMONS NORMALS: normal inspection of the chest and normal palpation of entire chest wall CHEST: No localized rib tenderness with anteroposterior compression Resp: COMMON NORMALS: normal respiratory effort, No retractions, No use of accessory muscles and clear to auscultation bilaterally EFFORT & INSPECTION: Yes able to speak in complete sentences, No labored, No retractions and No audible wheezes AUSCULTATION: clear to auscultation bilaterally Cardio: COMMON NORMALS: regular rate, regular rhythm, S1 normal heart sound present, S2 normal heart sound present and Peripheral pulses 2+ throughout RATE: regular rate and tachycardic RHYTHM: regular rhythm HEART SOUNDS: S1 normal heart sound present and S2 normal heart sound present PERIPHERAL PULSES: Peripheral pulses 2+ throughout GI: COMMON NORMALS: Normal to inspection, nondistended, normoactive bowel sounds present and Soft to palpation INSPECTION: Yes normal to inspection, No abdominal wall ecchymosis, Yes abdominal distension, No central obesity and Yes Localized GI swelling present PALPATION: Yes Soft to palpation and Yes Tenderness to palpation present (GI) Details: LUQ and RUQ : COMMON NORMALS: Yes no CVA tenderness BLADDER/KIDNEY EXAM: Yes no CVA tenderness Back/Pelvis: COMMON NORMALS: no CVA tenderness and thoracic and lumbar spine normal to inspection Extremity: COMMON NORMALS: normal to inspection, full ROM, capillary refill normal, no clubbing, cyanosis or edema and no pedal edema GENERAL: Yes normal exam except as noted Neuro: COMMON NORMALS: patient oriented x3 and no focal motor deficits SENSORIUM/ORIENTATION: Yes alert, Yes oriented to person, Yes oriented to place and Yes oriented to time Psych: COMMON NORMALS: mental status grossly normal, Normal thought process present and cooperative APPEARANCE: Yes well kempt ACTIVITY/MOTOR BEHAVIOR: Yes appropriate eye contact THOUGHT PROCESS: Normal thought process present Skin: COMMON NORMALS: no rashes or lesions noted and turgor normal GENERAL SKIN EXAM: no rashes or lesions noted and turgor normal Course ED course: 59-year-old female patient presents to the emergency department with continued abdominal pain similar to previous symptoms times several weeks with new onset of abdominal swelling. CT scan/right upper quadrant ultrasound revealed thickened gallbladder wall with pericholecystic fluid suggestive of a calculus cholecystitis. Ascites was also noted. CBC without leukocytosis, CMP with slightly elevated alkaline phosphatase, normal lipase, urinalysis pending. She was treated with 500 cc normal saline with morphine as pain control as well as Zofran for nausea. Morphine was effective with pain management, nausea resolved. EKG did not reveal acute abnormality in comparison with previous EKG completed 04/21/2020. Discussion with patient regarding gallbladder disease, agrees for admission. Case discussed with Dr. Schneider collaborative physician. Consultations: Consultation #1: Dr Zamorano, hospitalist, CT and ultrasound results discussed as well as serology results, a calculus cholecystitis noted on CT scan, advised to keep patient n.p.o., morphine acceptable for pain control, plans to consult surgical services in the morning. Time: 03:20 Vital Signs: Vital signs: Vital Signs Temperature 97.9 F 04/26/20 20:44 Pulse Rate 78 04/27/20 03:35 Respiratory Rate 18 04/27/20 03:35 Blood Pressure 101/68 04/27/20 03:35 Pulse Oximetry 96 04/27/20 03:35 MDM - Abdominal Pain Differential Diagnosis: Differential diagnosis abdominal pain: Likely abdominal pain, acute appendicitis, calculus of kidney, constipation and pancreatitis Lab Data: Labs: Lab Results 04/26/20 04/26/20 Range/Units 23:00 23:00 WBC 6.6 (4.0-10.0) 10^3/ uL RBC 4.05 L (4.1-5.3) 10^6/u L Hgb 13.1 (11.5-15.3) g/dL Hct 41.3 (37.0-47.0) % MCV 102.0 H (81-99) fL MCH 32.3 (28.0-34.0) pg MCHC 31.7 (30.0-36.0) g/dL RDW 15.8 H (12.1-15.1) % Plt Count 155 (130-400) 10^3/c mm MPV 12.1 H (7.4-10.4) fL Neut % (Auto) 67.3 % Lymph % (Auto) 21.5 % [place] % (Auto) 10.0 % Eos % (Auto) 0.5 % Baso % (Auto) 0.5 % Neut # (Auto) 4.46 (1.8-7.7) 10^3/u L Lymph # (Auto) 1.4 (0.8-4.8) 10^3/u L [place] # (Auto) 0.7 (0.2-0.9) 10^3/u L Eos # (Auto) 0.0 (0.0-0.8) 10^3/u L Baso # (Auto) 0.0 (0.0-0.1) 10^3/u L Nucleated RBC % (a uto) 0 % Nucleated RBCs # 0.0 /100WBC Sodium 139 (136-145) mmol/L Potassium 4.1 (3.5-5.1) mmol/L Chloride 106 (98-107) mmol/L Carbon Dioxide 23 (22-29) mmol/L Anion Gap 14.1 (5-19) BUN 18 (8-23) mg/dL Creatinine 0.5 (0.5-0.9) mg/dL GFR Calculation 125.9 (90-130) mL/min Glucose 85 (65-115) mg/dL Calculated Osmolal ity 289 (285-295) mOsm/k g Calcium 8.7 (8.5-10.5) mg/dL Total Bilirubin 0.3 (0.15-1.2) mg/dL AST 27 (0-32) U/L ALT 41 H (0-33) U/L Alkaline Phosphata se 107 H (35-105) IU/L Total Protein 6.3 L (6.6-8.7) g/dL Albumin 3.9 (3.5-5.2) g/dL Globulin 2.4 (1.3-4.6) g/dL Lipase 27 (13-60) U/L Imaging Data ^: US: Radiologist's impression: [address] [address] Ultrasound Report Signed Patient: Maryjo Gomez Unit #: [id number] : 1960 Age/Sex: 59 / F ADM Date: 04/26/20 Loc: ER Room/Bed: Attending Dr: Ordering Provider/Ordering MD: Pauletet Alvarez Date of Service: 04/27/20 Procedure(s): US gall bladder [id number] Accession Number(s): [id number] Report Number: [id number] PROCEDURE INFORMATION: Exam: US Abdomen, Limited; Right Upper Quadrant Exam date and time: 04/27/2020 1:06 AM Age: 59 years old Clinical indication: Abdominal pain; Additional info: Abnormal CT finding gb TECHNIQUE: Imaging protocol: US abdomen. Real time ultrasound with image documentation. Limited exam focused on the right upper quadrant. COMPARISON: US gall bladder [id number] 02/28/2020 12:15 AM FINDINGS: Liver: Normal. No masses. Gallbladder: There is a markedly thickened gallbladder wall measuring 1.5 cm. A small amount of pericholecystic fluid is seen. Positive sonographic Garrison sign is elicited. These findings suggest acalculous cholecystitis. Common bile duct: Normal. No stones. No dilation. Pancreas: Visualized pancreas is unremarkable. Right kidney: Normal. No mass. No hydronephrosis. Intraperitoneal space: There is some anechoic material seen adjacent to the liver compatible with ascites. US/US gall bladder [id number] IMPRESSION: 1. There is a markedly thickened gallbladder wall measuring 1.5 cm surrounded by a small amount of pericholecystic fluid. Positive sonographic Garrison sign is elicited. These findings are compatible with acalculous cholecystitis. 2. Ascites seen adjacent to the liver. Dictated By: Anselmo Puri MD Signed By: Anselmo Puri MD Signed Date/Time: 04/27/20117 DD/ 6 CT Abd/Pel: Radiologist's impression: [address] [address] [address] Scan Report Signed Patient: Maryjo Gomez Unit #: [id number] : 1960 Age/Sex: 59 / F ADM Date: 04/26/20 Loc: ER Room/Bed: Attending Dr: Ordering Provider/Ordering MD: Paulette Alvarez Date of Service: 04/26/20 Procedure(s): CT abdomen pelvis w con* [id number] Accession Number(s): [id number] Report Number: [id number] PROCEDURE INFORMATION: Exam: CT Abdomen And Pelvis With Contrast Exam date and time: 04/26/2020 10:59 PM Age: 59 years old Clinical indication: Abdominal pain; Prior surgery; Surgery date: 6+ months; Surgery type: C-sect; Patient HX: C/O epigastric pain; Additional info: Pain and swelling upper abdomen x 2 days TECHNIQUE: Imaging protocol: Computed tomography of the abdomen and pelvis with contrast. Radiation optimization: All CT scans at this facility use at least one of these dose optimization techniques: automated exposure control; mA and/or kV adjustment per patient size (includes targeted exams where dose is matched to clinical indication); or iterative reconstruction. Contrast material: OMNI 300; Contrast volume: 75 ml; Contrast route: INTRAVENOUS (IV); COMPARISON: CT abdomen pelvis w con* [id number] 03/04/2020 4:46 AM RADIATION DOSE METRICS: Total DLP (mGy-cm): 160.36 FINDINGS: Lungs: 4.5 mm pulmonary nodularity seen in the right lower lobe posteriorly. This was present 03/04/2020. Liver: There is mild inhomogeneity of the hepatic parenchyma possibly representing mild fibrofatty infiltration. Gallbladder and bile ducts: There is a large amount pericholecystic fluid present. Pancreas: Normal. No ductal dilation. Spleen: Normal. No splenomegaly. Adrenal glands: Normal. No mass. Kidneys and ureters: Normal. No hydronephrosis. Stomach and bowel: Unremarkable. No obstruction. No mucosal thickening. Appendix: The appendix is visualized and is normal in configuration. Intraperitoneal space: There is some free fluid seen within the abdomen compatible with a small volume of ascites. Retroperitoneal space: There is diffuse edema seen within the retroperitoneal fascia. Some presacral edema seen as well. Vasculature: Unremarkable. No abdominal aortic aneurysm. Lymph nodes: Unremarkable. No enlarged lymph nodes. Urinary bladder: Unremarkable as visualized. Reproductive: Unremarkable as visualized. Bones/joints: Unremarkable. No acute fracture. Soft tissues: Unremarkable. CT/CT abdomen pelvis w con* [id number] IMPRESSION: 1. Inhomogeneity of the hepatic parenchyma compatible with fibrofatty infiltration. 2. Abnormal gallbladder with prominent pericholecystic fluid. 3. Diffuse retroperitoneal and presacral edema. 4. Small volume ascites 5. Stable 4.5 mm pulmonary nodularity in the right posterior costophrenic recess compared with 03/04/2020. For patients at low risk (minimal or absent history of smoking and of other known risk factors), no routine follow-up is indicated. For patients at high risk (history of smoking or of other known risk factors), consider optional CT Chest at 12 months. (Reference: Tami) REFERENCES: Josiehomeng H, et al. Guidelines for Management of Incidental Pulmonary Nodules Detected on CT Images: From the Fleischner Society 2017. Radiology. 2017;284(1):228-243. Radiation Dose CTDIVOL = (mGy): DLP = 160.36 (mGy-cm) Dictated By: Anselmo Puri MD Signed By: Anselmo Puri MD Signed Date/Time: 04/26/202347 DD/ 46 Discharge Plan Discharge Patient Disposition: Admitted As Inpatient Clinical Impression: Acalculous cholecystitis Condition: Stable Coding Level of Care Code ED Staff Research Associate for Chg Fwd Exam Comprehensive
[2020-04-26] MEDS: iohexol 300 mg/mL 100 mL Btl IV (23:17)
[2020-04-26 23:24] LABS: Alanine Aminotransferase 41 U/L (0-33); Albumin Level 3.9 g/dL (3.5-5.2); Alkaline Phosphatase 107 IU/L (35-105); Anion Gap 14.1 (5-19); Aspartate Amino Transferase 27 U/L (0-32); Blood Urea Nitrogen 18 mg/dL (8-23); Calcium 8.7 mg/dL (8.5-10.5); Carbon Dioxide 23 mmol/L (22-29); Chloride 106 mmol/L (98-107); Globulin 2.4 g/dL (1.3-4.6); Glomerular Filtration Rate 125.9 mL/min (90-130); Glucose 85 mg/dL (65-115); Lipase 27 U/L (13-60); Osmolality Calculated 289 mOsm/kg (285-295); Potassium 4.1 mmol/L (3.5-5.1); Sodium 139 mmol/L (136-145); Total Bilirubin 0.3 mg/dL (0.15-1.2); Total Protein 6.3 g/dL (6.6-8.7)
[2020-04-27] VITALS (14 sets, daily range): BP systolic 99–119; BP diastolic 48–88; PULSE 65–116; RESP 16–19; TEMP 36.4–36.7; O2SAT 90–99
--- NOTE | 2020-04-27 00:13 | USR_ITS ---
PROCEDURE INFORMATION: Exam: US Abdomen, Limited; Right Upper Quadrant Exam date and time: 04/27/2020 1:06 AM Age: 59 years old Clinical indication: Abdominal pain; Additional info: Abnormal CT finding gb TECHNIQUE: Imaging protocol: US abdomen. Real time ultrasound with image documentation. Limited exam focused on the right upper quadrant. COMPARISON: US gall bladder [id number] 02/28/2020 12:15 AM FINDINGS: Liver: Normal. No masses. Gallbladder: There is a markedly thickened gallbladder wall measuring 1.5 cm. A small amount of pericholecystic fluid is seen. Positive sonographic Garrison sign is elicited. These findings suggest acalculous cholecystitis. Common bile duct: Normal. No stones. No dilation. Pancreas: Visualized pancreas is unremarkable. Right kidney: Normal. No mass. No hydronephrosis. Intraperitoneal space: There is some anechoic material seen adjacent to the liver compatible with ascites. US/US gall bladder [id number] IMPRESSION: 1. There is a markedly thickened gallbladder wall measuring 1.5 cm surrounded by a small amount of pericholecystic fluid. Positive sonographic Garrison sign is elicited. These findings are compatible with acalculous cholecystitis. 2. Ascites seen adjacent to the liver.
[2020-04-27] MEDS: ondansetron 2 mg/ML SDV 2 mL 4 MG IVP (00:34)
[2020-04-27] MEDS: morphine 4 mg/mL SDV 1 mL 2 MG IVP ×2 (00:34→02:20)
[2020-04-27] MEDS: piperacillin-tazobactam 3.375 GM in sodium chloride 0.9% (plus) 50 ML IV ×3 (02:20→17:29)
[2020-04-27] MEDS: sodium chloride 0.9% 500 ML 999 ML IV (02:20)
--- NOTE | 2020-04-27 03:21 | PM.HP ---
Providers/Chief Complaint Primary Care Provider: Emma Novoa DO Chief Complaint: STOMACH, CHEST, LEGS History of Present Illness Maryjo Gomez is a 59 year old female with history of oxygen dependent COPD, GERD, fatty infiltration of liver, seizure disorder, nicotine dependence presented today with chief complaint of right upper quadrant pain. Patient was seen in the ER on 04/21 for similar complaint she was given GI cocktail and was discharged home, today she presented with worsening abdominal pain. Her recent EGD was normal however colonoscopy revealed 2centimeter sessile polyp and internal hemorrhoids, histopathological diagnosis tubular adenoma no high-grade dysplasia. Patient is stating that for last 1 week she has been having abdominal pain which she is describing as a knot near her right upper quadrant area, it gets worse on eating, it has been radiating towards her right shoulder she has not noticed any fever, vomiting however she is endorsing nausea. Last 48 hours her symptoms have gotten worse. She decided to come to the hospital for further evaluation. She has had multiple admission in the past secondary to pneumonia COPD exacerbation and gastritis. Diagnostics in the ER revealed, CBC, BMP however CT abdomen revealed a calculus cholecystitis, pancreatic duct dilation however lipase is unremarkable, she has been given Zosyn and full resuscitation in the ER. Review of Systems Const: Reports: chills, body aches, change in appetite and fatigue; Denies: fever(s) Eyes: Denies: change in vision ENMT: Denies: throat pain Card: Denies: chest pain Resp: Denies: dyspnea GI: Reports: abdominal pain, nausea and early satiety; Denies: diarrhea or constipation : Denies: flank pain Musc: Denies: neck pain Skin/Breast: Denies: rash Neuro: Denies: headache(s) Psych: Denies: anxiety Endo: Denies: polyuria Emmanuel/Lymph: Denies: easy bruising All/Imm: Denies: urticaria Medications/Allergies Home Medications Medication Instructions Recorded Confirmed Last Taken Type polyethylene glycol 3350 17 gram 17 g PO DAILY #30 packet 05/13/19 04/10/20 03/30/20 Rx oral powder packet levetiracetam 500 mg 2,000 mg PO Q24H #120 tab 10/23/19 04/10/20 03/31/20 Rx tablet,extended release 24 hr sucralfate [Carafate] 1 g PO Q6H #60 tab 12/14/20 02/05/21 01/25/21 Rx ondansetron 4 mg PO Q6H PRN #14 tab 02/25/20 04/10/20 03/30/20 Rx lactulose 10 g PO DAILY PRN #15 ea 03/01/20 04/10/20 03/30/20 Rx Spiriva with HandiHaler 1 cap INHALATION DAILY@0900 03/09/20 04/10/20 03/31/20 History cholecalciferol (vitamin D3) 50 mcg PO DAILY@0900 03/09/20 04/10/20 03/30/20 History fluticasone propion-salmeterol 1 inh INHALATION BID@09,199903/09/20 04/10/20 03/30/20 History [Advair Diskus] fluticasone propionate [Flonase 2 spray INTRANASAL DAILY@0900 03/09/20 04/10/20 03/30/20 History Allergy Relief] pantoprazole [Protonix] 40 mg PO BID@09,199903/09/20 04/10/20 03/30/20 History tramadol 50 mg PO TID@0900,1400,1999 PRN 03/09/20 04/10/20 03/30/20 History trazodone 50 mg PO DAILY@0900 03/09/20 04/10/20 03/30/20 History furosemide [Lasix] 40 mg PO DAILY #30 tab 03/10/20 04/10/20 03/30/20 Rx albuterol sulfate 90 mcg/actuation 2 inh INHALATION Q4H PRN #6.7 gm 04/16/20 Unknown Rx aerosol inhaler benzonatate 100 mg capsule 100 mg PO TID PRN #30 cap 04/16/20 Unknown Rx cetirizine 10 mg capsule 10 mg PO DAILY@0900 #30 cap 04/16/20 Unknown Rx Allergies Allergy/AdvReac Type Severity Reaction Status Date / Time No Known Allergies Allergy Verified 04/21/20 00:11 PFSH Acute PFSH: Medical History CHF (congestive heart failure) Chronic constipation COPD (chronic obstructive pulmonary disease) GERD (gastroesophageal reflux disease) Insomnia Seizure disorder Surgical History H/O section H/O esophagogastroduodenoscopy Status post colonoscopy (03/31/20) Family History Other CAD (coronary artery disease) Cancer Diabetes Social History Smoking and tobacco status: current every day smoker cigarettes Packs smoked per day: 0.5 Alcohol intake: never Lives independently: Yes Housing: House Vitals/I&O/Wt Last Vital Signs Temp 97.9 F 04/26/20 20:44 Pulse 112 H 04/27/20 02:33 Resp 18 04/27/20 02:20 BP 111/88 04/27/20 02:33 Pulse Ox 99 04/27/20 02:33 Weight last 48 hrs Weight 43.998 kg Physical Exam Narrative: EXAM NARRATIVE: Middle-age female, very frail and thin Currently laying comfortably in her bed Saturating well on room air with normal hemodynamics S1, S2 aortic systolic murmur grade 2/6 second intercostal space radiating towards her left axilla Bilateral breath sounds without adventitious rhonchi or crackles Abdomen soft no signs of peritonitis however Garrison's sign is positive Bilateral lower extremity no edema gangrene ulcer Appropriate mood and affect No neurological deficit EOMI, PERRLA No joint swelling or skin change Data : 04/26/20 23:00 04/26/20 23:00 A&P Assessment and plan (1) Acalculous cholecystitis: ACalculus cholecystitis, she has had multiple admissions in the last 3 months secondary to gastritis, COPD exacerbation and pneumonia, no gallstones identified No sign of sepsis, We will make her n.p.o. keep her on maintenance fluid along Zosyn She has a grade 2/6 systolic murmur, patient is denying chest pain worsening shortness of breath, orthopnea PND, would recommend echo General surgery will be consulted in the morning to decide whether she will benefit from gallbladder decompression versus cholecystectomy Status: Acute (2) Pulmonary nodule: Would recommend outpatient follow-up with pulmonology She is an active smoker currently smoking half a pack a day, CT scan in March revealed 14 mm calcified granuloma with prominent mediastinal hilar lymphadenopathy without change in dimensions, 4.5mm pulmonary nodule identified which seems to be a new finding since last year she would definitely benefit from a CT scan within next 6 months Status: Acute Additional A&P Information N.p.o. COPD: No acute exacerbation CHF: No acute exacerbation DVT prophylaxis SCDs Full code Attestations Medical Necessity Statement*: Anticipating stay in the hospital course more than 2 midnights will need management for a calculus cholecystitis currently n.p.o. with Zosyn Time Spent in Patient Care: (>than 50% of time spent in counselling and/or direct pt care on unit). 35mins Coding Level of Care Code Acute Occupational Therapy Assistant for g Fwd Diagnoses Acalculous cholecystitis K81.9 Pulmonary nodule R91.1
[2020-04-27 04:05] LABS: Troponin T (5th) Once 48 ng/L (0-10)
--- NOTE | 2020-04-27 05:12 | USCV_ITS ---
Maryjo Gomez Age: 59 Gender: F : 1960 Exam Date: 04/27/2020 06:09 Ordering Phys: Vel Zamorano MD Technologist: Gabbie Martinez Exam Location: [facility] [place] Indication: CHEST AND ABD PAIN SYSTOLIC MURMUR BP: 99 / 73 HR: 112 Rhythm: Sinus Technical Quality: Adequate MEASUREMENTS (Male / Female) Normal Values 2D ECHO LV Diastolic Diameter PLAX 5.0 cm 4.2 - 5.9 / 3.9 - 5.3 cm LV Systolic Diameter PLAX 4.4 cm LV Chamber Size 4.1 cm IVS Diastolic Thickness 0.8 cm 0.6 - 1.0 / 0.6 - 0.9 cm IVS Systolic Thickness 0.9 cm LVPW Diastolic Thickness 1.5 cm 0.6 - 1.0 / 0.6 - 0.9 cm LVPW Systolic Thickness 1.5 cm RV Chamber Size 2.1 cm LVOT Diameter 2.0 cm LV Ejection Fraction 2D Teich 27.1 % LV Ejection Fraction MOD 2C 7.7 % LV Ejection Fraction 2C AL 8.1 % LA Diameter 2.9 cm LA Width 3.4 cm LA Height 4.2 cm RA Width 4.1 cm RA Height 3.1 cm Aorta at Sinotubular Diameter 2.4 cm M-MODE LV Diastolic Diameter MM 4.4 cm 4.2 - 5.9 / 3.9 - 5.3 cm LV Systolic Diameter MM 4.2 cm LV Ejection Fraction MM Teich 13.3 % IVS Diastolic Thickness MM 1.0 cm 0.6 - 1.0 / 0.6 - 0.9 cm IVS Systolic Thickness MM 1.0 cm LVPW Diastolic Thickness MM 1.3 cm 0.6 - 1.0 / 0.6 - 0.9 cm LVPW Systolic Thickness MM 1.6 cm RV Diastolic Diameter MM 0.9 cm Aortic Annulus Diameter 2.4 cm LA Ao Ratio MM 1.2 MV E Point Septal Separation 2.1 cm DOPPLER AV Peak Velocity 86.0 cm/s LVOT Peak Velocity 47.0 cm/s AV Area Cont Eq vti 1.9 cm squared AV Area Cont Eq pk 1.7 cm squared MV Area PHT 5.0 cm squared Mitral E to A Ratio 0.1 MV E' Velocity 18.0 cm/s Mitral E to MV E' Ratio 1.7 Mitral E to LV E' Lateral Ratio 1.4 Mitral E to LV E' Septal Ratio 2.1 TR Peak Velocity 218.1 cm/s TR Peak Gradient 19.0 mmHg TR Mean Velocity 182.0 cm/s TR Mean Gradient 16.3 mmHg TR Velocity Time Integral 88.0 cm Right Atrial Pressure 3.0 mmHg Pulmonary Artery Systolic Pressu 22.0 mmHg PV Peak Velocity 48.0 cm/s RV Acceleration Time 0.1 s RV Ejection Time 0.3 s RV AcT/ET 0.3 FINDINGS Left Ventricle Normal left ventricular is dilated. LV systolic function is severely reduced with EF of 5-10%. Severe global hypokinesis is seen. Grade III diastolic dysfunction. Right Ventricle The right ventricle function is severely reduced Right Atrium The right atrium is normal in size. Left Atrium The left atrium is normal in size. Mitral Valve Structurally normal mitral valve without significant stenosis or prolapse. There is moderate to severe mitral regurgitation. Aortic Valve Structurally normal aortic valve without significant sclerosis or stenosis. There is no aortic regurgitation. Tricuspid Valve Structurally normal tricuspid valve without significant stenosis. There is mild to moderate tricuspid regurgitation. RVSP is 40-45mmHg. This is consistent with mild pulmonary hypertension. Pulmonic Valve Grossly normal Pericardium Normal pericardium without effusion. Aorta Normal ascending aorta dimension. CONCLUSIONS LV systolic function is severely reduced with EF of 5-10%. Severe global hypokinesis is present Grade III diastolic function is present RV function is severely reduced Moderate to severe mitral regurgitation is noted. Mild to moderate tricuspid regurgitation is seen Mild pulmonary hypertension is present No comparison studies are available Hair Costello MD (Electronically Signed) Final Date: 27 April 2020 19:07 S
--- NOTE | 2020-04-27 05:45 | PM.CONSULT ---
Providers/Reason For Consult Consulting Physican/Specialty*: Kennedy Everett MD Reason for Consult*: Abdominal pain Attending Physician: Vel Zamorano MD Primary Care Provider: Emma Novoa DO History of Present Illness History of Present Illness Chief Complaint: My tumana hurjose History of present illness: Maryjo Gomez is a 59 year old female presents to the emergency department with worsening epigastric pain, patient recalls that the pain has been on and off nothing seems to make it better or worse except laying down.She reports no history of fatty dyspepsia as when she is asked about having any fried food or dressing with her salad she denies any abdominal discomfort or pain with those melinda ditems. It is not radiating to the back and she does have history of right shoulder pain and was investigated before but without obvious etiology. She denies any nausea or vomiting yet she reports chills. She had previous endoscopies back in March 2020 and EGD was within normal limits, colonoscopy showed polyp that was removed. CT scan of the abdomen pelvis was done that showed: IMPRESSION: 1. Inhomogeneity of the hepatic parenchyma compatible with fibrofatty infiltration. 2. Abnormal gallbladder with prominent pericholecystic fluid. 3. Diffuse retroperitoneal and presacral edema. 4. Small volume ascites 5. Stable 4.5 mm pulmonary nodularity in the right posterior costophrenic Ultrasound of the liver and gallbladder was done and showed IMPRESSION: 1. There is a markedly thickened gallbladder wall measuring 1.5 cm surrounded by a small amount of pericholecystic fluid. Positive sonographic Garrison sign is elicited. These findings are compatible with acalculous cholecystitis. 2. Ascites seen adjacent to the liver. General surgery was consulted for potential management Review of Systems General: Reports: 10 or more systems reviewed and unremarkable except in HPI and below Meds/Allergies Home Medications and Allergies Home Medications Medication Instructions Recorded Confirmed Last Taken Type polyethylene glycol 3350 17 gram 17 g PO DAILY #30 packet 05/13/19 04/27/20 03/30/20 Rx oral powder packet levetiracetam 500 mg 2,000 mg PO Q24H #120 tab 10/23/19 04/27/20 03/31/20 Rx tablet,extended release 24 hr sucralfate [Carafate] 1 g PO Q6H #60 tab 02/17/20 04/27/20 03/30/20 Rx ondansetron 4 mg PO Q6H PRN #14 tab 02/25/20 04/27/20 03/30/20 Rx lactulose 10 g PO DAILY PRN #15 ea 03/01/20 04/27/20 03/30/20 Rx Spiriva with HandiHaler 1 cap INHALATION DAILY@0900 03/09/20 04/27/20 03/31/20 History cholecalciferol (vitamin D3) 50 mcg PO DAILY@0900 03/09/20 04/27/20 03/30/20 History fluticasone propion-salmeterol 1 inh INHALATION BID@09,199903/09/20 04/27/20 03/30/20 History [Advair Diskus] fluticasone propionate [Flonase 2 spray INTRANASAL DAILY@0900 03/09/20 04/27/20 03/30/20 History Allergy Relief] pantoprazole [Protonix] 40 mg PO BID@0900,199903/09/20 04/27/20 03/30/20 History trazodone 50 mg PO DAILY@209903/09/20 04/27/20 03/30/20 History furosemide [Lasix] 40 mg PO DAILY #30 tab 03/10/20 04/27/20 03/30/20 Rx albuterol sulfate 90 mcg/actuation 2 inh INHALATION Q4H PRN #6.7 gm 04/16/20 04/27/20 Unknown Rx aerosol inhaler cetirizine 10 mg capsule 10 mg PO DAILY@0900 #30 cap 04/16/20 04/27/20 Unknown Rx Allergies Allergy/AdvReac Type Severity Reaction Status Date / Time No Known Allergies Allergy Verified 04/21/20 00:11 PFSH Acute PFSH: Medical History CHF (congestive heart failure) Chronic constipation COPD (chronic obstructive pulmonary disease) GERD (gastroesophageal reflux disease) Insomnia Seizure disorder Surgical History H/O section H/O esophagogastroduodenoscopy Status post colonoscopy (03/31/20) Family History Other CAD (coronary artery disease) Cancer Diabetes Social History Smoking and tobacco status: current every day smoker cigarettes Packs smoked per day: 0.5 Alcohol intake: never Lives independently: Yes Housing: House Vitals/I&O/Wt Last Vital Signs Temp 97.7 F 04/27/20 05:17 Pulse 111 H 04/27/20 05:17 Resp 18 04/27/20 05:17 BP 109/77 04/27/20 05:17 Pulse Ox 94 04/27/20 05:17 04/26/20 04/26/20 04/27/20 14:59 22:59 06:59 Intake Total 550 / 550 Balance 550 / 550 Weight last 48 hrs Weight 97 lb Physical Exam Narrative: EXAM NARRATIVE: Patient is conscious alert oriented X3 BMI 17.2 Head and neck examination PERRLA no masses no cervical lymphadenopathy no jaundice Cardiac examination audible S1-S2 no murmurs no gallops no arrhythmias Chest is clear bilateral,abscence of Rhonchi or wheezes,no surgical emphysema Abdomen tender over the epigastric region nondistended soft no organomegaly guarding or rigidity/no signs of peritonitis, mild tenderness over the right upper quadrant Extremities no cyanosis no clubbing no edema A&P Assessment and plan (1) Acalculous cholecystitis: After thorough history physical examination and reviewing the chart and images of the ultrasound and the CT scan as I am concerned about the presence of ascites also the patient does not give classic history of gallbladder disease and so in the presence of a fatty liver and most of the pain localized in the epigastric region I will send the patient for a HIDA scan to help a better understanding the underlying etiology better. likely the patient would require further work-up with regard to her liver condition before any potential intervention. We will send for coags We will continue to follow Patient can have ice chips for now Repeated physical examination Status: Acute Consult Attestations Medical Necessity Statement: Ongoing hospitalization for medical and surgical care Time Spent in Patient Care: (>than 50% of time spent in counselling and/or direct pt care on unit). Coding Level of Care Code Acute Mobile Application Engineer for [facility] Fwd Diagnoses Acalculous cholecystitis K81.9
--- NOTE | 2020-04-27 06:11 | NM_ITS ---
WS: [id number] NUCLEAR MEDICINE HIDA SCAN CLINICAL INFORMATION: Concern for cholecystitis TECHNIQUE: Following intravenous administration of 7.9 mCi of technetium 99m mebrofenin, images of th e abdomen were obtained over the course of 60 minutes. Next, gallbladder ejection fraction was determ ined by obtaining preprandial and one-hour postprandial images of the gallbladder following oral aren stion of Ensure. COMPARISON: Ultrasound April 27, 2020 FINDINGS: Hepatomegaly. Normal hepatic uptake. Gallbladder is visualized by 30 minutes. No evidence of acute ch olecystitis. Normal common bile duct and small bowel activity. No evidence of acute cholecystitis or choledocholithiasis. Poor gallbladder emptying with ejection fraction 12% suspicious for chronic cholecystitis. NM/NM hepatobiliary w phar* [id number] IMPRESSION: 1. Poor gallbladder emptying with ejection fraction 12% suspicious for chronic cholecystitis.
[2020-04-27] MEDS: sodium chloride 0.9% 1,000 ML 100 ML IV (06:41)
[2020-04-27] MEDS: ketorolac 30 mg/mL INJ 15 MG IVP (07:07)
[2020-04-27 07:51] LABS: Lactate (Lactic Acid level) 1.2 mmol/L (0.5-2.2)
[2020-04-27 08:18] LABS: INR 1.17 (0.8-1.2); Partial Thromboplastin Time 30.2 SECONDS (23.9-36.7)
--- NOTE | 2020-04-27 09:45 | PC.CHAP ---
Pastoral Care Encounter/Spiritual Assessment Type of Contact [] Declined automatic developer visit [] Patient/Family/Request visit [] Outpatient visit [] Follow-up visit [] Physician referral [] Code/Alert [x] Routine visit [] Staff referral [] Actively dying [] Patient sleeping [] Family support [] [x] Out of room [] Palliative care [] [] Receiving care in room [] Pre-surgical visit [] Trauma [] Long length of stay [] ICU visit [] Other: Relational/Emotional Strength [] Patient feels connected with others/family/visitors/staff [] Distress [] Loneliness/isolation [] Abandonment Spirituality of Patient [] Person of Esther [] Attends Quaker of their Esther [] Believes in Prayer [] Reads Bible or Gnosticist materials [] There are Spiritual issues to be addressed Cake Cutter Machine Interventions [] Prayer [] Active listening [] Non-anxious presence [] Spiritual/emotional support [] Crisis/trauma care [] Spiritual counseling [] Bereavement support [] Provided bereavement packet [] Provided Bible/devotional materials [] Provided toy/stuffed animal, coloring book to patient or family member [] Provided Communion [] Anointing/[place] [] Salvation [] Completed spiritual assessment [] Other: Impact on Illness or Injury [] Angry [] Fearful [] Anxious [] Often cries [] Exhaustion [] Unable to work [] Unable to attend sikh [] Unable to walk/stand [] Unable to read [] Unable to drive [] Unable to eat/drink [] Unable to sleep [] Unable to be with family [] Patient intubated [] Other: Summary Time spent with patient
--- NOTE | 2020-04-27 17:04 | PM.PN ---
Subjective Subjective: Interval history: Overnight labs and H&P reviewed. Assessed by surgery this morning. Appreciate recommendations. Currently comfortable, denies any abdominal pain. Started on clear liquid diet. Medications: Reviewed: Yes Vitals/I&O/Wt Last Vital Signs Temp 97.7 F 04/27/20 15:28 Pulse 110 H 04/27/20 15:28 Resp 18 04/27/20 15:28 BP 110/67 04/27/20 15:28 Pulse Ox 97 04/27/20 15:28 04/27/20 04/27/20 04/27/20 06:59 14:59 22:59 Intake Total 550 / 550 50 / 50 Balance 550 / 550 50 / 50 Weight last 48 hrs Weight 43.998 kg Physical Exam Narrative: EXAM NARRATIVE: GEN: Awake, alert and oriented, no acute distress CVS: S1S2 N RS: CTA B/L Abd: Soft, nt/nd , bs+ WATER AND FIRE TECHNICIAN: no focal neuro deficits Data : 04/26/20 23:00 04/26/20 23:00 A&P Assessment and plan (1) Acalculous cholecystitis: HIDA scan today with poor gallbladder emptying with ejection fraction 12% suspicious for chronic cholecystitis. Current on clear liquid diet per surgery, assess for tolerance No current urgent indications for cholecystostomy or cholecystectomy Status: Acute (2) Pulmonary nodule: Would recommend outpatient follow-up with pulmonology She is an active smoker currently smoking half a pack a day, CT scan in March revealed 14 mm calcified granuloma with prominent mediastinal hilar lymphadenopathy without change in dimensions, 4.5mm pulmonary nodule identified which seems to be a new finding since last year she would definitely benefit from a CT scan within next 6 months Status: Acute Additional A&P Information N.p.o. COPD: No acute exacerbation CHF: No acute exacerbation DVT prophylaxis SCDs Full code Attestations Medical Necessity Statement*: Cholecystitis, starting trial of diet today Coding Level of Care Code Acute Central Office Worker for [facility] Fw Diagnoses Acalculous cholecystitis K81.9 Pulmonary nodule R91.1
--- NOTE | 2020-04-27 18:08 | PC.RESP ---
Smoking Cessation information sent to patient.
[2020-04-28] VITALS (7 sets, daily range): BP systolic 101–110; BP diastolic 62–71; PULSE 95–116; RESP 16–18; TEMP 35.8–36.6; O2SAT 88–97
[2020-04-28] MEDS: piperacillin-tazobactam 3.375 GM in sodium chloride 0.9% (plus) 50 ML IV (02:07)
[2020-04-28] MEDS: sodium chloride 0.9% 1,000 ML 100 ML IV (02:08)
--- NOTE | 2020-04-28 06:11 | P.PN_ITS ---
Subjective Subjective: Interval history: Patient overall feels better and tolerating p.o. intake. No acute events overnight,. HIDA scan was done yesterday and showed chronic cholecystitis Vitals/I&O/Wt Last Vital Signs Temp 97.5 F L 04/28/20 04:00 Pulse 109 H 04/28/20 04:00 Resp 17 04/28/20 04:00 BP 102/71 04/28/20 04:00 Pulse Ox 90 04/28/20 04:00 04/27/20 04/27/20 04/28/20 14:59 22:59 06:59 Intake Total 570 / 570 650 / 1220 Balance 570 / 570 650 / 1220 Weight last 48 hrs Weight 97 lb Physical Exam Narrative: EXAM NARRATIVE: Patient is conscious alert oriented X3 BMI 17.2 Head and neck examination PERRLA no masses no cervical lymphadenopathy no jaundice Nasal cannula requiring O2 Abdomen less tender over the epigastric region nondistended soft no organomegaly guarding or rigidity/no signs of peritonitis,no tenderness over the right upper quadrant Extremities no cyanosis no clubbing no edema Data : 04/28/20 04:45 04/28/20 04:45 A&P Assessment and plan (1) Acalculous cholecystitis: From surgical standpoint of view patient can have her diet advanced as tolerated, low-fat. Home oxygen evaluation, will defer to Dr. Monteiro as patient used to have oxygen at home but she had changed status of insurance and no longer getting her oxygen per her description. We will plan to follow-up in the patient is a outpatient for potential medical optimization and surgical intervention at some point. KVO Monitor liver function tests Assurance and education All questions have been answered and all concerns have been addressed to patient's satisfaction. Status: Acute Attestations Medical Necessity Statement*: From surgical standpoint of view patient can be discharged home once appropriate from hospitalist service. Time Spent in Patient Care: (>than 50% of time spent in counselling and/or direct pt care on unit) . Coding Level of Care Code Acute Compressor Assembler for [facility] [facility] Diagnoses Acalculous cholecystitis K81.9
[2020-04-28 06:15] LABS: Basophils % 0.4 %; Eosinophils % 0.6 %; Hematocrit 39.5 % (37.0-47.0); Hemoglobin 12.3 g/dL (11.5-15.3); Lymphocytes # 1.1 10^3/uL (0.8-4.8); Lymphocytes % 19.4 %; Mean Corpuscular HGB Conc 31.1 g/dL (30.0-36.0); Mean Corpuscular Hemoglobin 32.5 pg (28.0-34.0); Mean Corpuscular Volume 104.2 fL (81-99); Mean Platelet Volume 12.1 fL (7.4-10.4); Monocytes # 0.5 10^3/uL (0.2-0.9); Monocytes % 9.5 %; Neutrophils # 3.81 10^3/uL (1.8-7.7); Neutrophils % 69.9 %; Nucleated Red Blood Cells % 0 %; Platelet Count 127 10^3/cmm (130-400); Red Blood Count 3.79 10^6/uL (4.1-5.3); Red Cell Distribution Width 15.9 % (12.1-15.1); White Blood Count 5.5 10^3/uL (4.0-10.0)
[2020-04-28 06:43] LABS: Anion Gap 10.4 (5-19); Blood Urea Nitrogen 15 mg/dL (8-23); Carbon Dioxide 25 mmol/L (22-29); Chloride 106 mmol/L (98-107); Glomerular Filtration Rate 125.9 mL/min (90-130); Glucose 91 mg/dL (65-115); Osmolality Calculated 284 mOsm/kg (285-295); Potassium 4.4 mmol/L (3.5-5.1); Sodium 137 mmol/L (136-145)
[2020-04-28 11:36] LABS: Alanine Aminotransferase 32 U/L (0-33); Albumin Level 3.3 g/dL (3.5-5.2); Alkaline Phosphatase 98 IU/L (35-105); Aspartate Amino Transferase 25 U/L (0-32); Globulin 2.2 g/dL (1.3-4.6); Total Bilirubin 0.5 mg/dL (0.15-1.2); Total Protein 5.5 g/dL (6.6-8.7)
[2020-04-28] MEDS: lidocaine 5% Patch 1 PATCH TOPICAL (12:47)
--- NOTE | 2020-04-29 06:38 | P.DS_ITS ---
Discharge Providers Date of Admission: 04/27/20 03:35 Date of Discharge: April 28, 2020 Attending Provider at Admission: Vel Zamorano MD Attending Provider at Discharge: Lorie Monteiro MD Primary Care Provider: Emma Novoa DO Diagnoses at Discharge Discharge Diagnosis (1) Acalculous cholecystitis: Status: Acute Reason for Visit Reason for Visit: STOMACH, CHEST, LEGS Hospital Course Hospital Course Maryjo Gomez is a 59 year old female with history of oxygen dependent COPD, GERD, fatty infiltration of liver, seizure disorder, nicotine dependence presented with chief complaint of right upper quadrant pain. Patient was seen in the ER on 04/21 for similar complaint she was given GI cocktail and was discharged home, today she presented with worsening abdominal pain. Her recent EGD was normal however colonoscopy revealed 2centimeter sessile polyp and internal hemorrhoids, histopathological diagnosis tubular adenoma no high-grade dysplasia.Diagnostics in the ER revealed, CBC, BMP however CT abdomen revealed a calculus cholecystitis, pancreatic duct dilation however lipase is unremarkable. HIDA scan with poor gallbladder emptying with ejection fraction 12% suspicious for chronic cholecystitis. She was seen by surgery service. No urgent indication for cholecystectomy currently- planned for elective procedure in few weeks. She was initially on clear diet which is recommended to be advanced to a low fat diet as tolerated. Pain is resolved currently. She has COPD, on home however ran out recently/ Home eval was performed, qualified for 2lpm, arranged at [facility]. F/up with Dr. Spaulding in 7-10 days. 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: no focal neuro deficits Discharge Data Data Completed and Pending: Completed Studies During Hospitalization Category Date Time Status CT abdomen pelvis w con* [id number] Urge nt Cat Scan 04/26/20 22:54 Completed XR chest 1V maria dolores ble [id number] Stat Exams 04/26/20 20:52 Completed NM hepatobiliary w phar* [id number] Urge nt Nuc Med 04/27/20 06:11 Completed CV echo complete* [id number] Routine Ultrasound 04/27/20 05:12 Completed US gall bladder 7 [id number] Urgent Ultrasound 04/27/20 00:13 Completed Labs from last 24 hours 0204/28/20 04/28/20 04:48 04:45 04:45 Sodium 137 Potassium 4.4 Chloride 106 Carbon Dioxide 25 Anion Gap 10.4 BUN 15 Creatinine 0.5 GFR Calculation 125.9 Glucose 91 Calculated Osmolal ity 284 L Calcium 8.0 L Total Bilirubin 0.5 Cancelled Direct Bilirubin 0.20 Cancelled AST 25 Cancelled ALT 32 Cancelled Alkaline Phosphata se 98 Cancelled Total Protein 5.5 L Cancelled Albumin 3.3 L Cancelled Globulin 2.2 Cancelled Addt'l Data from Hospital Stay: Laboratory Results WBC 5.5 10^3/uL (4.0- 10.0) 04/28/20 04:45 RBC 3.79 10^6/uL (4.1 -5.3) L 04/28/20 04:45 Hgb 12.3 g/dL (11.5-1 5.3) 04/28/20 04:45 Hct 39.5 % (37.0-47.0 ) 04/28/20 04:45 MCV 104.2 fL (81-99) H 04/28/20 04:45 MCH 32.5 pg (28.0-34. 0) 04/28/20 04:45 MCHC 31.1 g/dL (30.0-3 6.0) 04/28/20 04:45 RDW 15.9 % (12.1-15.1 ) H 04/28/20 04:45 Plt Count 127 10^3/cmm (130 -400) L 04/28/20 04:45 MPV 12.1 fL (7.4-10.4 ) H 04/28/20 04:45 Neut % (Auto) 69.9 % 04/28/20 04:45 Lymph % (Auto) 19.4 % 04/28/20 04:45 [place] % (Auto) 9.5 % 04/28/20 04:45 Eos % (Auto) 0.6 % 04/28/20 04:45 Baso % (Auto) 0.4 % 04/28/20 04:45 Neut # (Auto) 3.81 10^3/uL (1.8 -7.7) 04/28/20 04:45 Lymph # (Auto) 1.1 10^3/uL (0.8- 4.8) 04/28/20 04:45 [place] # (Auto) 0.5 10^3/uL (0.2- 0.9) 04/28/20 04:45 Eos # (Auto) 0.0 10^3/uL (0.0- 0.8) 04/28/20 04:45 Baso # (Auto) 0.0 10^3/uL (0.0- 0.1) 04/28/20 04:45 Nucleated RBC % (a uto) 0 % 04/28/20 04:45 Nucleated RBCs # 0.0 /100WBC 04/28/20 04:45 PT 15.30 SECONDS (12 .1-14.9) H 04/27/20 07:09 INR 1.17 (0.8-1.2) 04/27/20 07:09 APTT 30.2 SECONDS (23. 9-36.7) 04/27/20 07:09 Sodium 137 mmol/L (136-1 45) 04/28/20 04:45 Potassium 4.4 mmol/L (3.5-5 .1) 04/28/20 04:45 Chloride 106 mmol/L (98-10 7) 04/28/20 04:45 Carbon Dioxide 25 mmol/L (22-29) 04/28/20 04:45 Anion Gap 10.4 (5-19) 04/28/20 04:45 BUN 15 mg/dL (8-23) 04/28/20 04:45 Creatinine 0.5 mg/dL (0.5-0. 9) 04/28/20 04:45 GFR Calculation 125.9 mL/min (90- 130) 04/28/20 04:45 Glucose 91 mg/dL (65-115) 04/28/20 04:45 Calculated Osmolal ity 284 mOsm/kg (285- 295) L 04/28/20 04:45 Lactate 1.2 mmol/L (0.5-2 .2) 04/27/20 07:09 Calcium 8.0 mg/dL (8.5-10 .5) L 04/28/20 04:45 Total Bilirubin 0.5 mg/dL (0.15-1 .2) 04/28/20 04:48 Direct Bilirubin 0.20 mg/dL (0.00- 0.30) 04/28/20 04:48 AST 25 U/L (0-32) 04/28/20 04:48 ALT 32 U/L (0-33) 04/28/20 04:48 Alkaline Phosphata se 98 IU/L (35-105) 04/28/20 04:48 Troponin T Gen 5 n g/L 48 ng/L (0-10) H 04/26/20 23:00 Total Protein 5.5 g/dL (6.6-8.7 ) L 04/28/20 04:48 Albumin 3.3 g/dL (3.5-5.2 ) L 04/28/20 04:48 Globulin 2.2 g/dL (1.3-4.6 ) 04/28/20 04:48 Lipase 27 U/L (13-60) 04/26/20 23:00 Impressions Chest X-Ray 04/26/20 20:52 IMPRESSION: 1. Pulmonary hyperinflation probably indicating obstructive lung disease. 2. 2.2 cm spiculated indeterminate nodule in the upper lobe of the right lung showing no change since prior study. Abdomen/Pelvis CT 04/26/20 22:54 IMPRESSION: 1. Inhomogeneity of the hepatic parenchyma compatible with fibrofatty infiltration. 2. Abnormal gallbladder with prominent pericholecystic fluid. 3. Diffuse retroperitoneal and presacral edema. 4. Small volume ascites 5. Stable 4.5 mm pulmonary nodularity in the right posterior costophrenic recess compared with 03/04/2020. For patients at low risk (minimal or absent history of smoking and of other known risk factors), no routine follow-up is indicated. For patients at high risk (history of smoking or of other known risk factors), consider optional CT Chest at 12 months. (Reference: Tami) REFERENCES: Tami H, et al. Guidelines for Management of Incidental Pulmonary Nodules Detected on CT Images: From the Fleischner Society 2017. Radiology. 2017;284(1):228-243. Radiation Dose CTDIVOL = (mGy): DLP = 160.36 (mGy-cm) Gallbladder Ultrasound 04/27/20 00:13 IMPRESSION: 1. There is a markedly thickened gallbladder wall measuring 1.5 cm surrounded by a small amount of pericholecystic fluid. Positive sonographic Garrison sign is elicited. These findings are compatible with acalculous cholecystitis. 2. Ascites seen adjacent to the liver. Hepatobiliary Scan Nuclear Medicine 04/27/20 06:11 IMPRESSION: 1. Poor gallbladder emptying with ejection fraction 12% suspicious for chronic cholecystitis. Vitals: Last Vital Signs Temp 97.8 F 04/28/20 16:04 Pulse 95 04/28/20 16:04 Resp 16 04/28/20 16:04 BP 101/70 04/28/20 16:04 Pulse Ox 97 04/28/20 16:04 Discharge Plan Discharge Patient Disposition: Home Condition: Stable Prescriptions: New Augmentin 875-125 mg tablet 1 tab PO BID 5 Days Qty: 10 RF: 0 Voltaren Arthritis Pain 1 % gel 2 g topical QID Qty: 100 RF: 0 Continued levetiracetam 500 mg tablet extended release 24 hr 2,000 mg PO Q24H Qty: 120 RF: 11 Miralax 17 gram powder in packet 17 g PO DAILY Qty: 30 RF: 1 cetirizine 10 mg capsule 10 mg PO DAILY@09 Qty: 30 RF: 0 albuterol sulfate 90 mcg/actuation HFA aerosol inhaler 2 inh INHALATION Q4H PRN (Reason: shortness of breath or wheezing) Qty: 6.7 RF: 2 fluticasone propion-salmeterol [Advair Diskus] 250-50 mcg/dose blister with device 1 inh INHALATION BID@899,1999 RF: 0 trazodone 50 mg tablet 50 mg PO DAILY@2100 RF: 0 pantoprazole [Protonix] 40 mg tablet,delayed release (DR/EC) 40 mg PO BID@ RF: 0 fluticasone propionate [Flonase Allergy Relief] 50 mcg/actuation spray,suspension 2 spray INTRANASAL DAILY@09 RF: 0 Spiriva with HandiHaler 18 mcg capsule, w/inhalation device 1 cap INHALATION DAILY@0900 RF: 0 cholecalciferol (vitamin D3) 50 mcg (2,000 unit) capsule 50 mcg PO DAILY@0900 RF: 0 furosemide [Lasix] 40 mg tablet 40 mg PO DAILY Qty: 30 RF: 0 sucralfate [Carafate] 1 gram tablet 1 g PO Q6H Qty: 60 RF: 0 ondansetron 4 mg tablet,disintegrating 4 mg PO Q6H PRN (Reason: nausea and vomiting) Qty: 14 RF: 0 lactulose 10 gram packet 10 g PO DAILY PRN (Reason: constipation) Qty: 15 RF: 0 Discharge Orders: Discharge Order (Routine); Ordered 04/28/20 Ordered By: Lorie Monteiro Other Ambulatory Orders: DME: Oxygen (Order) Location: None Selected Ordered By: Lorie Monteiro Referrals: [facility] [Outside] Kennedy Everett MD [Physician] - 05/06/20 3:15 pm Emma Novoa DO [Primary Care Provider] - 05/12/20 2:30 pm Discharge Diet: Advance as tolerated and Low Fat Discharge Activity: Resume usual activity Patient Instructions: Amoxicillin/Clavulanate Potassium (By mouth), Diclofenac (On the skin), Cholecystitis (DC) Discharge Attestations Time Spent in Discharge Care*: greater than 30 min Quality Metrics Clinical Quality Measures During this hospital stay, did patient experience: None Coding Level of Care Code 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
== END 2020-04-28 15:00 | disposition home or self-care (01) | DRG 446 ==
LOC: ER 04-27 03:32 → MEDSURG 04-27 04:02
PROVIDERS: Surgery; Admitting Provider Internal Medicine; Emergency Provider Nurse Practitioner Family; PCP Family Medicine; Visit Provider Student in an Organized Health Care Education/Training Program
DX: K80.10 Calculus of gallbladder with chronic cholecystitis without obstruction (principal); Z99.81 Dependence on supplemental oxygen; J44.9 Chronic obstructive pulmonary disease, unspecified; K21.9 Gastro-esophageal reflux disease without esophagitis; K76.0 Fatty (change of) liver, not elsewhere classified; G40.909 Epilepsy, unspecified, not intractable, without status epilepticus; F17.210 Nicotine dependence, cigarettes, uncomplicated; Z87.01 Personal history of pneumonia (recurrent); I50.9 Heart failure, unspecified; K59.09 Other constipation; G47.00 Insomnia, unspecified; R91.8 Other nonspecific abnormal finding of lung field; Z79.51 Long term (current) use of inhaled steroids
CPT/HCPCS: 36415; 71045; 74177; 76705; 78227; 80048; 80053; 80076; 83605; 83690; 84484; 85025; 85610; 85730; 93005; 93306; 99285; A9537; J1885; J2270; J2405; J2543; J7030; J7040; Q9967

== ENCOUNTER 2020-05-01 11:30 | Emergency (ER) | payer MEDICAID, SELFPAY ==
[2020-05-01 11:41] VITALS: BP 107/65; PULSE 122; RESP 20; TEMP 36.4; O2SAT 95; BMI 17.6
[2020-05-01 11:59] VITALS: BP 124/87; PULSE 115; RESP 18; O2SAT 99
--- NOTE | 2020-05-01 12:19 | CT_ITS ---
WS: [id number] CT ABDOMEN PELVIS TECHNIQUE: Contrast-enhanced CT of the abdomen and pelvis with coronal and sagittal reformatted image s. CLINICAL INFORMATION: abd pain COMPARISON: CT April 26, 2020 DLP: 181.[address] scans at [facility] use at least one of these dose optimization techniques: automat ed exposure control; mA and/or kV adjustment per patient size (includes targeted exams where dose is matched to clinical indication); or iterative reconstruction. FINDINGS: Small right greater than left pleural effusions. Subsegmental atelectasis in the lung bases. Cardiome lise. Heterogeneous hepatic parenchyma with fibrofatty infiltration. Normal portal vein and splenic vein. N ormal spleen. Fluid in the gallbladder fossa likely due to hepatic disease. Normal pancreatic enhance ment. Adrenal glands are normal. Normal renal parenchymal enhancement. No hydronephrosis. Normal GE j unction. Normal caliber abdominal aorta. No evidence of high-grade small or large bowel obstruction. A few dilated loops of small bowel in the midabdomen likely due to ileus similar to previous. Colon is normal. Diffuse body wall anasarca. Dif fuse mesenteric edema with a small amount perihepatic ascites. Small amount of ascites in the pelvis. Normal lumbar spine. CT/CT abdomen pelvis w con* [id number] IMPRESSION: 1. Heterogeneous hepatic enhancement with fibrofatty infiltration likely due t o hepatocellular disease. Recommend correlation with liver function studies 2. Fluid in the gallbladder fossa likely due to hepatic disease. 3. Small right greater than left pleural effusions increased in size from prev ious. 4. Diffuse body wall anasarca with diffuse mesenteric edema. Small volume pelv ic ascites. 5. A few slightly dilated loops of small bowel in the midabdomen with air-flui d levels likely due to adynamic ileus similar to the recent CT. Colon is normal . 6. No other significant findings.
[2020-05-01 12:39] VITALS: BP 115/68; PULSE 116; RESP 18; O2SAT 96
[2020-05-01 12:50] LABS: Basophils % 0.5 %; Eosinophils % 0.5 %; Hematocrit 43.1 % (37.0-47.0); Hemoglobin 13.8 g/dL (11.5-15.3); Lymphocytes # 0.9 10^3/uL (0.8-4.8); Lymphocytes % 13.5 %; Mean Corpuscular Hemoglobin 32.3 pg (28.0-34.0); Mean Corpuscular Volume 100.9 fL (81-99); Mean Platelet Volume 12.2 fL (7.4-10.4); Monocytes # 0.5 10^3/uL (0.2-0.9); Monocytes % 7.3 %; Neutrophils # 5.02 10^3/uL (1.8-7.7); Nucleated Red Blood Cells % 0 %; Platelet Count 162 10^3/cmm (130-400); Red Blood Count 4.27 10^6/uL (4.1-5.3); Red Cell Distribution Width 16.3 % (12.1-15.1); White Blood Count 6.4 10^3/uL (4.0-10.0)
--- NOTE | 2020-05-01 12:52 | W.ED.ABDPA2 ---
HPI - Abdominal Pain General: Chief Complaint: Abdominal Pain Stated Complaint: abdominal pain/ BLE edema Time Seen by Provider: 05/01/20 11:56 History of Present Illness: HPI narrative: 59-year-old female presents to the emergency room with complaint of left lower quadrant abdominal pain extending across her abdomen and radiating into her back. He is not had any fever she has had some loose stools. Complaining is abdominal bloating and cramping as well. She recently was hospitalized she did had a calculus cholecystitis as well as prior to that having had a colonoscopy that showed a tubular adenoma that was removed. There was no other abnormalities recorded. She denies any vomiting. She has not had a fever. She is chronically on the O2 for COPD. MD elicited complaint: abdominal pain Onset (ago): day(s) (1) Pain Consistency: constant Location: LUQ Severity: moderate Quality: cramping Radiation: back Migration to: suprapubic Exacerbating factors: nothing Relieving factors: nothing Associated Symptoms: Reports bloating, GI cramping, diarrhea, loose stools, nausea and poor appetite; Denies anorexia, belching, change in bowel habits, change in stool character, chills, coffee ground emesis, constipation, dyspepsia, dysuria, excessive flatus, fever(s), heartburn, hematochezia, hematuria, hematemesis, fecal incontinence, melena, syncope and vomiting Review of Systems Const: Denies: fever(s) or chills ENMT: Denies: throat pain, ear or mastoid pain, nasal discharge or nasal congestion Card: Denies: syncope Resp: Denies: dyspnea, productive cough or non-productive cough GI: Reports: nausea, diarrhea, bloating and GI cramping; Denies: vomiting, hematemesis, coffee ground emesis, heartburn, constipation, belching, excessive flatus, fecal incontinence, change in bowel habits, change in stool character, hematochezia or melena : Denies: dysuria or hematuria Skin/Breast: Denies: rash or pruritus PFSH ED PFSH: Medical History CHF (congestive heart failure) Chronic constipation COPD (chronic obstructive pulmonary disease) GERD (gastroesophageal reflux disease) Insomnia Seizure disorder Surgical History H/O section H/O esophagogastroduodenoscopy Status post colonoscopy (03/31/20) Family History Other CAD (coronary artery disease) Cancer Diabetes Social History Smoking and tobacco status: current every day smoker cigarettes Packs smoked per day: 0.5 Alcohol intake: never Lives independently: Yes Housing: House Physical Exam Const: COMMON NORMALS: no acute distress GENERAL APPEARANCE: cooperative and comfortable ORIENTATION/CONSCIOUSNESS: Yes awake, Yes oriented to person, Yes oriented to place and Yes oriented to time HENMT: COMMON NORMALS: normocephalic, atraumatic and hearing grossly normal bilaterally HEAD & SCALP: normocephalic and atraumatic Neck/C-Spine: COMMON NORMALS: no JVD Resp: COMMON NORMALS: normal respiratory effort, No retractions, No use of accessory muscles and clear to auscultation bilaterally AUSCULTATION: clear to auscultation bilaterally Cardio: COMMON NORMALS: no JVD, regular rate, regular rhythm and No murmurs present (Cardio) RATE: regular rate RHYTHM: regular rhythm GI: COMMON NORMALS: Soft to palpation and No hepatosplenomegaly present AUSCULTATION: Yes normoactive bowel sounds PALPATION: Yes Soft to palpation, Yes Tenderness to palpation present (GI) (Mild suprapubic), No Guarding due to palpation present (GI) and Yes No hepatosplenomegaly present Extremity: COMMON NORMALS: normal to inspection, capillary refill normal, no clubbing, cyanosis or edema, no calf tenderness and no pedal edema Neuro: SENSORIUM/ORIENTATION: Yes oriented to person, Yes oriented to place and Yes oriented to time Skin: COMMON NORMALS: no rashes or lesions noted GENERAL SKIN EXAM: no rashes or lesions noted Course Vital Signs: Vital signs: Vital Signs Temperature 97.5 F L 05/01/20 11:41 Pulse Rate 89 05/01/20 14:36 Respiratory Rate 18 05/01/20 14:36 Blood Pressure 129/85 05/01/20 14:36 Pulse Oximetry 94 05/01/20 14:36 MDM - Abdominal Pain MDM Narrative: Medical decision making narrative: Reviewed labs sent imaging findings. Patient is declining diuretics rest of the labs not really indicate a gallbladder issue at this point she may need further evaluation including HIDA scan at a later date. We will discharge her home encourage Lasix 20 mg daily follow-up with primary care return if is worsening symptoms. Engine the CT are consistent with chronic liver disease have her follow-up with her primary care with that as well. Lab Data: Labs: Lab Results 05/01/20 05/01/20 05/01/20 Range/Units 12:30 12:35 12:35 WBC 6.4 (4.0-10.0) 10^3/ uL RBC 4.27 (4.1-5.3) 10^6/u L Hgb 13.8 (11.5-15.3) g/dL Hct 43.1 (37.0-47.0) % MCV 100.9 H (81-99) fL MCH 32.3 (28.0-34.0) pg MCHC 32.0 (30.0-36.0) g/dL RDW 16.3 H (12.1-15.1) % Plt Count 162 (130-400) 10^3/c mm MPV 12.2 H (7.4-10.4) fL Neut % (Auto) 78.0 % Lymph % (Auto) 13.5 % [place] % (Auto) 7.3 % Eos % (Auto) 0.5 % Baso % (Auto) 0.5 % Neut # (Auto) 5.02 (1.8-7.7) 10^3/u L Lymph # (Auto) 0.9 (0.8-4.8) 10^3/u L [place] # (Auto) 0.5 (0.2-0.9) 10^3/u L Eos # (Auto) 0.0 (0.0-0.8) 10^3/u L Baso # (Auto) 0.0 (0.0-0.1) 10^3/u L Nucleated RBC % (a uto) 0 % Nucleated RBCs # 0.0 /100WBC Sodium 140 (136-145) mmol/L Potassium 3.9 (3.5-5.1) mmol/L Chloride 104 (98-107) mmol/L Carbon Dioxide 28 (22-29) mmol/L Anion Gap 11.9 (5-19) BUN 11 (8-23) mg/dL Creatinine 0.6 (0.5-0.9) mg/dL GFR Calculation 102.0 (90-130) mL/min Glucose 94 (65-115) mg/dL Calculated Osmolal ity 289 (285-295) mOsm/k g Calcium 9.3 (8.5-10.5) mg/dL Total Bilirubin 0.7 (0.15-1.2) mg/dL AST 27 (0-32) U/L ALT 31 (0-33) U/L Alkaline Phosphata se 114 H (35-105) IU/L Total Protein 6.8 (6.6-8.7) g/dL Albumin 4.1 (3.5-5.2) g/dL Globulin 2.7 (1.3-4.6) g/dL Lipase 24 (13-60) U/L Urine Color Yellow (Yellow) Urine Appearance Sl hazy (CLEAR) Urine pH 5 (5-7) Ur Specific Gravit y 1.020 (1.005-1.030) Urine Protein Neg (Negative) Urine Glucose (UA) Norm (Normal) Urine Ketones Negative (Negative) Urine Blood Neg (Negative) Urine Nitrate Negative (Negative) Urine Bilirubin Neg (Negative) Urine Urobilinogen Norm (Negative) mg/dL Ur Leukocyte [place] ase Negative (Negative) Urine RBC Rare (0-2) /hpf Urine WBC 0-4 H (0-5) /hpf Ur Squamous Epith Cells 0-4 H (0-5) /hpf Calcium Oxalate Cr ystal 0-4 H /hpf Amorphous Sediment Not Reportable Urine Bacteria Trace (NONE) /hpf Urine Mucus 1+ /hpf Discharge Plan Discharge Patient Disposition: Home Clinical Impression: Abdominal pain, Edema of lower extremity Condition: Stable Prescriptions: New Lasix 20 mg tablet 20 mg PO DAILY Qty: 3 RF: 0 No Action levetiracetam 500 mg tablet extended release 24 hr 2,000 mg PO Q24H Qty: 120 RF: 11 cetirizine 10 mg capsule 10 mg PO DAILY@0900 Qty: 30 RF: 0 albuterol sulfate 90 mcg/actuation HFA aerosol inhaler 2 inh INHALATION Q4H PRN (Reason: shortness of breath or wheezing) Qty: 6.7 RF: 2 fluticasone propion-salmeterol [Advair Diskus] 250-50 mcg/dose blister with device 1 inh INHALATION BID@899,1999 RF: 0 trazodone 50 mg tablet 50 mg PO DAILY@2100 RF: 0 pantoprazole [Protonix] 40 mg tablet,delayed release (DR/EC) 40 mg PO BID@899,1999 RF: 0 fluticasone propionate [Flonase Allergy Relief] 50 mcg/actuation spray,suspension 2 spray INTRANASAL DAILY@09 RF: 0 Spiriva with HandiHaler 18 mcg capsule, w/inhalation device 1 cap INHALATION DAILY@09 RF: 0 cholecalciferol (vitamin D3) 50 mcg (2,000 unit) capsule 50 mcg PO DAILY@0900 RF: 0 furosemide [Lasix] 40 mg tablet 40 mg PO DAILY Qty: 30 RF: 0 amoxicillin-pot clavulanate [Augmentin] 875-125 mg tablet 1 tab PO BID 5 Days Qty: 10 RF: 0 diclofenac sodium [Voltaren Arthritis Pain] 1 % gel 2 g topical QID Qty: 100 RF: 0 Miralax 17 gram powder in packet 17 g PO DAILY PRN (Reason: Constipation) RF: 0 sucralfate [Carafate] 1 gram tablet 1 g PO Q6H Qty: 60 RF: 0 ondansetron 4 mg tablet,disintegrating 4 mg PO Q6H PRN (Reason: nausea and vomiting) Qty: 14 RF: 0 lactulose 10 gram packet 10 g PO DAILY PRN (Reason: constipation) Qty: 15 RF: 0 Discharge Orders: Discharge ED (Routine); Ordered 05/01/20 Ordered By: Dex Phillips Referrals: Emma Novoa DO [Primary Care Provider] - Discharge Diet: Usual diet Discharge Activity: Resume usual activity Patient Instructions: Abdominal Pain (ED) Activity Restrictions/Additional Instructions: 6 daily for 3 days. Follow-up with your primary care doctor next week. Coding Level of Care Code ED Quality Control Expert for [place] Fwd Exam Comprehensive
[2020-05-01] MEDS: iohexol 300 mg/mL 100 mL Btl IV (12:53)
--- NOTE | 2020-05-01 12:57 | PC.NURSE ---
Pt CT completed.
[2020-05-01 13:08] LABS: Alanine Aminotransferase 31 U/L (0-33); Albumin Level 4.1 g/dL (3.5-5.2); Alkaline Phosphatase 114 IU/L (35-105); Anion Gap 11.9 (5-19); Aspartate Amino Transferase 27 U/L (0-32); Blood Urea Nitrogen 11 mg/dL (8-23); Calcium 9.3 mg/dL (8.5-10.5); Carbon Dioxide 28 mmol/L (22-29); Chloride 104 mmol/L (98-107); Creatinine Clr Calc Pharmacy 78.0483; Globulin 2.7 g/dL (1.3-4.6); Glucose 94 mg/dL (65-115); Lipase 24 U/L (13-60); Osmolality Calculated 289 mOsm/kg (285-295); Potassium 3.9 mmol/L (3.5-5.1); Sodium 140 mmol/L (136-145); Total Bilirubin 0.7 mg/dL (0.15-1.2); Total Protein 6.8 g/dL (6.6-8.7)
[2020-05-01 13:14] VITALS: BP 135/101; PULSE 114; RESP 16; O2SAT 97
[2020-05-01 13:18] LABS: Add Urine Microscopic? YES; Bacteria Urine TRACE /hpf; Bilirubin Urine Neg (Negative); Blood Urine Neg (Negative); Glucose Urine UA Norm (Normal); Ketones Urine Negative (Negative); Leukocyte Esterase Urine Negative (Negative); Mucus Urine 1+ /hpf; Nitrate Urine Negative (Negative); Protein Urine Neg (Negative); RBC Urine RARE /hpf (0-2); Squamous Epithelial Cell Urine 0-4 /hpf (0-5); Urine Appearance SL Hazy (CLEAR); Urine Color Yellow (Yellow); Urobilinogen Urine Norm (Negative); WBC Urine 0-4 /hpf (0-5); pH Urine 5 (5-7)
[2020-05-01 13:19] LABS: Add Urine Culture? No; Calcium Oxalate Crystals Urine 0-4 /hpf
[2020-05-01 14:15] VITALS: BP 111/91; PULSE 110; RESP 14; O2SAT 99
[2020-05-01] MEDS: FUROsemide 10 mg/mL SDV 4mL 40 MG IVP (14:18)
[2020-05-01 14:36] VITALS: BP 129/85; PULSE 89; RESP 18; O2SAT 94
== END 2020-05-01 14:39 | disposition home or self-care (01) ==
PROVIDERS: Emergency Provider Family Medicine; PCP Family Medicine
DX: R10.9 Unspecified abdominal pain (principal); R60.0 Localized edema; I50.9 Heart failure, unspecified; J44.9 Chronic obstructive pulmonary disease, unspecified; F17.210 Nicotine dependence, cigarettes, uncomplicated
CPT/HCPCS: 74177; 80053; 81001; 83690; 85025; 96374; 99283; J1940; Q9967

== ENCOUNTER 2020-05-06 20:32 | Emergency (ER) | payer MEDICAID, SELFPAY ==
[2020-05-06 20:35] VITALS: BP 91/67; PULSE 114; RESP 18; TEMP 36.1; O2SAT 96; BMI 16.8
--- NOTE | 2020-05-06 21:36 | W.ED.GENADLT ---
HPI - General Adult General: Chief complaint: General Medical Stated complaint: swelling in both feet Time Seen by Provider: 05/06/20 20:36 Source: patient Mode of arrival: ambulatory Limitations: no limitations History of Present Illness: HPI narrative: 59-year-old female who while in the ER states she had lower extremity swelling over the last week. She states she does not see her PCP until next week. She denies any shortness of breath. She denies any pain. Denies any injuries. Denies any chest pain. Associated symptoms: Deny chest pain, dyspnea, headache(s), nausea, rash or vomiting Review of Systems Const: Denies: fever(s), chills, body aches or change in appetite Eyes: Denies: blurry vision or eye discomfort ENMT: Denies: throat pain or dental pain Card: Denies: chest pain Resp: Denies: dyspnea GI: Denies: abdominal pain, nausea, vomiting or diarrhea : Denies: dysuria Musc: Reports: extremity swelling Skin/Breast: Denies: rash Neuro: Denies: headache(s) Psych: Denies: depression Emmanuel/Lymph: Denies: easy bruising All/Imm: Denies: urticaria PFSH ED PFSH: Medical History CHF (congestive heart failure) Chronic constipation COPD (chronic obstructive pulmonary disease) GERD (gastroesophageal reflux disease) Insomnia Seizure disorder Surgical History H/O section H/O esophagogastroduodenoscopy Status post colonoscopy (03/31/20) Family History Other CAD (coronary artery disease) Cancer Diabetes Social History Smoking and tobacco status: current every day smoker cigarettes Packs smoked per day: 0.5 Alcohol intake: never Lives independently: Yes Housing: House Physical Exam Const: COMMON NORMALS: no acute distress, patient oriented x3 and healthy appearing HENMT: COMMON NORMALS: normocephalic and atraumatic HEAD & SCALP: normocephalic and atraumatic Eye: COMMON NORMALS: Equal, round and reactive pupils present and EOMs intact bilaterally PUPIL: Yes Equal, round and reactive pupils present Neck/C-Spine: COMMON NORMALS: full ROM and supple Chest: COMMONS NORMALS: normal inspection of the chest and normal palpation of entire chest wall Resp: COMMON NORMALS: normal respiratory effort, No retractions, No use of accessory muscles and clear to auscultation bilaterally AUSCULTATION: clear to auscultation bilaterally Cardio: COMMON NORMALS: regular rate, regular rhythm and No murmurs present (Cardio) RATE: regular rate RHYTHM: regular rhythm GI: COMMON NORMALS: Normal to inspection, nondistended, normoactive bowel sounds present, Soft to palpation, non-tender and no masses PALPATION: Yes Soft to palpation Extremity: COMMON NORMALS: full ROM NARRATIVE EXTREMITY EXAM: 1+ edema to lower ext Neuro: COMMON NORMALS: patient oriented x3, moves all extremities and no focal motor deficits Psych: COMMON NORMALS: mental status grossly normal, Normal thought process present and cooperative THOUGHT PROCESS: Normal thought process present Skin: COMMON NORMALS: no rashes or lesions noted and no wounds GENERAL SKIN EXAM: no rashes or lesions noted Course Vital Signs: Vital signs: Vital Signs Temperature 96.9 F L 05/06/20 20:35 Pulse Rate 116 H 05/06/20 21:52 Respiratory Rate 18 05/06/20 21:52 Blood Pressure 98/65 05/06/20 21:52 Pulse Oximetry 98 05/06/20 21:52 MDM - General Adult MDM Narrative: Medical decision making narrative: Patient presents here slight lower extremity edema is chronic in nature. Patient given IV Lasix here. Her BNP is improved from baseline. She has no shortness of breath and is well-appearing here. Patient is stable for discharge and is to follow-up as scheduled next week and return if worsening. Lab Data: Labs: Lab Results 05/06/20 05/06/20 Range/Units 21:50 21:50 WBC 5.7 (4.0-10.0) 10^3/ uL RBC 4.17 (4.1-5.3) 10^6/u L Hgb 13.5 (11.5-15.3) g/dL Hct 43.0 (37.0-47.0) % MCV 103.1 H (81-99) fL MCH 32.4 (28.0-34.0) pg MCHC 31.4 (30.0-36.0) g/dL RDW 16.4 H (12.1-15.1) % Plt Count 174 (130-400) 10^3/c mm MPV 11.5 H (7.4-10.4) fL Neut % (Auto) 69.3 % Lymph % (Auto) 20.6 % [place] % (Auto) 8.7 % Eos % (Auto) 0.7 % Baso % (Auto) 0.5 % Neut # (Auto) 3.97 (1.8-7.7) 10^3/u L Lymph # (Auto) 1.2 (0.8-4.8) 10^3/u L [place] # (Auto) 0.5 (0.2-0.9) 10^3/u L Eos # (Auto) 0.0 (0.0-0.8) 10^3/u L Baso # (Auto) 0.0 (0.0-0.1) 10^3/u L Nucleated RBC % (a uto) 0 % Nucleated RBCs # 0.0 /100WBC Sodium 141 (136-145) mmol/L Potassium 4.0 (3.5-5.1) mmol/L Chloride 106 (98-107) mmol/L Carbon Dioxide 28 (22-29) mmol/L Anion Gap 11.0 (5-19) BUN 14 (8-23) mg/dL Creatinine 0.5 (0.5-0.9) mg/dL GFR Calculation 125.9 (90-130) mL/min Glucose 92 (65-115) mg/dL Calculated Osmolal ity 292 (285-295) mOsm/k g Calcium 9.2 (8.5-10.5) mg/dL NT-Pro-B Natriuret Pep 8090 H (0-125) pg/mL Discharge Plan Discharge Patient Disposition: Home Clinical Impression: Lower extremity edema Condition: Stable Prescriptions: No Action levetiracetam 500 mg tablet extended release 24 hr 2,000 mg PO Q24H Qty: 120 RF: 11 cetirizine 10 mg capsule 10 mg PO DAILY@0900 Qty: 30 RF: 0 albuterol sulfate 90 mcg/actuation HFA aerosol inhaler 2 inh INHALATION Q4H PRN (Reason: shortness of breath or wheezing) Qty: 6.7 RF: 2 Spiriva with HandiHaler 18 mcg capsule, w/inhalation device 1 cap INHALATION DAILY@0900 Qty: 30 RF: 2 fluticasone propion-salmeterol [Advair Diskus] 250-50 mcg/dose blister with device 1 inh INHALATION BID@899,1999 RF: 0 trazodone 50 mg tablet 50 mg PO DAILY@2100 RF: 0 pantoprazole [Protonix] 40 mg tablet,delayed release (DR/EC) 40 mg PO BID@899,1999 RF: 0 fluticasone propionate [Flonase Allergy Relief] 50 mcg/actuation spray,suspension 2 spray INTRANASAL DAILY@09 RF: 0 cholecalciferol (vitamin D3) 50 mcg (2,000 unit) capsule 50 mcg PO DAILY@0900 RF: 0 furosemide [Lasix] 40 mg tablet 40 mg PO DAILY Qty: 30 RF: 0 diclofenac sodium [Voltaren Arthritis Pain] 1 % gel 2 g topical QID Qty: 100 RF: 0 Miralax 17 gram powder in packet 17 g PO DAILY PRN (Reason: Constipation) RF: 0 Lasix 20 mg tablet 20 mg PO DAILY Qty: 3 RF: 0 sucralfate [Carafate] 1 gram tablet 1 g PO Q6H Qty: 60 RF: 0 ondansetron 4 mg tablet,disintegrating 4 mg PO Q6H PRN (Reason: nausea and vomiting) Qty: 14 RF: 0 lactulose 10 gram packet 10 g PO DAILY PRN (Reason: constipation) Qty: 15 RF: 0 Discharge Orders: Discharge ED (Routine); Ordered 05/06/20 Ordered By: Jw Shipman Referrals: Emma Novoa DO [Primary Care Provider] - 1-3 days Discharge Diet: Advance as tolerated Discharge Activity: Resume usual activity Patient Instructions: Leg Edema (ED) Coding Level of Care Code ED Inspector Rubber Stamp Die for Chg Fwd Exam Comprehensive
[2020-05-06 21:52] VITALS: BP 98/65; PULSE 116; RESP 18; O2SAT 98
[2020-05-06] MEDS: FUROsemide 10 mg/mL SDV 4mL 40 MG IVP (21:53)
[2020-05-06 22:01] LABS: Basophils % 0.5 %; Eosinophils % 0.7 %; Hemoglobin 13.5 g/dL (11.5-15.3); Lymphocytes # 1.2 10^3/uL (0.8-4.8); Lymphocytes % 20.6 %; Mean Corpuscular HGB Conc 31.4 g/dL (30.0-36.0); Mean Corpuscular Hemoglobin 32.4 pg (28.0-34.0); Mean Corpuscular Volume 103.1 fL (81-99); Mean Platelet Volume 11.5 fL (7.4-10.4); Monocytes # 0.5 10^3/uL (0.2-0.9); Monocytes % 8.7 %; Neutrophils # 3.97 10^3/uL (1.8-7.7); Neutrophils % 69.3 %; Nucleated Red Blood Cells % 0 %; Platelet Count 174 10^3/cmm (130-400); Red Blood Count 4.17 10^6/uL (4.1-5.3); Red Cell Distribution Width 16.4 % (12.1-15.1); White Blood Count 5.7 10^3/uL (4.0-10.0)
[2020-05-06 22:40] LABS: Blood Urea Nitrogen 14 mg/dL (8-23); Calcium 9.2 mg/dL (8.5-10.5); Carbon Dioxide 28 mmol/L (22-29); Chloride 106 mmol/L (98-107); Creatinine Clr Calc Pharmacy 81.3941; Glomerular Filtration Rate 125.9 mL/min (90-130); Glucose 92 mg/dL (65-115); NT Pro B Type Natriuretic Pept 8090 pg/mL (0-125); Osmolality Calculated 292 mOsm/kg (285-295); Sodium 141 mmol/L (136-145)
[2020-05-06 22:43] LABS: Slide Review Slide Review Perform
[2020-05-06 23:04] VITALS: BP 98/69; PULSE 113; RESP 20; O2SAT 98
== END 2020-05-06 23:15 | disposition home or self-care (01) ==
PROVIDERS: Emergency Provider Emergency Medicine; PCP Family Medicine
DX: R60.0 Localized edema (principal); J44.9 Chronic obstructive pulmonary disease, unspecified; I50.9 Heart failure, unspecified; F17.210 Nicotine dependence, cigarettes, uncomplicated
CPT/HCPCS: 80048; 83880; 85025; 96374; 99283; J1940

== ENCOUNTER 2020-05-07 20:14 | Emergency (ER) | payer MEDICAID, SELFPAY ==
[2020-05-07] VITALS (10 sets, daily range): BP systolic 80–99; BP diastolic 60–70; PULSE 106–124; RESP 16–31; TEMP 36.8; O2SAT 94–100; BMI 16.2
--- NOTE | 2020-05-07 20:15 | XR_ITS ---
WS: [id number] Portable AP upright chest, 05/07/2020 Clinical Data: cp Comparison: Portable chest, 04/26/2020. Findings: No masses are seen. There is a small right pleural effusion. The calcified nodule in the ri ght upper lobe is not changed. The heart is enlarged. The pulmonary vascularity is not increased. No pneumonia or pneumothorax is seen. The aortic arch and descending aorta are tortuous. Monitor leads o n the chest wall. XR/XR chest 1V portable [id number] Impression: 1. Cardiomegaly and atherosclerosis. 2. Small right pleural effusion..
--- NOTE | 2020-05-07 20:15 | ECG_ITS ---
[facility] Test Date: 2020-05-07 Pat Name: Maryjo Gomez Department: Room: Gender: Female Estate Planning Director: : 1960 Requested By: Jw Shipman Order Number: [id number] Serina MD: Madyson Chen M.D. Measurements Intervals [place] Rate: 109 P: 66 DC: 116 QRS: -64 QRSD: 109 T: 92 QT: 349 QTc: 471 Interpretive Statements SINUS TACHYCARDIA WITH SHORT DC INTERVAL POSSIBLE LEFT ATRIAL ENLARGEMENT [-0.1mV P WAVE IN V1/V2] LEFT ANTERIOR FASCICULAR BLOCK [QRS AXIS <= -45, QR IN I, RS IN II] LEFT VENTRICULAR HYPERTROPHY AND ST-T CHANGE [VOLTAGE CRITERIA PLUS ST/T ABNORMALITY] POSSIBLE ANTERIOR MYOCARDIAL INFARCTION , OF INDETERMINATE AGE [30 ms Q WAVE IN V3/V4, OR R < 0.2 mV IN V4] INTERPRETATION BASED ON A DEFAULT AGE OF 40 YEARS Compared to ECG 04/26/2020 21:19:39 Short DC interval now present ST (T wave) deviation still present Myocardial infarct finding still present Electronically Signed On 05-07-2020 22:30:50 DIABETES EDUCATION COORDINATOR by Madyson Chen M.D. [id number]
[2020-05-07 20:26] LABS: Basophils % 0.6 %; Eosinophils % 0.8 %; Hematocrit 39.3 % (37.0-47.0); Hemoglobin 12.5 g/dL (11.5-15.3); Lymphocytes % 18.7 %; Mean Corpuscular HGB Conc 31.8 g/dL (30.0-36.0); Mean Corpuscular Hemoglobin 32.1 pg (28.0-34.0); Mean Corpuscular Volume 100.8 fL (81-99); Monocytes # 0.6 10^3/uL (0.2-0.9); Monocytes % 10.7 %; Neutrophils # 3.62 10^3/uL (1.8-7.7); Nucleated Red Blood Cells % 0 %; Platelet Count 171 10^3/cmm (130-400); Red Cell Distribution Width 16.5 % (12.1-15.1); White Blood Count 5.2 10^3/uL (4.0-10.0)
--- NOTE | 2020-05-07 20:30 | ED_ITS ---
HPI - Chest Pain General: Chief Complaint: Chest Pain Stated Complaint: STEMI ALERT Time Seen by Provider: 05/07/20 20:14 Source: patient and EMS Mode of arrival: EMS Limitations: no limitations History of Present Illness: HPI narrative: 59-year-old female that is very well but is very well-known to the ED came in for chest pain by EMS. States started chest pain roughly 3 to 4 hours. She was seen yesterday for some leg swelling. States pain is sharp in nature and rates it a 5 out of 10. She denies any shortness of denies any worsening or improving factors. MD complaint: chest pain Associated symptoms: Deny abdominal pain, dyspnea, fever(s), nausea or vomiting Review of Systems Const: Denies: fever(s), chills, body aches or change in appetite Eyes: Denies: blurry vision or eye discomfort ENMT: Denies: throat pain or dental pain Card: Denies: chest pain Resp: Denies: dyspnea GI: Denies: abdominal pain, nausea, vomiting or diarrhea : Denies: dysuria Musc: Denies: neck pain or back pain Skin/Breast: Denies: rash Neuro: Denies: headache(s) Psych: Denies: depression Emmanuel/Lymph: Denies: easy bruising All/Imm: Denies: urticaria PFSH ED PFSH: Medical History CHF (congestive heart failure) Chronic constipation COPD (chronic obstructive pulmonary disease) GERD (gastroesophageal reflux disease) Insomnia Seizure disorder Surgical History H/O section H/O esophagogastroduodenoscopy Status post colonoscopy (03/31/20) Family History Other CAD (coronary artery disease) Cancer Diabetes Social History Smoking and tobacco status: current every day smoker cigarettes Packs smoked per day: 0.5 Alcohol intake: never Lives independently: Yes Housing: House Physical Exam Const: COMMON NORMALS: no acute distress, patient oriented x3 and healthy appearing HENMT: COMMON NORMALS: normocephalic and atraumatic HEAD & SCALP: normocephalic and atraumatic Eye: COMMON NORMALS: Equal, round and reactive pupils present and EOMs intact bilaterally PUPIL: Yes Equal, round and reactive pupils present Neck/C-Spine: COMMON NORMALS: full ROM and supple Chest: COMMONS NORMALS: normal inspection of the chest and normal palpation of entire chest wall Resp: COMMON NORMALS: normal respiratory effort, No retractions, No use of accessory muscles and clear to auscultation bilaterally AUSCULTATION: clear to auscultation bilaterally Cardio: COMMON NORMALS: regular rate, regular rhythm and No murmurs present (Cardio) RATE: regular rate RHYTHM: regular rhythm GI: COMMON NORMALS: Normal to inspection, nondistended, normoactive bowel sounds present, Soft to palpation, non-tender and no masses PALPATION: Yes Soft to palpation Extremity: COMMON NORMALS: normal to inspection and full ROM Neuro: COMMON NORMALS: patient oriented x3, moves all extremities and no focal motor deficits Psych: COMMON NORMALS: mental status grossly normal, Normal thought process present and cooperative THOUGHT PROCESS: Normal thought process present Skin: COMMON NORMALS: no rashes or lesions noted and no wounds GENERAL SKIN EXAM: no rashes or lesions noted Course Vital Signs: Vital signs: Vital Signs Temperature 98.3 F 05/07/20 20:21 Pulse Rate 106 H 05/07/20 22:30 Respiratory Rate 31 H 05/07/20 22:30 Blood Pressure 80/62 05/07/20 22:30 Pulse Oximetry 97 05/07/20 22:30 MDM - Chest Pain MDM Narrative: Medical decision making narrative: Patient presents here with chest pain that is atypical in nature. Patient's initial repeat troponin showed no change. EKGs here are normal and unchanged from previous. CTA shows no signs of pulmonary [place]. Patient is stable for discharge and is to follow-up PCP and return if worsening. She understands agrees to plan. She did have some slight hypotension initially likely from nitro her blood pressure is improved at discharge. Lab Data: Labs: Lab Results 05/07/20 05/07/20 05/07/20 Range/Units 19:47 19:47 19:47 WBC 5.2 (4.0-10.0) 10^3/ uL RBC 3.90 L (4.1-5.3) 10^6/u L Hgb 12.5 (11.5-15.3) g/dL Hct 39.3 (37.0-47.0) % MCV 100.8 H (81-99) fL MCH 32.1 (28.0-34.0) pg MCHC 31.8 (30.0-36.0) g/dL RDW 16.5 H (12.1-15.1) % Plt Count 171 (130-400) 10^3/c mm MPV 12.0 H (7.4-10.4) fL Neut % (Auto) 69.0 % Lymph % (Auto) 18.7 % [place] % (Auto) 10.7 % Eos % (Auto) 0.8 % Baso % (Auto) 0.6 % Neut # (Auto) 3.62 (1.8-7.7) 10^3/u L Lymph # (Auto) 1.0 (0.8-4.8) 10^3/u L [place] # (Auto) 0.6 (0.2-0.9) 10^3/u L Eos # (Auto) 0.0 (0.0-0.8) 10^3/u L Baso # (Auto) 0.0 (0.0-0.1) 10^3/u L Nucleated RBC % (a uto) 0 % Nucleated RBCs # 0.0 /100WBC Sodium 139 (136-145) mmol/L Potassium 3.8 (3.5-5.1) mmol/L Chloride 100 (98-107) mmol/L Carbon Dioxide 29 (22-29) mmol/L Anion Gap 13.8 (5-19) BUN 14 (8-23) mg/dL Creatinine 0.6 (0.5-0.9) mg/dL GFR Calculation 102.0 (90-130) mL/min Glucose 120 H (65-115) mg/dL Calculated Osmolal ity 290 (285-295) mOsm/k g Calcium 9.2 (8.5-10.5) mg/dL Total Bilirubin 0.4 (0.15-1.2) mg/dL AST 23 (0-32) U/L ALT 19 (0-33) U/L Alkaline Phosphata se 93 (35-105) IU/L Troponin T Baselin e 38 H (0-10) ng/L Troponin T 120 Min [place] (0-10) ng/L Delta Troponin T (0-10) ABS# NT-Pro-B Natriuret Pep (0-125) pg/mL Total Protein 6.2 L (6.6-8.7) g/dL Albumin 3.9 (3.5-5.2) g/dL Globulin 2.3 (1.3-4.6) g/dL Lipase (13-60) U/L 05/07/20 05/07/20 05/07/20 Range/Units 19:47 19:47 21:50 WBC (4.0-10.0) 10^3/ uL RBC (4.1-5.3) 10^6/u L Hgb (11.5-15.3) g/dL Hct (37.0-47.0) % MCV (81-99) fL MCH (28.0-34.0) pg MCHC (30.0-36.0) g/dL RDW (12.1-15.1) % Plt Count (130-400) 10^3/c mm MPV (7.4-10.4) fL Neut % (Auto) % Lymph % (Auto) % [place] % (Auto) % Eos % (Auto) % Baso % (Auto) % Neut # (Auto) (1.8-7.7) 10^3/u L Lymph # (Auto) (0.8-4.8) 10^3/u L [place] # (Auto) (0.2-0.9) 10^3/u L Eos # (Auto) (0.0-0.8) 10^3/u L Baso # (Auto) (0.0-0.1) 10^3/u L Nucleated RBC % (a uto) % Nucleated RBCs # /100WBC Sodium (136-145) mmol/L Potassium (3.5-5.1) mmol/L Chloride (98-107) mmol/L Carbon Dioxide (22-29) mmol/L Anion Gap (5-19) BUN (8-23) mg/dL Creatinine (0.5-0.9) mg/dL GFR Calculation (90-130) mL/min Glucose (65-115) mg/dL Calculated Osmolal ity (285-295) mOsm/k g Calcium (8.5-10.5) mg/dL Total Bilirubin (0.15-1.2) mg/dL AST (0-32) U/L ALT (0-33) U/L Alkaline Phosphata se (35-105) IU/L Troponin T Baselin e (0-10) ng/L Troponin T 120 Min [place] 40.42 H (0-10) ng/L Delta Troponin T (0-10) ABS# NT-Pro-B Natriuret Pep 7109 H (0-125) pg/mL Total Protein (6.6-8.7) g/dL Albumin (3.5-5.2) g/dL Globulin (1.3-4.6) g/dL Lipase 33 (13-60) U/L Imaging Data^: CXR: Attestation: I personally reviewed and interpreted this imaging study as follows: My impression: no acute abnormality CT Chest: Attestation: I personally reviewed and interpreted this imaging study as follows: Radiologist's impression: [employer] [address] [address] Scan Report Signed Patient: Maryjo Gomez Unit #: [id number] : 1960 Age/Sex: 59 / F ADM Date: 05/07/20 Loc: ER Room/Bed: Attending Dr: Ordering Provider/Ordering MD: Jw Shipman MD Date of Service: 05/07/20 Procedure(s): CT angio chest [id number] Accession Number(s): [id number] Report Number: [id number] PROCEDURE INFORMATION: Exam: CT Angiography Chest With Contrast Exam date and time: 05/07/2020 9:05 PM Age: 59 years old Clinical indication: Patient HX: Central chest pain; Additional info: Cp TECHNIQUE: Imaging protocol: Computed tomographic angiography of the chest with contrast. 3D rendering (Not supervised by radiologist): MIP and/or 3D reconstructed images were created by the technologist. Radiation optimization: All CT scans at this facility use at least one of these dose optimization techniques: automated exposure control; mA and/or kV adjustment per patient size (includes targeted exams where dose is matched to clinical indication); or iterative reconstruction. Contrast material: OMNI 350; Contrast volume: 75 ml; Contrast route: INTRAVENOUS (IV); COMPARISON: CT angio chest PE protcl [id number] 03/09/2020 9:44 PM RADIATION DOSE METRICS: Total DLP (mGy-cm): 692.2 FINDINGS: Pulmonary arteries: Normal. No pulmonary emboli. Aorta: Unremarkable. No aortic aneurysm. No aortic dissection. Lungs: Calcified pulmonary granulomatous change. Pleural spaces: Small bilateral pleural fluid. Heart: Cardiomegaly. Lymph nodes: Calcified granulomatous changes are noted in mediastinal and hilar lymph nodes. Bones/joints: No acute fracture. Soft tissues: Unremarkable. CT/CT angio chest [id number] IMPRESSION: Cardiomegaly and small bilateral pleural fluid. No evident pulmonary embolic disease. Radiation Dose CTDIVOL = (mGy): DLP = 692.2 (mGy-cm) EKG Data^: EKG 1: Attestation: I personally reviewed and interpreted this EKG as follows: EKG interpretation date: 05/07/20 EKG interpretation time: 20:22 Interpretation: sinussinus tach hr [address] or t wave abnormalities qrs 109 qtc 413 Discharge Plan Discharge Patient Disposition: Home Clinical Impression: Chest pain Qualifiers: Chest pain type: unspecified Qualified Code(s): R07.9 - Chest pain, unspecified Condition: Stable Prescriptions: No Action levetiracetam 500 mg tablet extended release 24 hr 2,000 mg PO Q24H Qty: 120 RF: 11 cetirizine 10 mg capsule 10 mg PO DAILY@0900 Qty: 30 RF: 0 albuterol sulfate 90 mcg/actuation HFA aerosol inhaler 2 inh INHALATION Q4H PRN (Reason: shortness of breath or wheezing) Qty: 6.7 RF: 2 Spiriva with HandiHaler 18 mcg capsule, w/inhalation device 1 cap INHALATION DAILY@0900 Qty: 30 RF: 2 fluticasone propion-salmeterol [Advair Diskus] 250-50 mcg/dose blister with device 1 inh INHALATION BID@899,1999 RF: 0 trazodone 50 mg tablet 50 mg PO DAILY@2100 RF: 0 pantoprazole [Protonix] 40 mg tablet,delayed release (DR/EC) 40 mg PO BID@899,1999 RF: 0 fluticasone propionate [Flonase Allergy Relief] 50 mcg/actuation spray,suspension 2 spray INTRANASAL DAILY@0900 RF: 0 cholecalciferol (vitamin D3) 50 mcg (2,000 unit) capsule 50 mcg PO DAILY@0900 RF: 0 furosemide [Lasix] 40 mg tablet 40 mg PO DAILY Qty: 30 RF: 0 diclofenac sodium [Voltaren Arthritis Pain] 1 % gel 2 g topical QID Qty: 100 RF: 0 polyethylene glycol 3350 [Miralax] 17 gram powder in packet 17 g PO DAILY PRN (Reason: Constipation) RF: 0 furosemide [Lasix] 20 mg tablet 20 mg PO DAILY Qty: 3 RF: 0 sucralfate [Carafate] 1 gram tablet 1 g PO Q6H Qty: 60 RF: 0 ondansetron 4 mg tablet,disintegrating 4 mg PO Q6H PRN (Reason: nausea and vomiting) Qty: 14 RF: 0 lactulose 10 gram packet 10 g PO DAILY PRN (Reason: constipation) Qty: 15 RF: 0 Discharge Orders: Discharge ED (Routine); Ordered 05/07/20 Ordered By: Jw Shipman Referrals: Emma Novoa DO [Primary Care Provider] - 1-3 days Discharge Diet: Advance as tolerated Discharge Activity: Resume usual activity Patient Instructions: Chest Pain (ED) Coding Level of Care Code ED Tool Design Checker for Chg Fwd Exam Comprehensive
[2020-05-07 20:50] LABS: Alanine Aminotransferase 19 U/L (0-33); Albumin Level 3.9 g/dL (3.5-5.2); Alkaline Phosphatase 93 IU/L (35-105); Anion Gap 13.8 (5-19); Aspartate Amino Transferase 23 U/L (0-32); Blood Urea Nitrogen 14 mg/dL (8-23); Calcium 9.2 mg/dL (8.5-10.5); Carbon Dioxide 29 mmol/L (22-29); Chloride 100 mmol/L (98-107); Globulin 2.3 g/dL (1.3-4.6); Glucose 120 mg/dL (65-115); Osmolality Calculated 290 mOsm/kg (285-295); Potassium 3.8 mmol/L (3.5-5.1); Sodium 139 mmol/L (136-145); Total Bilirubin 0.4 mg/dL (0.15-1.2); Total Protein 6.2 g/dL (6.6-8.7)
[2020-05-07 20:52] LABS: Troponin(5th) Baseline 38 ng/L (0-10)
--- NOTE | 2020-05-07 20:58 | CTR_ITS ---
PROCEDURE INFORMATION: Exam: CT Angiography Chest With Contrast Exam date and time: 05/07/2020 9:05 PM Age: 59 years old Clinical indication: Patient HX: Central chest pain; Additional info: Cp TECHNIQUE: Imaging protocol: Computed tomographic angiography of the chest with contrast. 3D rendering (Not supervised by radiologist): MIP and/or 3D reconstructed images were created by the technologist. Radiation optimization: All CT scans at this facility use at least one of these dose optimization techniques: automated exposure control; mA and/or kV adjustment per patient size (includes targeted exams where dose is matched to clinical indication); or iterative reconstruction. Contrast material: OMNI 350; Contrast volume: 75 ml; Contrast route: INTRAVENOUS (IV); COMPARISON: CT angio chest PE protcl [id number] 03/09/2020 9:44 PM RADIATION DOSE METRICS: Total DLP (mGy-cm): 692.2 FINDINGS: Pulmonary arteries: Normal. No pulmonary emboli. Aorta: Unremarkable. No aortic aneurysm. No aortic dissection. Lungs: Calcified pulmonary granulomatous change. Pleural spaces: Small bilateral pleural fluid. Heart: Cardiomegaly. Lymph nodes: Calcified granulomatous changes are noted in mediastinal and hilar lymph nodes. Bones/joints: No acute fracture. Soft tissues: Unremarkable. CT/CT angio chest [id number] IMPRESSION: Cardiomegaly and small bilateral pleural fluid. No evident pulmonary embolic disease. Radiation Dose CTDIVOL = (mGy): DLP = 692.2 (mGy-cm)
[2020-05-07] MEDS: ondansetron 2 mg/ML SDV 2 mL 4 MG IVP (21:02)
--- NOTE | 2020-05-07 21:05 | PC.PHAR ---
PT STATES THAT SHE TAKES ALL THE MEDICATION ON HER LIST. MOST OF IT HAS NOT BEEN FILLED RECENTLY, BUT PT INSISTS THAT SHE IS TAKING ALL THE MEDICATION ON HER LIST.
[2020-05-07] MEDS: ketorolac 30 mg/mL INJ 15 MG IVP (21:06)
[2020-05-07] MEDS: iohexol 350 mg/mL 100 mL Btl IV (21:17)
[2020-05-07 21:19] LABS: Lipase 33 U/L (13-60)
--- NOTE | 2020-05-07 22:15 | ECG_ITS ---
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 Measurements Intervals [place] Rate: 106 P: 76 CO: 120 QRS: -66 QRSD: 109 T: 97 QT: 349 QTc: 464 Interpretive Statements SINUS TACHYCARDIA POSSIBLE LEFT ATRIAL ENLARGEMENT [-0.1mV P WAVE IN V1/V2] LEFT ANTERIOR FASCICULAR BLOCK [QRS AXIS <= -45, QR IN I, RS IN II] LEFT VENTRICULAR HYPERTROPHY AND ST-T CHANGE [VOLTAGE CRITERIA PLUS ST/T ABNORMALITY] POSSIBLE ANTERIOR MYOCARDIAL INFARCTION , OF INDETERMINATE AGE [30 ms Q WAVE IN V3/V4, OR R < 0.2 mV IN V4] Compared to ECG 04/26/2020 21:19:39 No significant changes Electronically Signed On 05-07-2020 22:15:16 EXTERMINATOR HELPER by Madyson Chen M.D. [id number]
[2020-05-07 22:16] LABS: Troponin 5 2HR 40.42 ng/L (0-10)
--- NOTE | 2020-05-07 22:17 | PC.NURSE ---
EKG done at 2205 and shown to ER doctor.
[2020-05-07 22:23] LABS: NT Pro B Type Natriuretic Pept 7109 pg/mL (0-125)
== END 2020-05-07 23:14 | disposition home or self-care (01) ==
PROVIDERS: Emergency Provider Emergency Medicine; PCP Family Medicine
DX: R07.9 Chest pain, unspecified (principal); I50.9 Heart failure, unspecified; J44.9 Chronic obstructive pulmonary disease, unspecified; F17.210 Nicotine dependence, cigarettes, uncomplicated
CPT/HCPCS: 36415; 71045; 71275; 80053; 83690; 83880; 84484; 85025; 93005; 96374; 99284; J1885; J2405; Q9967

== ENCOUNTER 2020-05-18 08:15 | Emergency (ER) | payer MEDICAID, SELFPAY ==
[2020-05-18 08:16] VITALS: BP 98/73; PULSE 116; RESP 16; TEMP 36.5; O2SAT 99; BMI 17.6
--- NOTE | 2020-05-18 08:19 | ED_ITS ---
HPI - General Adult General: Chief complaint: Extremity Problem,Nontraumatic Stated complaint: LOWER EXT SWELLING Time Seen by Provider: 05/18/20 08:18 History of Present Illness: HPI narrative: 60-year-old female comes in today complaining of lower extremity pain and swelling. She was seen her primary care doctor last week and started on Lasix. Been being worked up for her gallbladder she has biliary dyskinesia in the course of that she was also found to have an ejection fraction of 10 to 15%. She stopped taking the Lasix. She denies chest pain she has some abdominal discomfort in the epigastric right upper quadrant area. She not having any shortness of breath. Patient continues to smoke half a pack a day was seen earlier this month had a very mildly elevated D-dimer and a CTA was done which was negative. She is on chronic oxygen at 2 L/min. Patient complains of pain and swelling in her legs primarily of the left leg. Worse with activity. Is been going on since late April. Onset (ago): week(s) Location: abdomen and lower extremity Severity: mild Quality: aching Pain Consistency: constant Relieving factors: none Exacerbating factors: none Associated symptoms: Reports decreased appetite, malaise, nausea, short of breath and weakness; Deny chest pain, confusion, cough, diaphoresis, dyspnea, fevers/chills, headache(s), rash, palpitations, seizures, syncope or vomiting Treatments prior to arrival: none Review of Systems Const: Reports: malaise; Denies: diaphoresis ENMT: Denies: throat pain, ear or mastoid pain, nasal discharge or nasal congestion Card: Denies: chest pain, palpitations or syncope Resp: Denies: dyspnea GI: Reports: nausea; Denies: vomiting : Denies: flank pain, difficulty voiding, dysuria, urinary frequency or urinary urgency Skin/Breast: Denies: rash Neuro: Denies: headache(s) or confusion PFSH ED PFSH: Medical History Chronic constipation COPD (chronic obstructive pulmonary disease) GERD (gastroesophageal reflux disease) Insomnia Seizure disorder Surgical History H/O section H/O esophagogastroduodenoscopy Status post colonoscopy (03/31/20) Family History Other CAD (coronary artery disease) Cancer Diabetes Social History Smoking and tobacco status: current every day smoker cigarettes Packs smoked per day: 0.5 Alcohol intake: never Lives independently: Yes Housing: House Physical Exam Const: COMMON NORMALS: no acute distress GENERAL APPEARANCE: cooperative and comfortable ORIENTATION/CONSCIOUSNESS: Yes awake, Yes oriented to person, Yes oriented to place and Yes oriented to time HENMT: COMMON NORMALS: normocephalic, atraumatic and hearing grossly normal bilaterally HEAD & SCALP: normocephalic and atraumatic Neck/C-Spine: COMMON NORMALS: no JVD Resp: COMMON NORMALS: normal respiratory effort, No retractions, No use of accessory muscles and clear to auscultation bilaterally AUSCULTATION: clear to auscultation bilaterally Cardio: COMMON NORMALS: no JVD, regular rate, regular rhythm and No murmurs present (Cardio) RATE: regular rate RHYTHM: regular rhythm GI: COMMON NORMALS: Soft to palpation and No hepatosplenomegaly present AUSCULTATION: Yes normoactive bowel sounds PALPATION: Yes Soft to palpation, No Tenderness to palpation present (GI), No Guarding due to palpation present (GI) and Yes No hepatosplenomegaly present Extremity: NARRATIVE EXTREMITY EXAM: No edema bilaterally of the feet to the level of the malleolus no edema more proximal than that. Patient has significant discomfort with palpation of the calves and the thighs bilaterally slightly more on the left than on the right. Good capillary refill bilaterally. Neuro: SENSORIUM/ORIENTATION: Yes oriented to person, Yes oriented to place and Yes oriented to time Skin: COMMON NORMALS: no rashes or lesions noted GENERAL SKIN EXAM: no rashes or lesions noted Course Vital Signs: Vital signs: Vital Signs Temperature 97.7 F 05/18/20 08:16 Pulse Rate 107 H 05/18/20 10:56 Respiratory Rate 17 05/18/20 10:56 Blood Pressure 97/68 05/18/20 10:56 Pulse Oximetry 96 05/18/20 10:56 MDM - General Adult MDM Narrative: Medical decision making narrative: Reviewed findings with the patient. She does have some biliary dyskinesia although that does not seem to be her main complaint now reviewed the surgical notes. She also has pretty profound cardiomyopathy presumably ischemic she is supposed to see Dr. Casper. She is not in any acute congestive heart failure at this time suspect some of the leg edema she is noticing at times may just be dependent edema she has the edema in her feet to the level of the malleolus is. However she has no orthopnea and she is laying in bed without any significant hypoxia or complaint of shortness of breath with the head of the bed only elevated at most 10 degrees. Not having any chest pain at this time. I think we can safely discharge her we did try to make arrangements for her to see cardiology sooner unfortunately they are unable to accommodate that request. She has any further problems she can return to the emergency room. Discussed with her with the extent of her heart failure she will notice significant limitations in activity and symptoms. Lab Data: Labs: Lab Results 05/18/20 05/18/20 05/18/20 Range/Units 08:34 08:34 08:34 WBC 5.2 (4.0-10.0) 10^3/ uL RBC 3.93 L (4.1-5.3) 10^6/u L Hgb 12.6 (11.5-15.3) g/dL Hct 39.8 (37.0-47.0) % MCV 101.3 H (81-99) fL MCH 32.1 (28.0-34.0) pg MCHC 31.7 (30.0-36.0) g/dL RDW 16.8 H (12.1-15.1) % Plt Count 173 (130-400) 10^3/c mm MPV 12.3 H (7.4-10.4) fL Neut % (Auto) 64.8 % Lymph % (Auto) 20.0 % [place] % (Auto) 12.4 % Eos % (Auto) 1.6 % Baso % (Auto) 0.8 % Neut # (Auto) 3.34 (1.8-7.7) 10^3/u L Lymph # (Auto) 1.0 (0.8-4.8) 10^3/u L [place] # (Auto) 0.6 (0.2-0.9) 10^3/u L Eos # (Auto) 0.1 (0.0-0.8) 10^3/u L Baso # (Auto) 0.0 (0.0-0.1) 10^3/u L Nucleated RBC % (a uto) 0 % Nucleated RBCs # 0.0 /100WBC Sodium 138 (136-145) mmol/L Potassium 3.9 (3.5-5.1) mmol/L Chloride 104 (98-107) mmol/L Carbon Dioxide 26 (22-29) mmol/L Anion Gap 11.9 (5-19) BUN 16 (8-23) mg/dL Creatinine 0.6 (0.5-0.9) mg/dL GFR Calculation 101.6 (90-130) mL/min Glucose 109 (65-115) mg/dL Calculated Osmolal ity 288 (285-295) mOsm/k g Calcium 8.9 (8.5-10.5) mg/dL Total Bilirubin 0.3 (0.15-1.2) mg/dL AST 25 (0-32) U/L ALT 20 (0-33) U/L Alkaline Phosphata se 91 (35-105) IU/L Troponin T Baselin e 42 H (0-10) ng/L Troponin T 120 Min [place] (0-10) ng/L Delta Troponin T (0-10) ABS# Total Protein 6.0 L (6.6-8.7) g/dL Albumin 3.8 (3.5-5.2) g/dL Globulin 2.2 (1.3-4.6) g/dL /15/ Range/Units 10:21 WBC (4.0-10.0) 10^3/ uL RBC (4.1-5.3) 10^6/u L Hgb (11.5-15.3) g/dL Hct (37.0-47.0) % MCV (81-99) fL MCH (28.0-34.0) pg MCHC (30.0-36.0) g/dL RDW (12.1-15.1) % Plt Count (130-400) 10^3/c mm MPV (7.4-10.4) fL Neut % (Auto) % Lymph % (Auto) % [place] % (Auto) % Eos % (Auto) % Baso % (Auto) % Neut # (Auto) (1.8-7.7) 10^3/u L Lymph # (Auto) (0.8-4.8) 10^3/u L [place] # (Auto) (0.2-0.9) 10^3/u L Eos # (Auto) (0.0-0.8) 10^3/u L Baso # (Auto) (0.0-0.1) 10^3/u L Nucleated RBC % (a uto) % Nucleated RBCs # /100WBC Sodium (136-145) mmol/L Potassium (3.5-5.1) mmol/L Chloride (98-107) mmol/L Carbon Dioxide (22-29) mmol/L Anion Gap (5-19) BUN (8-23) mg/dL Creatinine (0.5-0.9) mg/dL GFR Calculation (90-130) mL/min Glucose (65-115) mg/dL Calculated Osmolal ity (285-295) mOsm/k g Calcium (8.5-10.5) mg/dL Total Bilirubin (0.15-1.2) mg/dL AST (0-32) U/L ALT (0-33) U/L Alkaline Phosphata se (35-105) IU/L Troponin T Baselin e (0-10) ng/L Troponin T 120 Min [place] 37.02 H (0-10) ng/L Delta Troponin T -4.98 L (0-10) ABS# Total Protein (6.6-8.7) g/dL Albumin (3.5-5.2) g/dL Globulin (1.3-4.6) g/dL Discharge Plan Discharge Patient Disposition: Home Clinical Impression: Lower extremity edema, Systolic and diastolic CHF w/reduced LV function, NYHA class 4, COPD (chronic obstructive pulmonary disease), Acalculous cholecystitis, Pulmonary HTN Condition: Stable Prescriptions: No Action levetiracetam 500 mg tablet extended release 24 hr 2,000 mg PO Q24H Qty: 120 RF: 11 furosemide [Lasix] 20 mg tablet 20 mg PO DAILY PRN (Reason: edema) Qty: 7 RF: 0 albuterol sulfate 90 mcg/actuation HFA aerosol inhaler 2 inh INHALATION Q4H PRN (Reason: shortness of breath or wheezing) Qty: 6.7 RF: 2 Spiriva with HandiHaler 18 mcg capsule, w/inhalation device 1 cap INHALATION DAILY@0900 Qty: 30 RF: 2 albuterol sulfate 2.5 mg /3 mL (0.083 %) solution for nebulization 2.5 mg INHALATION QID PRN (Reason: shortness of breath or wheezing) Qty: 180 RF: 3 cetirizine 10 mg capsule 10 mg PO DAILY@0900 Qty: 90 RF: 1 guaifenesin 600 mg tablet extended release 12hr 600 mg PO BID PRN (Reason: Congestion) Qty: 60 RF: 2 fluticasone propion-salmeterol [Advair Diskus] 250-50 mcg/dose blister with device 1 inh INHALATION BID@899,1999 RF: 0 trazodone 50 mg tablet 50 mg PO DAILY@2100 RF: 0 pantoprazole [Protonix] 40 mg tablet,delayed release (DR/EC) 40 mg PO BID@899,1999 RF: 0 cholecalciferol (vitamin D3) 50 mcg (2,000 unit) capsule 50 mcg PO DAILY@0900 RF: 0 fluticasone propionate [Flonase Allergy Relief] 50 mcg/actuation spray,suspension 2 spray INTRANASAL DAILY@0900 Qty: 16 RF: 5 diclofenac sodium [Voltaren Arthritis Pain] 1 % gel 2 g topical QID Qty: 100 RF: 0 polyethylene glycol 3350 [Miralax] 17 gram powder in packet 17 g PO DAILY PRN (Reason: Constipation) RF: 0 sucralfate [Carafate] 1 gram tablet 1 g PO Q6H Qty: 60 RF: 0 ondansetron 4 mg tablet,disintegrating 4 mg PO Q6H PRN (Reason: nausea and vomiting) Qty: 14 RF: 0 lactulose 10 gram packet 10 g PO DAILY PRN (Reason: constipation) Qty: 15 RF: 0 Discharge Orders: Discharge ED (Routine); Ordered 05/18/20 Ordered By: Dex Phillips Referrals: Emma Novoa DO [Primary Care Provider] - Discharge Diet: Usual diet Discharge Activity: Limit activity as instructed Patient Instructions: Opioid Safety Activity Restrictions/Additional Instructions: Management will try to get your pulmonology and cardiology consultations moved up. Return for further problems. Coding Level of Care Code ED Large Sheetfed Press Operator for Chg Fwd Exam Detailed
[2020-05-18 08:34] VITALS: BP 100/74; PULSE 113; RESP 17; O2SAT 98
--- NOTE | 2020-05-18 08:48 | USCV_ITS ---
Maryjo Gomez Age: 60 Gender: F : 1960 Exam Date: 05/18/2020 09:08 Ordering Phys: Dex Phillips DO Technologist: Gabbie Martinez [place]am Location: [facility] [place] [facility] [place] Indication: BILATERAL LEG PAIN WITH SWELLING HISTORY: Bilateral leg pain with swelling PROCEDURES: The venous duplex Doppler examination of both lower extremities was performed in the standard fashion. The following venous structures were evaluated: common femoral vein, profunda vein, proximal portion of the greater saphenous vein, superficial femoral vein, and the popliteal vein. In addition, the posterior tibial and peroneal trunk were evaluated. Serial compression, augmentation maneuvers, and spectral Doppler flow evaluation were performed. FINDINGS: No DVT seen in any vessel examined CONCLUSIONS No evidence of right lower extremity DVT. No evidence of left lower extremity DVT. Parviz Taylor MD (Electronically Signed) Final Date: 18 May 2020 17:49 S
--- NOTE | 2020-05-18 08:49 | ECG_ITS ---
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 Measurements Intervals [place] Rate: 112 P: 87 UT: 137 QRS: -64 QRSD: 102 T: 89 QT: 334 QTc: 457 Interpretive Statements SINUS TACHYCARDIA LEFT ATRIAL ENLARGEMENT [-0.15mV P WAVE IN V1/V2] POSSIBLE RIGHT VENTRICULAR CONDUCTION DELAY [RSR (QR) IN V1/V2] LEFT ANTERIOR FASCICULAR BLOCK [QRS AXIS <= -45, QR IN I, RS IN II] NONSPECIFIC ST & T-WAVE ABNORMALITY Compared to ECG 05/07/2020 22:07:39 T-wave abnormality now present Left ventricular hypertrophy no longer present ST (T wave) deviation no longer present Myocardial infarct finding no longer present Electronically Signed On 05-18-2020 23:56:03 CDT by Deny Casper M.D. [id number]
--- NOTE | 2020-05-18 08:49 | XR_ITS ---
WS: [id number] XR chest 1V portable [id number] REASON FOR EXAM: dyspnea/cough FINDINGS: The chest is unchanged compared to previous examination of 05/07/2020. There is hyperexpansion of both lungs. The heart is enlarged. There are small bilateral pleural effus ions larger on the right. XR/XR chest 1V portable [id number] IMPRESSION: Cardiomegaly and small pleural effusions, unchanged.
--- NOTE | 2020-05-18 08:49 | USCV_ITS ---
Maryjo Gomez Age: 60 Gender: F : 1960 Exam Date: 05/18/2020 09:22 Ordering Phys: Dex Phillips DO Technologist: Gabbie Martinez Exam Location: [facility] [place] Indication: LEG PAIN ESPECIALLY LT THIGH Risk Factors: Smoker Previous Vascular Surgery: None per pt RIGHT LEFT BP: 101.0 / 76.00 BP: 104.0/ 67.00 0 0 Waveform Velocity (cm/s) Velocity (cm/s) Waveform Biphasic 82.7 Iliac Prox 77.6 Triphasic Biphasic Iliac Mid Triphasic 74.6 51.3 Biphasic 37.7 Iliac Distal 51.3 Triphasic Biphasic 49.4 SENIOR WEB APPLICATIONS DEVELOPER 55.0 Triphasic Biphasic 57.5 SFA Prox 48.2 Triphasic Biphasic 48.5 SFA Mid 41.5 Triphasic Biphasic 53.9 SFA Dist 35.4 Biphasic Biphasic 26.1 POP 30.2 Biphasic Biphasic 32.4 LEATHER CRAFTER 29.6 Biphasic DPA 22.5 Biphasic KAYY 0.8 0.9 FINDINGS RT LEATHER CRAFTER 90 RT DPA NO FLOW LT LEATHER CRAFTER 80 LT DPA 60 Seeing KAYY 0.9 on the right side and 0.8 on the left side CONCLUSIONS 1. Possible occlusion of the right dorsalis pedis artery. 2. Mild diffuse plaques in the iliac and femoral arteries bilaterally 3. Abnormal resting ABIs bilaterally suggestive of mild peripheral arterial disease No previous studies are available for comparison Dr Deny Casper MD [facility] (Electronically Signed) Final Date: 19 May 2020 10:05 S
[2020-05-18 09:00] LABS: Basophils % 0.8 %; Eosinophils # 0.1 10^3/uL (0.0-0.8); Eosinophils % 1.6 %; Hematocrit 39.8 % (37.0-47.0); Hemoglobin 12.6 g/dL (11.5-15.3); Mean Corpuscular HGB Conc 31.7 g/dL (30.0-36.0); Mean Corpuscular Hemoglobin 32.1 pg (28.0-34.0); Mean Corpuscular Volume 101.3 fL (81-99); Mean Platelet Volume 12.3 fL (7.4-10.4); Monocytes # 0.6 10^3/uL (0.2-0.9); Monocytes % 12.4 %; Neutrophils # 3.34 10^3/uL (1.8-7.7); Neutrophils % 64.8 %; Nucleated Red Blood Cells % 0 %; Platelet Count 173 10^3/cmm (130-400); Red Blood Count 3.93 10^6/uL (4.1-5.3); Red Cell Distribution Width 16.8 % (12.1-15.1); White Blood Count 5.2 10^3/uL (4.0-10.0)
[2020-05-18 09:22] LABS: Alanine Aminotransferase 20 U/L (0-33); Albumin Level 3.8 g/dL (3.5-5.2); Alkaline Phosphatase 91 IU/L (35-105); Anion Gap 11.9 (5-19); Aspartate Amino Transferase 25 U/L (0-32); Blood Urea Nitrogen 16 mg/dL (8-23); Calcium 8.9 mg/dL (8.5-10.5); Carbon Dioxide 26 mmol/L (22-29); Chloride 104 mmol/L (98-107); Globulin 2.2 g/dL (1.3-4.6); Glomerular Filtration Rate 101.6 mL/min (90-130); Glucose 109 mg/dL (65-115); Osmolality Calculated 288 mOsm/kg (285-295); Potassium 3.9 mmol/L (3.5-5.1); Sodium 138 mmol/L (136-145); Total Bilirubin 0.3 mg/dL (0.15-1.2); Troponin(5th) Baseline 42 ng/L (0-10)
[2020-05-18 09:30] VITALS: BP 101/76; PULSE 108; RESP 18; O2SAT 98
--- NOTE | 2020-05-18 09:31 | PC.NURSE ---
Ultrasound at bedside at this time.
--- NOTE | 2020-05-18 09:56 | US_ITS ---
WS: [id number] ABDOMINAL ULTRASOUND LIMITED REASON FOR VISIT: bloating TECHNIQUE: Limited grayscale evaluation of the abdomen for ascites. FINDINGS: Moderate right pleural effusion. Very small amount of ascites in both lower quadrants. US/US abdomen limited [id number] IMPRESSION: Very small volume of ascites. Moderate right pleural effusion.
[2020-05-18 10:00] VITALS: BP 104/67; PULSE 107; RESP 18; O2SAT 100
--- NOTE | 2020-05-18 10:49 | ECG_ITS ---
[facility] Test Date: 2020-05-18 Pat Name: Maryjo Gomez Department: Room: Gender: Female Herbologist: : 1960 Requested By: Dex Forrest Order Number: [id number] Serina MD: Deny Casper M.D. Measurements Intervals [place] Rate: 103 P: 79 NE: 146 QRS: -66 QRSD: 104 T: 91 QT: 349 QTc: 459 Interpretive Statements SINUS TACHYCARDIA POSSIBLE LEFT ATRIAL ENLARGEMENT [-0.1mV P WAVE IN V1/V2] INCOMPLETE RIGHT BUNDLE BRANCH BLOCK [90+ ms QRS DURATION, TERMINAL R IN V1/V2, 40+ ms S IN I/aVL/V4/V5/V6] LEFT ANTERIOR FASCICULAR BLOCK [QRS AXIS <= -45, QR IN I, RS IN II] NONSPECIFIC T-WAVE ABNORMALITY Compared to ECG 05/07/2020 22:07:39 Incomplete right bundle-branch block now present T-wave abnormality now present Left ventricular hypertrophy no longer present ST (T wave) deviation no longer present Myocardial infarct finding no longer present Electronically Signed On 05-19-2020 0:07:57 CDT by Deny Casper M.D. [id number]
[2020-05-18 10:51] LABS: Troponin 5 2HR 37.02 ng/L (0-10)
[2020-05-18 10:56] VITALS: BP 97/68; PULSE 107; RESP 17; O2SAT 96
[2020-05-18 10:58] LABS: Troponin 5 2HR Delta -4.98 ABS# (0-10)
--- NOTE | 2020-05-18 12:24 | DCPLANNER ---
prep manager was asked to see if patients appointment with Dr. Casper, [facility], could be moved up any sooner. prep manager called [facility], spoke with Elizabeth, was told that patients appointment could not be moved up any sooner at this time. prep manager informed ER physician and patient that appointment could not be moved up at this time.
== END 2020-05-18 12:36 | disposition home or self-care (01) ==
PROVIDERS: Emergency Provider Family Medicine; PCP Family Medicine
DX: I11.0 Hypertensive heart disease with heart failure (principal); I50.40 Unspecified combined systolic (congestive) and diastolic (congestive) heart failure; J44.9 Chronic obstructive pulmonary disease, unspecified; K81.9 Cholecystitis, unspecified; I27.20 Pulmonary hypertension, unspecified; F17.210 Nicotine dependence, cigarettes, uncomplicated
CPT/HCPCS: 36415; 71045; 76705; 80053; 84484; 85025; 93005; 93925; 93970; 99284

== ENCOUNTER 2020-05-22 01:35 | Emergency (ER) | payer MEDICAID, SELFPAY ==
[2020-05-22 01:41] VITALS: BP 116/80; PULSE 129; RESP 20; TEMP 36.7; O2SAT 97; BMI 16.5
--- NOTE | 2020-05-22 01:53 | W.ED.FEMALGU ---
HPI - Female Genitourinary General: Chief complaint: Urogenital-Female Stated complaint: swollen genitals Time Seen by Provider: 05/22/20 01:45 History of Present Illness: HPI Narrative: Patient is a 60-year-old female comes to the ED with dysuria and swollen runny nose. Patient says symptoms started approximately 2 days ago. She also reports having some lower pelvic pain as well. She also says that she is been having some genital itching as well. She rates her pain currently a 7 out of 10. Patient did say that for the past 3 or 4 days she has had some significant lower extremity edema. She was seen here in the ED on May 18 for left lower extremity edema. She took a dose of her furosemide on May 19 and said that some of her lower leg edema has improved since. Denies any urinary retention, vaginal bleeding, vaginal discharge, or hematuria. Denies any fever, chills, chest pain, shortness of breath, nausea/vomiting or bowel symptoms. Associated symptoms: Deny abdominal pain, headache(s), nausea or vaginal bleeding Review of Systems Const: Denies: fever(s), chills or fatigue Eyes: Denies: change in vision or eye discomfort ENMT: Denies: throat pain, odynophagia, nasal discharge or nasal congestion Card: Denies: chest pain, palpitations, edema, swelling of feet/ankles, dyspnea on exertion or orthopnea Resp: Denies: dyspnea, productive cough or non-productive cough GI: Denies: abdominal pain, nausea, vomiting, diarrhea, constipation or hematochezia : Reports: dysuria, genital pruritis, pelvic pain and other (Genital swelling); Denies: flank pain or hematuria Musc: Denies: neck pain, back pain or extremity swelling Skin/Breast: Denies: rash or new lesions Neuro: Denies: headache(s), numbness in extremities or weakness in extremities PFS ED PFSH: Medical History Chronic constipation COPD (chronic obstructive pulmonary disease) GERD (gastroesophageal reflux disease) Insomnia Seizure disorder Surgical History H/O section H/O esophagogastroduodenoscopy Status post colonoscopy (03/31/20) Family History Other CAD (coronary artery disease) Cancer Diabetes Social History Smoking and tobacco status: current every day smoker cigarettes Packs smoked per day: 0.5 Alcohol intake: never Lives independently: Yes Housing: House Physical Exam Const: COMMON NORMALS: no acute distress, patient oriented x3 and alert GENERAL APPEARANCE: cooperative and comfortable HENMT: COMMON NORMALS: normocephalic HEAD & SCALP: normocephalic MOUTH: Normal oral and palatal mucosa present THROAT: posterior oropharynx normal and uvula midline Neck/C-Spine: COMMON NORMALS: supple GENERAL: Yes normal visual inspection Resp: COMMON NORMALS: normal respiratory effort, No retractions, No use of accessory muscles and clear to auscultation bilaterally AUSCULTATION: clear to auscultation bilaterally Cardio: COMMON NORMALS: regular rate, regular rhythm, S1 normal heart sound present, S2 normal heart sound present, No gallops present (Cardio), No clicks present (Cardio), No murmurs present (Cardio) and Peripheral pulses 2+ throughout RATE: regular rate RHYTHM: regular rhythm HEART SOUNDS: S1 normal heart sound present and S2 normal heart sound present PERIPHERAL PULSES: Peripheral pulses 2+ throughout GI: COMMON NORMALS: Normal to inspection, nondistended, normoactive bowel sounds present, Soft to palpation, non-tender and no masses PALPATION: Yes Soft to palpation : COMMON NORMALS: Yes no CVA tenderness BLADDER/KIDNEY EXAM: Yes no CVA tenderness EXTERNAL FEMALE EXAM: No erythema, Yes external swelling (Bilateral labial swelling), No lesion and No urethral discharge SPECULUM EXAM - VAGINA: No lesion, No vaginal bleeding, No mass, Yes swelling (Bilateral labial swelling) and No Vaginal discharge present OB/EXTERNAL & SPECULUM: No vaginal bleeding Back/Pelvis: COMMON NORMALS: no CVA tenderness Extremity: GENERAL: Yes normal exam except as noted and Yes edema (Lower extremity?1+ pitting edema bilaterally.) Neuro: COMMON NORMALS: patient oriented x3 and moves all extremities SENSORIUM/ORIENTATION: Yes alert Skin: GENERAL SKIN EXAM: dry skin Course ED course: The nurse performed a bladder scan and says that she was getting around 150-200 cc on the scan. Patient was able to fully urinate to give us a UA sample, so no signs of urinary retention. Vital Signs: Vital signs: Vital Signs Temperature 98.0 F 05/22/20 01:41 Pulse Rate 129 H 05/22/20 03:08 Respiratory Rate 22 H 05/22/20 03:08 Blood Pressure 116/86 05/22/20 03:08 Pulse Oximetry 99 05/22/20 03:08 MDM - Female MDM Narrative: Medical decision making narrative: Patient is a 60-year-old female comes to the ED with genital swelling and dysuria. Patient says symptoms started approximately 2 days ago. Denies any urinary retention, vaginal bleeding or discharge. She reports having more significant lower extremity edema couple days ago but then took furosemide on May 19 and her lower extremity edema improved. She does report having some genital itching. Vital stable. Exam showed some mild labial swelling but no erythema or discharge seen. EKG showed sinus tachycardia with no ST segment elevation or depression seen. EKG was compared to previous EKG done on May 18, 2020 and there were no acute changes. Bladder scan performed and patient had 150 to 200 cc. Patient's UA showed no signs of any UTI. MARGARITA wet prep showed no yeast, BV or Trichomonas. Patient's genital symptoms likely due to edema and continued use of her furosemide should resolve the symptoms. Patient diagnosed with bilateral lower extremity edema and labial swelling. She was told to follow-up with her PCP in 7 to 10 days for reevaluation. Return to ED precautions given. Patient understood and agreed with plan. Lab Data: Labs: Lab Results 05/22/20 Range/Units 03:05 Urine Color Yellow (Yellow) Urine Appearance Clear (CLEAR) Urine pH 5 (5-7) Ur Specific Gravit y 1.025 (1.005-1.030) Urine Protein 1+ H (Negative) Urine Glucose (UA) Norm (Normal) Urine Ketones 1+ H (Negative) Urine Blood Neg (Negative) Urine Nitrate Negative (Negative) Urine Bilirubin 1+ H (Negative) Urine Urobilinogen Norm (Negative) mg/dL Ur Leukocyte [place] ase Negative (Negative) Urine RBC None (0-2) /hpf Urine WBC 0-4 H (0-5) /hpf Ur Squamous Epith Cells 5-10 H (0-5) /hpf Amorphous Sediment Not Reportable Urine Bacteria Trace (NONE) /hpf Urine Mucus 1+ /hpf EKG Data: EKG 1: Attestation: I personally reviewed and interpreted this EKG as follows: EKG Data: 05/22/20 Interpretation: Sinus tachycardia, 118 bpm, no ST segment elevation or depression seen. EKG compared to May 18, 2020 EKG and no acute changes. Discharge Plan Discharge Patient Disposition: Home Clinical Impression: Labial swelling, Bilateral edema of lower extremity Condition: Stable Prescriptions: No Action levetiracetam 500 mg tablet extended release 24 hr 2,000 mg PO Q24H Qty: 120 RF: 11 furosemide [Lasix] 20 mg tablet 20 mg PO DAILY PRN (Reason: edema) Qty: 7 RF: 0 albuterol sulfate 90 mcg/actuation HFA aerosol inhaler 2 inh INHALATION Q4H PRN (Reason: shortness of breath or wheezing) Qty: 6.7 RF: 2 Spiriva with HandiHaler 18 mcg capsule, w/inhalation device 1 cap INHALATION DAILY@0900 Qty: 30 RF: 2 albuterol sulfate 2.5 mg /3 mL (0.083 %) solution for nebulization 2.5 mg INHALATION QID PRN (Reason: shortness of breath or wheezing) Qty: 180 RF: 3 cetirizine 10 mg capsule 10 mg PO DAILY@0900 Qty: 90 RF: 1 guaifenesin 600 mg tablet extended release 12hr 600 mg PO BID PRN (Reason: Congestion) Qty: 60 RF: 2 fluticasone propion-salmeterol [Advair Diskus] 250-50 mcg/dose blister with device 1 inh INHALATION BID@899,1999 RF: 0 trazodone 50 mg tablet 50 mg PO DAILY@2100 RF: 0 pantoprazole [Protonix] 40 mg tablet,delayed release (DR/EC) 40 mg PO BID@899,1999 RF: 0 cholecalciferol (vitamin D3) 50 mcg (2,000 unit) capsule 50 mcg PO DAILY@0900 RF: 0 fluticasone propionate [Flonase Allergy Relief] 50 mcg/actuation spray,suspension 2 spray INTRANASAL DAILY@0900 Qty: 16 RF: 5 diclofenac sodium [Voltaren Arthritis Pain] 1 % gel 2 g topical QID Qty: 100 RF: 0 polyethylene glycol 3350 [Miralax] 17 gram powder in packet 17 g PO DAILY PRN (Reason: Constipation) RF: 0 sucralfate [Carafate] 1 gram tablet 1 g PO Q6H Qty: 60 RF: 0 ondansetron 4 mg tablet,disintegrating 4 mg PO Q6H PRN (Reason: nausea and vomiting) Qty: 14 RF: 0 lactulose 10 gram packet 10 g PO DAILY PRN (Reason: constipation) Qty: 15 RF: 0 Discharge Orders: Discharge ED (Routine); Ordered 05/22/20 Ordered By: Oskar Ba Referrals: Emma Novoa DO [Primary Care Provider] - Discharge Diet: Regular Discharge Activity: Resume usual activity Patient Instructions: Leg Edema (ED) Activity Restrictions/Additional Instructions: Follow-up with medical provider as directed in 7 to 10 days. Continue taking home medications as prescribed. Take your furosemide as needed for any fluid retention/edema in the lower extremities. Return to the ER or your medical provider if condition worsens. Please read and understand discharge instructions. If any questions, please ask. Coding Level of Care Code ED Congressional Aide for [place] Fwd Exam Comprehensive
--- NOTE | 2020-05-22 02:00 | ECG_ITS ---
[facility] Test Date: 2020-05-22 Pat Name: Maryjo Gomez Department: Room: Gender: Female Lost And Found Clerk: : 1960 Requested By: Oskar Ba Order Number: [id number] Serina MD: eDny Casper M.D. Measurements Intervals [place] Rate: 118 P: 76 HI: 145 QRS: -60 QRSD: 103 T: 98 QT: 304 QTc: 427 Interpretive Statements SINUS TACHYCARDIA LEFT ANTERIOR FASCICULAR BLOCK [QRS AXIS <= -45, QR IN I, RS IN II] LEFT VENTRICULAR HYPERTROPHY AND ST-T CHANGE [VOLTAGE CRITERIA PLUS ST/T ABNORMALITY] POSSIBLE ANTERIOR MYOCARDIAL INFARCTION , OF INDETERMINATE AGE [30 ms Q WAVE IN V3/V4, OR R < 0.2 mV IN V4] Compared to ECG 05/18/2020 11:12:47 Left ventricular hypertrophy now present ST (T wave) deviation now present Myocardial infarct finding now present Incomplete right bundle-branch block no longer present T-wave abnormality no longer present Electronically Signed On 05-22-2020 23:11:26 CDT by Deny Casper M.D. [id number] [email or web address]
[2020-05-22 03:08] VITALS: BP 116/86; PULSE 129; RESP 22; O2SAT 99
[2020-05-22 03:13] LABS: Bilirubin Urine 1+ (Negative); Blood Urine Neg (Negative); Glucose Urine UA Norm (Normal); Ketones Urine 1+ (Negative); Leukocyte Esterase Urine Negative (Negative); Nitrate Urine Negative (Negative); Protein Urine 1+ (Negative); Specific Gravity, Urine 1.025 (1.005-1.030); Urine Appearance Clear (CLEAR); Urine Color Yellow (Yellow); Urobilinogen Urine Norm (Negative); pH Urine 5 (5-7)
[2020-05-22 03:16] LABS: Bacteria Urine TRACE /hpf; WBC Urine 0-4 /hpf (0-5)
[2020-05-22 03:17] LABS: Add Urine Culture? No; Mucus Urine 1+ /hpf
[2020-05-22 03:36] VITALS: BP 115/87; PULSE 121; RESP 18; O2SAT 100
== END 2020-05-22 03:44 | disposition home or self-care (01) ==
PROVIDERS: Emergency Provider Physician Assistant; PCP Family Medicine
DX: R60.0 Localized edema (principal); J44.9 Chronic obstructive pulmonary disease, unspecified; F17.210 Nicotine dependence, cigarettes, uncomplicated
CPT/HCPCS: 51798; 81001; 87210; 93005; 99283

== ENCOUNTER → 2020-05-26 11:07 | Outpatient (BNVA) | payer MEDICAID, SELFPAY | PROVIDERS: PCP Family Medicine; Visit Provider Internal Medicine Cardiovascular Disease | DX: R06.02 Shortness of breath (principal); I50.33 Acute on chronic diastolic (congestive) heart failure; N18.9 Chronic kidney disease, unspecified; R60.0 Localized edema; I27.20 Pulmonary hypertension, unspecified | CPT/HCPCS: 80048; 83880; 84443 ==

== ENCOUNTER 2020-05-27 19:32 | Inpatient (IN) | payer MEDICAID, SELFPAY ==
--- NOTE | 2020-05-27 19:34 | XR_ITS ---
WS: [id number] Exam: XR chest 1V portable [id number] Date/Time of Exam: 05/27/2020 9:05 PM Reason For Exam: sob Comparison 05/18/2020. Right basal pleural effusion has increased slightly since previous exam. The heart remains enlarged b ut unchanged in size. The lungs are fully expanded. Pulmonary parenchymal scarring in the upper lobe of the right lung stable in appearance. Normal mediastinal contours. Regional bony structures are unr emarkable. XR/XR chest 1V portable [id number] IMPRESSION: 1. Cardiac enlargement with right basal pleural effusion. Effusion has increase d slightly since the previous study. Some degree of chronic congestive heart fa ilure is suggested.
[2020-05-27 20:30] VITALS: BP 91/60; PULSE 110; RESP 20; TEMP 36.5; O2SAT 96; BMI 15.9
--- NOTE | 2020-05-27 21:35 | ECG_ITS ---
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 Measurements Intervals [place] Rate: 105 P: 82 IA: 186 QRS: -58 QRSD: 114 T: 93 QT: 369 QTc: 488 Interpretive Statements SINUS TACHYCARDIA LEFT ANTERIOR FASCICULAR BLOCK [QRS AXIS <= -45, QR IN I, RS IN II] LEFT VENTRICULAR HYPERTROPHY AND ST-T CHANGE [VOLTAGE CRITERIA PLUS ST/T ABNORMALITY] ANTERIOR MYOCARDIAL INFARCTION , POSSIBLY ACUTE [40+ ms Q WAVE AND/OR ST/T ABNORMALITY IN V3/V4] ACUTE CT Compared to ECG 05/22/2020 02:47:59 No significant changes Electronically Signed On 05-28-2020 20:41:17 CDT by Deny Casper M.D. [id number]
[2020-05-27 22:48] LABS: Basophils % 0.6 %; Eosinophils % 0.6 %; Hematocrit 45.4 % (37.0-47.0); Hemoglobin 14.4 g/dL (11.5-15.3); Lymphocytes # 1.1 10^3/uL (0.8-4.8); Lymphocytes % 18.5 %; Mean Corpuscular HGB Conc 31.7 g/dL (30.0-36.0); Mean Corpuscular Hemoglobin 32.1 pg (28.0-34.0); Mean Corpuscular Volume 101.1 fL (81-99); Mean Platelet Volume 11.2 fL (7.4-10.4); Monocytes # 0.7 10^3/uL (0.2-0.9); Monocytes % 10.7 %; Neutrophils # 4.26 10^3/uL (1.8-7.7); Neutrophils % 69.3 %; Nucleated Red Blood Cells % 0 %; Platelet Count 155 10^3/cmm (130-400); Red Blood Count 4.49 10^6/uL (4.1-5.3); Red Cell Distribution Width 16.7 % (12.1-15.1); White Blood Count 6.2 10^3/uL (4.0-10.0)
[2020-05-27 23:03] LABS: Troponin(5th) Baseline 42 ng/L (0-10)
[2020-05-27 23:11] LABS: Alanine Aminotransferase 19 U/L (0-33); Albumin Level 4.1 g/dL (3.5-5.2); Alkaline Phosphatase 103 IU/L (35-105); Anion Gap 11.8 (5-19); Aspartate Amino Transferase 23 U/L (0-32); Blood Urea Nitrogen 13 mg/dL (8-23); Calcium 8.8 mg/dL (8.5-10.5); Carbon Dioxide 32 mmol/L (22-29); Chloride 99 mmol/L (98-107); Globulin 2.9 g/dL (1.3-4.6); Glomerular Filtration Rate 101.6 mL/min (90-130); Glucose 106 mg/dL (65-115); NT Pro B Type Natriuretic Pept 8205 pg/mL (0-125); Osmolality Calculated 291 mOsm/kg (285-295); Sodium 140 mmol/L (136-145); Total Bilirubin 0.6 mg/dL (0.15-1.2)
[2020-05-27 23:22] LABS: Potassium 2.8 mmol/L (3.5-5.1)
--- NOTE | 2020-05-27 23:57 | ED_ITS ---
HPI - General Adult General: Chief complaint: General Medical Stated complaint: DIFF BREATHING, ACHING ALL OVER Time Seen by Provider: 05/27/20 23:14 Source: patient Mode of arrival: ambulatory Limitations: no limitations History of Present Illness: HPI narrative: 60-year-old female patient presents to the emergency department with complaints of chest pain that started 2 hours ago. She reports increased edema to her legs abdomen despite use of Lasix. She reports increased shortness of breath x2 days, states has taken Mucinex for cough. She has history of COPD and congestive heart failure, recently seen by meat seafood associate, Dr. Casper yesterday with change of blood pressure medications. She is also complaining of difficulty with urination and swelling to the lower abdomen. She has history of anasarca. She reports feeling really bad because her legs and her body is swollen. She denies fever chills. She denies nausea vomiting. She reports edema to the bilateral lower extremities has increased and cannot wear shoes. She reports was prescribed nitroglycerin yesterday, has not taken nitro for chest pain. She states has felt lightheaded and dizzy with weakness. Her blood pressure is low upon exam, 91/60 with pulse rate of 110. Location: chest, abdomen and lower extremity Severity: moderate Severity scale (1-10): 3 Associated symptoms: Reports chest pain, cough, dyspnea, malaise, palpitations and weakness; Deny diaphoresis, headache(s), nausea, rash, syncope or vomiting Treatments prior to arrival: none Review of Systems General: Reports: 10 or more systems reviewed and unremarkable except in HPI and below Const: Reports: fatigue and malaise; Denies: fever(s), chills or diaphoresis Eyes: Denies: blurry vision or eye redness ENMT: Denies: throat pain, dental pain or disequilibrium Card: Reports: chest pain, palpitations, swelling of feet/ankles, lightheadedness, dyspnea on exertion, orthopnea and leg pain with exertion; Denies: syncope or pre-syncope Resp: Reports: dyspnea and non-productive cough; Denies: chest congestion GI: Denies: abdominal pain, nausea, vomiting, dysphagia or constipation : Reports: difficulty voiding, urinary hesitancy and oliguria; Denies: dysuria or urinary urgency Musc: Denies: back pain, joint pain or joint warmth Skin/Breast: Denies: rash, pruritus, erythema or changes in skin color Neuro: Denies: headache(s), weakness in extremities or behavioral changes Psych: Denies: anxiety, depression or change in appetite Emmanuel/Lymph: Denies: easy bruising PFSH ED PFSH: Medical History Chronic constipation COPD (chronic obstructive pulmonary disease) GERD (gastroesophageal reflux disease) Insomnia Seizure disorder Surgical History H/O section H/O esophagogastroduodenoscopy Status post colonoscopy (03/31/20) Family History Other CAD (coronary artery disease) Cancer Diabetes Social History Smoking and tobacco status: current every day smoker cigarettes Packs smoked per day: 0.5 Years cigarettes smoked: 48 [ Other cigarette details: Hx of 4 PPD x 46 Years ] Quit status (tobacco): considering quitting Second hand smoke exposure: Yes Smoking risk assessment/counseling performed?: Yes Alcohol intake: never Counseling given: No Counseling given: No Lives independently: Yes Household members: friend(s) Housing: House Marital status: Single Current occupational status: disabled History of recent travel: No Current gender identity: Female Physical Exam Const: COMMON NORMALS: no acute distress, patient oriented x3 and alert GENERAL APPEARANCE: cooperative, well kempt and frail appearing NUTRITIONAL APPEARANCE: thin ORIENTATION/CONSCIOUSNESS: Yes awake, Yes oriented to person, Yes oriented to place and Yes oriented to time HENMT: COMMON NORMALS: normocephalic, atraumatic, TM's normal bilaterally, Normal external nose present and moist oral mucous membranes HEAD & SCALP: normal to inspection, normocephalic and atraumatic NOSE: Normal external nose present TYMPANIC MEMBRANE: TM's normal bilaterally Eye: COMMON NORMALS: Equal, round and reactive pupils present and EOMs intact bilaterally GENERAL EYE: appearance normal, both eyes and all related structures PUPIL: Yes Equal, round and reactive pupils present Neck/C-Spine: COMMON NORMALS: full ROM and no lymphadenopathy GENERAL: Yes normal visual inspection and Yes trachea midline CERVICAL SPINE: Yes cervical ROM normal Lymph: LYMPHATIC: no lymphadenopathy noted Chest: COMMONS NORMALS: normal inspection of the chest and normal palpation of entire chest wall Resp: COMMON NORMALS: normal respiratory effort, No retractions, No use of accessory muscles and clear to auscultation bilaterally EFFORT & INSPECTION: Yes able to speak in complete sentences AUSCULTATION: clear to auscultation bilaterally, crackles Laterality: bilateral and diminished lung sounds bilateral in the lower lung pickering Cardio: COMMON NORMALS: regular rate, regular rhythm, S1 normal heart sound present, S2 normal heart sound present and Peripheral pulses 2+ throughout RA TE: regular rate RHYTHM: regular rhythm HEART SOUNDS: S1 normal heart sound present and S2 normal heart sound present PERIPHERAL PULSES: Peripheral pulses 2+ throughout GI: COMMON NORMALS: Soft to palpation INSPECTION: Yes normal to inspection, No abdominal wall ecchymosis, No central obesity and No visible herniation AUSCULTATION: Yes normoactive bowel sounds PALPATION: Yes Soft to palpation and Yes Tenderness to palpation present (GI) : COMMON NORMALS: Yes no CVA tenderness BLADDER/KIDNEY EXAM: Yes no CVA tenderness and Yes other (fullness over the bladder) Back/Pelvis: COMMON NORMALS: no CVA tenderness and thoracic and lumbar spine normal to inspection Extremity: COMMON NORMALS: normal to inspection, full ROM, capillary refill n ormal and no clubbing, cyanosis or edema GENERAL: Yes edema (1 + BLE ) Neuro: COMMON NORMALS: patient oriented x3 and no focal motor deficits SENSORIUM/ORIENTATION: Yes alert, Yes oriented to person, Yes oriented to place and Yes oriented to time Psych: COMMON NORMALS: mental status grossly normal, Normal thought process present and cooperative APPEARANCE: Yes well kempt ACTIVITY/MOTOR BEHAVIOR: Yes appropriate eye contact THOUGHT PROCESS: Normal thought process present Skin: COMMON NORMALS: no rashes or lesions noted and turgor normal GENERAL SKIN EXAM: no rashes or lesions noted and turgor normal Course ED course: 60-year-old female patient presents to the emergency department with complaints of chest pain/upper abdominal pain and shortness of breath with bilateral lower extremity edema. She is also complaining of dizziness and lightheadedness at home. Blood pressure was noted to be slightly low, BNP elevated 8205, ejection fraction noted to be 5 to 10% on echocardiogram completed April/2020. Global hypokinesis also noted. Her chest pain improved during her stay in the ED. She remains complaining of leg pain to the bilateral lower extremities. Patient will be admitted due to congestive heart f ailure. Case discussed with Dr. Santizo, ED physician. Dr Fermin evaluated the patient here in the ED for hospital admission. Patient request admission as she does not feel comfortable going home. She will be admitted for congestive heart failure. Consultations: Consultation #1: Dr Fermin, hospitalist, evaluated patient here i n the ED to evaluate for hospital admission. Patient requests admission. History of present illness, history including ejection fraction of 5 to 10% as well as serology findings/results discussed. Time: 02:35 Vital Signs: Vital signs: Vital Signs Temperature 97.7 F 05/27/20 20:30 Pulse Rate 109 H 05/28/20 02:00 Respiratory Rate 20 H 05/28/20 02:00 Blood Pressure 94/62 05/28/20 02:00 Pulse Oximetry 96 05/28/20 02:00 MDM - General Adult Lab Data: Labs: Lab Results 05/27/20 05/27/20 05/27/20 Range/Units 22:38 22:38 22:38 WBC 6.2 (4.0-10.0) 10^3/ uL RBC 4.49 (4.1-5.3) 10^6/u L Hgb 14.4 (11.5-15.3) g/dL Hct 45.4 (37.0-47.0) % MCV 101.1 H (81-99) fL MCH 32.1 (28.0-34.0) pg MCHC 31.7 (30.0-36.0) g/dL RDW 16.7 H (12.1-15.1) % Plt Count 155 (130-400) 10^3/c mm MPV 11.2 H (7.4-10.4) fL Neut % (Auto) 69.3 % Lymph % (Auto) 18.5 % [place] % (Auto) 10.7 % Eos % (Auto) 0.6 % Baso % (Auto) 0.6 % Neut # (Auto) 4.26 (1.8-7.7) 10^3/u L Lymph # (Auto) 1.1 (0.8-4.8) 10^3/u L [place] # (Auto) 0.7 (0.2-0.9) 10^3/u L Eos # (Auto) 0.0 (0.0-0.8) 10^3/u L Baso # (Auto) 0.0 (0.0-0.1) 10^3/u L Nucleated RBC % (a uto) 0 % Nucleated RBCs # 0.0 /100WBC Sodium 140 (136-145) mmol/L Potassium 2.8 L* (3.5-5.1) mmol/L Chloride 99 (98-107) mmol/L Carbon Dioxide 32 H (22-29) mmol/L Anion Gap 11.8 (5-19) BUN 13 (8-23) mg/dL Creatinine 0.6 (0.5-0.9) mg/dL GFR Calculation 101.6 (90-130) mL/min Glucose 106 (65-115) mg/dL Calculated Osmolal ity 291 (285-295) mOsm/k g Calcium 8.8 (8.5-10.5) mg/dL Magnesium (1.7-2.3) mg/dL Total Bilirubin 0.6 (0.15-1.2) mg/dL AST 23 (0-32) U/L ALT 19 (0-33) U/L Alkaline Phosphata se 103 (35-105) IU/L Troponin T Baselin e 42 H (0-10) ng/L Troponin T [address] [place] (0-10) ng/L Delta Troponin T (0-10) ABS# NT-Pro-B Natriuret Pep 8205 H (0-125) pg/mL Total Protein 7.0 (6.6-8.7) g/dL Albumin 4.1 (3.5-5.2) g/dL Globulin 2.9 (1.3-4.6) g/dL Urine Color (Yellow) Urine Appearance (CLEAR) Urine pH (5-7) Ur Specific Gravit y (1.005-1.030) Urine Protein (Negative) Urine Glucose (UA) (Normal) Urine Ketones (Negative) Urine Blood (Negative) Urine Nitrate (Negative) Urine Bilirubin (Negative) Urine Urobilinogen (Negative) mg/dL Ur Leukocyte [place] ase (Negative) 05/28/20 05/28/20 05/28/20 Range/Units 00:01 00:37 02:00 WBC (4.0-10.0) 10^3/ uL RBC (4.1-5.3) 10^6/u L Hgb (11.5-15.3) g/dL Hct (37.0-47.0) % MCV (81-99) fL MCH (28.0-34.0) pg MCHC (30.0-36.0) g/dL RDW (12.1-15.1) % Plt Count (130-400) 10^3/c mm MPV (7.4-10.4) fL Neut % (Auto) % Lymph % (Auto) % [place] % (Auto) % Eos % (Auto) % Baso % (Auto) % Neut # (Auto) (1.8-7.7) 10^3/u L Lymph # (Auto) (0.8-4.8) 10^3/u L [place] # (Auto) (0.2-0.9) 10^3/u L Eos # (Auto) (0.0-0.8) 10^3/u L Baso # (Auto) (0.0-0.1) 10^3/u L Nucleated RBC % (a uto) % Nucleated RBCs # /100WBC Sodium (136-145) mmol/L Potassium (3.5-5.1) mmol/L Chloride (98-107) mmol/L Carbon Dioxide (22-29) mmol/L Anion Gap (5-19) BUN (8-23) mg/dL Creatinine (0.5-0.9) mg/dL GFR Calculation (90-130) mL/min Glucose (65-115) mg/dL Calculated Osmolal ity (285-295) mOsm/k g Calcium (8.5-10.5) mg/dL Magnesium 2.0 (1.7-2.3) mg/dL Total Bilirubin (0.15-1.2) mg/dL AST (0-32) U/L ALT (0-33) U/L Alkaline Phosphata se (35-105) IU/L Troponin T Baselin e (0-10) ng/L Troponin T [address] [place] 46.70 H (0-10) ng/L Delta Troponin T 4.70 (0-10) ABS# NT-Pro-B Natriuret Pep (0-125) pg/mL Total Protein (6.6-8.7) g/dL Albumin (3.5-5.2) g/dL Globulin (1.3-4.6) g/dL Urine Color Yellow (Yellow) Urine Appearance Clear (CLEAR) Urine pH 7 (5-7) Ur Specific Gravit y 1.015 (1.005-1.030) Urine Protein Neg (Negative) Urine Glucose (UA) Norm (Normal) Urine Ketones Negative (Negative) Urine Blood Neg (Negative) Urine Nitrate Negative (Negative) Urine Bilirubin 1+ H (Negative) Urine Urobilinogen 1 H (Negative) mg/dL Ur Leukocyte [place] ase Negative (Negative) Discharge Plan Discharge Patient Disposition: Admitted As Inpatient Clinical Impression: Systolic and diastolic CHF w/reduced LV function, NYHA class 4 Condition: Stable Coding Level of Care Code ED Point Of Care Technician for [place] Fwadwoa Exam Comprehensive
[2020-05-28] VITALS (41 sets, daily range): BP systolic 73–95; BP diastolic 50–67; PULSE 20–115; RESP 13–21; TEMP 36.1–37.2; O2SAT 92–100; BMI 15.3
[2020-05-28] MEDS: potassium chloride ER 20 mEq Tablet 40 MEQ PO (00:14)
--- NOTE | 2020-05-28 01:35 | ECG_ITS ---
[facility] Test Date: 2020-05-28 Pat Name: Maryjo Gomez Department: Room: 111 Gender: Female Compliance Intern: : 1960 Requested By: Jw Shipman Order Number: [id number] Serina MD: Deny Casper M.D. Measurements Intervals [place] Rate: 102 P: 78 VT: 141 QRS: -58 QRSD: 113 T: 97 QT: 358 QTc: 468 Interpretive Statements SINUS TACHYCARDIA MINIMAL VOLTAGE CRITERIA FOR LVH, CONSIDER NORMAL VARIANT [MEETS CRITERIA IN ONE OF: R(aVL), S(V1), R(V5), R(V5/V6)+S(V1)] POSSIBLE ANTERIOR MYOCARDIAL INFARCTION , OF INDETERMINATE AGE [30 ms Q WAVE IN V3/V4, OR R < 0.2 mV IN V4] INFERIOR MYOCARDIAL INFARCTION , OF INDETERMINATE AGE [40+ ms Q WAVE AND/OR ST/T ABNORMALITY IN II/aVF] Compared to ECG 05/22/2020 02:47:59 Left anterior fascicular block no longer present ST (T wave) deviation no longer present Myocardial infarct finding still present Electronically Signed On 05-28-2020 20:42:34 CDT by Deny Casper M.D. [id number]
[2020-05-28 02:34] LABS: Add Urine Microscopic? NO
[2020-05-28 02:40] LABS: Bilirubin Urine 1+ (Negative); Blood Urine Neg (Negative); Glucose Urine UA Norm (Normal); Ketones Urine Negative (Negative); Leukocyte Esterase Urine Negative (Negative); Nitrate Urine Negative (Negative); Protein Urine Neg (Negative); Specific Gravity, Urine 1.015 (1.005-1.030); Urine Appearance Clear (CLEAR); Urine Color Yellow (Yellow); Urobilinogen Urine 1 mg/dL (Negative); pH Urine 7 (5-7)
[2020-05-28] MEDS: acetaminophen 325 mg Tablet 650 MG PO ×2 (02:59→19:43)
--- NOTE | 2020-05-28 04:16 | P.HP_ITS ---
Providers/Chief Complaint Admitting Physician: Matthew Fermin Primary Care Provider: Emma Novoa DO Chief Complaint: DIFF BREATHING, ACHING ALL OVER History of Present Illness 59 year old female with history of tobacco abuse oxygen dependent COPD on 2L via NC, GERD, fatty infiltration of liver, seizure disorder, pulmonary hypertension, chronic systolic heart failure with last known ER of 5-10% and recurrent abdominal pain due to chronic cholecystitis who presented today with chief complaint of mid-epigastric pain. This was associated with mild respiratory distress, lightheadedness and dizziness. Patient was seen by her verification rep Dr. Casper on 05/26 during which time she had similar complaints. Her medication regimen was being optimized with plan for a cardiac cathet erization to be scheduled for early June. She was continued on diuretics. After returning home she stated her lower extremity edema had also worsened causing soreness in bilateral lower extremities. Upon arrival to ER her laboratory work up showed a WBC of 6.2, hemoglobin of 14.4, hematocrit of 45.4, and platelet count of 155. Sodium of 140, potassium of 2.8, chloride of 99, bicarb of 32, BUN of 13 and a creatinine of 0.6. Troponin of 42->46.70 ( delta of 4.70) and a proBNP of 8205. At the time of my eval she stated she felt better however did not feel comfortable going home. Remained at baseline 02. She was given KCL 40 MEQ iv x 1. Review of Systems General: Reports: 10 or more systems reviewed and unremarkable except in HPI and below Medications/Allergies Home Medications Medication Instructions Recorded Confirmed Last Taken Type levetiracetam 500 mg 2,000 mg PO Q24H #120 tab 10/23/19 05/26/20 05/07/20 Rx tablet,extended release 24 hr sucralfate [Carafate] 1 g PO Q6H #60 tab 02/17/20 05/26/20 05/07/20 Rx ondansetron 4 mg PO Q6H PRN #14 tab 02/25/20 05/26/20 05/07/20 Rx lactulose 10 g PO DAILY PRN #15 ea 03/01/20 05/26/20 05/07/20 Rx cholecalciferol (vitamin D3) 50 mcg PO DAILY@0900 03/09/20 05/26/20 05/07/20 History fluticasone propion-salmeterol 1 inh INHALATION BID@09,199903/09/20 05/26/20 05/07/20 History [Advair Diskus] pantoprazole [Protonix] 40 mg PO BID@0900,199903/09/20 05/26/20 03/30/20 History trazodone 50 mg PO DAILY@209903/09/20 05/26/20 05/06/20 History albuterol sulfate 90 mcg/actuation 2 inh INHALATION Q4H PRN #6.7 gm 04/16/20 05/26/20 05/07/20 Rx aerosol inhaler diclofenac sodium [Voltaren 2 g TOPICAL QID #100 g 04/28/20 05/26/20 05/07/20 Rx Arthritis Pain] polyethylene glycol 3350 [Miralax] 17 g PO DAILY PRN 05/01/20 05/26/20 05/07/20 History tiotropium bromide 18 mcg capsule 1 cap INHALATION DAILY@09 #30 inh 05/04/20 05/26/20 05/07/20 Rx with inhalation device albuterol sulfate 2.5 mg INHALATION QID PRN #180 ml 05/12/20 05/26/20 Unknown Rx fluticasone propionate 50 2 spray INTRANASAL DAILY@09 #16 g 05/12/20 05/26/20 Unknown Rx mcg/actuation nasal spray,suspension guaifenesin 600 mg tablet, 600 mg PO BID PRN #60 tab 05/12/20 05/26/20 Unknown Rx extended release 12 hr cetirizine 10 mg capsule 10 mg PO DAILY@0900 #90 cap 05/14/20 05/26/20 Unknown Rx furosemide 20 mg tablet 20 mg PO DAILY PRN 30 Days #30 tab 05/26/20 05/26/20 Unknown Rx losartan 25 mg tablet 25 mg PO DAILY 30 Days #30 tab 05/26/20 05/26/20 Unknown Rx spironolactone 25 mg tablet 25 mg PO DAILY 30 Days #30 tab 05/26/20 05/26/20 Unknown Rx nitroglycerin 0.4 mg sublingual 0.4 mg SUBLINGUAL Q5M PRN 30 Days 05/27/20 05/27/20 Unknown Rx tablet #30 tab Allergies Allergy/AdvReac Type Severity Reaction Status Date / Time No Known Allergies Allergy Verified 05/26/20 09:48 PFSH Acute PFSH: Medical History Chronic constipation COPD (chronic obstructive pulmonary disease) GERD (gastroesophageal reflux disease) Insomnia Seizure disorder Surgical History H/O section H/O esophagogastroduodenoscopy Status post colonoscopy (03/31/20) Family History Other CAD (coronary artery disease) Cancer Diabetes Social History Smoking and tobacco status: current every day smoker cigarettes Packs smoked per day: 0.5 Years cigarettes smoked: 48 [ Other cigarette details: Hx of 4 PPD x 46 Years ] Quit status (tobacco): considering quitting Second hand smoke exposure: Yes Smoking risk assessment/counseling performed?: Yes Alcohol intake: never Counseling given: No Counseling given: No Lives independently: Yes Household members: friend(s) Housing: House Marital status: Single Current occupational status: disabled History of recent travel: No Current gender identity: Female Vitals/I&O/Wt Last Vital Signs Temp 98.0 F 05/28/20 04:06 Pulse 99 05/28/20 04:06 Resp 18 05/28/20 04:06 BP 83/60 05/28/20 04:06 Pulse Ox 100 05/28/20 04:06 Weight last 48 hrs Weight 40.823 kg Physical Exam Narrative: EXAM NARRATIVE: General - chronically ill appearing, thin, NAD HEENT : Grossly unremarkable Chest: non-labored respiration on 2L via NC CVS -NSR ABD - Soft, NT Ext : Bilateral LE edema Data : 05/27/20 22:38 05/27/20 22:38 A&P Assessment and plan (1) Chest pain: Aspirin 81 mg PO daily Troponin trend not consistent with ACS Consider cardiology consult in am Planing for cardiac cath - Ischemic work up pending due to recently found systolic hf Monitor on Tele Not currently on statin? verify Status: Acute Qualifiers: Chest pain type: other chest pain Qualified Code(s): R07.89 - Other chest pain (2) Systolic and diastolic CHF w/reduced LV function, NYHA class 4: Mildly increased LE edema Follow on chest x-ray Monitor daily weight Resume diuretics in am if BP tolerates Recent echo noted - EF 5-10% Status: Acute (3) COPD (chronic obstructive pulmonary disease): Stable Neb PRN Advair BID Status: Chronic (4) Bilateral edema of lower extremity: Keep elevated Low na diet Diuretics as noted above Status: Acute (5) Hypokalemia: S/p KCl40 MEQ x 1 in Er Repeat BMP in am Replace as needed. Status: Acute Attestations Medical Necessity Statement*: Anticipate less than 2 midnight stay in hospital for eval and treatment of chest pain and hypokalemia Time Spent in Patient Care: Greater than 35 minutes (>than 50% of time spent in counselling and/or direct pt care on unit) . Coding Level of Care Code Acute Land Surveyor Assistant for [place] Diagnoses Chest pain R07.89 Chest pain type: other chest pain Systolic and diastolic CHF w/reduced LV function, NYHA class 4 I50.40 COPD (chronic obstructive pulmonary disease) J44.9 Bilateral edema of lower extremity R60.0 Hypokalemia E87.6
[2020-05-28 05:52] LABS: Troponin 5 6HR 48.02 ng/L (0-10); Troponin 5 6HR Delta 6.02 ng/L (0-12)
[2020-05-28] MEDS: ipratropium-albuterol 3 mL Neb INHALATION ×2 (06:15→19:58)
[2020-05-28 06:23] LABS: Basophils % 0.4 %; Eosinophils # 0.1 10^3/uL (0.0-0.8); Eosinophils % 0.9 %; Hematocrit 39.8 % (37.0-47.0); Hemoglobin 12.8 g/dL (11.5-15.3); Lymphocytes # 1.3 10^3/uL (0.8-4.8); Lymphocytes % 25.2 %; Mean Corpuscular HGB Conc 32.2 g/dL (30.0-36.0); Mean Corpuscular Volume 99.5 fL (81-99); Mean Platelet Volume 11.9 fL (7.4-10.4); Monocytes # 0.6 10^3/uL (0.2-0.9); Monocytes % 10.9 %; Neutrophils # 3.32 10^3/uL (1.8-7.7); Neutrophils % 62.4 %; Nucleated Red Blood Cells % 0 %; Platelet Count 138 10^3/cmm (130-400); Red Cell Distribution Width 16.7 % (12.1-15.1); White Blood Count 5.3 10^3/uL (4.0-10.0)
[2020-05-28 06:50] LABS: Alanine Aminotransferase 15 U/L (0-33); Albumin Level 3.7 g/dL (3.5-5.2); Alkaline Phosphatase 78 IU/L (35-105); Anion Gap 12.6 (5-19); Aspartate Amino Transferase 19 U/L (0-32); Blood Urea Nitrogen 14 mg/dL (8-23); Calcium 8.2 mg/dL (8.5-10.5); Carbon Dioxide 30 mmol/L (22-29); Chloride 103 mmol/L (98-107); Globulin 1.9 g/dL (1.3-4.6); Glomerular Filtration Rate 101.6 mL/min (90-130); Glucose 87 mg/dL (65-115); Magnesium 1.9 mg/dL (1.7-2.3); Osmolality Calculated 294 mOsm/kg (285-295); Potassium 3.6 mmol/L (3.5-5.1); Sodium 142 mmol/L (136-145); Total Bilirubin 0.6 mg/dL (0.15-1.2); Total Protein 5.6 g/dL (6.6-8.7)
[2020-05-28] MEDS: aspirin 81 mg EC Tablet PO (08:19)
[2020-05-28] MEDS: levETIRAcetam 500 mg Tablet 250 MG PO ×2 (08:19→17:10)
[2020-05-28] MEDS: pantoprazole DR 40 mg Tablet PO (08:19)
--- NOTE | 2020-05-28 09:52 | PM.CONSULT ---
Providers/Reason For Consult Consulting Physican/Specialty*: ERI Casper MD/cardiology Reason for Consult*: CHF/peripheral edema/severe LV dysfunction/chest pain Attending Physician: Eric Lawson MD Primary Care Provider: Emma Novoa DO History of Present Illness History of Present Illness Maryjo Gomez is a 60 year old female is admitted to the hospital through the emergency room where she presented with complaints of chest pain, shortness of breath and leg swelling. This patient with a longstanding history of COPD, had multiple ER visits/hospital admissions within the last few months for various complaints including chest pain, COPD exacerbation, abdominal pain, bloody stools, etc. She is on home oxygen on 2 L of oxygen by nasal cannula. Recently in April of this year, and she had an echocardiogram done which revealed severe LV systolic dysfunction with ejection fraction of 5 to 10%. She was seen by me in the clinic 2 days ago for the first time for shortness of breath and the abnormal echocardiogram. According to the patient, her shortness of breath was getting worse along with the swelling of the lower extremities. She also had some sharp shooting pain across the chest. For these complaints, she decided come to the hospital. She denied any fever or chills. No cough. She had a rapid rule out of COVID-19 in the emergency room. Her shortness of breath gets worse with minimal exertion. She still has difficulty lying flat in the bed. She has no nausea or vomiting. She has been having swelling of the lower extremities for the last few years. Yesterday the swelling also started getting worse. She has no leg pain. Patient has no previous history for coronary disease or myocardial infarction. No history for peripheral artery disease. She has a history of heavy smoking abuse.She has a dry cough off and on. She has been on 2 L of oxygen by nasal cannula for the last 2 months or so. She used to smoke 2 to 3 pack a day for 40 years . But now she cut back to half pack a day for the last 6 months or so.. No alcohol abuse or any other substance abuse. Her father of congestive heart failure at the age of 64. Mother also of heart failure and at the age of 69. She also was diagnosed with the cancer. Father had diabetes. No other relevant family history Review of Systems Narrative: CONSTITUTIONAL: No fever or chills. Has generalized fatigue/tiredness. EYES: No blurring of vision or other visual disturbances lately. ENT: No hoarseness of voice, auditory disturbances or sore throat. CARDIOVASCULAR: As mentioned above. RESPIRATORY: Shortness of breath with recent worsening as mentioned above GASTROINTESTINAL: No hematemesis or melena. GENITOURINARY: The urine output has been going down lately INTEGUMENTARY: No skin rashes or history of skin cancer. NEURO: No transient ischemic attacks or amaurosis. PSYCHIATRIC: No history of psychosis or major depression. HEMATOLOGIC: No bleeding disorders or significant anemia. ENDOCRINE: No history of polyuria or polydipsia. MUSCULOSKELETAL: No recent joint pain or swelling. ALLERGY/IMMUNOLOGY: As mentioned above. Meds/Allergies Home Medications and Allergies Home Medications Medication Instructions Recorded Confirmed Last Taken Type levetiracetam 500 mg 2,000 mg PO Q24H #120 tab 10/23/19 05/28/20 05/07/20 Rx tablet,extended release 24 hr ondansetron 4 mg PO Q6H PRN #14 tab 02/25/20 05/28/20 05/07/20 Rx lactulose 10 g PO DAILY PRN #15 ea 03/01/20 05/28/20 05/07/20 Rx cholecalciferol (vitamin D3) 50 mcg PO DAILY@0900 03/09/20 05/28/20 05/07/20 History fluticasone propion-salmeterol 1 inh INHALATION BID@09,199903/09/20 05/28/20 05/07/20 History [Advair Diskus] pantoprazole [Protonix] 40 mg PO BID@899,199903/09/20 05/28/20 03/30/20 History albuterol sulfate 90 mcg/actuation 2 inh INHALATION Q4H PRN #6.7 gm 04/16/20 05/28/20 05/07/20 Rx aerosol inhaler diclofenac sodium [Voltaren 2 g TOPICAL QID #100 g 04/28/20 05/28/20 05/07/20 Rx Arthritis Pain] polyethylene glycol 3350 [Miralax] 17 g PO DAILY PRN 05/01/20 05/28/20 05/07/20 History tiotropium bromide 18 mcg capsule 1 cap INHALATION DAILY@0900 #30 inh 05/04/20 05/28/20 05/07/20 Rx with inhalation device albuterol sulfate 2.5 mg INHALATION QID PRN #180 ml 05/12/20 05/28/20 Unknown Rx fluticasone propionate 50 2 spray INTRANASAL DAILY@0900 #16 g 05/12/20 05/28/20 Unknown Rx mcg/actuation nasal spray,suspension guaifenesin 600 mg tablet, 600 mg PO BID PRN #60 tab 05/12/20 05/28/20 Unknown Rx extended release 12 hr cetirizine 10 mg capsule 10 mg PO DAILY@0900 #90 cap 05/14/20 05/28/20 Unknown Rx losartan 25 mg tablet 25 mg PO DAILY 30 Days #30 tab 05/26/20 05/28/20 Unknown Rx spironolactone 25 mg tablet 25 mg PO DAILY 30 Days #30 tab 05/26/20 05/28/20 Unknown Rx nitroglycerin 0.4 mg sublingual 0.4 mg SUBLINGUAL Q5M PRN 30 Days 05/27/20 05/28/20 Unknown Rx tablet #30 tab benzonatate 100 mg PO TID PRN 05/28/20 05/28/20 Unknown History furosemide 40 mg PO DAILY PRN 05/28/20 05/28/20 Unknown History Allergies Allergy/AdvReac Type Severity Reaction Status Date / Time No Known Allergies Allergy Verified 05/26/20 09:48 Current Medications Current Medications Generic Name Dose Route Start Last Admin Trade Name Freq PRN Reason Stop Dose Admin Albuterol/Ipratropium 3 ml 05/28/20 04:56 05/28/20 06:15 Ipratropium-Albuterol 3 Ml Neb INHALATION 3 ml Q6H PRN Administration SHORTNESS OF BREATH Aspirin 81 mg 05/28/20 09:00 05/28/20 08:19 Aspirin 81 Mg Ec Tablet PO 81 mg DAILY JEANETTE Administration Heparin Sodium (Beef Lung) 5,000 unit 05/28/20 05:00 05/28/20 05:45 Heparin 5,000 Unit/Ml Inj 1 Ml SUBCUT Not Given Q12H JEANETTE Levetiracetam 250 mg 05/28/20 09:00 05/28/20 08:19 Levetiracetam 500 Mg Tablet PO 250 mg BID JEANETTE Administration Pantoprazole Sodium 40 mg 05/28/20 09:00 05/28/20 08:[address] 40 Mg Tablet PO 40 mg DAILY JEANETTE Administration Fluticasone/Salmeterol 1 puff 05/28/20 08:00 05/28/20 09:07 Fluticasone-Salmeterol 250-50 Diskus INHALATION 1 puff BID.RESPIRATORY JEANETTE Administration PFSH Acute PFSH: Medical History Chronic constipation COPD (chronic obstructive pulmonary disease) GERD (gastroesophageal reflux disease) Insomnia Seizure disorder Surgical History H/O section H/O esophagogastroduodenoscopy Status post colonoscopy (03/31/20) Family History Other CAD (coronary artery disease) Cancer Diabetes Social History Smoking and tobacco status: current every day smoker cigarettes Packs smoked per day: 0.5 Years cigarettes smoked: 48 [ Other cigarette details: Hx of 4 PPD x 46 Years ] Quit status (tobacco): considering quitting Second hand smoke exposure: Yes Smoking risk assessment/counseling performed?: Yes Alcohol intake: never Counseling given: No Counseling given: No Lives independently: Yes Household members: friend(s) Housing: House Marital status: Single Current occupational status: disabled History of recent travel: No Current gender identity: Female Vitals/I&O/Wt Last Vital Signs Temp 97.9 F 05/28/20 06:54 Pulse 115 H 05/28/20 09:14 Resp 19 H 05/28/20 09:09 BP 73/50 05/28/20 06:54 Pulse Ox 95 05/28/20 09:09 05/27/20 05/28/20 05/28/20 22:59 06:59 14:59 Intake Total 240 / 240 Output Total 0 / 0 Balance 0 / 0 240 / 240 Weight last 48 hrs Weight 86 lb 9 oz Weight 90 lb Physical Exam Narrative: EXAM NARRATIVE: GENERAL: The patient is alert and oriented times three. Slightly tachypneic. Short stature and thin. Generalized wasting. chronically ill looking appearance. HEENT: No significant pallor, icterus or lymphadenopathy. The pupils are reactant to light. Oral cavity: There are no mucous membrane lesions. Funduscopic examination: The fundus is not visualized NECK: Trachea appears to be central. No masses noted. No JVD or thyromegaly appreciated. No carotid bruit. RESPIRATORY: Chest is symmetrical. No intercostals muscle retraction or any accessory muscle activation. There is no chest wall tenderness. Breath sounds are heard bilaterally. No rales or rhonchi heard. No evidence of any consolidation. The breath sounds are diminished in the bases. BREASTS: Deferred. HEART: The PMI is in the 5th left intercostals space just in the midclavicular line. No palpable precordial events. S1 and S2 are normal. No S3 or S4 heard. Short systolic murmur in the left sternal border. No diastolic murmurs. No pericardial rub or any click heard. ABDOMEN: No vessel pulsations or distention. No tenderness. No organomegaly appreciated. No abdominal bruit. Bowel sounds are normally heard. : Deferred. RECTAL: Deferred. LYMPHATIC: No lymphadenopathy noted in the neck . EXTREMITIES: 2+ edema both lower extremities no cyanosis. Peripheral pulses are palpable but weak bilaterally. MUSCULOSKELETAL: No acute joint deformities or swelling SKIN: There are no significant scars or skin rash noted. NEUROPSYCHIATRIC: The patient is alert and oriented x3. Lethargic .The higher functions are grossly within normal limits. No tremors or rigidity noted. Data Labs: Other Labs: Laboratory Last Values WBC 5.3 10^3/uL (4.0- 10.0) 05/28/20 04:36 RBC 4.00 10^6/uL (4.1 -5.3) L 05/28/20 04:36 Hgb 12.8 g/dL (11.5-1 5.3) 05/28/20 04:36 Hct 39.8 % (37.0-47.0 ) 05/28/20 04:36 MCV 99.5 fL (81-99) H 05/28/20 04:36 MCH 32.0 pg (28.0-34. 0) 05/28/20 04:36 MCHC 32.2 g/dL (30.0-3 6.0) 05/28/20 04:36 RDW 16.7 % (12.1-15.1 ) H 05/28/20 04:36 Plt Count 138 10^3/cmm (130 -400) 05/28/20 04:36 MPV 11.9 fL (7.4-10.4 ) H 05/28/20 04:36 Neut % (Auto) 62.4 % 05/28/20 04:36 Lymph % (Auto) 25.2 % 05/28/20 04:36 Wood % (Auto) 10.9 % 05/28/20 04:36 Eos % (Auto) 0.9 % 05/28/20 04:36 Baso % (Auto) 0.4 % 05/28/20 04:36 Neut # (Auto) 3.32 10^3/uL (1.8 -7.7) 05/28/20 04:36 Lymph # (Auto) 1.3 10^3/uL (0.8- 4.8) 05/28/20 04:36 Wood # (Auto) 0.6 10^3/uL (0.2- 0.9) 05/28/20 04:36 Eos # (Auto) 0.1 10^3/uL (0.0- 0.8) 05/28/20 04:36 Baso # (Auto) 0.0 10^3/uL (0.0- 0.1) 05/28/20 04:36 Nucleated RBC % (a uto) 0 % 05/28/20 04:36 Nucleated RBCs # 0.0 /100WBC 05/28/20 04:36 Sodium 142 mmol/L (136-1 45) 05/28/20 04:36 Potassium 3.6 mmol/L (3.5-5 .1) 05/28/20 04:36 Chloride 103 mmol/L (98-10 7) 05/28/20 04:36 Carbon Dioxide 30 mmol/L (22-29) H 05/28/20 04:36 Anion Gap 12.6 (5-19) 05/28/20 04:36 BUN 14 mg/dL (8-23) 05/28/20 04:36 Creatinine 0.6 mg/dL (0.5-0. 9) 05/28/20 04:36 GFR Calculation 101.6 mL/min (90- 130) 05/28/20 04:36 Glucose 87 mg/dL (65-115) 05/28/20 04:36 Calculated Osmolal ity 294 mOsm/kg (285- 295) 05/28/20 04:36 Calcium 8.2 mg/dL (8.5-10 .5) L 05/28/20 04:36 Magnesium 1.9 mg/dL (1.7-2. 3) 05/28/20 04:36 Total Bilirubin 0.6 mg/dL (0.15-1 .2) 05/28/20 04:36 AST 19 U/L (0-32) 05/28/20 04:36 ALT 15 U/L (0-33) 05/28/20 04:36 Alkaline Phosphata se 78 IU/L (35-105) 05/28/20 04:36 Troponin T Baselin e 42 ng/L (0-10) H 05/27/20 22:38 Troponin T 120 Min [place] 46.70 ng/L (0-10) H 05/28/20 00:37 Delta Troponin T 4.70 ABS# (0-10) 05/28/20 00:37 Troponin T Hi Sens 6Hr 48.02 ng/L (0-10) H 05/28/20 04:36 Troponin T Hi Sens 6Hr Delta 6.02 ng/L (0-12) 05/28/20 04:36 NT-Pro-B Natriuret Pep 8205 pg/mL (0-125 ) H 05/27/20 22:38 Total Protein 5.6 g/dL (6.6-8.7 ) L 05/28/20 04:36 Albumin 3.7 g/dL (3.5-5.2 ) 05/28/20 04:36 Globulin 1.9 g/dL (1.3-4.6 ) 05/28/20 04:36 Urine Color Yellow (Yellow) 05/28/20 02:00 Urine Appearance Clear (CLEAR) 05/28/20 02:00 Urine pH 7 (5-7) 05/28/20 02:00 Ur Specific Gravit y 1.015 (1.005-1.0 30) 05/28/20 02:00 Urine Protein Neg (Negative) 05/28/20 02:00 Urine Glucose (UA) Norm (Normal) 05/28/20 02:00 Urine Ketones Negative (Negati ve) 05/28/20 02:00 Urine Blood Neg (Negative) 05/28/20 02:00 Urine Nitrate Negative (Negati ve) 05/28/20 02:00 Urine Bilirubin 1+ (Negative) H 05/28/20 02:00 Urine Urobilinogen 1 mg/dL (Negative ) H 05/28/20 02:00 Ur Leukocyte [place] ase Negative (Negati ve) 05/28/20 02:00 Urine HCG, Qual Negative (Negati ve) 05/28/20 02:20 Imaging^: Echo: My impression: Cardiogram done on 04/25/2020 revealed LV systolic function is severely reduced with EF of 5-10%. Severe global hypokinesis is present Grade III diastolic function is present RV function is severely reduced Moderate to severe mitral regurgitation is noted. Mild to moderate tricuspid regurgitation is seen Mild pulmonary hypertension is present No comparison studies are available EKG^: EKG 1: My Interpretation: EKG showed a sinus tachycardia with a poor R wave progression. Left intrafascicular block. Some features of left renal hypertrophy. No acute ST-T changes. A&P Assessment and plan (1) Atypical chest pain: Patient's chest pain is very atypical. Possibility of coronary ischemia, especially in view of risk factors and severely dysfunction is a consideration. This needs to be further evaluated. Her EKG is unremarkable. No evidence of any myocardial injury so far. Status: Acute (2) Chronic systolic heart failure: Patient may be treated with a careful IV diuresis. Her systolic blood pressure is in the 80s. I may also start her on digoxin 0.25 mg p.o. every 6 hours x4 followed by 0.125 mg p.o. daily. Status: Acute (3) Cardiomyopathy: The etiology of the cardiomyopathy is not clear at this time. Possibility of underlying coronary ischemia is a consideration that needs to be further evaluated. Status: Acute Qualifiers: Cardiomyopathy type: other Qualified Code(s): I42.8 - Other cardiomyopathies (4) Edema, peripheral: This could be multifactorial. Has severe LV systolic dysfunction, RV dysfunction, dependency, etc. are contributing factors. Status: Acute (5) COPD (chronic obstructive pulmonary disease): Patient is on home oxygen for the last few years. She also is on bronchodilator treatment. Advised to continue the same. Status: Chronic Qualifiers: COPD type: unspecified COPD Qualified Code(s): J44.9 - Chronic obstructive pulmonary disease, unspecified (6) Hypotension: This could be multifactorial. Severe LV dysfunction, generalized wasting, possible intravascular of fluid depletion, etc. are contributing factors. We may try a careful IV hydration. Status: Acute Qualifiers: Hypotension type: unspecified hypotension type Qualified Code(s): I95.9 - Hypotension, unspecified Additional A&P Information Based on the patient's clinical progress, further recommendations will be made. She may benefit from a cardiac catheterization, to evaluate the coronary arteries and the right heart pressures. Based on the results, further recommendations will be made. Thank you for the opportunity to evaluate this patient and make these recommendations Consult Attestations Medical Necessity Statement: Patient requires continued hospital stay for close monitoring and further management Coding Level of Care Code Acute Paper Feeder for [facility] Diagnoses Atypical chest pain R07.89 Chronic systolic heart failure I50.22 Cardiomyopathy I42.8 Cardiomyopathy type: other Edema, peripheral R60.9 COPD (chronic obstructive pulmonary disease) J44.9 COPD type: unspecified COPD Hypotension I95.9 Hypotension type: unspecified hypotension type
--- NOTE | 2020-05-28 11:29 | PC.CHAP ---
Pastoral Care Encounter/Spiritual Assessment Type of Contact [] Declined sewage plant operator visit [] Patient/Family/Request visit [] Outpatient visit [] Follow-up visit [] Physician referral [] Code/Alert [x] Routine visit [] Staff referral [] Actively dying [] Patient sleeping [] Family support [] [] Out of room [] Palliative care [] [x] Receiving care in room [] Pre-surgical visit [x] Trauma [x] Long length of stay [] ICU visit [] Other: Relational/Emotional Strength [x] Patient feels connected with others/family/visitors/staff [] Distress [] Loneliness/isolation [] Abandonment Spirituality of Patient [x] Person of Esther [] Attends Adventism of their Esther [x] Believes in Prayer [] Reads Bible or Oriental Orthodox materials [] There are Spiritual issues to be addressed Cpr Ambulance Driver Interventions [x] Prayer [x] Active listening [x] Non-anxious presence [x] Spiritual/emotional support [] Crisis/trauma care [x] Spiritual counseling [] Bereavement support [] Provided bereavement packet [] Provided Bible/devotional materials [] Provided toy/stuffed animal, coloring book to patient or family member [] Provided Communion [] Anointing/[place] [] Salvation [x] Completed spiritual assessment [] Other: Impact on Illness or Injury [] Angry [x] Fearful [] Anxious [] Often cries [] Exhaustion [] Unable to work [] Unable to attend yarsanism [] Unable to walk/stand [] Unable to read [] Unable to drive [] Unable to eat/drink [] Unable to sleep [] Unable to be with family [] Patient intubated [] Other: Summary unable to communate or tslk about her health, she is pain negative attirude, not sure what need to be done or be able to go home at this time Time spent with patient 10 mins
--- NOTE | 2020-05-28 14:08 | P.PN_ITS ---
Subjective Subjective: Interval history: Patient was examined this morning, she is complaining of some chest discomfort, this morning, and lower extremity swelling, no cough, no wheezing, is chronically on oxygen given her COPD, she continues to smoke Vitals/I&O/Wt Last Vital Signs Temp 97.0 F L 05/28/20 11:00 Pulse 105 H 05/28/20 11:00 Resp 15 05/28/20 11:00 BP 82/58 05/28/20 11:00 Pulse Ox 98 05/28/20 11:00 05/27/20 05/28/20 05/28/20 22:59 06:59 14:59 Intake Total 460 / 460 Output Total 0 / 0 150 / 150 Balance 0 / 0 310 / 310 Weight last 48 hrs Weight 39.264 kg Weight 40.823 kg Physical Exam Const: COMMON NORMALS: no acute distress and patient oriented x3 GENERAL APPEARANCE: cooperative and frail appearing NUTRITIONAL APPEARANCE: cachectic ORIENTATION/CONSCIOUSNESS: Yes awake, Yes oriented to person, Yes oriented to place and Yes oriented to time HENMT: COMMON NORMALS: normocephalic HEAD & SCALP: normocephalic Neck/C-Spine: COMMON NORMALS: no JVD Resp: COMMON NORMALS: normal respiratory effort, No retractions, No use of accessory muscles and clear to auscultation bilaterally AUSCULTATION: clear to auscultation bilaterally Cardio: COMMON NORMALS: no JVD, regular rate, regular rhythm, S1 normal heart sound present and S2 normal heart sound present RATE: regular rate RHYTHM: regular rhythm HEART SOUNDS: S1 normal heart sound present and S2 normal heart sound present GI: COMMON NORMALS: Normal to inspection, nondistended, normoactive bowel sounds present, Soft to palpation, non-tender, No hepatosplenomegaly present, no masses and no bruits PALPATION: Yes Soft to palpation and Yes No hepatosplenomegaly present Extremity: COMMON NORMALS: capillary refill normal, no clubbing, cyanosis or edema, no calf tenderness and no pedal edema Neuro: COMMON NORMALS: patient oriented x3 SENSORIUM/ORIENTATION: Yes oriented to person, Yes oriented to place and Yes oriented to time Psych: COMMON NORMALS: mental status grossly normal Data : 05/28/20 04:36 05/28/20 04:36 A&P Assessment and plan (1) Chest pain: Aspirin 81 mg PO daily Troponin trend not consistent with ACS Cardiology consulted for cardiac cath Monitor on Tele Status: Acute Qualifiers: Chest pain type: other chest pain Qualified Code(s): R07.89 - Other chest pain (2) Systolic and diastolic CHF w/reduced LV function, NYHA class 4: Mildly increased LE edema Hold off on Lasix therapy given low blood pressures Monitor daily weight Resume diuretics in am if BP tolerates Recent echo noted - EF 5-10% Status: Acute (3) COPD (chronic obstructive pulmonary disease): Stable Neb PRN Advair BID Status: Chronic Qualifiers: COPD type: unspecified COPD Qualified Code(s): J44.9 - Chronic obstru ctive pulmonary disease, unspecified (4) Bilateral edema of lower extremity: Keep elevated Low na diet Diuretics as noted above Status: Acute (5) Hypokalemia: S/p KCl40 MEQ x 1 in Er Replace as needed. Status: Acute Attestations Medical Necessity Statement*: Patient cards hospitalization, inpatient, greater than 2 midnights for chest pain requiring cardiac catheterization Coding Level of Care Code Acute Administrator Social Welfare for [facility] Fwd Diagnoses Chest pain R07.89 Chest pain type: other chest pain Systolic and diastolic CHF w/reduced LV function, NYHA class 4 I50.40 COPD (chronic obstructive pulmonary disease) J44.9 COPD type: unspecified COPD Bilateral edema of lower extremity R60.0 Hypokalemia E87.6
--- NOTE | 2020-05-28 16:12 | PC.PT ---
Attempted PT evaluation, noted patient to be hypotensive, and awaiting cardiac catheterization, will reattempt post catheterization.
--- NOTE | 2020-05-28 19:00 | PC.NURSE ---
DR. BEAL NOTIFIED OF LOW URINE OUTPUT. NO NEW ORDERS AT THIS TIME. WILL CONTINUE TO MONITOR.
[2020-05-28] MEDS: digoxin 250 mcg Tablet PO (19:02)
--- NOTE | 2020-05-28 21:32 | PC.NURSE ---
Patient c/o headache. PRN Tylenol given. Will monitor.
--- NOTE | 2020-05-28 22:32 | PC.NURSE ---
Patient is currently resting with eyes closed. Will monitor.
[2020-05-29] VITALS (35 sets, daily range): BP systolic 88–120; BP diastolic 60–81; PULSE 97–118; RESP 12–22; TEMP 36.3–37.3; O2SAT 93–100
[2020-05-29] MEDS: digoxin 250 mcg Tablet PO ×3 (00:01→13:39)
[2020-05-29] MEDS: acetaminophen 325 mg Tablet 650 MG PO ×2 (03:03→10:41)
--- NOTE | 2020-05-29 03:04 | PC.NURSE ---
Patient complains of pain to left leg/left ankle. Assessment to legs WNL. PRN Tylenol given and patient repositioned for comfort. Will monitor.
[2020-05-29 05:24] LABS: Basophils % 0.4 %; Eosinophils # 0.1 10^3/uL (0.0-0.8); Hematocrit 38.2 % (37.0-47.0); Lymphocytes # 1.1 10^3/uL (0.8-4.8); Lymphocytes % 23.2 %; Mean Corpuscular HGB Conc 31.4 g/dL (30.0-36.0); Mean Corpuscular Hemoglobin 31.7 pg (28.0-34.0); Mean Corpuscular Volume 100.8 fL (81-99); Monocytes # 0.5 10^3/uL (0.2-0.9); Monocytes % 10.9 %; Neutrophils # 3.09 10^3/uL (1.8-7.7); Neutrophils % 64.5 %; Nucleated Red Blood Cells % 0 %; Platelet Count 136 10^3/cmm (130-400); Red Blood Count 3.79 10^6/uL (4.1-5.3); Red Cell Distribution Width 16.6 % (12.1-15.1); White Blood Count 4.8 10^3/uL (4.0-10.0)
[2020-05-29 05:41] LABS: Alanine Aminotransferase 14 U/L (0-33); Albumin Level 3.5 g/dL (3.5-5.2); Alkaline Phosphatase 78 IU/L (35-105); Aspartate Amino Transferase 16 U/L (0-32); Blood Urea Nitrogen 18 mg/dL (8-23); Calcium 8.7 mg/dL (8.5-10.5); Carbon Dioxide 30 mmol/L (22-29); Chloride 101 mmol/L (98-107); Globulin 2.2 g/dL (1.3-4.6); Glomerular Filtration Rate 85.1 mL/min (90-130); Glucose 88 mg/dL (65-115); Osmolality Calculated 285 mOsm/kg (285-295); Phosphorus 3.4 mg/dL (2.5-4.5); Sodium 137 mmol/L (136-145); Total Bilirubin 0.4 mg/dL (0.15-1.2); Total Protein 5.7 g/dL (6.6-8.7)
--- NOTE | 2020-05-29 06:16 | PC.NURSE ---
Patient is refusing Heparin SQ. Patient has been educated on risks of refusing medication and verbalized understanding.
[2020-05-29] MEDS: ipratropium-albuterol 3 mL Neb INHALATION ×2 (08:01→21:16)
[2020-05-29] MEDS: sodium chloride 0.9% 1,000 ML 75 ML IV (08:58)
[2020-05-29] MEDS: levETIRAcetam 500 mg Tablet 250 MG PO ×2 (09:01→18:36)
[2020-05-29] MEDS: aspirin 81 mg EC Tablet PO (09:01)
[2020-05-29] MEDS: pantoprazole DR 40 mg Tablet PO (09:02)
[2020-05-29] MEDS: sodium chloride 0.9% 1,000 ML 125 ML IV (09:21)
--- NOTE | 2020-05-29 10:20 | PM.PN ---
Subjective Subjective: Interval history: Patient is feeling better today. Her blood pressure seems to be coming up in the 90s. No fever or chills. Her urine output is not measured. She is more alert and awake today. Medications: Reviewed: Yes Medication Review Details: Laboratory Last Values WBC 4.8 10^3/uL (4.0- 10.0) 05/29/20 04:30 RBC 3.79 10^6/uL (4.1 -5.3) L 05/29/20 04:30 Hgb 12.0 g/dL (11.5-1 5.3) 05/29/20 04:30 Hct 38.2 % (37.0-47.0 ) 05/29/20 04:30 MCV 100.8 fL (81-99) H 05/29/20 04:30 MCH 31.7 pg (28.0-34. 0) 05/29/20 04:30 MCHC 31.4 g/dL (30.0-3 6.0) 05/29/20 04:30 RDW 16.6 % (12.1-15.1 ) H 05/29/20 04:30 Plt Count 136 10^3/cmm (130 -400) 05/29/20 04:30 MPV 12.0 fL (7.4-10.4 ) H 05/29/20 04:30 Neut % (Auto) 64.5 % 05/29/20 04:30 Lymph % (Auto) 23.2 % 05/29/20 04:30 [place] % (Auto) 10.9 % 05/29/20 04:30 Eos % (Auto) 1.0 % 05/29/20 04:30 Baso % (Auto) 0.4 % 05/29/20 04:30 Neut # (Auto) 3.09 10^3/uL (1.8 -7.7) 05/29/20 04:30 Lymph # (Auto) 1.1 10^3/uL (0.8- 4.8) 05/29/20 04:30 [place] # (Auto) 0.5 10^3/uL (0.2- 0.9) 05/29/20 04:30 Eos # (Auto) 0.1 10^3/uL (0.0- 0.8) 05/29/20 04:30 Baso # (Auto) 0.0 10^3/uL (0.0- 0.1) 05/29/20 04:30 Nucleated RBC % (a uto) 0 % 05/29/20 04:30 Nucleated RBCs # 0.0 /100WBC 05/29/20 04:30 Sodium 137 mmol/L (136-1 45) 05/29/20 04:30 Potassium 4.0 mmol/L (3.5-5 .1) 05/29/20 04:30 Chloride 101 mmol/L (98-10 7) 05/29/20 04:30 Carbon Dioxide 30 mmol/L (22-29) H 05/29/20 04:30 Anion Gap 10.0 (5-19) 05/29/20 04:30 BUN 18 mg/dL (8-23) 05/29/20 04:30 Creatinine 0.7 mg/dL (0.5-0. 9) 05/29/20 04:30 GFR Calculation 85.1 mL/min (90-1 30) L 05/29/20 04:30 Glucose 88 mg/dL (65-115) 05/29/20 04:30 Calculated Osmolal ity 285 mOsm/kg (285- 295) 05/29/20 04:30 Calcium 8.7 mg/dL (8.5-10 .5) 05/29/20 04:30 Phosphorus 3.4 mg/dL (2.5-4. 5) 05/29/20 04:30 Magnesium 2.0 mg/dL (1.7-2. 3) 05/29/20 04:30 Total Bilirubin 0.4 mg/dL (0.15-1 .2) 05/29/20 04:30 AST 16 U/L (0-32) 05/29/20 04:30 ALT 14 U/L (0-33) 05/29/20 04:30 Alkaline Phosphata se 78 IU/L (35-105) 05/29/20 04:30 Troponin T Baselin e 42 ng/L (0-10) H 05/27/20 22:38 Troponin T 120 Min tanesha 46.70 ng/L (0-10) H 05/28/20 00:37 Delta Troponin T 4.70 ABS# (0-10) 05/28/20 00:37 Troponin T Hi Sens 6Hr 48.02 ng/L (0-10) H 05/28/20 04:36 Troponin T Hi Sens 6Hr Delta 6.02 ng/L (0-12) 05/28/20 04:36 NT-Pro-B Natriuret Pep 8205 pg/mL (0-125 ) H 05/27/20 22:38 Total Protein 5.7 g/dL (6.6-8.7 ) L 05/29/20 04:30 Albumin 3.5 g/dL (3.5-5.2 ) 05/29/20 04:30 Globulin 2.2 g/dL (1.3-4.6 ) 05/29/20 04:30 Urine Color Yellow (Yellow) 05/28/20 02:00 Urine Appearance Clear (CLEAR) 05/28/20 02:00 Urine pH 7 (5-7) 05/28/20 02:00 Ur Specific Gravit y 1.015 (1.005-1.0 30) 05/28/20 02:00 Urine Protein Neg (Negative) 05/28/20 02:00 Urine Glucose (UA) Norm (Normal) 05/28/20 02:00 Urine Ketones Negative (Negati ve) 05/28/20 02:00 Urine Blood Neg (Negative) 05/28/20 02:00 Urine Nitrate Negative (Negati ve) 05/28/20 02:00 Urine Bilirubin 1+ (Negative) H 05/28/20 02:00 Urine Urobilinogen 1 mg/dL (Negative ) H 05/28/20 02:00 Ur Leukocyte [place] ase Negative (Negati ve) 05/28/20 02:00 Urine HCG, Qual Negative (Negati ve) 05/28/20 02:20 Vitals/I&O/Wt Last Vital Signs Temp 97.6 F 05/29/20 07:39 Pulse 103 H 05/29/20 08:10 Resp 18 05/29/20 08:02 BP 104/80 05/29/20 07:39 Pulse Ox 97 05/29/20 08:02 05/28/20 05/29/20 05/29/20 22:59 06:59 14:59 Intake Total 240 / 700 200 / 900 Output Total 100 / 250 200 / 450 200 / 200 Balance 140 / 450 0 / 450 -200 / -200 Weight last 48 hrs Weight 92 lb 9.6 oz Weight 86 lb 9 oz Weight 90 lb Physical Exam Narrative: EXAM NARRATIVE: GENERAL: The patient is alert and oriented times three. Slightly tachypneic. Short stature and thin. Generalized wasting. chronically ill looking appearance. HEENT: No significant pallor, icterus or lymphadenopathy. The pupils are symmetrical NECK: Trachea appears to be central. No masses noted. No JVD or thyromegaly appreciated. No carotid bruit. RESPIRATORY: Chest is symmetrical. No intercostals muscle retraction or any accessory muscle activation. There is no chest wall tenderness. Breath sounds are heard bilaterally. No rales or rhonchi heard. No evidence of any consolidation. The breath sounds are diminished in the bases. BREASTS: Deferred. HEART: The PMI is in the 5th left intercostals space just in the midclavicular line. No palpable precordial events. S1 and S2 are normal. No S3 or S4 heard. Short systolic murmur in the left sternal border. No diastolic murmurs. No pericardial rub or any click heard. ABDOMEN: No vessel pulsations or distention. No tenderness. No organomegaly appreciated. No abdominal bruit. Bowel sounds are normally heard. : Deferred. RECTAL: Deferred. LYMPHATIC: No lymphadenopathy noted in the neck . EXTREMITIES: 1-2+ edema both lower extremities no cyanosis. Peripheral pulses are palpable but weak bilaterally. MUSCULOSKELETAL: No acute joint deformities or swelling SKIN: There are no significant scars or skin rash noted. NEUROPSYCHIATRIC: The patient is alert and oriented x3. Not in any distress Data : 05/29/20 04:30 05/29/20 04:30 A&P Assessment and plan (1) Atypical chest pain: Patient's chest pain is very atypical. Possibility of coronary ischemia, especially in view of risk factors and severely dysfunction is a consideration. This needs to be further evaluated. Her EKG is unremarkable. No evidence of any myocardial injury so far. For further evaluation of her symptoms, a cardiac catheterization would be appropriate especially in view of the severe LV systolic dysfunction. The risk of bleeding, hematoma, vascular injury, myocardial infarction, CVA, renal failure and other concomitant complications were explained in detail. Patient understood this well and consented to proceed. Status: Acute (2) Chronic systolic heart failure: Patient may be treated with a careful IV diuresis. Patient was started on digoxin. She seems to be tolerating this well. Her urine output is not measured. She seems to be fairly compensated. Status: Acute (3) Cardiomyopathy: Patient has severe LV systolic dysfunction with an ejection fraction of 5 to 10% by echocardiogram. The etiology of the cardiomyopathy is not clear at this time. Possibility of underlying coronary ischemia is a consideration that needs to be further evaluated. Status: Acute Qualifiers: Cardiomyopathy type: other Qualified Code(s): I42.8 - Other cardiomyopathies (4) Edema, peripheral: This could be multifactorial. Has severe LV systolic dysfunction, RV dysfunction, dependency, etc. are contributing factors. It seems to be improving Status: Acute (5) COPD (chronic obstructive pulmonary disease): Patient is on home oxygen for the last few years. She also is on bronchodilator treatment. Advised to continue the same. Status: Chronic Qualifiers: COPD type: unspecified COPD Qualified Code(s): J44.9 - Chronic obstructive pulmonary disease, unspecified (6) Hypotension: This could be multifactorial. Severe LV dysfunction, generalized wasting, possible intravascular of fluid depletion, etc. are contributing factors. She is on careful IV hydration. Status: Acute Qualifiers: Hypotension type: unspecified hypotension type Qualified Code(s): I95.9 - Hypotension, unspecified Additional A&P Information Patient on the clinical progress and the results of the above, further management decisions will be made Attestations Medical Necessity Statement*: Patient requires continued hospital stay for close monitoring and further management Coding Level of Care Code Acute Inlayer for [facility] Fwd Diagnoses Atypical chest pain R07.89 Chronic systolic heart failure I50.22 Cardiomyopathy I42.8 Cardiomyopathy type: other Edema, peripheral R60.9 COPD (chronic obstructive pulmonary disease) J44.9 COPD type: unspecified COPD Hypotension I95.9 Hypotension type: unspecified hypotension type
[2020-05-29] MEDS: fluticasone nasal spray 16gm Btl 2 SPRAY NASAL (10:45)
--- NOTE | 2020-05-29 11:38 | XACV_ITS ---
Exam Room: [facility] Ht: 160 cm Wt: 41 kg BSA: 1.33 m2 Gender: Female : 1960 Any Known Allergies: No known allergies Exam Priority: Routine Procedure(s): Procedure Description: Diagnostic procedure Procedure Description: Left Heart Catheterization Procedure Description: Right Heart Catheterization Procedure Description: Left ventriculography Procedure Description: O2 saturation Procedure Description: Coronary Angiography Diagnostic Cath Status: Urgent Diagnostic Findings * The left main is a medium sized elongated vessel with no significant stenotic lesions. * The left-sided descending artery is a medium caliber elongated vessel which appears to wrap around the LV apex. No significant stenotic lesions were seen. * The left circumflex artery is a nondominant small to medium caliber vessel with no significant stenotic lesions. * Intermedius artery is a small to medium caliber vessel with no significant stenotic lesions. * Right coronary artery is a medium caliber dominant vessel with no significant stenotic lesions. Conclusions 1. This is a 60-year-old white female with a history of COPD, presented with chest pain and worsening shortness of breath. She was found to have an LV ejection fraction of 5 to 10% by echocardiogram. She was found to have features of congestive heart failure. Apparently she had multiple ER visits and hospital admissions for shortness of breath/COPD exacerbation and multiple other medical problems. For further evaluation of her cardiovascular status, a cardiac catheterization was recommended. Patient underwent left and right heart catheterization with a left and right coronary angiogram and LV angiogram today. The findings are as follows.. 2. 1. Normal coronary arteries with no significant stenotic lesions. 2. mild pulmonary hypertension with a PA pressure of 51/22 with a mean of 31 mmHg. The right atrial pressure was 9 mmHg. 3. LVEDP of 30 mmHg. Cardiac output of 3.0 L/min with an index of 2.0, by Jacqueline's. 4. severe diffuse hypokinesia f the left ventricle with an ejection fraction of 10%. Moderately dilated LV cavity. Moderately severe mitral regurgitation. Diagnostic RX Recommendation: medical therapy and/or counseling LV EDP: 30 mmHg Ventriculography Ejection Fraction: 10.0 % Left Ventriculography Findings: * The ventriculography was performed in the MAZARIEGOS projection. The LV cavity was found to be moderately dilated. Severe diffuse hypokinesia left ventricle with an ejection fraction of around 10%. Moderately severe mitral regurgitation was noted. Pressures Phase:Rest AO : 100 / 63 ( 77 ) @ 7:36:00 AM 104 / 63 ( 78 ) @ 7:44:00 AM 106 / 64 ( 79 ) @ 7:45:00 AM 108 / 65 ( 81 ) @ 7:45:00 AM LV : 109 / 6 / @ 7:44:00 AM 108 / 9 / @ 7:44:00 AM 107 / 8 / @ 7:44:00 AM RV : 46 / 5 / @ 7:31:00 AM PA : 51 / 21 ( 31 ) @ 7:30:00 AM RA : a wave = v wave = mean = 9 @ 7:33:00 AM O2 Content Phase:Rest PA : O2 Content O2: 61.2 @ 7:44:00 AM Saturations Phase:Rest AO : 93 @ 7:36:00 AM RA : 62 @ 7:45:00 AM RV : 62 @ 7:45:00 AM PA : 61 @ 7:44:00 AM Cardiac Output Phase:Rest Jacqueline : 3 @ 7:36:00 AM Jacqueline Cardiac Index: 2 @ 7:36:00 AM Valves Phase:DefaultPhase AV : 3.0 @ 12:54:26 PM AV Mean Gradient: 9.0 @ 12:54:26 PM Clinical Evaluation EBL: 5mL-10mL Procedural Details Procedure Consent Obtained. Pre-Procedure Time Out. Identified patient by full name and date of as verbalized by the patient/guarantor. Does the consent match the physician's order: Yes. Accurate & Complete Informed Consent: Yes. Inpatient/Outpatient History & Physical on Chart: Yes. If H&P is completed, is and addenduem needed: No; If yes, is the addendum complete: N/A. Visualize and Verify Site with Patient/Guarantor: N/A. Relevant Radiology Images available: N/A. Pre-op teaching completed and patient verbalized understanding. The risks, benefits, and alternatives of sedation and/or procedure were discussed by physician. The patient agrees to continue. Procedure started. IV Fluids: 0.9% NaCl at KVO. 300 mL infused prior to confectionery laboratory manager. Oxygen started at 3liters/min via nasal canula. [facility] Clinical Fraility Score: 5: Mildly Frail. Hide Puller Indications: Cardiomyopathy. Chest Pain Symptom Assessment: Atypical Angina. Cardiovascular Instability: No. Correct patient, site and procedure confirmed by cath team. PERRLA. Strong, equal hand trouble shooter bilaterally. Lungs clear x 5 lobes. IV Site on Arrival: 20 gauge in the right wrist. Pre Procedural Pulses: bilateral posterior tibial was 3+. Pre Procedural Pulses: bilateral posterior tibial was Absent. Pre Procedural Pulses: bilateral dorsalis pedis was 3+. Pre Procedural Pulses: bilateral radial was 3+. Equipment: 6F - Femoral. Cardiac Cath Pack. ACIST Manifold Kit Model BT 2000. Heparinized Saline (2 units/mL), 1000 mL bag. Kit, Micropuncture. Physician notified. Baseline sample Acquired. HR: 100 BPM. bilateral groins was prepped with chloroprep then draped in the usual sterile fashion. Physician arrived. Physician scrubbed in. Immediate Pre-Procedure Time Out. Correct Patient: Yes; Correct Procedure: Yes; Correct Site: Yes; Correct Patient Position: Yes; Correct Supplies: Yes; Dried Flammable Prep: Yes; Blood Products Available: N/A;. Lidocaine 1% infiltrated to the right groin. Venous access obtained with a micropuncture set. Arterial access obtained with micropuncture set. Truro-Alfonso MON catheter inserted through venous sheath. 0.025 Truro wire inserted. Wire out. Truro-Alfonso out. A 5 brazilian JL4 catheter in over wire through arterial sheath. Multiple views taken of left coronary artery. Catheter removed over the standard wire. A 5 brazilian JR4 catheter in over wire. Multiple views taken of right coronary artery. Catheter removed over the standard wire. A 5 brazilian Angled Pig catheter in over wire. EDP Sample taken: LV 109/6,30; HR: 101 BPM; SpO2: 99%. LV gram performed in MAZARIEGOS @ 10 mL/second for a total of 30 mL. EDP Sample taken: LV 108/9,24; HR: 99 BPM; SpO2: 99%. Pullback taken: LV 107/8,25; AO 104/63(78); Mean: 9mmHg, Peak to Peak: 3mmHg, SEP: 22sec/min; HR: 100 BPM; SpO2: 99%. Catheter removed over the standard wire. Physician scrubbed out. A Suture was successful obtaining hemostatsis at the Right Femoral vein insertion site. A Suture was successful obtaining hemostatsis at the Right Femoral artery insertion site. Sheath(s) sutured into position with 2-0 silk and sterile 4x4's and Op-site applied over the site. No oozing or signs and symptoms of hematoma noted. Arterial sheath flushed and connected to tranducer and pressure bag with heparinized saline. Post Procedure: Pulses reassessed and unchanged. PERRLA. Strong, equal hand trouble shooter bilaterally. No VTE prophylaxis required. Medication's Wasted: Lidocaine 1% = 4 mL. Medication's Wasted: Heparin = 2500 units. Medication's Wasted: Other = versed .5 mg. Medication's Wasted: Other = fentanyl 75 mcg. Total IV fluids: 50 mL. Contrast type used: Omnipaque 300 mgI/mL, 500 mL bottle. Post-op diagnosis: severe cardiomyopathy, pulm HTN. Complications: none. Estimated blood loss: 5mL-10mL. Procedure completed. Patient transferred by bed to 1st floor. Vital chart was stopped. Access Site Site: Right Femoral vein Sheath Size: 6 Fr Hemostasis Method: Suture Hemostasis Success: Successful Site: Right Femoral artery Sheath Size: 5 Fr Hemostasis Method: Suture Hemostasis Success: Successful Procedure Medications Start: 12:09 PM Stop: 12:09 PM Medication: Versed Amount: 1 mg Route: I.V. Start: 12:12 PM Stop: 12:12 PM Medication: Fentanyl Amount: 25 mcg Route: I.V. Start: 12:19 PM Stop: 12:19 PM Medication: Versed Amount: 0.5 mg Route: I.V. Start: 12:25 PM Stop: 12:25 PM Medication: Heparin Amount: 1500 units Route: I.V. I, the attending physician, have reviewed and verified all procedure medications. Yes, all medications given per verbal order History/Risk Factors Hypertension: No Dyslipidemia: No Peripheral Arterial Disease (PAD): No Myocardial Infarction (ND): No Obesity: No Renal Disease: No Tobacco Use: Current/Recent(w/in 1 year) Prior Interventions PCI: No CABG: No Valve Surgery: No Report Signatures Finalized by Dr Deny Casper MD [facility] on 05/29/2020 02:29 PM
[2020-05-29] MEDS: diphenhydrAMINE 50 mg Capsule PO (11:41)
--- NOTE | 2020-05-29 12:08 | PC.NURSE ---
to microbiology lab technician ushered by microbiology lab technician nurses.
--- NOTE | 2020-05-29 12:13 | PC.CHAP ---
Pastoral Care Encounter/Spiritual Assessment Type of Contact [] Declined branding specialist visit [] Patient/Family/Request visit [] Outpatient visit [] Follow-up visit [] Physician referral [] Code/Alert [] Routine visit [] Staff referral [] Actively dying [] Patient sleeping [] Family support [] [] Out of room [] Palliative care [] [xx] Receiving care in room [] Pre-surgical visit [] Trauma [] Long length of stay [] ICU visit [xx] Other: Doctor was with patient. Relational/Emotional Strength [] Patient feels connected with others/family/visitors/staff [] Distress [] Loneliness/isolation [] Abandonment Spirituality of Patient [] Person of Esther [] Attends Denominational of their Esther [] Believes in Prayer [] Reads Bible or Judaism materials [] There are Spiritual issues to be addressed Brand Strategy Manager Interventions [] Prayer [] Active listening [] Non-anxious presence [] Spiritual/emotional support [] Crisis/trauma care [] Spiritual counseling [] Bereavement support [] Provided bereavement packet [] Provided Bible/devotional materials [] Provided toy/stuffed animal, coloring book to patient or family member [] Provided Communion [] Anointing/[place] [] Salvation [] Completed spiritual assessment [] Other: Impact on Illness or Injury [] Angry [] Fearful [] Anxious [] Often cries [] Exhaustion [] Unable to work [] Unable to attend quaker [] Unable to walk/stand [] Unable to read [] Unable to drive [] Unable to eat/drink [] Unable to sleep [] Unable to be with family [] Patient intubated [] Other: Summary Follow up needed Time spent with patient
--- NOTE | 2020-05-29 12:51 | W.PM.OPSUD ---
Surgery/Procedure H&P Update DATE OF PROCEDURE: May 29, 2020 DATE H&P PERFORMED: 05/28/20 H&P UPDATE INFORMATION: I have reviewed H&P completed within last 30 days, I have examined patient prior to procedure and No changes to prior documentation PREOP DIAGNOSIS: Chest pain/severe cardiomyopathy/congestive heart failure PLANNED PROCEDURE: Operation Date: 05/29/20 12:00 Proposed Procedures p left and right Cardiac Catheterization 62717 I50.40(Bilateral) - Deny Casper MD PATIENT REASSESSED PRIOR TO SEDATION, WITH NO CHANGE NOTED: Yes PHYSICAL EXAM: alert, oriented x 3, clear to auscultation bilaterally and regular rate & rhythm AIRWAY EVAL/ANESTHESIA PLAN: normal airway, see other exam findings, ASA III, Monitored Anesthesia, Local Anesthesia, Risks, benefits & alternatives of sedation and/or procedure discussed and Patient agrees to continue as planned
--- NOTE | 2020-05-29 13:00 | PC.NURSE ---
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 5 Fr arterial sheath attached to pressure bag and 6 Fr venous sheath are intact. No hematoma, swelling, bleeding noted to right groin. Neurovascular checked, VS monitored. Instructed pt on activity restrictions such as bedrest and HOB <35 degrees to right hip and groin. Pt verbalizes understanding.
--- NOTE | 2020-05-29 13:53 | P.PN_ITS ---
Subjective Subjective: Interval history: Patient was examined this morning, she denies any chest pain overnight, no lightheadedness, dizziness no nausea, no vomiting Medications: Medication Review Details: Laboratory Last Values WBC 4.8 10^3/uL (4.0- 10.0) 05/29/20 04:30 RBC 3.79 10^6/uL (4.1 -5.3) L 05/29/20 04:30 Hgb 12.0 g/dL (11.5-1 5.3) 05/29/20 04:30 Hct 38.2 % (37.0-47.0 ) 05/29/20 04:30 MCV 100.8 fL (81-99) H 05/29/20 04:30 MCH 31.7 pg (28.0-34. 0) 05/29/20 04:30 MCHC 31.4 g/dL (30.0-3 6.0) 05/29/20 04:30 RDW 16.6 % (12.1-15.1 ) H 05/29/20 04:30 Plt Count 136 10^3/cmm (130 -400) 05/29/20 04:30 MPV 12.0 fL (7.4-10.4 ) H 05/29/20 04:30 Neut % (Auto) 64.5 % 05/29/20 04:30 Lymph % (Auto) 23.2 % 05/29/20 04:30 [place] % (Auto) 10.9 % 05/29/20 04:30 Eos % (Auto) 1.0 % 05/29/20 04:30 Baso % (Auto) 0.4 % 05/29/20 04:30 Neut # (Auto) 3.09 10^3/uL (1.8 -7.7) 05/29/20 04:30 Lymph # (Auto) 1.1 10^3/uL (0.8- 4.8) 05/29/20 04:30 [place] # (Auto) 0.5 10^3/uL (0.2- 0.9) 05/29/20 04:30 Eos # (Auto) 0.1 10^3/uL (0.0- 0.8) 05/29/20 04:30 Baso # (Auto) 0.0 10^3/uL (0.0- 0.1) 05/29/20 04:30 Nucleated RBC % (a uto) 0 % 05/29/20 04:30 Nucleated RBCs # 0.0 /100WBC 05/29/20 04:30 Sodium 137 mmol/L (136-1 45) 05/29/20 04:30 Potassium 4.0 mmol/L (3.5-5 .1) 05/29/20 04:30 Chloride 101 mmol/L (98-10 7) 05/29/20 04:30 Carbon Dioxide 30 mmol/L (22-29) H 05/29/20 04:30 Anion Gap 10.0 (5-19) 05/29/20 04:30 BUN 18 mg/dL (8-23) 05/29/20 04:30 Creatinine 0.7 mg/dL (0.5-0. 9) 05/29/20 04:30 GFR Calculation 85.1 mL/min (90-1 30) L 05/29/20 04:30 Glucose 88 mg/dL (65-115) 05/29/20 04:30 Calculated Osmolal ity 285 mOsm/kg (285- 295) 05/29/20 04:30 Calcium 8.7 mg/dL (8.5-10 .5) 05/29/20 04:30 Phosphorus 3.4 mg/dL (2.5-4. 5) 05/29/20 04:30 Magnesium 2.0 mg/dL (1.7-2. 3) 05/29/20 04:30 Total Bilirubin 0.4 mg/dL (0.15-1 .2) 05/29/20 04:30 AST 16 U/L (0-32) 05/29/20 04:30 ALT 14 U/L (0-33) 05/29/20 04:30 Alkaline Phosphata se 78 IU/L (35-105) 05/29/20 04:30 Troponin T Baselin e 42 ng/L (0-10) H 05/27/20 22:38 Troponin T 120 Min tanesha 46.70 ng/L (0-10) H 05/28/20 00:37 Delta Troponin T 4.70 ABS# (0-10) 05/28/20 00:37 Troponin T Hi Sens 6Hr 48.02 ng/L (0-10) H 05/28/20 04:36 Troponin T Hi Sens 6Hr Delta 6.02 ng/L (0-12) 05/28/20 04:36 NT-Pro-B Natriuret Pep 8205 pg/mL (0-125 ) H 05/27/20 22:38 Total Protein 5.7 g/dL (6.6-8.7 ) L 05/29/20 04:30 Albumin 3.5 g/dL (3.5-5.2 ) 05/29/20 04:30 Globulin 2.2 g/dL (1.3-4.6 ) 05/29/20 04:30 Urine Color Yellow (Yellow) 05/28/20 02:00 Urine Appearance Clear (CLEAR) 05/28/20 02:00 Urine pH 7 (5-7) 05/28/20 02:00 Ur Specific Gravit y 1.015 (1.005-1.0 30) 05/28/20 02:00 Urine Protein Neg (Negative) 05/28/20 02:00 Urine Glucose (UA) Norm (Normal) 05/28/20 02:00 Urine Ketones Negative (Negati ve) 05/28/20 02:00 Urine Blood Neg (Negative) 05/28/20 02:00 Urine Nitrate Negative (Negati ve) 05/28/20 02:00 Urine Bilirubin 1+ (Negative) H 05/28/20 02:00 Urine Urobilinogen 1 mg/dL (Negative ) H 05/28/20 02:00 Ur Leukocyte [place] ase Negative (Negati ve) 05/28/20 02:00 Urine HCG, Qual Negative (Negati ve) 05/28/20 02:20 Vitals/I&O/Wt Last Vital Signs Temp 98.0 F 05/29/20 11:19 Pulse 110 H 05/29/20 13:39 Resp 14 05/29/20 11:19 BP 107/73 05/29/20 11:19 Pulse Ox 97 05/29/20 11:19 05/28/20 05/29/20 05/29/20 22:59 06:59 14:59 Intake Total 240 / 700 200 / 900 Output Total 100 / 250 200 / 450 400 / 400 Balance 140 / 450 0 / 450 -400 / -400 Weight last 48 hrs Weight 42.003 kg Weight 39.264 kg Weight 40.823 kg Physical Exam Const: COMMON NORMALS: no acute distress and patient oriented x3 GENERAL APPEARANCE: cooperative and frail appearing NUTRITIONAL APPEARANCE: cachectic ORIENTATION/CONSCIOUSNESS: Yes awake, Yes oriented to person, Yes oriented to place and Yes oriented to time HENMT: COMMON NORMALS: normocephalic HEAD & SCALP: normocephalic Neck/C-Spine: COMMON NORMALS: no JVD Resp: COMMON NORMALS: normal respiratory effort, No retractions, No use of accessory muscles and clear to auscultation bilaterally AUSCULTATION: clear to auscultation bilaterally Cardio: COMMON NORMALS: no JVD, regular rate, regular rhythm, S1 normal heart sound present and S2 normal heart sound present RATE: regular rate RHYTHM: regular rhythm HEART SOUNDS: S1 normal heart sound present and S2 normal heart sound present GI: COMMON NORMALS: Normal to inspection, nondistended, normoactive bowel sounds present, Soft to palpation, non-tender, No hepatosplenomegaly present, no masses and no bruits PALPATION: Yes Soft to palpation and Yes No hepatosplenomegaly present Extremity: COMMON NORMALS: capillary refill normal, no clubbing, cyanosis or edema, no calf tenderness and no pedal edema Neuro: COMMON NORMALS: patient oriented x3 SENSORIUM/ORIENTATION: Yes oriented to person, Yes oriented to place and Yes oriented to time Psych: COMMON NORMALS: mental status grossly normal Data : 05/29/20 04:30 05/29/20 04:30 A&P Assessment and plan (1) Chest pain: Aspirin 81 mg PO daily Troponin trend not consistent with ACS going for cardiac cath today Monitor on Tele Status: Acute Qualifiers: Chest pain type: other chest pain Qualified Code(s): R07.89 - Other chest pain (2) Systolic and diastolic CHF w/reduced LV function, NYHA class 4: Mildly increased LE edema Hold off on Lasix therapy given low blood pressures Monitor daily weight Resume diuretics in am if BP tolerates Recent echo noted - EF 5-10% started on digoxin uop last 24 hours 400cc, cr 0.7, likely secondary to low cardiac output, and cardiorenal syndrome Status: Acute (3) COPD (chronic obstructive pulmonary disease): Stable Neb PRN Advair BID Status: Chronic Qualifiers: COPD type: unspecified COPD Qualified Code(s): J44.9 - Chronic obstructive pulmonary disease, unspecified (4) Bilateral edema of lower extremity: Keep elevated Low na diet Diuretics on hold Status: Acute (5) Hypokalemia: S/p KCl40 MEQ x 1 in Er Replace as needed. 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
--- NOTE | 2020-05-29 14:00 | PC.NURSE ---
Sheaths pulled Explained procedure to pt. Pre medicated pt with Fentanyl prior to sheaths removal. Femoral artery felt palpable +2 to 3+. Arterial sheath removed. Direct manual pressure held to artery for 20 mins. No hematoma, swelling or active bleeding noted. Mild oozing noted to puncture area. pressure applied to puncture area. Posterior tibial and dorsalis pedal pulses are palpable 2+ to 3+ and doppled as well. 1420- Venous sheath removed. Applied pressure for 10 mins. No bleeding or swelling noted. Instructed pt on supine position for an hour and bedrest for 6 hrs. Instructed pt on no lifting or moving her right hip and right leg. pt verbalizes understanding. VS signs are wnl.
[2020-05-29] MEDS: fentaNYL 50 mcg/mL INJ 2mL 12.5 MCG IVP ×2 (14:21→18:02)
[2020-05-29] MEDS: sodium chloride 0.9% 1,000 ML 100 ML IV (15:10)
--- NOTE | 2020-05-29 17:58 | PC.NURSE ---
primary nurse at bedside requesting help at bedside upon site check a small hematoma formation noted primary nurse Eduin RN placed gental pressure at site to aid in hemostasis formation patient sat straight up in bed and was in significant pain at site with pressure call to Dr. gomez telephone instructions recived to give fentynl 12.5 mcg IVP times one
--- NOTE | 2020-05-29 18:46 | PC.NURSE ---
applied pressure for 10 mins Pt started to report of pain on her groin. mild oozing noted. No hematoma, noted swelling on puncture area. Dr Casper at bedside. 1L bag of NS applied to right groin as a sandbag. no hematoma or active bleeding noted. PT and DP are palpable 2+ to 3+.
[2020-05-29] MEDS: FUROsemide 10 mg/mL SDV 2mL 20 MG IVP (19:38)
[2020-05-30] VITALS (11 sets, daily range): BP systolic 92–116; BP diastolic 49–66; PULSE 99–104; RESP 18; TEMP 37.3; O2SAT 94–97
[2020-05-30 05:04] LABS: Basophils % 0.5 %; Eosinophils % 0.6 %; Hematocrit 37.9 % (37.0-47.0); Lymphocytes % 15.4 %; Mean Corpuscular HGB Conc 31.7 g/dL (30.0-36.0); Mean Corpuscular Hemoglobin 31.3 pg (28.0-34.0); Mean Platelet Volume 11.7 fL (7.4-10.4); Monocytes # 0.6 10^3/uL (0.2-0.9); Monocytes % 9.1 %; Neutrophils % 74.1 %; Nucleated Red Blood Cells % 0 %; Platelet Count 133 10^3/cmm (130-400); Red Blood Count 3.83 10^6/uL (4.1-5.3); Red Cell Distribution Width 16.1 % (12.1-15.1); White Blood Count 6.6 10^3/uL (4.0-10.0)
[2020-05-30 05:26] LABS: Alanine Aminotransferase 11 U/L (0-33); Albumin Level 3.2 g/dL (3.5-5.2); Alkaline Phosphatase 75 IU/L (35-105); Anion Gap 9.9 (5-19); Aspartate Amino Transferase 14 U/L (0-32); Blood Urea Nitrogen 15 mg/dL (8-23); Calcium 8.3 mg/dL (8.5-10.5); Carbon Dioxide 31 mmol/L (22-29); Chloride 104 mmol/L (98-107); Globulin 2.4 g/dL (1.3-4.6); Glomerular Filtration Rate 85.1 mL/min (90-130); Glucose 87 mg/dL (65-115); Magnesium 1.9 mg/dL (1.7-2.3); Osmolality Calculated 292 mOsm/kg (285-295); Phosphorus 3.4 mg/dL (2.5-4.5); Potassium 3.9 mmol/L (3.5-5.1); Sodium 141 mmol/L (136-145); Total Bilirubin 0.6 mg/dL (0.15-1.2); Total Protein 5.6 g/dL (6.6-8.7)
[2020-05-30] MEDS: FUROsemide 20 mg Tablet PO (06:35)
[2020-05-30] MEDS: ipratropium-albuterol 3 mL Neb INHALATION (07:25)
[2020-05-30] MEDS: aspirin 81 mg EC Tablet PO (09:33)
[2020-05-30] MEDS: fluticasone nasal spray 16gm Btl 2 SPRAY NASAL (09:33)
[2020-05-30] MEDS: levETIRAcetam 500 mg Tablet 250 MG PO (09:34)
[2020-05-30] MEDS: pantoprazole DR 40 mg Tablet PO (09:34)
[2020-05-30] MEDS: digoxin 125 mcg Tablet PO (09:34)
--- NOTE | 2020-05-30 10:10 | PM.PN ---
Subjective Subjective: Interval history: Patient is doing well. She underwent coronary angiogram yesterday that did not reveal severe coronary artery disease. LifeVest has been given to the patient. Vitals/I&O/Wt Last Vital Signs Temp 99.2 F 05/30/20 08:00 Pulse 104 H 05/30/20 10:05 Resp 18 05/30/20 08:00 BP 92/49 05/30/20 10:05 Pulse Ox 95 05/30/20 10:05 05/29/20 05/30/20 05/30/20 22:59 06:59 14:59 Intake Total 586 / 586 1000 / 1586 340 / 340 Output Total 650 / 1050 750 / 1800 500 / 500 Balance -64 / -464 250 / -214 -160 / -160 Weight last 48 hrs Weight 91 lb 8 oz Weight 92 lb 9.6 oz Physical Exam Narrative: EXAM NARRATIVE: GENERAL: The patient is alert and orientedx3 Slightly tachypneic. Short stature and thin. Generalized wasting. chronically ill looking appearance. HEENT: No significant pallor, icterus or lymphadenopathy. The pupils are symmetrical NECK: Trachea appears to be central. No masses noted. No JVD or thyromegaly appreciated. No carotid bruit. RESPIRATORY: Chest is symmetrical. No intercostals muscle retraction or any accessory muscle activation. There is no chest wall tenderness. Breath sounds are heard bilaterally. No rales or rhonchi heard. No evidence of any consolidation. The breath sounds are diminished in the bases. HEART: The PMI is in the 5th left intercostals space just in the midclavicular line. No palpable precordial events. S1 and S2 are normal. No S3 or S4 heard. Short systolic murmur in the left sternal border. No diastolic murmurs. No pericardial rub or any click heard. ABDOMEN: No vessel pulsations or distention. No tenderness. No organomegaly appreciated. No abdominal bruit. Bowel sounds are normally heard. : Deferred. RECTAL: Deferred. LYMPHATIC: No lymphadenopathy noted in the neck . EXTREMITIES: 1-2+ edema both lower extremities no cyanosis. Peripheral pulses are palpable but weak bilaterally. MUSCULOSKELETAL: No acute joint deformities or swelling SKIN: There are no significant scars or skin rash noted. NEUROPSYCHIATRIC: The patient is alert and oriented x3. Data : 05/30/20 04:46 05/30/20 04:46 A&P Assessment and plan (1) Atypical chest pain: Patient underwent coronary angiogram that did not reveal severe coronary artery disease. Medical management. Nonischemic cardiomyopathy. We will at low-dose beta-ewa with Coreg 3.125 mg twice daily. Continue digoxin Continue spironolactone Given her low blood pressure, we will hold DANNY inhibitor at this time. As outpatient if blood pressures are tolerating, can be restarted on DANNY inhibitor's. Follow-up appointment with cardiology. Patient has been given LifeVest. She is ready to be discharged from cardiology standpoint. Please call with questions. Status: Resolved (2) Chronic systolic heart failure: Nonischemic cardiomyopathy. Continue digoxin. Low-dose Lasix. Continue spironolactone. Patient has been started on Coreg 3.125 mg twice daily. DANNY inhibitor is held as patient is hypotensive. Can be started as outpatient if blood pressure tolerates. Status: Acute (3) Cardiomyopathy: Patient has severe LV systolic dysfunction with an ejection fraction of 5 to 10% by echocardiogram. Nonischemic cardiomyopathy is coronary angiogram did not reveal significant coronary artery disease. Status: Acute Qualifiers: Cardiomyopathy type: other Qualified Code(s): I42.8 - Other cardiomyopathies (4) Edema, peripheral: This could be multifactorial. Has severe LV systolic dysfunction, RV dysfunction, dependency, etc. are contributing factors. It has improved. Status: Acute (5) COPD (chronic obstructive pulmonary disease): Patient is on home oxygen for the last few years. She also is on bronchodilator treatment. Advised to continue the same. Status: Chronic Qualifiers: COPD type: unspecified COPD Qualified Code(s): J44.9 - Chronic obstructive pulmonary disease, unspecified (6) Hypotension: Status: Resolved Qualifiers: Hypotension type: unspecified hypotension type Qualified Code(s): I95.9 - Hypotension, unspecified Additional A&P Information Patient on the clinical progress and the results of the above, further management decisions will be made Attestations Medical Necessity Statement*: Care expected to cross 2 midnights. 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
--- NOTE | 2020-05-30 10:30 | PC.NURSE ---
Notified in person Pt BP is 92/49 (63). she received 20 mg Lasix PO at 6 am. Hold Spironolactone this morning? Received verbal order read back to re-schedule spironolactone this evening.
--- NOTE | 2020-05-30 10:36 | PC.CHAP ---
Pastoral Care Encounter/Spiritual Assessment Type of Contact [] Declined jd edwards developer visit [] Patient/Family/Request visit [] Outpatient visit [XX] Follow-up visit [] Physician referral [] Code/Alert [] Routine visit [] Staff referral [] Actively dying [] Patient sleeping [] Family support [] [] Out of room [] Palliative care [] [] Receiving care in room [] Pre-surgical visit [] Trauma [] Long length of stay [] ICU visit [] Other: Relational/Emotional Strength [] Patient feels connected with others/family/visitors/staff [] Distress [] Loneliness/isolation [] Abandonment Spirituality of Patient [] Person of Esther [] Attends Anabaptist of their Esther [] Believes in Prayer [] Reads Bible or Yarsani materials [] There are Spiritual issues to be addressed Double End Tenoner Setter Interventions [XX] Prayer [] Active listening [] Non-anxious presence [] Spiritual/emotional support [] Crisis/trauma care [] Spiritual counseling [] Bereavement support [] Provided bereavement packet [] Provided Bible/devotional materials [] Provided toy/stuffed animal, coloring book to patient or family member [] Provided Communion [] Anointing/[place] [] Salvation [] Completed spiritual assessment [] Other: Impact on Illness or Injury [] Angry [] Fearful [] Anxious [] Often cries [] Exhaustion [] Unable to work [] Unable to attend bahai [] Unable to walk/stand [] Unable to read [] Unable to drive [] Unable to eat/drink [] Unable to sleep [] Unable to be with family [] Patient intubated [] Other: Summary: Pt was waiting to leave and was reticent about sharing her story re: reason for visit. Offered prayer, which pt accepted. Limited spiritual assessment due to pt's focus on leaving and reluctance to share. Time spent with patient: 5 mins
--- NOTE | 2020-05-30 10:46 | PM.DCS ---
Discharge Providers Date of Admission: 05/28/20 14:11 Date of Discharge: May 30, 2020 Attending Provider at Admission: Matthew Fermin Attending Provider at Discharge: Eric Lawson MD Primary Care Provider: Emma Novoa DO Diagnoses at Discharge Discharge Diagnosis (1) Chest pain: Status: Acute Qualifiers: Chest pain type: other chest pain Qualified Code(s): R07.89 - Other chest pain (2) Systolic and diastolic CHF w/reduced LV function, NYHA class 4: Status: Acute (3) COPD (chronic obstructive pulmonary disease): Status: Chronic Qualifiers: COPD type: unspecified COPD Qualified Code(s): J44.9 - Chronic obstructive pulmonary disease, unspecified (4) Bilateral edema of lower extremity: Status: Inactive (5) Hypokalemia: Status: Acute Reason for Visit Reason for Visit: DIFF BREATHING, ACHING ALL OVER Hospital Course Hospital Course This is a 60-year-old female with a past medical history of oxygen dependent COPD on 2 L nasal cannula, tobacco abuse, GERD, history of seizure disorder, pulmonary pretension, history of fatty liver disease, chronic systolic heart failure, cardiomyopathy, with chronic hypotension secondary to LV dysfunction, multifactorial who presents to [facility] due to chest pain Patient was admitted to [facility] due to chest pain, she underwent a coronary angiogram which did not show any obstructive CAD, tolerated the procedure well, no chest pain thereafter. For her chronic systolic heart failure cardiomyopathy chronic hypotension she was discharged on losartan 25 mg daily, digoxin 125 mcg daily, Lasix 20 mg daily with a close follow-up with cardiology as outpatient. Given patient's significantly depressed ejection fraction of 5 to 10%, she was fitted for a LifeVest before discharge. Patient was advised if she were to have lightheaded or dizziness to go to the emergency room immediately. Physical Exam Const: COMMON NORMALS: no acute distress and patient oriented x3 HENMT: COMMON NORMALS: normocephalic HEAD & SCALP: normocephalic Neck/C-Spine: COMMON NORMALS: no JVD Resp: COMMON NORMALS: normal respiratory effort, No retractions, No use of accessory muscles and clear to auscultation bilaterally AUSCULTATION: clear to auscultation bilaterally Cardio: COMMON NORMALS: no JVD, regular rate, regular rhythm, S1 normal heart sound present and S2 normal heart sound present RATE: regular rate RHYTHM: regular rhythm HEART SOUNDS: S1 normal heart sound present and S2 normal heart sound present GI: COMMON NORMALS: Normal to inspection, nondistended, normoactive bowel sounds present, Soft to palpation, non-tender, No hepatosplenomegaly present, no masses and no bruits PALPATION: Yes Soft to palpation and Yes No hepatosplenomegaly present Extremity: COMMON NORMALS: capillary refill normal, no clubbing, cyanosis or edema, no calf tenderness and no pedal edema Neuro: COMMON NORMALS: patient oriented x3 Psych: COMMON NORMALS: mental status grossly normal Discharge Data Data Completed and Pending: Completed Studies During Hospitalization Category Date Time Status AUTOMOTIVE TECHNOLOGY INSTRUCTOR request for service Routin e Exams 05/29/20 11:38 Completed XR chest 1V maria dolores ble [id number] Stat Exams 05/27/20 19:34 Completed Pending at discharge Category Date Time Status Complete Blood Co unt w/Auto AM LABS Lab 05/31/20 04:00 Ordered Comprehensive Met abolic Panel AM LA BS Lab 05/31/20 04:00 Ordered Magnesium AM LABS Lab 05/31/20 04:00 Ordered Phosphorus AM LAB S Lab 05/31/20 04:00 Ordered Labs from last 24 hours 05/30/20 05/30/20 05/29/20 04:46 04:46 04:30 WBC 6.6 RBC 3.83 L Hgb 12.0 Hct 37.9 MCV 99.0 MCH 31.3 MCHC 31.7 RDW 16.1 H Plt Count 133 MPV 11.7 H Neut % (Auto) 74.1 Lymph % (Auto) 15.4 [place] % (Auto) 9.1 Eos % (Auto) 0.6 Baso % (Auto) 0.5 Neut # (Auto) 4.90 Lymph # (Auto) 1.0 [place] # (Auto) 0.6 Eos # (Auto) 0.0 Baso # (Auto) 0.0 Nucleated RBC % (a uto) 0 Nucleated RBCs # 0.0 PT 14.60 INR 1.10 Sodium 141 Potassium 3.9 Chloride 104 Carbon Dioxide 31 H Anion Gap 9.9 BUN 15 Creatinine 0.7 GFR Calculation 85.1 L Glucose 87 Calculated Osmolal ity 292 Calcium 8.3 L Phosphorus 3.4 Magnesium 1.9 Total Bilirubin 0.6 AST 14 ALT 11 Alkaline Phosphata se 75 Total Protein 5.6 L Albumin 3.2 L Globulin 2.4 Vitals: Last Vital Signs Temp 99.2 F 05/30/20 08:00 Pulse 104 H 05/30/20 10:05 Resp 18 05/30/20 08:00 BP 92/49 05/30/20 10:05 Pulse Ox 95 05/30/20 10:05 Discharge Plan Discharge Patient Disposition: Home Condition: Stable Prescriptions: New aspirin 81 mg Tablet,Delayed Release (Dr/Ec) 81 mg PO DAILY 30 Days Qty: 30 RF: 0 digoxin 125 mcg (0.125 mg) Tablet 125 mcg PO DAILY 30 Days Qty: 30 RF: 0 furosemide 20 mg Tablet 20 mg PO DAILY 30 Days Qty: 30 RF: 0 Continued nitroglycerin [Nitrostat] 0.4 mg tablet, sublingual 0.4 mg sublingual Q5M PRN (Reason: chest pain) 30 Days Qty: 30 RF: 0 levetiracetam 500 mg tablet extended release 24 hr 2,000 mg PO Q24H Qty: 120 RF: 11 albuterol sulfate 90 mcg/actuation HFA aerosol inhaler 2 inh INHALATION Q4H PRN (Reason: shortness of breath or wheezing) Qty: 6.7 RF: 2 Spiriva with HandiHaler 18 mcg capsule, w/inhalation device 1 cap INHALATION DAILY@0900 Qty: 30 RF: 2 albuterol sulfate 2.5 mg /3 mL (0.083 %) solution for nebulization 2.5 mg INHALATION QID PRN (Reason: shortness of breath or wheezing) Qty: 180 RF: 3 guaifenesin 600 mg tablet extended release 12hr 600 mg PO BID PRN (Reason: Congestion) Qty: 60 RF: 2 fluticasone propion-salmeterol [Advair Diskus] 250-50 mcg/dose blister with device 1 inh INHALATION BID@ RF: 0 pantoprazole [Protonix] 40 mg tablet,delayed release (DR/EC) 40 mg PO BID@899,1999 RF: 0 cholecalciferol (vitamin D3) 50 mcg (2,000 unit) capsule 50 mcg PO DAILY@0900 RF: 0 fluticasone propionate [Flonase Allergy Relief] 50 mcg/actuation spray,suspension 2 spray INTRANASAL DAILY@0900 Qty: 16 RF: 5 diclofenac sodium [Voltaren Arthritis Pain] 1 % gel 2 g topical QID Qty: 100 RF: 0 polyethylene glycol 3350 [Miralax] 17 gram powder in packet 17 g PO DAILY PRN (Reason: Constipation) RF: 0 benzonatate 100 mg Capsule 100 mg PO TID PRN (Reason: Cough) RF: 0 spironolactone 25 mg tablet 25 mg PO DAILY 30 Days Qty: 30 RF: 0 ondansetron 4 mg tablet,disintegrating 4 mg PO Q6H PRN (Reason: nausea and vomiting) Qty: 14 RF: 0 lactulose 10 gram packet 10 g PO DAILY PRN (Reason: constipation) Qty: 15 RF: 0 Changed cetirizine 10 mg capsule 10 mg PO DAILY@0900 PRN (Reason: allergies) Qty: 90 RF: 1 Discontinued losartan 25 mg tablet 25 mg PO DAILY 30 Days Qty: 30 RF: 5 furosemide 40 mg Tablet 40 mg PO DAILY PRN (Reason: Edema) RF: 0 Discharge Orders: Discharge Order (Routine); Ordered 05/30/20 Ordered By: Eric Lawson Referrals: Deny Casper MD [Physician] - 1 week Emma Novoa DO [Primary Care Provider] - 1 week Discharge Diet: Cardiac Discharge Activity: Resume usual activity Activity Restrictions/Additional Instructions: -Follow-up with cardiology in 1 week -Follow-up with Dr. Novoa in 1 week -If you feel lightheaded or dizzy or repeat chest pain come back to the emergency room Discharge Attestations Time Spent in Discharge Care*: less than 30 min Quality Metrics Clinical Quality Measures During this hospital stay, did patient experience: None Coding Level of Care Code Acute g [facility] note Diagnoses Chest pain R07.89 Chest pain type: other chest pain Systolic and diastolic CHF w/reduced LV function, NYHA class 4 I50.40 COPD (chronic obstructive pulmonary disease) J44.9 COPD type: unspecified COPD Bilateral edema of lower extremity R60.0 Hypokalemia E87.6
[2020-05-30] MEDS: carvedilol 3.125 mg Tablet PO (11:00)
--- NOTE | 2020-05-30 11:14 | PC.NURSE ---
Called [facility] Pt choice to called [facility] employee pharmacy for meds to bed. called in her Aspirin, Digoxin and Coreg.
--- NOTE | 2020-05-30 11:15 | PC.NURSE ---
called [facility] employee pharmacy for meds to bed
--- NOTE | 2020-05-30 13:05 | PC.NURSE ---
[facility] employee pharmacy Upon checked on pt's bag from [facility] employee pharmacy, they only deliver coreg bottle.
--- NOTE | 2020-05-30 13:10 | PC.NURSE ---
Printed pt with Rx on Aspirin and Digoxin. Pt stated she will get it at [facility].
[2020-05-30] MEDS: acetaminophen 325 mg Tablet 650 MG PO (13:13)
--- NOTE | 2020-05-30 14:30 | PC.NURSE ---
Discharge to home Instructed pt to follow-up with her pcp and serology teacher as discussed. Educated pt on new meds actions, possible side effects, timing and duration. Instructed pt to check her BP twice a day and keep a record of it to bring to her doctors. Educated pt extensively on CHF stoplight and importance of watching her fluid intake and taking her meds as prescribed and post angiogram home care instructions. Patient verbalizes understanding. Discharge packet provided to pt.
== END 2020-05-30 14:30 | disposition home or self-care (01) | DRG 287 ==
LOC: ER 05-28 02:48 → CSU 05-28 05:41
PROVIDERS: Emergency Medicine; Internal Medicine Cardiovascular Disease; Admitting Provider Hospitalist; Emergency Provider Nurse Practitioner Family; PCP Family Medicine; Visit Provider Family Medicine
PROC: B2111ZZ Fluoroscopy of Multiple Coronary Arteries using Low Osmolar Contrast (ICD-10-PCS; principal; 2020-05-29 12:00)
DX: R07.89 Other chest pain (principal); I42.9 Cardiomyopathy, unspecified; I50.22 Chronic systolic (congestive) heart failure; J44.9 Chronic obstructive pulmonary disease, unspecified; Z82.49 Family history of ischemic heart disease and other diseases of the circulatory system; F17.210 Nicotine dependence, cigarettes, uncomplicated; Z99.81 Dependence on supplemental oxygen; K21.9 Gastro-esophageal reflux disease without esophagitis; K76.0 Fatty (change of) liver, not elsewhere classified; G40.909 Epilepsy, unspecified, not intractable, without status epilepticus; I27.20 Pulmonary hypertension, unspecified; K81.1 Chronic cholecystitis; K59.09 Other constipation; E87.6 Hypokalemia; R60.0 Localized edema; I95.9 Hypotension, unspecified
CPT/HCPCS: 36415; 51798; 71045; 80053; 81003; 81025; 83735; 83880; 84100; 84484; 85025; 85610; 93005; 93452; 94640; 97161; C1751; C1769; C1887; C1894; G0378; J1644; J1940; J2250; J3010; J3490; J7030; Q0163; Q9967

== ENCOUNTER 2020-06-05 22:18 | Emergency (ER) | payer MEDICAID, SELFPAY ==
[2020-06-05 22:24] VITALS: BP 104/61; PULSE 108; RESP 17; TEMP 36.7; O2SAT 99; BMI 14.1
--- NOTE | 2020-06-05 22:34 | W.ED.GENADLT ---
HPI - General Adult General: Chief complaint: General Medical Stated complaint: back and shoulder pain Time Seen by Provider: 06/05/20 22:34 Source: patient Mode of arrival: ambulatory Limitations: no limitations History of Present Illness: HPI narrative: 60-year-old female comes in today with low back pain. Patient also had questions regarding the LifeVest that she is wearing. Patient appears chronically ill, but in no acute distress. Patient appears in mild pain. Patient denies any falls or injury. Patient was recently released from the hospital for CHF. Patient was placed in a LifeVest due to the concern of her low cardiac output. Review of Systems General: Reports: 10 or more systems reviewed and unremarkable except in HPI and below Musc: Reports: back pain PFSH ED PFSH: Medical History Chronic constipation COPD (chronic obstructive pulmonary disease) GERD (gastroesophageal reflux disease) Insomnia Seizure disorder Surgical History H/O section H/O esophagogastroduodenoscopy Status post colonoscopy (03/31/20) Family History Other CAD (coronary artery disease) Cancer Diabetes Social History Smoking and tobacco status: current every day smoker cigarettes Packs smoked per day: 0.5 Years cigarettes smoked: 48 [ Other cigarette details: Hx of 4 PPD x 46 Years ] Quit status (tobacco): considering quitting Second hand smoke exposure: Yes Smoking risk assessment/counseling performed?: Yes Alcohol intake: never Counseling given: No Counseling given: No Lives independently: Yes Household members: friend(s) Housing: House Marital status: Single Current occupational status: disabled History of recent travel: No Current gender identity: Female Physical Exam Const: COMMON NORMALS: no acute distress and patient oriented x3 GENERAL APPEARANCE: cooperative HENMT: COMMON NORMALS: normocephalic and Normal external nose present HEAD & SCALP: normal to inspection and normocephalic NOSE: Normal external nose present MOUTH: Normal oral and palatal mucosa present Eye: GENERAL EYE: appearance normal, both eyes and all related structures Neck/C-Spine: COMMON NORMALS: full ROM Lymph: LYMPHATIC: no lymphadenopathy noted Chest: COMMONS NORMALS: normal inspection of the chest Resp: COMMON NORMALS: normal respiratory effort EFFORT & INSPECTION: Yes able to speak in complete sentences Cardio: COMMON NORMALS: regular rate and regular rhythm RATE: regular rate RHYTHM: regular rhythm GI: COMMON NORMALS: non-tender : COMMON NORMALS: Yes no CVA tenderness BLADDER/KIDNEY EXAM: Yes no CVA tenderness Back/Pelvis: COMMON NORMALS: no CVA tenderness LUMBAR SPINE/LOWER BACK: Yes lumbar spinal tenderness and Yes paraspinal muscle tenderness Lumbar paraspinal muscle tenderness: bilateral Extremity: COMMON NORMALS: normal to inspection Neuro: COMMON NORMALS: patient oriented x3 and moves all extremities Psych: COMMON NORMALS: mental status grossly normal and cooperative Skin: COMMON NORMALS: no rashes or lesions noted GENERAL SKIN EXAM: no rashes or lesions noted Course Vital Signs: Vital signs: Vital Signs Temperature 98.1 F 06/05/20 22:24 Pulse Rate 108 H 06/05/20 22:24 Respiratory Rate 17 06/05/20 22:24 Blood Pressure 104/61 06/05/20 22:24 Pulse Oximetry 99 06/05/20 22:24 MDM - General Adult MDM Narrative: Medical decision making narrative: Patient presents this evening for concerns of low back pain and application of LifeVest. She do not know if the vest is kind of rubbing her in her low back or if it is not put on right. Patient appears chronically ill but in no acute distress. Lungs are clear to auscultation. Patient is a day has no edema in the lower extremities. Abdomen soft and nontender. Palpation of the paraspinous muscles of the lumbar spine indicates some mild tension and tenderness. No signs of redness or signs of infection is noted. Vital signs are normal. Differential diagnosis includes muscle strain, deconditioning, chronic back pain. Reviewed exam with patient recommended that she contact the supplier of the LifeVest regarding her concerns of application. I discussed this with supervisor tank house and ER charge nurse and they did not have anyone available that could assist the patient. I recommended patient use acetaminophen to help with her pain and heating pack. Patient reported understanding of care plan and need for follow-up, and to monitor for fever or deterioration of heart failure. Discharge Plan Discharge Patient Disposition: Home Clinical Impression: Low back pain Qualifiers: Chronicity: unspecified Back pain laterality: unspecified Sciatica presence: without sciatica Qualified Code(s): M54.5 - Low back pain Condition: Stable Prescriptions: No Action nitroglycerin [Nitrostat] 0.4 mg tablet, sublingual 0.4 mg sublingual Q5M PRN (Reason: chest pain) 30 Days Qty: 30 RF: 0 levetiracetam 500 mg tablet extended release 24 hr 2,000 mg PO Q24H Qty: 120 RF: 11 albuterol sulfate 90 mcg/actuation HFA aerosol inhaler 2 inh INHALATION Q4H PRN (Reason: shortness of breath or wheezing) Qty: 6.7 RF: 2 Spiriva with HandiHaler 18 mcg capsule, w/inhalation device 1 cap INHALATION DAILY@0900 Qty: 30 RF: 2 albuterol sulfate 2.5 mg /3 mL (0.083 %) solution for nebulization 2.5 mg INHALATION QID PRN (Reason: shortness of breath or wheezing) Qty: 180 RF: 3 guaifenesin 600 mg tablet extended release 12hr 600 mg PO BID PRN (Reason: Congestion) Qty: 60 RF: 2 fluticasone propion-salmeterol [Advair Diskus] 250-50 mcg/dose blister with device 1 inh INHALATION BID@899,1999 RF: 0 pantoprazole [Protonix] 40 mg tablet,delayed release (DR/EC) 40 mg PO BID@899,1999 RF: 0 cholecalciferol (vitamin D3) 50 mcg (2,000 unit) capsule 50 mcg PO DAILY@0900 RF: 0 fluticasone propionate [Flonase Allergy Relief] 50 mcg/actuation spray,suspension 2 spray INTRANASAL DAILY@0900 Qty: 16 RF: 5 diclofenac sodium [Voltaren Arthritis Pain] 1 % gel 2 g topical QID Qty: 100 RF: 0 polyethylene glycol 3350 [Miralax] 17 gram powder in packet 17 g PO DAILY PRN (Reason: Constipation) RF: 0 benzonatate 100 mg Capsule 100 mg PO TID PRN (Reason: Cough) RF: 0 aspirin 81 mg Tablet,Delayed Release (Dr/Ec) 81 mg PO DAILY 30 Days Qty: 30 RF: 0 digoxin 125 mcg (0.125 mg) Tablet 125 mcg PO DAILY 30 Days Qty: 30 RF: 0 furosemide 20 mg Tablet 20 mg PO DAILY 30 Days Qty: 30 RF: 0 spironolactone 25 mg tablet 25 mg PO DAILY 30 Days Qty: 30 RF: 0 cetirizine 10 mg capsule 10 mg PO DAILY@0900 PRN (Reason: allergies) Qty: 90 RF: 1 Coreg 3.125 mg tablet 3.125 mg PO BID 30 Days Qty: 60 RF: 0 ondansetron 4 mg tablet,disintegrating 4 mg PO Q6H PRN (Reason: nausea and vomiting) Qty: 14 RF: 0 lactulose 10 gram packet 10 g PO DAILY PRN (Reason: constipation) Qty: 15 RF: 0 Discharge Orders: Discharge ED (Routine); Ordered 06/05/20 Ordered By: Monroe Grant Referrals: Emma Novoa DO [Primary Care Provider] - Discharge Diet: Usual diet Discharge Activity: Increase activity as tolerated Patient Instructions: Back Pain (ED), Opioid Safety Activity Restrictions/Additional Instructions: Activity as tolerated. Use heating pad and Tylenol to help with pain. Follow-up with provider for LifeVest in regards to care and application of vest. Monitor for fever or new signs and symptoms. Return to the emergency department as needed. Coding Level of Care Code ED Bark Press Operator for Juana Byrd
[2020-06-05 23:11] VITALS: PULSE 88; RESP 16; O2SAT 94
== END 2020-06-05 23:12 | disposition home or self-care (01) ==
PROVIDERS: Emergency Provider Nurse Practitioner Family; PCP Family Medicine
DX: M54.5 Low back pain (principal); Z79.82 Long term (current) use of aspirin; J44.9 Chronic obstructive pulmonary disease, unspecified; F17.210 Nicotine dependence, cigarettes, uncomplicated
CPT/HCPCS: 99281

== ENCOUNTER 2020-06-07 15:56 | Emergency (ER) | payer MEDICAID, SELFPAY ==
[2020-06-07 16:32] VITALS: BP 110/77; PULSE 105; RESP 15; TEMP 36.2; O2SAT 94; BMI 13.3
[2020-06-07 17:02] VITALS: PULSE 100; RESP 20; O2SAT 99
--- NOTE | 2020-06-07 17:02 | PC.NURSE ---
patient stated she had thoughts of harm self, suicide precaution applied
--- NOTE | 2020-06-07 17:17 | CTR_ITS ---
PROCEDURE INFORMATION: Exam: CT Head Without Contrast Exam date and time: 06/07/2020 6:28 PM Age: 60 years old Clinical indication: Patient HX: C/O weakness and ROMEO; Additional info: Headache TECHNIQUE: Imaging protocol: Computed tomography of the head without contrast. Radiation optimization: All CT scans at this facility use at least one of these dose optimization techniques: automated exposure control; mA and/or kV adjustment per patient size (includes targeted exams where dose is matched to clinical indication); or iterative reconstruction. COMPARISON: CT Head wo IV contrast* [id number] 08/27/2014 4:42 AM RADIATION DOSE METRICS: Total DLP (mGy-cm): 556.64 FINDINGS: Brain: Normal. No hemorrhage. Unremarkable white matter. No mass effect. Cerebral ventricles: No ventriculomegaly. Bones/joints: Unremarkable. No acute fracture. Paranasal sinuses: Mucosal thickening and surgical changes of the left maxillary sinus noted. Mastoid air cells: Visualized mastoid air cells are well aerated. Soft tissues: Unremarkable. CT/CT head wo con* [id number] IMPRESSION: Radiation Dose CTDIVOL = (mGy): DLP = 556.64 (mGy-cm)
--- NOTE | 2020-06-07 17:17 | CTR_ITS ---
PROCEDURE INFORMATION: Exam: CT Cervical Spine Without Contrast Exam date and time: 06/07/2020 6:28 PM Age: 60 years old Clinical indication: Patient HX: C/O weakness, ROMEO, and neck pain TECHNIQUE: Imaging protocol: Computed tomography images of the cervical spine without contrast. Radiation optimization: All CT scans at this facility use at least one of these dose optimization techniques: automated exposure control; mA and/or kV adjustment per patient size (includes targeted exams where dose is matched to clinical indication); or iterative reconstruction. COMPARISON: No relevant prior studies available. RADIATION DOSE METRICS: Total DLP (mGy-cm): 233.38 FINDINGS: Bones/joints: No acute fracture. Mild levocurvature of the cervical spine is present. There is mild reversal of the normal cervical lordosis, with grade 1 retrolisthesis of C5. Discs/Spinal canal/Neural foramina: There is degenerative changes of the cervical spine, manifested by intervertebral disc space narrowing and endplate osteophytes. No significant disc protrusion. No severe spinal canal stenosis. No significant neural foraminal narrowing. Lungs: Lung apices are normal. Soft tissues: Unremarkable. CT/CT cervical spin wo con* [id number] IMPRESSION: No acute findings. Radiation Dose CTDIVOL = (mGy): DLP = 233.38 (mGy-cm)
--- NOTE | 2020-06-07 17:23 | CTR_ITS ---
PROCEDURE INFORMATION: Exam: CT Abdomen And Pelvis With Contrast Exam date and time: 06/07/2020 6:28 PM Age: 60 years old Clinical indication: Abdominal pain; Generalized; Patient HX: C/O non specific back and hip pain; Additional info: Abd pain TECHNIQUE: Imaging protocol: Computed tomography of the abdomen and pelvis with contrast. Radiation optimization: All CT scans at this facility use at least one of these dose optimization techniques: automated exposure control; mA and/or kV adjustment per patient size (includes targeted exams where dose is matched to clinical indication); or iterative reconstruction. Contrast material: OMNI 300; Contrast volume: 75 ml; Contrast route: INTRAVENOUS (IV); COMPARISON: CT abdomen pelvis w con* [id number] 05/01/2020 1:06 PM RADIATION DOSE METRICS: Total DLP (mGy-cm): 646.95 FINDINGS: Heart: Mildly enlarged heart. Liver: Normal. No mass. Gallbladder and bile ducts: Normal. No calcified stones. No ductal dilation. Pancreas: Normal. No ductal dilation. Spleen: There is tiny calcific densities scattered throughout the spleen, likely sequela of previous granulomatous disease. The spleen is otherwise unremarkable. Adrenal glands: Normal. No mass. Kidneys and ureters: There is increased enhancement and wall thickening of the left renal pelvis and ureter, in association with delayed heterogeneous enhancement of the left kidney, consistent with pyelonephritis. No hydronephrosis or nephrolithiasis. Unchanged subcentimeter hypodense lesions in the left kidney, which are too small to characterize. A 1.1 cm cyst is again seen in the right kidney. Stomach and bowel: Unremarkable. No obstruction. No mucosal thickening. Appendix: No evidence of appendicitis. Intraperitoneal space: Unremarkable. No free air. No significant fluid collection. Vasculature: Mild diffuse atherosclerotic disease is present. Lymph nodes: Unremarkable. No enlarged lymph nodes. Urinary bladder: There is mild diffuse thickening and increased enhancement of the urinary bladder wall, concerning for cystitis. Reproductive: Unremarkable as visualized. Bones/joints: Mild levocurvature of the thoracic spine is present. Soft tissues: Unremarkable. CT/CT abdomen pelvis w con* [id number] IMPRESSION: Imaging findings of left pyelonephritis and cystitis. Radiation Dose CTDIVOL = (mGy): DLP = 646.95 (mGy-cm)
--- NOTE | 2020-06-07 17:27 | ECG_ITS ---
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 Measurements Intervals Winger Rate: 98 P: 71 ID: [id number] QRS: -59 QRSD: 112 T: 96 QT: 314 QTc: 401 Interpretive Statements SINUS RHYTHM POSSIBLE LEFT ATRIAL ENLARGEMENT [-0.1mV P WAVE IN V1/V2] LEFT ANTERIOR FASCICULAR BLOCK [QRS AXIS <= -45, QR IN I, RS IN II] LEFT VENTRICULAR HYPERTROPHY AND ST-T CHANGE [VOLTAGE CRITERIA PLUS ST/T ABNORMALITY] POSSIBLE ANTERIOR MYOCARDIAL INFARCTION , OF INDETERMINATE AGE [30 ms Q WAVE IN V3/V4, OR R < 0.2 mV IN V4] Compared to ECG 05/28/2020 01:47:28 Left anterior fascicular block now present ST (T wave) deviation now present Sinus tachycardia no longer present Myocardial infarct finding still present Electronically Signed On 06-07-2020 22:50:29 CDT by Deny Casper M.D. [email or web address]
[2020-06-07 18:00] VITALS: BP 126/85; PULSE 101; RESP 18; O2SAT 99
[2020-06-07 18:36] LABS: Basophils % 0.4 %; Hematocrit 42.4 % (37.0-47.0); Hemoglobin 13.4 g/dL (11.5-15.3); Lymphocytes # 0.8 10^3/uL (0.8-4.8); Mean Corpuscular HGB Conc 31.6 g/dL (30.0-36.0); Mean Corpuscular Hemoglobin 31.1 pg (28.0-34.0); Mean Corpuscular Volume 98.4 fL (81-99); Mean Platelet Volume 11.9 fL (7.4-10.4); Monocytes # 1.3 10^3/uL (0.2-0.9); Monocytes % 12.9 %; Neutrophils % 78.4 %; Nucleated Red Blood Cells % 0 %; Platelet Count 176 10^3/cmm (130-400); Red Blood Count 4.31 10^6/uL (4.1-5.3); White Blood Count 10.2 10^3/uL (4.0-10.0)
[2020-06-07 18:50] LABS: Add Urine Microscopic? YES; Bilirubin Urine Neg (Negative); Blood Urine 2+ (Negative); Glucose Urine UA Norm (Normal); Ketones Urine Negative (Negative); Leukocyte Esterase Urine 2+ (Negative); Nitrate Urine Positive (Negative); Protein Urine Neg (Negative); Urine Appearance Cloudy (CLEAR); Urine Color Yellow (Yellow); Urobilinogen Urine Norm (Negative); pH Urine 5 (5-7)
[2020-06-07 18:53] LABS: Bacteria Urine 4+ /hpf; Squamous Epithelial Cell Urine 15-25 /hpf (0-5); WBC Urine >100 /hpf (0-5)
[2020-06-07 18:55] LABS: Alanine Aminotransferase 12 U/L (0-33); Albumin Level 3.9 g/dL (3.5-5.2); Alkaline Phosphatase 119 IU/L (35-105); Anion Gap 13.4 (5-19); Aspartate Amino Transferase 14 U/L (0-32); Blood Urea Nitrogen 16 mg/dL (8-23); Carbon Dioxide 31 mmol/L (22-29); Chloride 98 mmol/L (98-107); Globulin 2.7 g/dL (1.3-4.6); Glomerular Filtration Rate 101.6 mL/min (90-130); Glucose 90 mg/dL (65-115); Lipase 17 U/L (13-60); Osmolality Calculated 289 mOsm/kg (285-295); Potassium 3.4 mmol/L (3.5-5.1); Sodium 139 mmol/L (136-145); Total Bilirubin 0.6 mg/dL (0.15-1.2); Total Protein 6.6 g/dL (6.6-8.7)
[2020-06-07 18:55] LABS: Add Urine Culture? No
[2020-06-07] MEDS: iohexol 300 mg/mL 100 mL Btl IV (18:55)
[2020-06-07 18:56] LABS: Troponin(5th) Baseline 36 ng/L (0-10)
[2020-06-07 18:59] LABS: Alcohol Level < 10 mg/dL (0-10)
[2020-06-07 20:00] VITALS: BP 85/55; PULSE 102; RESP 16; O2SAT 100
[2020-06-07] MEDS: cefTRIAXone 1,000 MG in sodium chloride 0.9% (plus) 50 ML 100 MG IV (20:07)
[2020-06-07] MEDS: sodium chloride 0.9% 500 ML IV (20:07)
[2020-06-07 20:10] LABS: Troponin 5 2HR 38.11 ng/L (0-10); Troponin 5 2HR Delta 2.11 ABS# (0-10)
--- NOTE | 2020-06-07 22:05 | ED_ITS ---
HPI - General Adult General: Chief complaint: General Medical Stated complaint: H/A, R HIP PAIN, BACK PAIN Time Seen by Provider: 06/07/20 16:51 History of Present Illness: HPI narrative: The patient is a 60-year-old female with past medical history depression who comes to the ER complaining of headache, left hip pain, chronic back pain. She says they have all worsened today. During her screening process she said she has felt suicidal this morning but is not suicidal in the ER right now. She also complains of headache and general weakness. Also she says it rodriguez when she pees. She denies chest pain and shortness of breath. She has significant past medical problems COPD, CHF, and wears an external defibrillator Location: head Severity: moderate Quality: burning Pain Consistency: intermittent Associated symptoms: Reports headache(s); Deny chest pain, confusion, dyspnea, rash or palpitations Review of Systems General: Reports: 10 or more systems reviewed and unremarkable except in HPI and below Const: Denies: fatigue Eyes: Denies: change in vision, blurry vision or eye redness ENMT: Denies: throat pain, swelling of lips/tongue, ear or mastoid pain or nasal congestion Card: Denies: chest pain, palpitations, irregular heart rhythm, edema, dyspnea on exertion or orthopnea Resp: Denies: dyspnea, productive cough or non-productive cough GI: Denies: abdominal pain, diarrhea or GI cramping : Denies: flank pain, difficulty voiding, urinary frequency or urinary urg ency Musc: Reports: neck pain and back pain; Denies: extremity pain, joint pain, joint redness, limited range of motion or muscle weakness Skin/Breast: Denies: rash, pruritus, erythema, skin pain or skin tenderness Neuro: Reports: headache(s); Denies: numbness in extremities, weakness in extremities, sensory changes, difficulty walking, dizziness, confusion or Slurred speech present Psych: Denies: anxiety or depression Endo: Denies: polyuria All/Imm: Denies: urticaria, throat swelling or tongue swelling PFSH ED PFSH: Medical History Chronic constipation COPD (chronic obstructive pulmonary disease) GERD (gastroesophageal reflux disease) Insomnia Seizure disorder Surgical History H/O section H/O esophagogastroduodenoscopy Status post colonoscopy (03/31/20) Family History Other CAD (coronary artery disease) Cancer Diabetes Social History Smoking and tobacco status: current every day smoker cigarettes Packs smoked per day: 0.5 Years cigarettes smoked: 48 [ Other cigarette details: Hx of 4 PPD x 46 Years ] Quit status (tobacco): considering quitting Second hand smoke exposure: Yes Smoking risk assessment/counseling performed?: Yes Alcohol intake: never Counseling given: No Counseling given: No Lives independently: Yes Household members: friend(s) Housing: House Marital status: Single Current occupational status: disabled History of recent travel: No Current gender identity: Female Physical Exam Narrative: EXAM NARRATIVE: She has a LifeVest on. She has paracervical muscular tenderness. No bony tenderness. She has mild left lower quadrant abdominal tenderness. Const: COMMON NORMALS: no acute distress, average body habitus, patient oriented x3, no limitations, healthy appearing, alert and well nourished GENERAL APPEARANCE: cooperative, comfortable, well kempt and well developed ORIENTATION/CONSCIOUSNESS: Yes awake, Yes oriented to person, Yes oriented to place and Yes oriented to time HENMT: COMMON NORMALS: normocephalic, external ears normal and Normal external nose present HEAD & SCALP: normal to inspection and normocephalic NOSE: Normal external nose present EXTERNAL EAR: Yes external ears normal MOUTH: Normal oral and palatal mucosa present THROAT: posterior oropharynx normal Eye: COMMON NORMALS: Equal, round and reactive pupils present and EOMs intact bilaterally GENERAL EYE: appearance normal, both eyes and all related structures PUPIL: Yes Equal, round and reactive pupils present Neck/C-Spine: COMMON NORMALS: full ROM, no lymphadenopathy, no meningeal signs and no JVD GENERAL: Yes normal visual inspection Lymph: LYMPHATIC: no lymphadenopathy noted Chest: COMMONS NORMALS: normal inspection of the chest and normal palpation of entire chest wall Resp: COMMON NORMALS: normal respiratory effort, No retractions, No use of accessory muscles, clear to auscultation bilaterally and percussion normal EFFORT & INSPECTION: Yes able to speak in complete sentences AUSCULTATION: clear to auscultation bilaterally PERCUSSION: percussion normal Cardio: COMMON NORMALS: no JVD, regular rate, regular rhythm, S1 normal heart sound present, S2 normal heart sound present and Peripheral pulses 2+ throughout RATE: regular rate RHYTHM: regular rhythm HEART SOUNDS: S1 normal heart sound present and S2 normal heart sound present PERIPHERAL PULSES: Peripheral pulses 2+ throughout GI: COMMON NORMALS: Normal to inspection, nondistended, normoactive bowel sounds present, Soft to palpation and no masses INSPECTION: Yes normal to inspection PALPATION: Yes Soft to palpation and Yes Tenderness to palpation present (GI) GI image (female): 1. Mild tenderness : COMMON NORMALS: Yes no CVA tenderness BLADDER/KIDNEY EXAM: Yes no CVA tenderness Back/Pelvis: COMMON NORMALS: no CVA tenderness, thoracic and lumbar spine normal to inspection, no thoracic nor lumbar tenderness and thoraco-lumbar ROM normal Extremity: COMMON NORMALS: normal to inspection, full ROM, capillary refill normal, no joint enlargement and no pedal edema GENERAL: Yes normal exam except as noted Neuro: COMMON NORMALS: patient oriented x3, CN's II-XII intact bilaterally, moves all extremities, no focal motor deficits, no sensory deficits noted and gait normal SENSORIUM/ORIENTATION: Yes alert, Yes oriented to person, Yes oriented to place and Yes oriented to time MENINGEAL SIGNS: Yes no meningeal signs Psych: COMMON NORMALS: mental status grossly normal, Normal thought process present, cooperative, normal affect and speech normal APPEARANCE: Yes well kempt ATTITUDE: Yes calm SPEECH: Yes normal speech THOUGHT PROCESS: Normal thought process present Skin: COMMON NORMALS: no rashes or lesions noted GENERAL SKIN EXAM: no rashes or lesions noted Course Vital Signs: Vital signs: Vital Signs Temperature 97.1 F L 06/07/20 16:32 Pulse Rate 102 H 06/07/20 20:00 Respiratory Rate 16 06/07/20 20:00 Blood Pressure 85/55 06/07/20 20:00 Pulse Oximetry 100 06/07/20 20:00 MDM - General Adult MDM Narrative: Medical decision making narrative: The patient comes to the ER with a multitude of vague complaints today. Headache, neck pain, chronic back pain, lower abdominal pain. She does have a positive urinalysis and CT of her belly shows that she also has pyelonephritis. She was given a gram of ceftriaxone, 500 cc bolus because of her heart failure history and she was stabilized and will be discharged with Keflex. On triage she did admit some suicidal thoughts this morning. Later she denied them and says she does not feel that way in the ER. I had Dr. Lacey see her in the ER and he also feels that she is not acutely suicidal and chronically has passive suicidal thoughts. She has never made any attempt in the past and does not want to be medicated for this. She is stable for discharge. Recommended she follow-up with her primary care physician in a few days and return to the ER with worsening symptoms Lab Data: Labs: Lab Results 06/07/20 06/07/20 06/07/20 Range/Units 18:00 18:00 18:00 WBC 10.2 H (4.0-10.0) 10^3/ uL RBC 4.31 (4.1-5.3) 10^6/u L Hgb 13.4 (11.5-15.3) g/dL Hct 42.4 (37.0-47.0) % MCV 98.4 (81-99) fL MCH 31.1 (28.0-34.0) pg MCHC 31.6 (30.0-36.0) g/dL RDW 16.0 H (12.1-15.1) % Plt Count 176 (130-400) 10^3/c mm MPV 11.9 H (7.4-10.4) fL Neut % (Auto) 78.4 % Lymph % (Auto) 8.0 % [place] % (Auto) 12.9 % Eos % (Auto) 0.0 % Baso % (Auto) 0.4 % Neut # (Auto) 8.00 H (1.8-7.7) 10^3/u L Lymph # (Auto) 0.8 (0.8-4.8) 10^3/u L [place] # (Auto) 1.3 H (0.2-0.9) 10^3/u L Eos # (Auto) 0.0 (0.0-0.8) 10^3/u L Baso # (Auto) 0.0 (0.0-0.1) 10^3/u L Nucleated RBC % (a uto) 0 % Nucleated RBCs # 0.0 /100WBC Sodium 139 (136-145) mmol/L Potassium 3.4 L (3.5-5.1) mmol/L Chloride 98 (98-107) mmol/L Carbon Dioxide 31 H (22-29) mmol/L Anion Gap 13.4 (5-19) BUN 16 (8-23) mg/dL Creatinine 0.6 (0.5-0.9) mg/dL GFR Calculation 101.6 (90-130) mL/min Glucose 90 (65-115) mg/dL Calculated Osmolal ity 289 (285-295) mOsm/k g Calcium 9.0 (8.5-10.5) mg/dL Total Bilirubin 0.6 (0.15-1.2) mg/dL AST 14 (0-32) U/L ALT 12 (0-33) U/L Alkaline Phosphata se 119 H (35-105) IU/L Troponin T Baselin e 36 H (0-10) ng/L Troponin T 120 Min [place] (0-10) ng/L Delta Troponin T (0-10) ABS# Total Protein 6.6 (6.6-8.7) g/dL Albumin 3.9 (3.5-5.2) g/dL Globulin 2.7 (1.3-4.6) g/dL Lipase 17 (13-60) U/L Urine Color (Yellow) Urine Appearance (CLEAR) Urine pH (5-7) Ur Specific Gravit y (1.005-1.030) Urine Protein (Negative) Urine Glucose (UA) (Normal) Urine Ketones (Negative) Urine Blood (Negative) Urine Nitrate (Negative) Urine Bilirubin (Negative) Urine Urobilinogen (Negative) mg/dL Ur Leukocyte [place] ase (Negative) Urine RBC (0-2) /hpf Urine WBC (0-5) /hpf Ur Squamous Epith Cells (0-5) /hpf Amorphous Sediment Urine Bacteria (NONE) /hpf Ethyl Alcohol < 10 (0-10) mg/dL 06/07/20 06/07/20 Range/Units 18:20 19:45 WBC (4.0-10.0) 10^3/ uL RBC (4.1-5.3) 10^6/u L Hgb (11.5-15.3) g/dL Hct (37.0-47.0) % MCV (81-99) fL MCH (28.0-34.0) pg MCHC (30.0-36.0) g/dL RDW (12.1-15.1) % Plt Count (130-400) 10^3/c mm MPV (7.4-10.4) fL Neut % (Auto) % Lymph % (Auto) % [place] % (Auto) % Eos % (Auto) % Baso % (Auto) % Neut # (Auto) (1.8-7.7) 10^3/u L Lymph # (Auto) (0.8-4.8) 10^3/u L [place] # (Auto) (0.2-0.9) 10^3/u L Eos # (Auto) (0.0-0.8) 10^3/u L Baso # (Auto) (0.0-0.1) 10^3/u L Nucleated RBC % (a uto) % Nucleated RBCs # /100WBC Sodium (136-145) mmol/L Potassium (3.5-5.1) mmol/L Chloride (98-107) mmol/L Carbon Dioxide (22-29) mmol/L Anion Gap (5-19) BUN (8-23) mg/dL Creatinine (0.5-0.9) mg/dL GFR Calculation (90-130) mL/min Glucose (65-115) mg/dL Calculated Osmolal ity (285-295) mOsm/k g Calcium (8.5-10.5) mg/dL Total Bilirubin (0.15-1.2) mg/dL AST (0-32) U/L ALT (0-33) U/L Alkaline Phosphata se (35-105) IU/L Troponin T Baselin e (0-10) ng/L Troponin T 120 Min [place] 38.11 H (0-10) ng/L Delta Troponin T 2.11 (0-10) ABS# Total Protein (6.6-8.7) g/dL Albumin (3.5-5.2) g/dL Globulin (1.3-4.6) g/dL Lipase (13-60) U/L Urine Color Yellow (Yellow) Urine Appearance Cloudy (CLEAR) Urine pH 5 (5-7) Ur Specific Gravit y 1.010 (1.005-1.030) Urine Protein Neg (Negative) Urine Glucose (UA) Norm (Normal) Urine Ketones Negative (Negative) Urine Blood 2+ H (Negative) Urine Nitrate Positive H (Negative) Urine Bilirubin Neg (Negative) Urine Urobilinogen Norm (Negative) mg/dL Ur Leukocyte [place] ase 2+ H (Negative) Urine RBC 10-15 H (0-2) /hpf Urine WBC >100 H (0-5) /hpf Ur Squamous Epith Cells 15-25 H (0-5) /hpf Amorphous Sediment Not Reportable Urine Bacteria 4+ H (NONE) /hpf Ethyl Alcohol (0-10) mg/dL Discharge Plan Discharge Patient Disposition: Home Condition: Stable Prescriptions: New cephalexin 500 mg capsule 500 mg PO Q12H 10 Days Qty: 20 RF: 0 No Action nitroglycerin [Nitrostat] 0.4 mg tablet, sublingual 0.4 mg sublingual Q5M PRN (Reason: chest pain) 30 Days Qty: 30 RF: 0 levetiracetam 500 mg tablet extended release 24 hr 2,000 mg PO Q24H Qty: 120 RF: 11 albuterol sulfate 90 mcg/actuation HFA aerosol inhaler 2 inh INHALATION Q4H PRN (Reason: shortness of breath or wheezing) Qty: 6.7 RF: 2 Spiriva with HandiHaler 18 mcg capsule, w/inhalation device 1 cap INHALATION DAILY@0900 Qty: 30 RF: 2 albuterol sulfate 2.5 mg /3 mL (0.083 %) solution for nebulization 2.5 mg INHALATION QID PRN (Reason: shortness of breath or wheezing) Qty: 180 RF: 3 guaifenesin 600 mg tablet extended release 12hr 600 mg PO BID PRN (Reason: Congestion) Qty: 60 RF: 2 fluticasone propion-salmeterol [Advair Diskus] 250-50 mcg/dose blister with device 1 inh INHALATION BID@899,1999 RF: 0 pantoprazole [Protonix] 40 mg tablet,delayed release (DR/EC) 40 mg PO BID@899,1999 RF: 0 cholecalciferol (vitamin D3) 50 mcg (2,000 unit) capsule 50 mcg PO DAILY@0900 RF: 0 fluticasone propionate [Flonase Allergy Relief] 50 mcg/actuation spray,suspension 2 spray INTRANASAL DAILY@0900 Qty: 16 RF: 5 diclofenac sodium [Voltaren Arthritis Pain] 1 % gel 2 g topical QID Qty: 100 RF: 0 polyethylene glycol 3350 [Miralax] 17 gram powder in packet 17 g PO DAILY PRN (Reason: Constipation) RF: 0 benzonatate 100 mg Capsule 100 mg PO TID PRN (Reason: Cough) RF: 0 aspirin 81 mg Tablet,Delayed Release (Dr/Ec) 81 mg PO DAILY 30 Days Qty: 30 RF: 0 digoxin 125 mcg (0.125 mg) Tablet 125 mcg PO DAILY 30 Days Qty: 30 RF: 0 furosemide 20 mg Tablet 20 mg PO DAILY 30 Days Qty: 30 RF: 0 spironolactone 25 mg tablet 25 mg PO DAILY 30 Days Qty: 30 RF: 0 cetirizine 10 mg capsule 10 mg PO DAILY@0900 PRN (Reason: allergies) Qty: 90 RF: 1 carvedilol [Coreg] 3.125 mg tablet 3.125 mg PO BID 30 Days Qty: 60 RF: 0 ondansetron 4 mg tablet,disintegrating 4 mg PO Q6H PRN (Reason: nausea and vomiting) Qty: 14 RF: 0 lactulose 10 gram packet 10 g PO DAILY PRN (Reason: constipation) Qty: 15 RF: 0 Discharge Orders: Discharge ED (Routine); Ordered 06/07/20 Ordered By: Dragan Dhillon Referrals: Emma Novoa DO [Primary Care Provider] - Discharge Diet: Advance as tolerated Discharge Activity: Resume usual activity Patient Instructions: Depression (ED), Acute Pyelonephritis (ED), Opioid Safety Activity Restrictions/Additional Instructions: You have a urine infection that has tracked up to your left kidney and is probably the reason you are having pain down there. Please take the Keflex twice a day for 10 days and return to the ER with worsening symptoms. Coding Level of Care Code ED [employer] for [place] Exam Comprehensive
[2020-06-07 22:47] VITALS: BP 93/65; PULSE 104; RESP 17; TEMP 36.6; O2SAT 100
== END 2020-06-07 23:09 | disposition home or self-care (01) ==
PROVIDERS: Emergency Provider Family Medicine; PCP Family Medicine
DX: R51.9 Headache, unspecified (principal); N12 Tubulo-interstitial nephritis, not specified as acute or chronic; Z79.82 Long term (current) use of aspirin; J44.9 Chronic obstructive pulmonary disease, unspecified; F17.210 Nicotine dependence, cigarettes, uncomplicated
CPT/HCPCS: 36415; 70450; 72125; 74177; 80053; 80307; 81001; 83690; 84484; 85025; 93005; 96365; 99284; J0696; J7040; Q9967

== ENCOUNTER → 2020-06-23 11:19 | Outpatient (BNVA) | payer MEDICAID, SELFPAY | PROVIDERS: PCP Family Medicine; Visit Provider Internal Medicine Cardiovascular Disease | DX: I50.22 Chronic systolic (congestive) heart failure (principal); I50.40 Unspecified combined systolic (congestive) and diastolic (congestive) heart failure; R07.89 Other chest pain; R60.0 Localized edema; I42.0 Dilated cardiomyopathy; R60.9 Edema, unspecified; I42.8 Other cardiomyopathies | CPT/HCPCS: 80048; 83880 ==

== ENCOUNTER → 2020-07-20 16:04 | Outpatient (BNVA) | payer MEDICAID, SELFPAY | PROVIDERS: PCP Family Medicine; Visit Provider Internal Medicine Cardiovascular Disease | DX: R06.02 Shortness of breath (principal); I50.33 Acute on chronic diastolic (congestive) heart failure; R07.89 Other chest pain; I42.0 Dilated cardiomyopathy; R60.9 Edema, unspecified; I42.8 Other cardiomyopathies; I50.22 Chronic systolic (congestive) heart failure; I10 Essential (primary) hypertension | CPT/HCPCS: 80048; 83880 ==

== ENCOUNTER 2020-08-04 21:10 | Emergency (ER) | payer MEDICAID, SELFPAY ==
[2020-08-04 21:42] VITALS: BP 93/64; PULSE 106; RESP 16; TEMP 36.5; O2SAT 98; BMI 12.7
--- NOTE | 2020-08-04 22:44 | ED_ITS ---
HPI - URI/Sore Throat General: Chief Complaint: Upper Respiratory Infection Stated Complaint: SORE THROAT, NOSE CONGESTION Time Seen by Provider: 08/04/20 22:44 History of Present Illness: HPI Narrative: Patient presents with a runny nose and sore throat starting yesterday. Patient has a chronic history of COPD. Patient appears chronically ill. Patient does not appear toxic. Patient is cooperative and alert. MD elicited complaint: cough, sore throat and nasal congestion Pertinent past history: COPD Onset (ago): day(s) Consistency: intermittent Severity: mild Description of mucous: clear Exacerbating factors: nothing Relieving factors: nothing Associated symptoms: Reports cough and nasal congestion Review of Systems General: Reports: 10 or more systems reviewed and unremarkable except in HPI and below ENMT: Reports: throat pain and nasal congestion PFSH ED PFSH: Medical History Chronic constipation COPD (chronic obstructive pulmonary disease) GERD (gastroesophageal reflux disease) Insomnia Seizure disorder Surgical History H/O section H/O esophagogastroduodenoscopy Status post colonoscopy (03/31/20) Family History Other CAD (coronary artery disease) Cancer Diabetes Social History Smoking and tobacco status: current every day smoker cigarettes Packs smoked per day: 0.5 Years cigarettes smoked: 48 [ Other cigarette details: Hx of 4 PPD x 46 Years ] Quit status (tobacco): considering quitting Second hand smoke exposure: Yes Smoking risk assessment/counseling performed?: Yes Alcohol intake: never Counseling given: No Counseling given: No Lives independently: Yes Household members: friend(s) Housing: House Marital status: Single Current occupational status: disabled History of recent travel: No Current gender identity: Female Physical Exam Const: COMMON NORMALS: no acute distress and patient oriented x3 GENERAL APPEARANCE: cooperative HENMT: COMMON NORMALS: normocephalic, TM's normal bilaterally and Normal external nose present HEAD & SCALP: normal to inspection and normocephalic NOSE: Normal external nose present TYMPANIC MEMBRANE: TM's normal bilaterally MOUTH: Normal oral and palatal mucosa present THROAT: posterior oropharynx normal Eye: GENERAL EYE: appearance normal, both eyes and all related structures Neck/C-Spine: COMMON NORMALS: full ROM Lymph: LYMPHATIC: no lymphadenopathy noted Chest: COMMONS NORMALS: normal inspection of the chest Resp: COMMON NORMALS: normal respiratory effort EFFORT & INSPECTION: Yes able to speak in complete sentences AUSCULTATION: diminished lung sounds Cardio: COMMON NORMALS: regular rate and regular rhythm RATE: regular rate RHYTHM: regular rhythm GI: COMMON NORMALS: non-tender Extremity: COMMON NORMALS: normal to inspection Neuro: COMMON NORMALS: patient oriented x3 and moves all extremities Psych: COMMON NORMALS: mental status grossly normal and cooperative Skin: COMMON NORMALS: no rashes or lesions noted GENERAL SKIN EXAM: no rashes or lesions noted Course Vital Signs: Vital signs: Vital Signs Temperature 97.7 F 08/04/20 21:42 Pulse Rate 106 H 08/04/20 21:42 Respiratory Rate 16 08/04/20 21:42 Blood Pressure 93/64 08/04/20 21:42 Pulse Oximetry 98 08/04/20 21:42 MDM - URI/Sore Throat MDM Narrative: Medical decision making narrative: Patient comes in with occasional cough, nasal drainage and sore throat starting yesterday. Patient denies any fever. Patient has a long history of COPD. On exam we note some mild congestion in the naris, posterior pharynx is normal, lungs are decreased in the bases. Differential diagnosis includes but not limited to upper respiratory infection, rhinosinusitis, exacerbation of COPD. Due to patient's chronic medical condition we will go ahead and treat with 10 mg dexamethasone IM and start her on doxycycline 100 mg twice daily. Patient was encouraged fluids and continue with routine care with increasing number of albuterol as needed. Patient reported understanding agreed to plan with need for follow-up or return for worsening symptoms. Discharge Plan Discharge Patient Disposition: Home Clinical Impression: Rhinitis Qualifiers: Rhinitis type: unspecified Qualified Code(s): J31.0 - Chronic rhinitis COPD (chronic obstructive pulmonary disease) Qualifiers: COPD type: emphysema Emphysema type: unspecified Qualified Code(s): J43.9 - Emphysema, unspecified Condition: Stable Prescriptions: New doxycycline monohydrate 100 mg capsule 100 mg PO BID 14 Days Qty: 28 RF: 0 No Action nitroglycerin [Nitrostat] 0.4 mg tablet, sublingual 0.4 mg sublingual Q5M PRN (Reason: chest pain) 30 Days Qty: 30 RF: 0 Breztri Aerosphere 160-9-4.8 mcg/actuation HFA aerosol inhaler 2 inh inhalation BID 30 Days Qty: 10.7 RF: 4 metoprolol tartrate 25 mg tablet 12.5 mg PO Q12H Qty: 30 RF: 5 levetiracetam 500 mg tablet extended release 24 hr 2,000 mg PO Q24H Qty: 120 RF: 11 albuterol sulfate 90 mcg/actuation HFA aerosol inhaler 2 inh INHALATION Q4H PRN (Reason: shortness of breath or wheezing) Qty: 6.7 RF: 2 albuterol sulfate 2.5 mg /3 mL (0.083 %) solution for nebulization 2.5 mg INHALATION QID PRN (Reason: shortness of breath or wheezing) Qty: 180 RF: 3 polyethylene glycol 3350 [Miralax] 17 gram powder in packet 17 g PO DAILY PRN (Reason: Constipation) Qty: 30 RF: 0 cholecalciferol (vitamin D3) 50 mcg (2,000 unit) capsule 50 mcg PO DAILY@0900 Qty: 30 RF: 2 Spiriva with HandiHaler 18 mcg capsule, w/inhalation device 1 cap INHALATION DAILY@0900 Qty: 30 RF: 2 fluticasone propion-salmeterol [Advair Diskus] 250-50 mcg/dose blister with device 1 inh INHALATION BID@899,1999 Qty: 60 RF: 3 guaifenesin 600 mg tablet extended release 12hr 600 mg PO BID PRN (Reason: Congestion) Qty: 60 RF: 2 pantoprazole [Protonix] 40 mg tablet,delayed release (DR/EC) 40 mg PO BID@899,1999 RF: 0 fluticasone propionate [Flonase Allergy Relief] 50 mcg/actuation spray,suspension 2 spray INTRANASAL DAILY@0900 Qty: 16 RF: 5 diclofenac sodium [Voltaren Arthritis Pain] 1 % gel 2 g topical QID Qty: 100 RF: 0 spironolactone 25 mg tablet 25 mg PO DAILY 30 Days Qty: 30 RF: 0 cetirizine 10 mg capsule 10 mg PO DAILY@0900 PRN (Reason: allergies) Qty: 90 RF: 1 ondansetron 4 mg tablet,disintegrating 4 mg PO Q6H PRN (Reason: nausea and vomiting) Qty: 14 RF: 0 lactulose 10 gram packet 10 g PO DAILY PRN (Reason: constipation) Qty: 15 RF: 0 Discharge Orders: Discharge ED (Routine); Ordered 08/04/20 Ordered By: Monroe Grant Referrals: Emma Novoa DO [Primary Care Provider] - Discharge Diet: Usual diet Discharge Activity: Increase activity as tolerated Patient Instructions: Upper Respiratory Infection (ED), Opioid Safety Activity Restrictions/Additional Instructions: Take medication as directed. Drink plenty of fluids of medication. Continue with routine care as ordered. Use albuterol nebulizer treatments least 4 times a day. Follow-up with primary care as needed. Return to the ER for worsening symptoms. Coding Level of Care Code ED [employer] for [place]
[2020-08-04] MEDS: doxycycline 100 mg Tablet PO (22:55)
[2020-08-04] MEDS: dexamethasone 10 mg/mL INJ IM (22:56)
[2020-08-04 23:02] VITALS: BP 98/66; PULSE 112; RESP 18; O2SAT 96
== END 2020-08-04 23:03 | disposition home or self-care (01) ==
PROVIDERS: Emergency Provider Nurse Practitioner Family; PCP Family Medicine
DX: J31.0 Chronic rhinitis (principal); J43.9 Emphysema, unspecified; F17.210 Nicotine dependence, cigarettes, uncomplicated
CPT/HCPCS: 96372; 99283; J1100

== ENCOUNTER 2020-08-29 22:51 | Emergency (ER) | payer MEDICAID, SELFPAY ==
[2020-08-29 23:40] VITALS: BP 90/66; PULSE 121; RESP 16; TEMP 35.9; O2SAT 99; BMI 13.7
[2020-08-30 01:22] VITALS: PULSE 122; RESP 15; O2SAT 96
--- NOTE | 2020-08-30 01:52 | PC.NURSE ---
Pedal pulses dopplered at bedside. Pulses equal and strong.
[2020-08-30] MEDS: dexamethasone 4 mg Tablet 6 MG PO (02:44)
[2020-08-30 02:49] VITALS: PULSE 120; RESP 19; O2SAT 97
--- NOTE | 2020-08-30 06:46 | ED_ITS ---
HPI - Extremity Problem General: Chief complaint: Extremity Problem,Nontraumatic Stated complaint: BILATERAL LEG PAIN Time Seen by Provider: 08/30/20 00:56 History of Present Illness: HPI Narrative: 60-year-old female well-known to the ER. She presents with bilateral lower extremity numbness, tingling, and pain mainly to her anterior legs below the knee. There is no swelling. She denies any fever. She denies significant change in back pain or symptoms. There is no saddle anesthesia. MD Complaint: extremity pain Onset (ago): day(s) Pain Consistency: constant Location: left, right and lower extremity Quality: burning and aching Radiation: proximal Relieving factors: nothing Exacerbating factors: walking Associated symptoms: Deny arthralgias, chest pain, fever(s) or short of breath Context: history of peripheral vascular disease Review of Systems Const: Denies: fever(s) Eyes: Denies: blurry vision or blind spots ENMT: Denies: throat pain Card: Denies: chest pain Resp: Denies: dyspnea GI: Denies: abdominal pain Neuro: Reports: other; Denies: headache(s) PFSH ED PFSH: Medical History Chronic constipation COPD (chronic obstructive pulmonary disease) GERD (gastroesophageal reflux disease) Insomnia Seizure disorder Surgical History H/O section H/O esophagogastroduodenoscopy Status post colonoscopy (03/31/20) Family History Other CAD (coronary artery disease) Cancer Diabetes Social History Smoking and tobacco status: current every day smoker cigarettes Packs smoked per day: 0.5 Years cigarettes smoked: 48 [ Other cigarette details: Hx of 4 PPD x 46 Years ] Quit status (tobacco): considering quitting Second hand smoke exposure: Yes Smoking risk assessment/counseling performed?: Yes Alcohol intake: never Counseling given: No Counseling given: No Lives independently: Yes Household members: friend(s) Housing: House Marital status: Single Current occupational status: disabled History of recent travel: No Current gender identity: Female Physical Exam 2 Const: GENERAL APPEARANCE: cooperative, comfortable and frail appearing; not in distress and not ill appearing NUTRITIONAL APPEARANCE: cachectic and thin ORIENTATION/CONSCIOUSNESS: Yes awake Chest: COMMONS NORMALS: normal inspection of the chest Resp: COMMON NORMALS: normal respiratory effort, No use of accessory muscles and clear to auscultation bilaterally AUSCULTATION: clear to auscultation bilaterally Cardio: COMMON NORMALS: regular rate and regular rhythm RATE: regular rate RHYTHM: regular rhythm Extremity: OTHER: Exam of the bilateral lower extremities reveals no edema. There is no rash. There is slightly cool. Pulses of the dorsalis pedis and posterior tibialis arteries are intact. There is no rash. There is no overt tenderness. The arteries are dopplered with normal signal. Course Vital Signs: Vital signs: Vital Signs Temperature 96.6 F L 08/29/20 23:40 Pulse Rate 120 H 08/30/20 02:49 Respiratory Rate 19 H 08/30/20 02:49 Blood Pressure 90/66 08/29/20 23:40 Pulse Oximetry 97 08/30/20 02:49 MDM - Extremity (Nontraumatic) MDM Narrative: Medical decision making narrative: Neuropathic type pain to the anterior bilateral lower legs. There is no edema. No rash. No other cause for the pain. She will be given 1 dose of dexamethasone here to see if it improves. She will follow up with her primary care physician. As there is no sign of DVT on either side clinically, and pulses are intact by palpation and Doppler, no other further work-up necessary. Discharge Plan Discharge Patient Disposition: Home Clinical Impression: Neuropathy Condition: Stable Prescriptions: No Action nitroglycerin [Nitrostat] 0.4 mg tablet, sublingual 0.4 mg sublingual Q5M PRN (Reason: chest pain) 30 Days Qty: 30 RF: 0 Breztri Aerosphere 160-9-4.8 mcg/actuation HFA aerosol inhaler 2 inh inhalation BID 30 Days Qty: 10.7 RF: 4 metoprolol tartrate 25 mg tablet 12.5 mg PO Q12H Qty: 30 RF: 5 levetiracetam 500 mg tablet extended release 24 hr 2,000 mg PO Q24H Qty: 120 RF: 11 albuterol sulfate 90 mcg/actuation HFA aerosol inhaler 2 inh INHALATION Q4H PRN (Reason: shortness of breath or wheezing) Qty: 6.7 RF: 2 albuterol sulfate 2.5 mg /3 mL (0.083 %) solution for nebulization 2.5 mg INHALATION QID PRN (Reason: shortness of breath or wheezing) Qty: 180 RF: 3 polyethylene glycol 3350 [Miralax] 17 gram powder in packet 17 g PO DAILY PRN (Reason: Constipation) Qty: 30 RF: 0 Spiriva with HandiHaler 18 mcg capsule, w/inhalation device 1 cap INHALATION DAILY@0900 Qty: 30 RF: 2 fluticasone propion-salmeterol [Advair Diskus] 250-50 mcg/dose blister with device 1 inh INHALATION BID@899,1999 Qty: 60 RF: 3 cholecalciferol (vitamin D3) 50 mcg (2,000 unit) capsule 50 mcg PO DAILY@0900 Qty: 30 RF: 2 guaifenesin 600 mg tablet extended release 12hr 600 mg PO BID PRN (Reason: Congestion) Qty: 60 RF: 2 pantoprazole [Protonix] 40 mg tablet,delayed release (DR/EC) 40 mg PO BID@899,1999 RF: 0 fluticasone propionate [Flonase Allergy Relief] 50 mcg/actuation spray,suspension 2 spray INTRANASAL DAILY@0900 Qty: 16 RF: 5 diclofenac sodium [Voltaren Arthritis Pain] 1 % gel 2 g topical QID Qty: 100 RF: 0 spironolactone 25 mg tablet 25 mg PO DAILY 30 Days Qty: 30 RF: 0 cetirizine 10 mg capsule 10 mg PO DAILY@0900 PRN (Reason: allergies) Qty: 90 RF: 1 ondansetron 4 mg tablet,disintegrating 4 mg PO Q6H PRN (Reason: nausea and vomiting) Qty: 14 RF: 0 lactulose 10 gram packet 10 g PO DAILY PRN (Reason: constipation) Qty: 15 RF: 0 Discharge Orders: Discharge ED (Routine); Ordered 08/30/20 Ordered By: Jhon Schneider Referrals: Emma Novoa DO [Primary Care Provider] - 4-7 days Discharge Diet: Advance as tolerated Discharge Activity: Increase activity as tolerated Patient Instructions: Peripheral Neuropathy (ED) Activity Restrictions/Additional Instructions: Given medication you were given tonight a couple of days to work. If it does no t seem to improve symptoms, call your primary care physician for follow-up. Other medications may be used. Return to the ER for fever greater than 100, spreading weakness and numbness up past the waist, any other concerning symptoms peer Coding Level of Care Code ED [employer] for [place]
== END 2020-08-30 02:49 | disposition home or self-care (01) ==
PROVIDERS: Emergency Provider Emergency Medicine; PCP Family Medicine
DX: G62.9 Polyneuropathy, unspecified (principal); J44.9 Chronic obstructive pulmonary disease, unspecified; F17.210 Nicotine dependence, cigarettes, uncomplicated
CPT/HCPCS: 99282; J8540

== ENCOUNTER 2020-08-31 19:55 | Inpatient (IN) | payer MEDICAID, SELFPAY ==
--- NOTE | 2020-08-31 20:11 | XRR_ITS ---
PROCEDURE INFORMATION: Exam: XR Chest Exam date and time: 08/31/2020 8:11 PM Age: 60 years old Clinical indication: Pain; Shortness of breath; Left-sided; Patient HX: Wearing heart monitor. Unable to remove. Smoker; Additional info: Cp and SOB x couple of days. TECHNIQUE: Imaging protocol: XR of the chest. Views: 1 view. COMPARISON: 1. CR XR chest 1V portable [id number] 2020-05-27 21:02 2. CR XR chest 1V portable [id number] 2020-05-18 08:51 3. CR XR chest 1V portable [id number] 2020-05-07 20:26 4. SC XR chest 1V portable [id number] 2020-04-26 22:45 FINDINGS: Lungs: Unremarkable. No consolidation. Pleural spaces: Unremarkable. No pleural effusion. No pneumothorax. Heart/Mediastinum: Overlying engine monitor. Bones/joints: Unremarkable. XR/XR chest 1V portable [id number] IMPRESSION: No acute findings.
--- NOTE | 2020-08-31 20:11 | ECG_ITS ---
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 Measurements Intervals [place] Rate: 122 P: 80 MN: 140 QRS: -71 QRSD: 106 T: 97 QT: 296 QTc: 422 Interpretive Statements SINUS TACHYCARDIA PATTERN CONSISTENT WITH PULMONARY DISEASE INCOMPLETE RIGHT BUNDLE BRANCH BLOCK [90+ ms QRS DURATION, TERMINAL R IN V1/V2, 40+ ms S IN I/aVL/V4/V5/V6] LEFT ANTERIOR FASCICULAR BLOCK [QRS AXIS <= -45, QR IN I, RS IN II] LEFT VENTRICULAR HYPERTROPHY AND ST-T CHANGE [VOLTAGE CRITERIA PLUS ST/T ABNORMALITY] Compared to ECG 06/07/2020 17:45:44 Incomplete right bundle-branch block now present Sinus rhythm no longer present Myocardial infarct finding no longer present ST (T wave) deviation still present Electronically Signed On 08-31-2020 21:22:19 CDT by Deny Casper M.D. [id number]
[2020-08-31 20:13] VITALS: BP 79/60; PULSE 120; RESP 20; TEMP 36.8; O2SAT 100; BMI 13.5
[2020-08-31 21:00] LABS: Basophils % 0.2 %; Eosinophils % 0.4 %; Hematocrit 44.3 % (37.0-47.0); Lymphocytes # 1.2 10^3/uL (0.8-4.8); Mean Corpuscular HGB Conc 31.6 g/dL (30.0-36.0); Mean Corpuscular Hemoglobin 31.5 pg (28.0-34.0); Mean Corpuscular Volume 99.6 fL (81-99); Mean Platelet Volume 12.1 fL (7.4-10.4); Monocytes # 0.7 10^3/uL (0.2-0.9); Monocytes % 8.2 %; Neutrophils # 6.57 10^3/uL (1.8-7.7); Nucleated Red Blood Cells % 0 %; Platelet Count 179 10^3/cmm (130-400); Red Blood Count 4.45 10^6/uL (4.1-5.3); Red Cell Distribution Width 15.9 % (12.1-15.1); White Blood Count 8.5 10^3/uL (4.0-10.0)
[2020-08-31 21:22] LABS: Slide Review Slide Review Perform
[2020-08-31 21:26] LABS: Alanine Aminotransferase 37 U/L (0-33); Albumin Level 4.4 g/dL (3.5-5.2); Alkaline Phosphatase 112 IU/L (35-105); Anion Gap 18.8 (5-19); Aspartate Amino Transferase 54 U/L (0-32); Blood Urea Nitrogen 20 mg/dL (8-23); Calcium 9.1 mg/dL (8.5-10.5); Carbon Dioxide 22 mmol/L (22-29); Chloride 97 mmol/L (98-107); Globulin 2.5 g/dL (1.3-4.6); Glomerular Filtration Rate 85.1 mL/min (90-130); Glucose 98 mg/dL (65-115); Osmolality Calculated 279 mOsm/kg (285-295); Potassium 4.8 mmol/L (3.5-5.1); Salicylate 1.1 mg/dL (3-10); Sodium 133 mmol/L (136-145); Thyroid Stimulating Hormone 4.66 uIU/mL (0.27-4.20); Total Bilirubin 1.2 mg/dL (0.15-1.2); Total Protein 6.9 g/dL (6.6-8.7)
[2020-08-31 21:28] LABS: Alcohol Level < 10 mg/dL (0-10)
[2020-08-31 21:30] LABS: Troponin(5th) Baseline 38 ng/L (0-10)
[2020-08-31 21:52] LABS: Amphetamines Screen Urine Negative (Negative); Barbiturates Screen Urine Negative (Negative); Benzodiazepines Screen Urine Negative (Negative); Cocaine Screen Urine Negative (Negative); Opiate Screen Urine Negative (Negative); PCP Screen Urine Negative (Negative); THC Screen Urine Negative (Negative)
[2020-08-31 21:53] LABS: Add Urine Microscopic? YES; Bacteria Urine 1+ /hpf; Bilirubin Urine 1+ (Negative); Blood Urine Neg (Negative); Glucose Urine UA Norm (Normal); Ketones Urine Negative (Negative); Leukocyte Esterase Urine Negative (Negative); Mucus Urine 2+ /hpf; Nitrate Urine Negative (Negative); Protein Urine 1+ (Negative); RBC Urine 0-4 /hpf (0-2); Urine Appearance Clear (CLEAR); Urine Color Yellow (Yellow); Urobilinogen Urine 1 mg/dL (Negative); WBC Urine 0-4 /hpf (0-5); pH Urine 5 (5-7)
[2020-08-31 21:54] LABS: Add Urine Culture? No
[2020-08-31 22:05] LABS: NT Pro B Type Natriuretic Pept 12783 pg/mL (0-125)
--- NOTE | 2020-08-31 22:11 | ECG_ITS ---
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 Measurements Intervals [place] Rate: 122 P: 80 ME: 136 QRS: -70 QRSD: 109 T: 97 QT: 295 QTc: 421 Interpretive Statements SINUS TACHYCARDIA LEFT ANTERIOR FASCICULAR BLOCK [QRS AXIS <= -45, QR IN I, RS IN II] LEFT VENTRICULAR HYPERTROPHY AND ST-T CHANGE [VOLTAGE CRITERIA PLUS ST/T ABNORMALITY] POSSIBLE ANTERIOR MYOCARDIAL INFARCTION [30 ms Q WAVE IN V3/V4, OR R < 0.2 mV IN V4], OF INDETERMINATE AGE Compared to ECG 08/31/2020 20:44:41 Myocardial infarct finding now present Incomplete right bundle-branch block no longer present ST (T wave) deviation still present Electronically Signed On 09-02-2020 0:44:16 CDT by Deny Casper M.D. [id number]
[2020-08-31 22:33] LABS: Troponin 5 2HR 36.92 ng/L (0-10)
[2020-08-31 22:35] LABS: Troponin 5 2HR Delta -1.08 ABS# (0-10)
[2020-08-31 22:52] VITALS: BP 101/74; PULSE 120; RESP 19; O2SAT 96
--- NOTE | 2020-08-31 23:59 | P.HP_ITS ---
Providers/Chief Complaint Primary Care Provider: Emma Novoa DO Chief Complaint: chest pain, throbbing, low blood pressure History of Present Illness Maryjo Gomez is a 60 year old female who carries history of nonischemic cardiomyopathy EF 5-10% peripheral arterial disease, active smoker, oxygen dependent COPD, pulmonary hypertension, presented today with chief complaint of chest pain and shortness of breath. Patient is stating that she ran out of her Lasix about a month ago. She has been experiencing shortness of breath orthopnea PND. She gets short of breath with minimal activities. She is still smoking half a pack a day. She is endorsing losing weight. Today she started experiencing left-sided chest discomfort which she describing as pressure-like sensation which was radiating towards her left arm, it stayed for about 10 minutes and got resolved on its own, she was resting at the time of chest discomfort, she denies any diaphoresis, nausea, vomiting. Lately she has been experiencing back pain as well no recent falls. Because of her health concerns she became really frustrated and stated that she wants to end her life. On further questioning patient is stating that she has no plans to hurt herself she said those words out of frustration. However she did not experience recurrence of chest pain. In the ER she had normal CBC and BMP, BNP 12,000 TSH 4.6 UA unremarkable, chest x-ray unremarkable Patient is denying suicidal ideation Her systolic blood pressure is ranging between 90 to 95 mmHg, she was chest pain-free, Dr. Casper and psych consulted In the ER she received 20 mg of IV Lasix Review of Systems Const: Reports: chills, body aches, change in appetite, change in weight, fatigue and malaise Eyes: Denies: change in vision ENMT: Denies: throat pain Card: Reports: chest pain, dyspnea on exertion and orthopnea Resp: Reports: dyspnea and non-productive cough GI: Denies: abdominal pain : Denies: flank pain Musc: Denies: neck pain Skin/Breast: Denies: rash Neuro: Denies: headache(s) Psych: Reports: anxiety, depression, mood swings, hopelessness and suicidal ideation Endo: Denies: polyuria Emmanuel/Lymph: Denies: easy bruising All/Imm: Denies: urticaria Medications/Allergies Home Medications Medication Instructions Recorded Confirmed Last Taken Type levetiracetam 500 mg 2,000 mg PO Q24H #120 tab 10/23/19 07/07/20 06/06/20 Rx tablet,extended release 24 hr ondansetron 4 mg PO Q6H PRN #14 tab 02/25/20 07/07/20 05/07/20 Rx lactulose 10 g PO DAILY PRN #15 ea 03/01/20 07/07/20 05/07/20 Rx pantoprazole [Protonix] 40 mg PO BID@09,199903/09/20 07/07/20 06/06/20 History albuterol sulfate 90 mcg/actuation 2 inh INHALATION Q4H PRN #6.7 gm 04/16/20 07/07/20 05/07/20 Rx aerosol inhaler diclofenac sodium [Voltaren 2 g TOPICAL QID #100 g 04/28/20 07/07/20 05/07/20 Rx Arthritis Pain] albuterol sulfate 2.5 mg INHALATION QID PRN #180 ml 05/12/20 07/07/20 Unknown Rx fluticasone propionate 50 2 spray INTRANASAL DAILY@899 #16 g 05/12/20 07/07/20 Unknown Rx mcg/actuation nasal spray,suspension guaifenesin 600 mg tablet, 600 mg PO BID PRN #60 tab 05/12/20 07/07/20 Unknown Rx extended release 12 hr nitroglycerin 0.4 mg sublingual 0.4 mg SUBLINGUAL Q5M PRN 30 Days 05/27/20 07/07/20 Unknown Rx tablet #30 tab cetirizine 10 mg PO DAILY@09 PRN #90 cap 05/30/20 07/07/20 06/06/20 Rx spironolactone 25 mg PO DAILY 30 Days #30 tab 05/30/20 07/07/20 06/06/20 Rx polyethylene glycol 3350 17 gram 17 g PO DAILY PRN #30 ea 06/16/20 07/07/20 Unkn own Rx oral powder packet budesonide 160 mcg-glycopyr 9 2 inh INHALATION BID 30 Days #10.7 07/07/20 07/07/20 Unknown Rx mcg-formot 4.8 mcg/actuation HFA g inhaler fluticasone 250 mcg-salmeterol 50 1 inh INHALATION BID@899,1999 #60 07/17/20 Unknown Rx mcg/dose blistr powdr for ea inhalation tiotropium bromide 18 mcg capsule 1 cap INHALATION DAILY@0900 #30 inh 07/17/20 Unknown Rx with inhalation device metoprolol tartrate 25 mg tablet 12.5 mg PO Q12H #30 tab 07/21/20 07/21/20 Unknown Rx cholecalciferol (vitamin D3) 50 50 mcg PO DAILY@0900 #30 cap 08/10/20 Unknown Rx mcg (2,000 unit) capsule Allergies Allergy/AdvReac Type Severity Reaction Status Date / Time No Known Allergies Allergy Verified 08/31/20 20:23 PFSH Acute PFSH: Medical History Chronic constipation COPD (chronic obstructive pulmonary disease) GERD (gastroesophageal reflux disease) Insomnia Seizure disorder Surgical History H/O section H/O esophagogastroduodenoscopy Status post colonoscopy (03/31/20) Family History Other CAD (coronary artery disease) Cancer Diabetes Social History Smoking and tobacco status: current every day smoker cigarettes Packs smoked per day: 0.5 Years cigarettes smoked: 48 [ Other cigarette details: Hx of 4 PPD x 46 Years ] Quit status (tobacco): considering quitting Second hand smoke exposure: Yes Smoking risk assessment/counseling performed?: Yes Alcohol intake: never Counseling given: No Counseling given: No Lives independently: Yes Household members: friend(s) Housing: House Marital status: Single Current occupational status: disabled History of recent travel: No Current gender identity: Female Vitals/I&O/Wt Last Vital Signs Temp 98.2 F 08/31/20 20:13 Pulse 120 H 08/31/20 22:52 Resp 19 H 08/31/20 22:52 BP 101/74 08/31/20 22:52 Pulse Ox 96 08/31/20 22:52 Weight last 48 hrs Weight 33.566 kg Physical Exam Narrative: EXAM NARRATIVE: Middle-age female who appears more than stated age, slim cachectic and malnourished Clinically looks dehydrated no signs of fluid overload Currently using 2 L of nasal cannula saturating well no use of respiratory accessory muscles Bibasilar crackles diminished airflow Soft abdomen Lower symmetry no edema gangrene ulcer EOMI, PERRLA Denies active suicidal ideation, No neurological deficit Awake alert oriented x3 GCS 15 Patient was not making eye contact, she kept her eyes closed during my evaluation and interview Data : 08/31/20 20:53 08/31/20 20:53 A&P Assessment and plan (1) Uses LifeVest defibrillator: Status: Acute (2) Suicidal ideation: Status: Acute (3) Chronic systolic heart failure: Status: Acute Additional A&P Information Unstable angina Patient complained of chest pain, no ischemic or infarctive event troponin trending down No recurrence of symptoms, Check D-dimer Currently saturating well on 2 L nasal cannula, systolic blood pressure ranging between 95 to 120 mmHg In the ER she received 20 mg of IV Lasix, I will continue her p.o. 20 mg of Lasix, clinically does not look fluid overloaded, Dr. Casper consulted Suicidal ideation Patient is stating that she does not have any active suicidal plans she said those words initially out of frustration, I do believe she has severe signs of depression, will follow with psych re commendations Multiple comorbid conditions Pulmonary hypertension systolic congestive heart failure no acute exacerbation clinically Oxygen dependent COPD without acute exacerbation, currently saturating well on 2 L nasal cannula Active smoker Patient has been complaining of numbness in her legs and arms however no active signs of stroke, check B12 level Full code DVT prophylaxis Lovenox Cardiac diet Attestations Medical Necessity Statement*: Anticipating discharge within 48 hours overnight monitoring needed because of her unstable angina and suicidal ideation Time Spent in Patient Care: 30mins Coding Level of Care Code Acute Hotel [employer] 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
[2020-09-01] VITALS (31 sets, daily range): BP systolic 72–120; BP diastolic 51–77; PULSE 92–118; RESP 10–20; O2SAT 92–100
--- NOTE | 2020-09-01 00:45 | W.ED.CHESTPA ---
HPI - Chest Pain General: Chief Complaint: Chest Pain Stated Complaint: chest pain, throbbing, low blood pressure Time Seen by Provider: 08/31/20 20:27 Source: patient Mode of arrival: ambulatory Limitations: no limitations History of Present Illness: HPI narrative: This is a 60-year-old female patient well-known to this facility with a history of nonischemic cardiomyopathy with ejection fraction of 10 to 15% and who has on a LifeVest. She presents to this emergency department with complaints of chest pain and shortness of breath. Symptoms started earlier today about 3 PM. Chest pain is retrosternal and radiates to her back. She denies dizziness, nausea or vomiting. She also presents with extreme weakness. On the screening questionnaire she flagged for suicidal ideation. When I asked her she said she had thoughts of suicide that started today and she has never had thoughts of suicide before. She does not have a definite plan at this time. MD complaint: chest pain and chest heaviness Onset (ago): hour(s) (5) Timing of current episode: constant Prior episodes: No Onset: during rest Pain location: substernal Pain radiation: back Severity: moderate Quality: heaviness Relieving factors: nothing Exacerbating factors: nothing Associated symptoms: Reports dyspnea and nausea; Deny abdominal pain, diaphoresis, fever(s), leg edema, palpitations, sense of impending doom, syncope or vomiting Treatment prior to arrival: none Review of Systems General: Reports: 10 or more systems reviewed and unremarkable except in HPI and below Const: Denies: fever(s) or diaphoresis Card: Denies: palpitations or syncope Resp: Reports: dyspnea GI: Reports: nausea; Denies: abdominal pain or vomiting [facility] ED PFSH: Medical History (Reviewed 09/01/20 @ 00:49 by Tabitha Del [place]ario [place] [facility] [place] Chronic constipation COPD (chronic obstructive pulmonary disease) GERD (gastroesophageal reflux disease) Insomnia Seizure disorder Surgical History (Reviewed 09/01/20 @ 00:49 by Tabitha Del Rosario MD, [facility] [place] H/O section H/O esophagogastroduodenoscopy Status post colonoscopy (03/31/20) Family History (Reviewed 09/01/20 @ 00:49 by Tabitha Del Rosario MD, [facility] [place] Other CAD (coronary artery disease) Cancer Diabetes Social History (Reviewed 09/01/20 @ 00:49 by Tabitha Del Rosario MD, [facility] [place] Smoking and tobacco status: current every day smoker cigarettes Packs smoked per day: 0.5 Years cigarettes smoked: 48 [ Other cigarette details: Hx of 4 PPD x 46 Years ] Quit status (tobacco): considering quitting Second hand smoke exposure: Yes Smoking risk assessment/counseling performed?: Yes Alcohol intake: never Counseling given: No Counseling given: No Lives independently: Yes Household members: friend(s) Housing: House Marital status: Single Current occupational status: disabled History of recent travel: No Current gender identity: Female Physical Exam Const: COMMON NORMALS: no acute distress, average body habitus, patient oriented x3, no limitations, healthy appearing, alert and well nourished HENMT: COMMON NORMALS: normocephalic, atraumatic and moist oral mucous membranes HEAD & SCALP: normocephalic and atraumatic Eye: COMMON NORMALS: Equal, round and reactive pupils present, EOMs intact bilaterally, conjunctivae normal and no scleral icterus CONJUNCTIVA: Yes conjunctivae normal PUPIL: Yes Equal, round and reactive pupils present Neck/C-Spine: COMMON NORMALS: no meningeal signs and no JVD Resp: COMMON NORMALS: normal respiratory effort, No retractions, No use of accessory muscles, clear to auscultation bilaterally and percussion normal AUSCULTATION: clear to auscultation bilaterally PERCUSSION: percussion normal Cardio: COMMON NORMALS: no JVD, regular rate, regular rhythm, S1 normal heart sound present, S2 normal heart sound present, No gallops present (Cardio), No clicks present (Cardio), No murmurs present (Cardio), No rub (Cardio) and Peripheral pulses 2+ throughout RATE: regular rate RHYTHM: regular rhythm HEART SOUNDS: S1 normal heart sound present and S2 normal heart sound present PERIPHERAL PULSES: Peripheral pulses 2+ throughout GI: COMMON NORMALS: Normal to inspection, nondistended, normoactive bowel sounds present, Soft to palpation, non-tender, No hepatosplenomegaly present, no masses and no bruits PALPATION: Yes Soft to palpation and Yes No hepatosplenomegaly present Extremity: COMMON NORMALS: normal to inspection, full ROM, capillary refill normal and no calf tenderness GENERAL: Yes edema (1+) Neuro: COMMON NORMALS: patient oriented x3 SENSORIUM/ORIENTATION: Yes alert MENINGEAL SIGNS: Yes no meningeal signs Course Consultations: Consultation #1: Discussed the patient with Dr. Casper who is a cashier tube room on-call and who happens to be her cashier tube room. This appears to be an episode of CHF exacerbation and she will need her diuretics optimized. She should be admitted to the hospital under the hospitalist service and he will follow the patient while she is in the hospital. Time: 23:10 Consultation #2: Discussed the patient with Dr. Zamorano, Hospitalist and he kindly accepted the patient to his service. Time: 23:15 Consultation #3: Discussed the patient with Dr. Lacey, psychiatrist and he will evaluate the patient while she is admitted. Time: 23:22 Vital Signs: Vital signs: Vital Signs Temperature 98.2 F 08/31/20 20:13 Pulse Rate 120 H 08/31/20 22:52 Respiratory Rate 19 H 08/31/20 22:52 Blood Pressure 101/74 08/31/20 22:52 Pulse Oximetry 96 08/31/20 22:52 MDM - Chest Pain MDM Narrative: Medical decision making narrative: 60-year-old female patient who has a history of nonischemic cardiomyopathy with an ejection fraction of 10 to 15%. She also is on a LifeVest at this time and she is being followed by cardiology. If her cardiac function does not improve she will be referred for either an LVAD or heart transplant. She presents to the emergency department with chest pressure and shortness of breath. Evaluation in the emergency department is consistent with a CHF exacerbation. However because of her poor health status patient has suicidal ideation that developed today although she has no definite plan at this time. She is being admitted to the medical service for further evaluation and management. While she is in the hospital she will be evaluated by the psychiatrist. On arrival to the emergency department she was hypotensive with her systolic blood pressure in the 70s. Blood pressure improved without intervention while she was in the emergency department. Medical Records: Attestation: I reviewed the patient's medical records. Lab Data: Attestation: I reviewed the patient's lab results. Labs: Lab Results 08/31/20 08/31/20 08/31/20 Range/Units 20:53 20:53 20:53 WBC 8.5 (4.0-10.0) 10^3/ uL RBC 4.45 (4.1-5.3) 10^6/u L Hgb 14.0 (11.5-15.3) g/dL Hct 44.3 (37.0-47.0) % MCV 99.6 H (81-99) fL MCH 31.5 (28.0-34.0) pg MCHC 31.6 (30.0-36.0) g/dL RDW 15.9 H (12.1-15.1) % Plt Count 179 (130-400) 10^3/c mm MPV 12.1 H (7.4-10.4) fL Neut % (Auto) 77.0 % Lymph % (Auto) 14.0 % [place] % (Auto) 8.2 % Eos % (Auto) 0.4 % Baso % (Auto) 0.2 % Neut # (Auto) 6.57 (1.8-7.7) 10^3/u L Lymph # (Auto) 1.2 (0.8-4.8) 10^3/u L [place] # (Auto) 0.7 (0.2-0.9) 10^3/u L Eos # (Auto) 0.0 (0.0-0.8) 10^3/u L Baso # (Auto) 0.0 (0.0-0.1) 10^3/u L Nucleated RBC % (a uto) 0 % Nucleated RBCs # 0.0 /100WBC Sodium 133 L (136-145) mmol/L Potassium 4.8 (3.5-5.1) mmol/L Chloride 97 L (98-107) mmol/L Carbon Dioxide 22 (22-29) mmol/L Anion Gap 18.8 (5-19) BUN 20 (8-23) mg/dL Creatinine 0.7 (0.5-0.9) mg/dL GFR Calculation 85.1 L (90-130) mL/min Glucose 98 (65-115) mg/dL Calculated Osmolal ity 279 L (285-295) mOsm/k g Calcium 9.1 (8.5-10.5) mg/dL Total Bilirubin 1.2 (0.15-1.2) mg/dL AST 54 H (0-32) U/L ALT 37 H (0-33) U/L Alkaline Phosphata se 112 H (35-105) IU/L Troponin T Baselin e 38 H (0-10) ng/L Troponin T 120 Min red cliff (0-10) ng/L Delta Troponin T (0-10) ABS# NT-Pro-B Natriuret Pep (0-125) pg/mL Total Protein 6.9 (6.6-8.7) g/dL Albumin 4.4 (3.5-5.2) g/dL Globulin 2.5 (1.3-4.6) g/dL TSH 4.66 H (0.27-4.20) uIU/ mL Urine Color (Yellow) Urine Appearance (CLEAR) Urine pH (5-7) Ur Specific Gravit y (1.005-1.030) Urine Protein (Negative) Urine Glucose (UA) (Normal) Urine Ketones (Negative) Urine Blood (Negative) Urine Nitrate (Negative) Urine Bilirubin (Negative) Urine Urobilinogen (Negative) mg/dL Ur Leukocyte [place] ase (Negative) Urine RBC (0-2) /hpf Urine WBC (0-5) /hpf Ur Squamous Epith Cells (0-5) /hpf Amorphous Sediment Urine Bacteria (NONE) /hpf Hyaline Casts /lpf Urine Mucus /hpf Salicylates 1.1 L (3-10) mg/dL Urine Opiates Scre en (Negative) ng/mL Acetaminophen 9.0 L (10-30) ug/mL Ur Barbiturates Sc reen (Negative) ng/mL Ur Phencyclidine S crn (Negative) ng/mL Ur Amphetamines Sc reen (Negative) ng/mL U Benzodiazepines Scrn (Negative) ng/mL Urine Cocaine Scre en (Negative) ng/mL U Marijuana (THC) Screen (Negative) ng/mL Ethyl Alcohol < 10 (0-10) mg/dL 08/31/20 08/31/20 08/31/20 Range/Units 20:53 21:35 21:35 WBC (4.0-10.0) 10^3/ uL RBC (4.1-5.3) 10^6/u L Hgb (11.5-15.3) g/dL Hct (37.0-47.0) % MCV (81-99) fL MCH (28.0-34.0) pg MCHC (30.0-36.0) g/dL RDW (12.1-15.1) % Plt Count (130-400) 10^3/c mm MPV (7.4-10.4) fL Neut % (Auto) % Lymph % (Auto) % [place] % (Auto) % Eos % (Auto) % Baso % (Auto) % Neut # (Auto) (1.8-7.7) 10^3/u L Lymph # (Auto) (0.8-4.8) 10^3/u L [place] # (Auto) (0.2-0.9) 10^3/u L Eos # (Auto) (0.0-0.8) 10^3/u L Baso # (Auto) (0.0-0.1) 10^3/u L Nucleated RBC % (a uto) % Nucleated RBCs # /100WBC Sodium (136-145) mmol/L Potassium (3.5-5.1) mmol/L Chloride (98-107) mmol/L Carbon Dioxide (22-29) mmol/L Anion Gap (5-19) BUN (8-23) mg/dL Creatinine (0.5-0.9) mg/dL GFR Calculation (90-130) mL/min Glucose (65-115) mg/dL Calculated Osmolal ity (285-295) mOsm/k g Calcium (8.5-10.5) mg/dL Total Bilirubin (0.15-1.2) mg/dL AST (0-32) U/L ALT (0-33) U/L Alkaline Phosphata se (35-105) IU/L Troponin T Baselin e (0-10) ng/L Troponin T 120 Min red cliff (0-10) ng/L Delta Troponin T (0-10) ABS# NT-Pro-B Natriuret Pep 06313 H (0-125) pg/mL Total Protein (6.6-8.7) g/dL Albumin (3.5-5.2) g/dL Globulin (1.3-4.6) g/dL TSH (0.27-4.20) uIU/ mL Urine Color Yellow (Yellow) Urine Appearance Clear (CLEAR) Urine pH 5 (5-7) Ur Specific Gravit y 1.020 (1.005-1.030) Urine Protein 1+ H (Negative) Urine Glucose (UA) Norm (Normal) Urine Ketones Negative (Negative) Urine Blood Neg (Negative) Urine Nitrate Negative (Negative) Urine Bilirubin 1+ H (Negative) Urine Urobilinogen 1 H (Negative) mg/dL Ur Leukocyte [place] ase Negative (Negative) Urine RBC 0-4 H (0-2) /hpf Urine WBC 0-4 H (0-5) /hpf Ur Squamous Epith Cells 5-10 H (0-5) /hpf Amorphous Sediment Not Reportable Urine Bacteria 1+ H (NONE) /hpf Hyaline Casts 5-10 H /lpf Urine Mucus 2+ /hpf Salicylates (3-10) mg/dL Urine Opiates Scre en Negative (Negative) ng/mL Acetaminophen (10-30) ug/mL Ur Barbiturates Sc reen Negative (Negative) ng/mL Ur Phencyclidine S crn Negative (Negative) ng/mL Ur Amphetamines Sc reen Negative (Negative) ng/mL U Benzodiazepines Scrn Negative (Negative) ng/mL Urine Cocaine Scre en Negative (Negative) ng/mL U Marijuana (THC) Screen Negative (Negative) ng/mL Ethyl Alcohol (0-10) mg/dL 08/31/20 Range/Units 22:04 WBC (4.0-10.0) 10^3/ uL RBC (4.1-5.3) 10^6/u L Hgb (11.5-15.3) g/dL Hct (37.0-47.0) % MCV (81-99) fL MCH (28.0-34.0) pg MCHC (30.0-36.0) g/dL RDW (12.1-15.1) % Plt Count (130-400) 10^3/c mm MPV (7.4-10.4) fL Neut % (Auto) % Lymph % (Auto) % [place] % (Auto) % Eos % (Auto) % Baso % (Auto) % Neut # (Auto) (1.8-7.7) 10^3/u L Lymph # (Auto) (0.8-4.8) 10^3/u L [place] # (Auto) (0.2-0.9) 10^3/u L Eos # (Auto) (0.0-0.8) 10^3/u L Baso # (Auto) (0.0-0.1) 10^3/u L Nucleated RBC % (a uto) % Nucleated RBCs # /100WBC Sodium (136-145) mmol/L Potassium (3.5-5.1) mmol/L Chloride (98-107) mmol/L Carbon Dioxide (22-29) mmol/L Anion Gap (5-19) BUN (8-23) mg/dL Creatinine (0.5-0.9) mg/dL GFR Calculation (90-130) mL/min Glucose (65-115) mg/dL Calculated Osmolal ity (285-295) mOsm/k g Calcium (8.5-10.5) mg/dL Total Bilirubin (0.15-1.2) mg/dL AST (0-32) U/L ALT (0-33) U/L Alkaline Phosphata se (35-105) IU/L Troponin T Baselin e (0-10) ng/L Troponin T 120 Min red cliff 36.92 H (0-10) ng/L Delta Troponin T -1.08 L (0-10) ABS# NT-Pro-B Natriuret Pep (0-125) pg/mL Total Protein (6.6-8.7) g/dL Albumin (3.5-5.2) g/dL Globulin (1.3-4.6) g/dL TSH (0.27-4.20) uIU/ mL Urine Color (Yellow) Urine Appearance (CLEAR) Urine pH (5-7) Ur Specific Gravit y (1.005-1.030) Urine Protein (Negative) Urine Glucose (UA) (Normal) Urine Ketones (Negative) Urine Blood (Negative) Urine Nitrate (Negative) Urine Bilirubin (Negative) Urine Urobilinogen (Negative) mg/dL Ur Leukocyte [place] ase (Negative) Urine RBC (0-2) /hpf Urine WBC (0-5) /hpf Ur Squamous Epith Cells (0-5) /hpf Amorphous Sediment Urine Bacteria (NONE) /hpf Hyaline Casts /lpf Urine Mucus /hpf Salicylates (3-10) mg/dL Urine Opiates Scre en (Negative) ng/mL Acetaminophen (10-30) ug/mL Ur Barbiturates Sc reen (Negative) ng/mL Ur Phencyclidine S crn (Negative) ng/mL Ur Amphetamines Sc reen (Negative) ng/mL U Benzodiazepines Scrn (Negative) ng/mL Urine Cocaine Scre en (Negative) ng/mL U Marijuana (THC) Screen (Negative) ng/mL Ethyl Alcohol (0-10) mg/dL Imaging Data^: CXR: Attestation: I personally reviewed and interpreted this imaging study as follows: Radiologist's impression: [address] [id number] ReportSigned Patient: Maryjo Gomez #: [id number]: [id number]#:[id number]/Sex: 60 / FADM Date: 08/31/20Loc: ERRoom/Bed:Attending Dr: Ordering Provider/Ordering MD: Jw Shipman MD Date of Service: 08/31/20 Procedure(s): XR chest 1V portable [id number] Accession Number(s): [id number] Report Number: [id number] PROCEDURE INFORMATION: Exam: XR Chest Exam date and time: 08/31/2020 8:11 PM Age: 60 years old Clinical indication: Pain; Shortness of breath; Left-sided; Patient HX: Wearing heart monitor. Unable to remove. Smoker; Additional info: Cp and SOB x couple of days. TECHNIQUE: Imaging protocol: XR of the chest. Views: 1 view. COMPARISON: 1. CR XR chest 1V portable [id number] 2020-05-27 21:02 2. CR XR chest 1V portable [id number] 2020-05-18 08:51 3. CR XR chest 1V portable [id number] 2020-05-07 20:26 4. CA XR chest 1V portable [id number] 2020-04-26 22:45 FINDINGS: Lungs: Unremarkable. No consolidation. Pleural spaces: Unremarkable. No pleural effusion. No pneumothorax. 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 Bones/joints: Unremarkable. XR/XR chest 1V portable [id number] IMPRESSION: No acute findings. Dictated By:Marin Black MDSigned By:Marin Black MDSigned Date/Time:08/31/202156DD/ 55 EKG Data^: EKG 1: Attestation: I personally reviewed and interpreted this EKG as follows: EKG interpretation date: 08/31/20 EKG interpretation time: 20:10 Prior EKG tracings: available for review Interpretation: Sinus tachycardia with short CA interval. Heart rate 124 bpm. Left anterior fascicular block. Left ventricular hypertrophy. No ST changes. 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
[2020-09-01] MEDS: ondansetron 2 mg/ML SDV 2 mL 4 MG IVP ×2 (00:55→14:28)
[2020-09-01] MEDS: FUROsemide 10 mg/mL SDV 2mL 20 MG IVP (00:57)
[2020-09-01] MEDS: morphine 4 mg/mL SDV 1 mL IVP (00:57)
--- NOTE | 2020-09-01 02:11 | ECG_ITS ---
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 Measurements Intervals [place] Rate: 119 P: 106 IL: 108 QRS: 252 QRSD: 110 T: 83 QT: 314 QTc: 442 Interpretive Statements SINUS TACHYCARDIA WITH SHORT IL INTERVAL POSSIBLE RIGHT ATRIAL ENLARGEMENT [0.25mV P WAVE] POSSIBLE LEFT ATRIAL ENLARGEMENT [-0.1mV P WAVE IN V1/V2] INCOMPLETE RIGHT BUNDLE BRANCH BLOCK [90+ ms QRS DURATION, TERMINAL R IN V1/V2, 40+ ms S IN I/aVL/V4/V5/V6] RIGHT VENTRICULAR HYPERTROPHY [SOME/ALL OF: PROMINENT R IN V1, LATE TRANSITION, RAD, SULAIMAN, SSS]. Poor R wave progression Compared to ECG 08/31/2020 20:54:48 Short IL interval now presentIncomplete right bundle-branch block now present Atrial abnormality now present. Right ventricular hypertrophy now present Left anterior fascicular block no longer presentLeft ventricular hypertrophy no longer present. ST (T wave) deviation no longer present Myocardial infarct finding still present Electronically Signed On 09-02-2020 0:49:34 CDT by Deny Casper M.D. [email or web address]
[2020-09-01 05:07] LABS: D Dimer 0.47 ug/mIFEU (0-0.59)
[2020-09-01 05:11] LABS: Troponin 5 6HR 46.77 ng/L (0-10); Troponin 5 6HR Delta 8.77 ng/L (0-12)
[2020-09-01] MEDS: metoprolol tartrate 25 mg Tablet 12.5 MG PO (05:17)
--- NOTE | 2020-09-01 05:23 | PC.NURSE ---
Patient refused 40mg subcut Enoxaparin injection
[2020-09-01 07:20] LABS: Glucose Point of Care 96 mg/dL (70-110)
[2020-09-01] MEDS: ipratropium-albuterol 3 mL Neb INHALATION (08:21)
[2020-09-01] MEDS: FUROsemide 20 mg Tablet PO (08:45)
[2020-09-01] MEDS: levETIRAcetam 500 mg Tablet 1000 MG PO ×2 (08:45→17:16)
[2020-09-01] MEDS: spironolactone 25 mg Tablet PO (08:45)
--- NOTE | 2020-09-01 09:19 | PC.NURSE ---
NOTIFIED DR CONWAY OF PATIENTS BP TRENDING DOWN; NO NEW ORDERS RCVD AT THIS TIME
--- NOTE | 2020-09-01 09:54 | XRR_ITS ---
PROCEDURE INFORMATION: Exam: XR Abdomen Exam date and time: 09/01/2020 9:54 AM Age: 60 years old Clinical indication: Abdominal pain; Generalized; Patient HX: AMS unable to provide history TECHNIQUE: Imaging protocol: XR of the abdomen. Views: Frontal supine view of the abdomen. 1 View. COMPARISON: CT abdomen pelvis w con* [id number] 06/07/2020 7:06 PM FINDINGS: Tubes, catheters and devices: Multiple electronic devices are seen projecting over the abdomen and lower chest, limiting the evaluation. Gastrointestinal tract: Nonobstructive bowel gas pattern. Nonobstructive bowel gas pattern. Intraperitoneal space: No pneumoperitoneum identified. Organs: Liver enlargement is suggested. Bones/joints: Unremarkable. XR/XR abdomen 1V* [id number] IMPRESSION: 1. Hepatomegaly is suggested. 2. Nonobstructive bowel gas pattern.
[2020-09-01] MEDS: sodium chloride 0.9% 250 ML IV (09:55)
--- NOTE | 2020-09-01 09:55 | PC.NURSE ---
PT IV Bolus of 250 ml NS started at [address] Ham.
[2020-09-01] MEDS: famotidine 20 mg/2 mL INJ IVP ×2 (10:02→21:11)
[2020-09-01 10:14] LABS: Lipase 21 U/L (13-60)
--- NOTE | 2020-09-01 10:22 | P.PN_ITS ---
Subjective Subjective: Interval history: History and physical was reviewed. Patient reports currently she does not have chest discomfort but has some abdominal pain and nausea. She also relates her back hurts but that always hurts. Nursing is concerned that her blood pressure is low. She is just received some Aldactone and Lasix. When she came in she was endorsing that she did not feel like going on anymore, and there was concern for suicidal ideation. She reports to me her quality of life is very poor and not likely to improve, and this impacts her feelings about living it. Psychiatry and cardiology have been consulted in her case. Medications: Reviewed: Yes Vitals/I&O/Wt Last Vital Signs Temp 98.2 F 08/31/20 20:13 Pulse 96 09/01/20 10:01 Resp 16 09/01/20 10:01 BP 79/58 09/01/20 10:01 Pulse Ox 97 09/01/20 10:01 Weight last 48 hrs Weight 33.566 kg Physical Exam Narrative: EXAM NARRATIVE: General exam is a thin and cachectic appearing female, who appears nauseated. Blood pressure low with systolic around 75. HEENT: Atraumatic and normocephalic Neck is supple Cardiovascular regular rate and rhythm, no murmur. LifeVest is noted Lungs clear but with diminished breath sounds bilaterally. Abdomen is soft, tenderness in her epigastric area is noted. Positive bowel sounds deferred Extremities no cyanosis clubbing or edema, cap refill brisk Data : 08/31/20 20:53 08/31/20 20:53 A&P Assessment and plan (1) Hypotension: She does not appear fluid overloaded. I believe she has a fluid deficit. 250 cc of saline bolus x1. Then reassess. Hold any further diuretics currently. May need to hold metoprolol tonight, depending upon pressure. Status: Acute (2) Abdominal pain: Etiology uncertain. Does have history of chronic cholecystitis and abdo serjio pain previously. Also patient reports history of constipation. At this point will check a plain film to start, treat nausea with Zofran, increase blood pressure and reassess. If persists consider checking lactate and further imaging. Status: Acute (3) Suicidal ideation: This seems to be more passive in nature, and her feelings of despair are probably appropriate considering her medical illnesses. Psychiatry to evaluate. As soon as this is complete we will reassess the patient's CODE STATUS. Status: Acute (4) Cardiomyopathy, dilated, nonischemic: Patient with history of EF of 5 to 10% Status: Acute (5) Chronic cholecystitis: See notations under abdominal pain. Not candidate for surgery from a risk standpoint, and patient has not been desiring any aggressive intervention. Status: Chronic (6) COPD (chronic obstructive pulmonary disease): No evidence of exacerbation currently. DuoNeb as needed. Status: Chronic Qualifiers: COPD type: emphysema Emphysema type: unspecified Qualified Code(s): J43.9 - Emphysema, unspecified (7) Gastritis: Pepcid IV currently. When able to take p.o. better will change to Protonix twice daily. Status: Acute Qualifiers: Gastritis type: unspecified gastritis Chronicity: chronic Gastritis bleeding: presence of bleeding unspecified Qualified Code(s): K29.50 - Unsp ecified chronic gastritis without bleeding Additional A&P Information History of seizure disorder. Continue Keppra. Currently full code Lovenox for DVT prophylaxis Attestations Medical Necessity Statement*: Needs continued hospital stay for evaluation of hypotension, concerns of suicidal ideation, abdominal pain with persistent nausea and vomiting. Coding Level of Care Code Acute Supervisor [facility] for [facility] Fwd Diagnoses Hypotension I95.9 Abdominal pain R10.9 Suicidal ideation R45.851 Cardiomyopathy, dilated, nonischemic I42.0 Chronic cholecystitis K81.1 COPD (chronic obstructive pulmonary disease) J43.9 COPD type: emphysema Emphysema type: unspecified Gastritis K29.50 Gastritis type: unspecified gastritis Chronicity: chronic Gastritis bleeding: presence of bleeding unspecified
--- NOTE | 2020-09-01 11:34 | PC.NURSE ---
CALLED [facility] AND SPOKE TO SHEA ABOUT SEEING THE PATIENT; THE PATIENT ADELIA GAVE RESPONDED YES WHEN ASKED IF SHE WOULD LIKE A [facility] VISIT.
--- NOTE | 2020-09-01 13:44 | PC.CHAP ---
Pastoral Care Encounter/Spiritual Assessment Type of Contact [] Declined chemical dependency nurse visit [] Patient/Family/Request visit [] Outpatient visit [] Follow-up visit [] Physician referral [] Code/Alert [] Routine visit [XX] Staff referral [] Actively dying [] Patient sleeping [] Family support [] [] Out of room [] Palliative care [] [] Receiving care in room [] Pre-surgical visit [] Trauma [] Long length of stay [] ICU visit [XX] Other: ED visit Relational/Emotional Strength [XX] Patient feels connected with others/family/visitors/staff [] Distress [] Loneliness/isolation [] Abandonment Spirituality of Patient [XX] Person of Esther [] Attends Buddhism of their Esther [XX] Believes in Prayer [] Reads Bible or Hinduism materials [] There are Spiritual issues to be addressed Director Traffic And Planning Interventions [XX] Prayer [XX] Active listening [XX] Non-anxious presence [XX] Spiritual/emotional support [] Crisis/trauma care [XX] Spiritual counseling [] Bereavement support [] Provided bereavement packet [] Provided Bible/devotional materials [] Provided toy/stuffed animal, coloring book to patient or family member [] Provided Communion [] Anointing/[place] [] Salvation [XX] Completed spiritual assessment [XX] Other: advocacy Impact on Illness or Injury [] Angry [] Fearful [] Anxious [] Often cries [] Exhaustion [] Unable to work [] Unable to attend tenriism [] Unable to walk/stand [] Unable to read [] Unable to drive [] Unable to eat/drink [] Unable to sleep [] Unable to be with family [] Patient intubated [] Other: Summary: Director Traffic And Planning called to ED to meet with pt who was reported to be dying (not imminent) and perhaps suicidal. Director Traffic And Planning arrived to find pt willing to visit. In the beginning of the visit, chemical dependency nurse asked yes/no questions believing that pt was too weak to converse more. Pt expressed interest in prayer, scripture and music. Director Traffic And Planning prayed, read scriptures, and played two songs on [employer]. Pt began to express more about her history and her current needs. 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 Pt is [place] but does not follow any traditional [place] practices at this time. Once in [place], she visited three churches in the area but stated that two of the churches made fun of what she wore (clothing and makeup). She gave up and quit going to mu-ism but remains a believer and prays daily. During the visit, pt stated that she was quite uncomfortable due to a brace around her thoracic area. Pt stated that, at home, she can take off brace for her roommate to rub lotion on her back and then she places the brace back on. Director Traffic And Planning communicated this message to nursing staff who are following through to make pt more comfortable. Throughout the 1.5h visit, the pt and chemical dependency nurse interacted with the sitter, four nurses and one physician. During two conversations (one with a nurse and one with a physician), chemical dependency nurse observed that pt was talking about the future--one conversation was about upcoming dr mcgill into October and another was about potential invasive cardiac treatments if she is able to recover from this current bout of low bp and other complications. Director Traffic And Planning observed no indications of suicidal ideation. Pt was also able to answer questions of the medical team and chemical dependency nurse, state her needs, and report on her medical history. Director Traffic And Planning informed pt that she could request a pastoral care visit anytime during her hospital stay and concluded the visit with prayer, which included 2 nurses and the pt. Time spent with patient: 1h 30m
--- NOTE | 2020-09-01 14:07 | PC.NURSE ---
this nurse was talking to pt. pt stated she had doctors apts in september with cardiology and october with neuro for her seizures. ivy Mariscal was in the room with this nurse when the pt brought up going to these apts. pt also stated she wanted to get back into gnosticism. she was disappointed she wasnt involved in gnosticism anymore because people made fun of her clothes.
--- NOTE | 2020-09-01 14:11 | PC.NURSE ---
pt pants, stickers, and shirt removed. pt given longer o2 cord. pt halter removed. pt back lotioned. pt wanted to lotion her face.
[2020-09-01 15:13] LABS: Lactate (Lactic Acid level) 2.6 mmol/L (0.5-2.2)
[2020-09-01] MEDS: DOBUTamine drip 500 MG/250 ML PREMIX IV (16:12)
--- NOTE | 2020-09-01 16:52 | PM.CONSULT ---
Providers/Reason For Consult Consulting Physician/Specialty*: ERI Casper MD/ Cardiology Reason for Consult*: Patient with nonischemic cardiomyopathy presenting with shortness of breath, atypical chest pain/back pain Attending Physician: Jairo Ham MD Primary Care Provider: Emma Novoa DO History of Present Illness History of Present Illness Maryjo Gomez is a 60 year old female with a history of a nonischemic cardiomyopathy and LV ejection fraction of around 10%, is presenting with progressive shortness of breath. She also is complaining about back pain and epigastric discomfort. Patient is a poor historian. Apparently she been in her baseline state of health up until 3 days ago when she started having wheezing shortness of breath. She was finding it difficult to lie back. She did not have any leg swelling. No fever, chills or any significant cough. She been having back pains and chest pains. This is more or less a constant ache with some waxing and waning. She has abdominal aching type of pain in the epigastric area which is more or less constant. Denies any palpitation, dizziness or syncopal episodes. No dysuria. No headache or blurring of vision. No other specific complaints. According to the patient, she has been compliant with medications. Her urine output was decreasing lately. She lives with a friend in an apartment. She communicated with the ER physician that she had some suicidal ideation. She is currently getting a psychiatric consult. She had a cardiac catheterization in May of this year which revealed mild coronary artery disease. She was found to have mild pulmonary hypertension with a mean pulmonary artery pressure 31 mmHg. She had a markedly elevated LVEDP of 30 mmHg. She is known to have COPD and continues to smoke. Review of Systems Narrative: CONSTITUTIONAL: No fever or chills. EYES: No blurring of vision or other visual disturbances lately. ENT: No hoarseness of voice, auditory disturbances or sore throat. CARDIOVASCULAR: As mentioned above. RESPIRATORY: Worsening shortness of breath GASTROINTESTINAL: Epigastric discomfort GENITOURINARY: No dysuria or hematuria. INTEGUMENTARY: No skin rashes or history of skin cancer. NEURO: No transient ischemic attacks or amaurosis. PSYCHIATRIC: Suicidal ideations HEMATOLOGIC: No bleeding disorders or significant anemia. ENDOCRINE: No history of polyuria or polydipsia. MUSCULOSKELETAL: No recent joint pain or swelling. ALLERGY/IMMUNOLOGY: As mentioned above. Meds/Allergies Home Medications and Allergies Home Medications Medication Instructions Recorded Confirmed Last Taken Type levetiracetam 500 mg 2,000 mg PO Q24H #120 tab 10/23/19 09/01/20 08/31/20 Rx tablet,extended release 24 hr ondansetron 4 mg PO Q6H PRN #14 tab 02/25/20 09/01/20 05/07/20 Rx lactulose 10 g PO DAILY PRN #15 ea 03/01/20 09/01/20 05/07/20 Rx pantoprazole [Protonix] 40 mg PO BID@0900,199903/09/20 09/01/20 08/31/20 History albuterol sulfate 90 mcg/actuation 2 inh INHALATION Q4H PRN #6.7 gm 04/16/20 09/01/20 05/07/20 Rx aerosol inhaler diclofenac sodium [Voltaren 2 g TOPICAL QID #100 g 04/28/20 09/01/20 05/07/20 Rx Arthritis Pain] albuterol sulfate 2.5 mg INHALATION QID PRN #180 ml 05/12/20 09/01/20 Unknown Rx fluticasone propionate 50 2 spray INTRANASAL DAILY@0900 #16 g 05/12/20 09/01/20 Unknown Rx mcg/actuation nasal spray,suspension guaifenesin 600 mg tablet, 600 mg PO BID PRN #60 tab 05/12/20 09/01/20 Unknown Rx extended release 12 hr nitroglycerin 0.4 mg sublingual 0.4 mg SUBLINGUAL Q5M PRN 30 Days 05/27/20 09/01/20 Unknown Rx tablet #30 tab cetirizine 10 mg PO DAILY@0900 PRN #90 cap 05/30/20 09/01/20 08/31/20 Rx spironolactone 25 mg PO DAILY 30 Days #30 tab 05/30/20 09/01/20 08/31/20 Rx polyethylene glycol 3350 17 gram 17 g PO DAILY PRN #30 ea 06/16/20 09/01/20 Unknown Rx oral powder packet budesonide 160 mcg-glycopyr 9 2 inh INHALATION BID 30 Days #10.7 07/07/20 09/01/20 Unknown Rx mcg-formot 4.8 mcg/actuation HFA g inhaler fluticasone 250 mcg-salmeterol 50 1 inh INHALATION BID@899,1999 #60 07/17/20 09/01/20 08/31/20 Rx mcg/dose blistr powdr for ea inhalation tiotropium bromide 18 mcg capsule 1 cap INHALATION DAILY@0900 #30 inh 07/17/20 09/01/20 08/31/20 Rx with inhalation device metoprolol tartrate 25 mg tablet 12.5 mg PO Q12H #30 tab 07/21/20 09/01/20 08/31/20 Rx cholecalciferol (vitamin D3) 50 50 mcg PO DAILY@0900 #30 cap 08/10/20 09/01/20 08/31/20 Rx mcg (2,000 unit) capsule Allergies Allergy/AdvReac Type Severity Reaction Status Date / Time No Known Allergies Allergy Verified 08/31/20 20:23 Current Medications Current Medications Generic Name Dose Route Start Last Admin Trade Name Freq PRN Reason Stop Dose Admin Enoxaparin Sodium 40 mg 09/01/20 05:30 09/01/20 05:25 Enoxaparin 40 Mg/0.4 Ml Syringe SUBCUT Not Given Q24H JEANETTE Famotidine 20 mg 09/01/20 10:00 09/01/20 10:02 Famotidine 20 Mg/2 Ml Inj IVP 20 mg Q12H JEANETTE Administration Dobutamine HCl/Dextrose 500 mg in 250 mls @ 0 mls/hr 09/01/20 16:00 09/01/20 16:12 Dobutamine Drip IV 3 mcg/kg/hr .Q0M JEANETTE 0.05 mls/hr Administration Protocol Per Protocol Levetiracetam 1,000 mg 09/01/20 09:00 09/01/20 08:45 Levetiracetam 500 Mg Tablet PO 1,000 mg BID JEANETTE Administration Ondansetron HCl 4 mg 09/01/20 09:53 09/01/20 14:28 Ondansetron 2 Mg/Ml Sdv 2 Ml IVP 4 mg Q4H PRN Administration NAUSEA AND VOMITING Fluticasone/Salmeterol 1 puff 09/01/20 08:00 09/01/20 08:20 Fluticasone-Salmeterol 250-50 Diskus INHALATION 1 puff BID.RESPIRATORY JEANETTE Administration Tiotropium [place] 18 mcg 09/01/20 08:00 09/01/20 08:20 Tiotropium 18 Mcg Mdi INHALATION 1 puff DAILY.RESPIRATORY JEANETTE Administration PFSH Acute PFSH: Medical History Chronic constipation COPD (chronic obstructive pulmonary disease) GERD (gastroesophageal reflux disease) Insomnia Seizure disorder Surgical History H/O section H/O esophagogastroduodenoscopy Status post colonoscopy (03/31/20) Family History Other CAD (coronary artery disease) Cancer Diabetes Social History Smoking and tobacco status: current every day smoker cigarettes Packs smoked per day: 0.5 Years cigarettes smoked: 48 [ Other cigarette details: Hx of 4 PPD x 46 Years ] Quit status (tobacco): considering quitting Second hand smoke exposure: Yes Smoking risk assessment/counseling performed?: Yes Alcohol intake: never Counseling given: No Counseling given: No Lives independently: Yes Household members: friend(s) Housing: House Marital status: Single Current occupational status: disabled History of recent travel: No Current gender identity: Female Vitals/I&O/Wt Last Vital Signs Temp 98.2 F 08/31/20 20:13 Pulse 96 09/01/20 15:21 Resp 12 09/01/20 15:21 BP 84/64 09/01/20 15:21 Pulse Ox 92 09/01/20 15:21 09/01/20 09/01/20 09/01/20 06:59 14:59 22:59 Intake Total 550 / 550 Balance 550 / 550 Weight last 48 hrs Weight 74 lb Physical Exam Narrative: EXAM NARRATIVE: GENERAL: The patient is alert and oriented times three. Appears to be anxious. Chronically emaciated. HEENT: No significant pallor, icterus or lymphadenopathy. The pupils are symmetrical . Oral cavity: There are no mucous membrane lesions. Funduscopic examination: The disk margins appear to be sharp with no exudates or hemorrhages. NECK: Trachea appears to be central. No masses noted. No JVD or thyromegaly appreciated. No carotid bruit. RESPIRATORY: Chest is symmetrical. No intercostals muscle retraction or any accessory muscle activation. There is no chest wall tenderness. Breath sounds are heard bilaterally. Few fine rales at the bases. No evidence of any consolidation. BREASTS: Deferred. HEART: The heart sounds are muffled. Soft S3. Short systolic murmur at the left sternal border. No diastolic murmurs. ABDOMEN: No vessel pulsations or distention. No tenderness. No organomegaly appreciated. No abdominal bruit. Bowel sounds are normally heard. : Deferred. RECTAL: Deferred. LYMPHATIC: No lymphadenopathy noted in the neck or groin. EXTREMITIES: No edema or cyanosis. No clubbing. The peripheral pulses are palpable but of low volume and amplitude. Extremities are relatively cold MUSCULOSKELETAL: No acute joint deformities or swelling SKIN: There are no significant scars or skin rash noted. NEUROPSYCHIATRIC: The patient is alert and oriented x3. Appears to be in a good mood. The higher functions are grossly within normal limits. No tremors or rigidity noted. Data Labs: Other Labs: Laboratory Last Values WBC 8.5 10^3/uL (4.0- 10.0) 08/31/20 20:53 RBC 4.45 10^6/uL (4.1 -5.3) 08/31/20 20:53 Hgb 14.0 g/dL (11.5-1 5.3) 08/31/20 20:53 Hct 44.3 % (37.0-47.0 ) 08/31/20 20:53 MCV 99.6 fL (81-99) H 08/31/20 20:53 MCH 31.5 pg (28.0-34. 0) 08/31/20 20:53 MCHC 31.6 g/dL (30.0-3 6.0) 08/31/20 20:53 RDW 15.9 % (12.1-15.1 ) H 08/31/20 20:53 Plt Count 179 10^3/cmm (130 -400) 08/31/20 20:53 MPV 12.1 fL (7.4-10.4 ) H 08/31/20 20:53 Neut % (Auto) 77.0 % 08/31/20 20:53 Lymph % (Auto) 14.0 % 08/31/20 20:53 [place] % (Auto) 8.2 % 08/31/20 20:53 Eos % (Auto) 0.4 % 08/31/20 20:53 Baso % (Auto) 0.2 % 08/31/20 20:53 Neut # (Auto) 6.57 10^3/uL (1.8 -7.7) 08/31/20 20:53 Lymph # (Auto) 1.2 10^3/uL (0.8- 4.8) 08/31/20 20:53 [place] # (Auto) 0.7 10^3/uL (0.2- 0.9) 08/31/20 20:53 Eos # (Auto) 0.0 10^3/uL (0.0- 0.8) 08/31/20 20:53 Baso # (Auto) 0.0 10^3/uL (0.0- 0.1) 08/31/20 20:53 Nucleated RBC % (a uto) 0 % 08/31/20 20:53 Nucleated RBCs # 0.0 /100WBC 08/31/20 20:53 D-Dimer 0.47 ug/mIFEU (0- 0.59) 09/01/20 04:46 Sodium 133 mmol/L (136-1 45) L 08/31/20 20:53 Potassium 4.8 mmol/L (3.5-5 .1) 08/31/20 20:53 Chloride 97 mmol/L (98-107 ) L 08/31/20 20:53 Carbon Dioxide 22 mmol/L (22-29) 08/31/20 20:53 Anion Gap 18.8 (5-19) 08/31/20 20:53 BUN 20 mg/dL (8-23) 08/31/20 20:53 Creatinine 0.7 mg/dL (0.5-0. 9) 08/31/20 20:53 GFR Calculation 85.1 mL/min (90-1 30) L 08/31/20 20:53 Glucose 98 mg/dL (65-115) 08/31/20 20:53 POC Glucose 96 mg/dL (70-110) 09/01/20 07:16 Calculated Osmolal ity 279 mOsm/kg (285- 295) L 08/31/20 20:53 Lactate 2.6 mmol/L (0.5-2 .2) H 09/01/20 14:47 Calcium 9.1 mg/dL (8.5-10 .5) 08/31/20 20:53 Total Bilirubin 1.2 mg/dL (0.15-1 .2) 08/31/20 20:53 AST 54 U/L (0-32) H 08/31/20 20:53 ALT 37 U/L (0-33) H 08/31/20 20:53 Alkaline Phosphata se 112 IU/L (35-105) H 08/31/20 20:53 Troponin T Baselin e 38 ng/L (0-10) H 08/31/20 20:53 Troponin T 120 Min cheesh-na 36.92 ng/L (0-10) H 08/31/20 22:04 Delta Troponin T -1.08 ABS# (0-10) L 08/31/20 22:04 Troponin T Hi Sens 6Hr 46.77 ng/L (0-10) H 09/01/20 04:46 Troponin T Hi Sens 6Hr Delta 8.77 ng/L (0-12) 09/01/20 04:46 NT-Pro-B Natriuret Pep 81691 pg/mL (0-12 5) H 08/31/20 20:53 Total Protein 6.9 g/dL (6.6-8.7 ) 08/31/20 20:53 Albumin 4.4 g/dL (3.5-5.2 ) 08/31/20 20:53 Globulin 2.5 g/dL (1.3-4.6 ) 08/31/20 20:53 Lipase 21 U/L (13-60) 09/01/20 04:46 TSH 4.66 uIU/mL (0.27 -4.20) H 08/31/20 20:53 Urine Color Yellow (Yellow) 08/31/20 21:35 Urine Appearance Clear (CLEAR) 08/31/20 21:35 Urine pH 5 (5-7) 08/31/20 21:35 Ur Specific Gravit y 1.020 (1.005-1.0 30) 08/31/20 21:35 Urine Protein 1+ (Negative) H 08/31/20 21:35 Urine Glucose (UA) Norm (Normal) 08/31/20 21:35 Urine Ketones Negative (Negati ve) 08/31/20 21:35 Urine Blood Neg (Negative) 08/31/20 21:35 Urine Nitrate Negative (Negati ve) 08/31/20 21:35 Urine Bilirubin 1+ (Negative) H 08/31/20 21:35 Urine Urobilinogen 1 mg/dL (Negative ) H 08/31/20 21:35 Ur Leukocyte [place] ase Negative (Negati ve) 08/31/20 21:35 Urine RBC 0-4 /hpf (0-2) H 08/31/20 21:35 Urine WBC 0-4 /hpf (0-5) H 08/31/20 21:35 Ur Squamous Epith Cells 5-10 /hpf (0-5) H 08/31/20 21:35 Amorphous Sediment Not Reportable 08/31/20 21:35 Urine Bacteria 1+ /hpf (NONE) H 08/31/20 21:35 Hyaline Casts 5-10 /lpf H 08/31/20 21:35 Urine Mucus 2+ /hpf 08/31/20 21:35 Salicylates 1.1 mg/dL (3-10) L 08/31/20 20:53 Urine Opiates Scre en Negative ng/mL (N egative) 08/31/20 21:35 Acetaminophen 9.0 ug/mL (10-30) L 08/31/20 20:53 Ur Barbiturates Sc reen Negative ng/mL (N egative) 08/31/20 21:35 Ur Phencyclidine S crn Negative ng/mL (N egative) 08/31/20 21:35 Ur Amphetamines Sc reen Negative ng/mL (N egative) 08/31/20 21:35 U Benzodiazepines Scrn Negative ng/mL (N egative) 08/31/20 21:35 Urine Cocaine Scre en Negative ng/mL (N egative) 08/31/20 21:35 U Marijuana (THC) Screen Negative ng/mL (N egative) 08/31/20 21:35 Ethyl Alcohol < 10 mg/dL (0-10) 08/31/20 20:53 Imaging^: Cardiac catheterization: My impression: Cardiac catheterization performed on 05/29/2020 1. This is a 60-year-old white female with a history of COPD, presented with chest pain and worsening shortness of breath. She was found to have an LV ejection fraction of 5 to 10% by echocardiogram. She was found to have features of congestive heart failure. Apparently she had multiple ER visits and hospital admissions for shortness of breath/COPD exacerbation and multiple other medical problems. For further evaluation of her cardiovascular status, a cardiac catheterization was recommended. Patient underwent left and right heart catheterization with a left and right coronary angiogram and LV angiogram today. The findings are as follows.. 2. 1. Normal coronary arteries with no significant stenotic lesions. 2. mild pulmonary hypertension with a PA pressure of 51/22 with a mean of 31 mmHg. The right atrial pressure was 9 mmHg. 3. LVEDP of 30 mmHg. Cardiac output of 3.0 L/min with an index of 2.0, by Jacqueline's. 4. severe diffuse hypokinesia f the left ventricle with an ejection fraction of 10%. Moderately dilated LV cavity. Moderately severe mitral regurgitation. Echo: My impression: Echocardiogram on 04/27/2020 LV systolic function is severely reduced with EF of 5-10%. Severe global hypokinesis is present Grade III diastolic function is present RV function is severely reduced Moderate to severe mitral regurgitation is noted. Mild to moderate tricuspid regurgitation is seen Mild pulmonary hypertension is present No comparison studies are available EKG^: EKG 1: My Interpretation: The EKG showed sinus tachycardia with a rate of 119 bpm. Incomplete right bundle branch block. Features of right ventricular hypertrophy. Short LA interval. Possible left atrial enlargement. Possible right atrial enlargement A&P Assessment and plan (1) Acute on chronic systolic heart failure: Patient has severe LV systolic dysfunction. Her clinical features may suggest an acute on chronic systolic failure. Her BNP has significantly increased. She has some clinical features of a low output state-diminished urine output and clammy extremities. At this point, it may be appropriate to try small dose of IV Dobutrex. But the patient may benefit BiV pacing/LVAD as long-term measures. Status: Acute (2) Nonischemic cardiomyopathy: Cardiac catheterization report as mentioned above. Patient was found to have only mild coronary artery disease. Because of the hypotension, medical treatment options are limited. Status: Acute (3) Hypotension: Most likely from the severe LV systolic dysfunction. The beta-ewa also may be a contributing factor. At this point, I may discontinue the beta-ewa. Patient may be tried on a small dose of Dobutrex. Need to discuss about left ventricular assist device/BiV pacing. He was on digoxin in the past. Apparently she is not taking this now. We may go ahead and restart. Status: Acute Qualifiers: Hypotension type: unspecified hypotension type Qualified Code(s): I95.9 - Hypotension, unspecified (4) Suicidal ideation: Patient is being evaluated by the psychiatry. Status: Acute (5) Abdominal pain: Etiology is not clear. She may have an element of congestive hepatopathy. Other etiologies cannot be excluded. Status: Acute Qualifiers: Abdominal location: epigastric Qualified Code(s): R10.13 - Epigastric pain (6) Moderate to severe mitral regurgitation: Most likely this is secondary mitral regurgitation. We will continue on the current measures. Status: Acute (7) Pulmonary hypertension: At this point because of the hypotension, we may hold off on any specific intervention. Status: Acute (8) COPD exacerbation: Patient continues to smoke. She is strongly advised to quit smoking. Status: Acute Additional A&P Information Based on the clinical progress, further recommendations will be made. Thank you for the opportunity to eval this patient and make these recommendations Consult Attestations Medical Necessity Statement: Patient requires continued hospital stay for close monitoring and further management Coding Level of Care Code Acute Mold Preparer for [place] Fwd History Detailed Exam Detailed Medical Decision Making High Complexity Diagnoses Acute on chronic systolic heart failure I50.23 Nonischemic cardiomyopathy I42.8 Hypotension I95.9 Hypotension type: unspecified hypotension type Suicidal ideation R45.851 Abdominal pain R10.13 Abdominal location: epigastric Moderate to severe mitral regurgitation I34.0 Pulmonary hypertension I27.20 COPD exacerbation J44.1
--- NOTE | 2020-09-01 17:55 | P.CONIM_ITS ---
Providers/Reason for Consult Consulting Physican/Specialty*: Juan Francisco Lacey MD. Psychiatry. Reason for Consult*: Psychiatric evaluation Attending Physician: Jairo Ham MD Primary Care Provider: Emma Novoa DO Psych Consult HPI History of Present Illness Maryjo Gomez is a 60 year old female who presented to the emergency department with the following report: Chief Complaint: Chest Pain Stated Complaint: chest pain, throbbing, low blood pressure Time Seen by Provider: 08/31/20 20:27 Source: patient Mode of arrival: ambulatory Limitations: no limitations History of Present Illness: HPI narrative: This is a 60-year-old female patient well-known to this facility with a history of nonischemic cardiomyopathy with ejection fraction of 10 to 15% and who has on a LifeVest. She presents to this emergency department with complaints of chest pain and shortness of breath. Symptoms started earlier today about 3 PM. Chest pain is retrosternal and radiates to her back. She denies dizziness, nausea or vomiting. She also presents with extreme weakness. On the screening questionnaire she flagged for suicidal ideation. When I asked her she said she had thoughts of suicide that started today and she has never had thoughts of suicide before. She does not have a definite plan at this time. complaint: chest pain and chest heaviness Onset (ago): hour(s) (5) Timing of current episode: constant Prior episodes: No Onset: during rest Pain location: substernal Pain radiation: back Severity: moderate Quality: heaviness Relieving factors: nothing Exacerbating factors: nothing Associated symptoms: Reports dyspnea and nausea; Deny abdominal pain, diaphoresis, fever(s), leg edema, palpitations, sense of impending doom, syncope or vomiting Treatment prior to arrival: none. The emergency department. A psychiatric consult was requested because she scree n positive as question surrounding mental health and suicidality were raised. She was admitted to the ICU but was awaiting a bed in the ED. She presents today reporting that things have been tough recently. She said that her heart functioning/condition was slowly diminishing/worsening but then recently it seemed to become more rapid. She reports that she has excepted her situation and that she has a good days and bad days. She reports that she has no significant history of mental health treatment and outside of it. 10 to 20 years ago she denies any time she ever was suicidal for any reason. She reported that as her health has declined she has certainly been more conscientious about her life and mortality. She endorses that certainly there are times where she thinks that not getting up would be the worst thing that happened but also realizes that there is a high likelihood that sometime soon she will not wake up or will . She denies any jessica thinking about killing herself. Just a clear awareness that her time is short. She reports that even in the midst of this she has good days and is able to smile and enjoy days. She reports that the great difficulty is that she was going to the store and having significant independence before things started declining so rapidly. She endorses smoking half a pack of cigarettes a day, but denies alcohol marijuana or any other illicit drugs. Psychiatric history: As above. Substance abuse history: As above. Family history: She denies significant/contributory family history. Developmental history: She denies any issues with her mother's or delivery, she reports learning to walk and talk about her development milestones on time, she denied speech therapy, learning support, emotional support or special occasion classes. Psychosocial history: She reports that she currently lives with a couple that drives she does not drive as of that help with her access to care to help her with things she strug gles with now. Legal history: She denies any current legal issues or peril. Meds Current Medications: Current Medications Generic Name Dose Route Start Last Admin Trade Name Freq PRN Reason Stop Dose Admin Enoxaparin Sodium 40 mg 09/01/20 05:30 09/02/20 05:08 Enoxaparin 40 Mg /0.4 Ml Syringe SUBCUT Not Given Q24H JEANETTE Famotidine 20 mg 09/01/20 10:00 09/01/20 21:11 Famotidine 20 Mg /2 Ml Inj IVP 20 mg Q12H JEANETTE Administration Dobutamine HCl/Dex trose 500 mg in 250 mls @ 0 mls/hr 09/01/20 16:00 09/01/20 20:15 Dobutamine Drip IV 5 mcg/kg/hr .Q0M JEANETTE 0.08 mls/hr Titration Protocol Per Protocol Levetiracetam 1,000 mg 09/01/20 09:00 09/01/20 17:16 Levetiracetam 50 0 Mg Tablet PO 1,000 mg BID JEANETTE Administration Ondansetron HCl 4 mg 09/01/20 09:53 09/01/20 14:28 Ondansetron 2 Mg /Ml Sdv 2 Ml IVP 4 mg Q4H PRN Administration NAUSEA AND VOMITI NG Fluticasone/Salmet león 1 puff 09/01/20 08:00 09/01/20 20:54 Fluticasone-Salm eterol 250-50 Disk us INHALATION 1 puff BID.RESPIRATORY S CH Administration Tiotropium [place] 18 mcg 09/01/20 08:00 09/01/20 08:20 Tiotropium 18 Mc g Mdi INHALATION 1 puff DAILY.RESPIRATORY JEANETTE Administration PFSH NPU PFSH: Medical History Chronic constipation COPD (chronic obstructive pulmonary disease) GERD (gastroesophageal reflux disease) Insomnia Seizure disorder Surgical History H/O section H/O esophagogastroduodenoscopy Status post colonoscopy (03/31/20) Family History Other CAD (coronary artery disease) Cancer Diabetes Social History Smoking and tobacco status: current every day smoker cigarettes Packs smoked per day: 0.5 Years cigarettes smoked: 48 [ Other cigarette details: Hx of 4 PPD x 46 Years ] Quit status (tobacco): considering quitting Second hand smoke exposure: Yes Smoking risk assessment/counseling performed?: Yes Alcohol intake: never Counseling given: No Counseling given: No Lives independently: Yes Household members: friend(s) Housing: House Marital status: Single Current occupational status: disabled History of recent travel: No Current gender identity: Female Mental Status Exam MSE Comments: This is a cachectic diminutive white female lying in hospital bed with limited grooming and eye contact. No abnormal movements except for significant psychomotor retardation. Cooperative with exam in no acute distress. Speech was decreased rate and volume with significant pauses. Mood described as tired affect congruent. Thought process organized. Thought content: Patient denied suicidal or homicidal ideation, she did discuss some passive wish in the context of her illness, there were no delusions reported or noted, she denied any auditory or visual hallucinations. Attention and concentration were intact and memory appeared reliable but none were formally tested. She is alert and oriented x3. Insight and judgment are fair and impulse control is fair. Vitals/I&O/Wt Last Vital Signs Temp 98.2 F 08/31/20 20:13 Pulse 98 09/01/20 17:00 Resp 12 09/01/20 17:00 BP 88/62 09/01/20 17:00 Pulse Ox 100 09/01/20 17:00 09/01/20 14:59 Intake Total 550 / 550 Output Total Balance 550 / 550 Weight last 48 hrs Weight 33.566 kg A&P Assessment and plan (1) Pulmonary hypertension: Status: Acute (2) Moderate to severe mitral regurgitation: Status: Acute (3) Acute on chronic systolic heart failure: Status: Acute (4) Nonischemic cardiomyopathy: Status: Acute (5) Abdominal pain: Status: Acute Qualifiers: Abdominal location: epigastric Qualified Code(s): R10.13 - Epigastric pain (6) Hypotension: Status: Acute Qualifiers: Hypotension type: unspecified hypotension type Qualified Code(s): I95.9 - Hypotension, unspecified (7) Neuropathy: Status: Acute (8) CHF exacerbation: Status: Acute Qualifiers: Heart failure type: unspecified Qualified Code(s): I50.9 - Heart failure, unspecified (9) Uses LifeVest defibrillator: Status: Acute (10) Deviation to one side on eyes closed straight line walking test: Status: Acute (11) Seizure disorder: Status: Acute (12) Cardiomyopathy, dilated, nonischemic: Status: Acute (13) Edema, peripheral: Status: Acute (14) Cardiomyopathy: Status: Acute Qualifiers: Cardiomyopathy type: other Qualified Code(s): I42.8 - Other cardio myopathies (15) COPD exacerbation: Status: Acute (16) Chronic systolic heart failure: Status: Acute (17) Chronic cholecystitis: Status: Chronic (18) Pulmonary HTN: Status: Acute (19) Systolic and diastolic CHF w/reduced LV function, NYHA class 4: Status: Acute (20) Acalculous cholecystitis: Status: Acute (21) Hematochezia: Status: Acute (22) Lesion of liver: Status: Acute (23) Pulmonary nodule: Status: Acute (24) Generalized epilepsy: Status: Acute (25) Nicotine dependence, cigarettes, with unspecified nicotine-induced disorders: Status: Acute (26) Gastritis: Status: Acute Qualifiers: Gastritis type: unspecified gastritis Chronicity: chronic Gastritis bleeding: presence of bleeding unspecified Qualified Code(s): K29.50 - Unspecified chronic gastritis without bleeding (27) COPD (chronic obstructive pulmonary disease): Status: Chronic Qualifiers: COPD type: emphysema Emphysema type: unspecified Qualified Code(s): J43.9 - Emphysema, unspecified Additional A&P Information This is a 60-year-old white female with a significant list of medical comorbidities and decreased cardiac function who presents having spoken about suicidality and passive wish but seems to be appropriate in the grieving process associated with chronic/terminal illness. 1. Continue current medication. 2. No signs of active suicidality only the natural process of coming to terms with once mortality and having times when the idea of dying is not such a scary or horrible thing. No signs of actively pursuing or wanting to , only acceptance that her current circumstance is clearly trending towards her . 3. No inpatient or intensive psychiatric services necessary. 4. Appropriate counseling would be recommended. Attestations NPU Medical Necessity Statement*: N/A. Please see primary team note for medical necessity. 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 [employer] Diagnoses Pulmonary hypertension I27.20 Moderate to severe mitral regurgitation I34.0 Acute on chronic systolic heart failure I50.23 Nonischemic cardiomyopathy I42.8 Abdominal pain R10.13 Abdominal location: epigastric Hypotension I95.9 Hypotension type: unspecified hypotension type Neuropathy G62.9 CHF exacerbation I50.9 Heart failure type: unspecified Uses LifeVest defibrillator Z95.810 Deviation to one side on eyes closed straight line walking test Seizure disorder G40.909 Cardiomyopathy, dilated, nonischemic I42.0 Edema, peripheral R60.9 Cardiomyopathy I42.8 Cardiomyopathy type: other COPD exacerbation J44.1 Chronic systolic heart failure I50.22 Chronic cholecystitis K81.1 Pulmonary HTN I27.20 Systolic and diastolic CHF w/reduced LV function, NYHA class 4 I50.40 Acalculous cholecystitis K81.9 Hematochezia K92.1 Lesion of liver K76.9 Pulmonary nodule R91.1 Generalized epilepsy G40.309 Nicotine dependence, cigarettes, with unspecified nicotine-induced disorders F17.219 Gastritis K29.50 Gastritis type: unspecified gastritis Chronicity: chronic Gastritis bleeding: presence of bleeding unspecified COPD (chronic obstructive pulmonary disease) J43.9 COPD type: emphysema Emphysema type: unspecified
--- NOTE | 2020-09-01 18:18 | PC.NURSE ---
Patient was brought to ICU at 1435. She was A&Ox4 and able to follow all commands. No skin issues were noted. Patient was asked if she was suicidal and she shook her head no and she said, not today but I was yesterday. Sitter in room.
--- NOTE | 2020-09-01 18:36 | PC.NURSE ---
Dobutamine running per orders. In MAR Dobutamine is running at 3mcg/kg/min but says it is going at 0.05mL/hr. This nurse verified with pharmacy and nurse housing case manager that pump was running correctly at 3mcg/kg/min and 3mL/hr.
--- NOTE | 2020-09-01 20:09 | PC.NURSE ---
BP 78/53 map 61, Dr Ronquillo contacted per request, t.o. given to do 200 ml NS at 75 ml/hr
[2020-09-01 20:31] LABS: Lactate (Lactic Acid level) 1.5 mmol/L (0.5-2.2)
[2020-09-01] MEDS: sodium chloride 0.9% 250 ML 75 ML IV (21:09)
[2020-09-02] VITALS (27 sets, daily range): BP systolic 86–122; BP diastolic 52–76; PULSE 89–126; RESP 12–19; TEMP 36.4; O2SAT 93–100
[2020-09-02 05:38] LABS: Basophils % 0.1 %; Eosinophils % 0.1 %; Hematocrit 39.1 % (37.0-47.0); Hemoglobin 12.5 g/dL (11.5-15.3); Lymphocytes # 0.7 10^3/uL (0.8-4.8); Lymphocytes % 8.5 %; Mean Corpuscular Hemoglobin 31.6 pg (28.0-34.0); Mean Platelet Volume 12.1 fL (7.4-10.4); Monocytes # 0.8 10^3/uL (0.2-0.9); Monocytes % 9.6 %; Neutrophils # 6.85 10^3/uL (1.8-7.7); Neutrophils % 81.2 %; Nucleated Red Blood Cells % 0.2 %; Platelet Count 132 10^3/cmm (130-400); Red Blood Count 3.95 10^6/uL (4.1-5.3); Red Cell Distribution Width 15.9 % (12.1-15.1); White Blood Count 8.4 10^3/uL (4.0-10.0)
[2020-09-02 05:54] LABS: Alanine Aminotransferase 135 U/L (0-33); Albumin Level 3.2 g/dL (3.5-5.2); Alkaline Phosphatase 89 IU/L (35-105); Anion Gap 16.2 (5-19); Aspartate Amino Transferase 166 U/L (0-32); Blood Urea Nitrogen 27 mg/dL (8-23); Calcium 8.2 mg/dL (8.5-10.5); Carbon Dioxide 22 mmol/L (22-29); Chloride 95 mmol/L (98-107); Globulin 2.3 g/dL (1.3-4.6); Glomerular Filtration Rate 56.4 mL/min (90-130); Glucose 77 mg/dL (65-115); Osmolality Calculated 272 mOsm/kg (285-295); Potassium 4.2 mmol/L (3.5-5.1); Sodium 129 mmol/L (136-145); Total Bilirubin 0.9 mg/dL (0.15-1.2); Total Protein 5.5 g/dL (6.6-8.7)
[2020-09-02] MEDS: levETIRAcetam 500 mg Tablet 1000 MG PO ×2 (08:06→17:28)
[2020-09-02] MEDS: FUROsemide 10 mg/mL SDV 2mL 20 MG IVP (08:06)
--- NOTE | 2020-09-02 08:24 | P.PN_ITS ---
Subjective Subjective: Interval history: Maryjo reports she feels better today. No nausea. She did receive a little bit of fluid last night as well. No chest discomfort. Low back still hurts she believes this is the bed. Medications: Reviewed: Yes Vitals/I&O/Wt Last Vital Signs Temp 98.2 F 08/31/20 20:13 Pulse 112 H 09/02/20 06:00 Resp 12 09/02/20 06:00 BP 95/66 09/02/20 06:00 Pulse Ox 98 09/02/20 06:00 09/01/20 09/02/20 09/02/20 22:59 06:59 14:59 Intake Total 50.203 / 600.203 250 / 850.203 Output Total 400 / 400 450 / 850 Balance -349.797 / 200.203 -200 / 0.203 Weight last 48 hrs Weight 33.566 kg Physical Exam Narrative: EXAM NARRATIVE: General exam no distress Neck is supple, no lymphadenopathy or thyromegaly Cardiovascular regular rate and rhythm, no murmur. Lungs clear but with diminished breath sounds bilaterally. Abdomen is soft, positive bowel sounds. No tenderness. Extremities no cyanosis clubbing or edema, cap refill brisk Data : 09/02/20 04:56 09/02/20 04:56 A&P Assessment and plan (1) Hypotension: Improved, with dobutamine. She did receive some fluid. Beta-ewa discontinued secondary to hypotension. Status: Acute Qualifiers: Hypotension type: unspecified hypotension type Qualified Code(s): I95.9 - Hypotension, unspecified (2) Abdominal pain: Resolved. Likely secondary to low cardiac output. LFTs are slightly higher and she does have a history of chronic cholecystitis, but pattern can also be seen with severe congestive heart failure. As her abdominal pain has resolved it is likely the latter. Lactate has returned to normal. Abdominal x-ray demonstrated no free air, no evidence of obstruction. Status: Acute Qualifiers: Abdominal location: epigastric Qualified Code(s): R10.13 - Epigastric pain (3) Suicidal ideation: This seems to be more passive in nature, and her feelings of despair are probably appropriate considering her medical illnesses. Psychiatry to evaluate. As soon as this is complete we will reassess the patient's CODE STATUS. This w ill also impact her one-to-one sitter. Status: Acute (4) Cardiomyopathy, dilated, nonischemic: Patient with history of EF of 5 to 10% Ejection fraction is low enough she has issues with perfusion. Currently she is on dobutamine 5 mcg/kg/min. I am going to give her a small dose of Lasix, 20 mg IV as I have seen her sodium drop, and LFTs increase consistent with early fluid overload. Hopefully her blood pressure will tolerate this. Cardiology consultation is appreciated. They will visit with patient today re garding continuing current treatment here, options for possible left ventricular assist device, or potential of moving to more comfort measures. I have discussed this with the patient as well and she is undecided at this point. Status: Acute (5) Chronic cholecystitis: See notations under abdominal pain. Not candidate for surgery from a risk standpoint, and patient has not been desiring any aggressive intervention. Status: Chronic (6) COPD (chronic obstructive pulmonary disease): No evidence of exacerbation currently. DuoNeb as needed. Status: Chronic Qualifiers: COPD type: emphysema Emphysema type: unspecified Qualified Code(s): J43.9 - Emphysema, unspecified (7) Gastritis: Pepcid IV currently. When able to take p.o. better will change to Protonix twice daily. Status: Acute Qualifiers: Gastritis type: unspecified gastritis Chronicity: chronic Gastritis bleeding: presence of bleeding unspecified Qualified Code(s): K29.50 - Unspecified chronic gastritis without bleeding Additional A&P Information History of seizure disorder. Continue Keppra. Currently full code Lovenox for DVT prophylaxis Attestations Medical Necessity Statement*: Needs continued hospital stay for treatment of severe nonischemic cardiomyopathy with extremely low EF with poor perfusion. Critical Care Time: The high probability of a clinically significant, sudden or life threatening deterioration of the patient's [cardiac, gastrointestinal] system(s) required my full and direct attention, intervention and personal management. The critical care time is as shown. This time is in addition to time spent performing any reported procedures but includes the following: [x] Data and vital sign review and interpretation [x] Patient assessment, examination and intervention [x] Documentation [x] Medication orders and management Critical Care Time (min): 30 Coding Level of Care Code Acute Cut Out Operator for [facility] Fwd Diagnoses Hypotension I95.9 Hypotension type: unspecified hypotension type Abdominal pain R10.13 Abdominal location: epigastric Suicidal ideation R45.851 Cardiomyopathy, dilated, nonischemic I42.0 Chronic cholecystitis K81.1 COPD (chronic obstructive pulmonary disease) J43.9 COPD type: emphysema Emphysema type: unspecified Gastritis K29.50 Gastritis type: unspecified gastritis Chronicity: chronic Gastritis bleeding: presence of bleeding unspecified
--- NOTE | 2020-09-02 09:33 | PC.CHAP ---
Pastoral Care Encounter/Spiritual Assessment Type of Contact [] Declined enterprise application developer visit [] Patient/Family/Request visit [] Outpatient visit [] Follow-up visit [] Physician referral [] Code/Alert [x] Routine visit [] Staff referral [] Actively dying [] Patient sleeping [] Family support [] [] Out of room [] Palliative care [] [] Receiving care in room [] Pre-surgical visit [] Trauma [] Long length of stay [x] ICU visit [x] Other: sitter Relational/Emotional Strength [] Patient feels connected with others/family/visitors/staff [] Distress [] Loneliness/isolation [] Abandonment Spirituality of Patient [] Person of Esther [] Attends Confucianism of their Esther [] Believes in Prayer [] Reads Bible or Worship materials [] There are Spiritual issues to be addressed [employer] Developer Interventions [x] Prayer [x] Active listening [x] Non-anxious presence [x] Spiritual/emotional support [] Crisis/trauma care [] Spiritual counseling [] Bereavement support [] Provided bereavement packet [] Provided Bible/devotional materials [] Provided toy/stuffed animal, coloring book to patient or family member [] Provided Communion [] Anointing/[place]man [] Salvation [x] Completed spiritual assessment [] Other: Impact on Illness or Injury [] Angry [] Fearful [] Anxious [] Often cries [] Exhaustion [] Unable to work [] Unable to attend gnosticism [] Unable to walk/stand [] Unable to read [] Unable to drive [] Unable to eat/drink [] Unable to sleep [] Unable to be with family [] Patient intubated [] Other: Summary tiny patient... ate breakfast.. feeling stronger.. but ache in back... Time spent with patient 10 min
--- NOTE | 2020-09-02 11:52 | PC.NURSE ---
Patient has been calm and resting in bed this shift. No suicidal ideations this shift. Dr. Lacey stated he thought patient did not need a 1:[address] Ham was informed. 1:1 sitter was discontinued.
[2020-09-02] MEDS: famotidine 20 mg/2 mL INJ IVP (12:03)
[2020-09-02] MEDS: digoxin 250 mcg/ml INJ 2 mL IVP ×2 (12:59→17:51)
--- NOTE | 2020-09-02 13:33 | PC.NURSE ---
IVP digoxin was given per orders. Apical pulse 124 prior to giving medication
--- NOTE | 2020-09-02 14:14 | P.TS_ITS ---
Transfer Summary Providers Date of Admission: 09/01/20 10:41 Date of Discharge: 09/02/20 Attending Provider at Admission: Vel Zamorano MD Attending Provider at Transfer: Jairo Ham MD Primary Care Provider: Emma Novoa DO Anticipated Date of Transfer: Anticipated date of transfer: 09/02/20 Receiving Facility & Provider: Receiving Provider: [] Receiving facility: [] Diagnoses at Discharge Discharge Diagnosis (1) Hypotension: Status: Acute Qualifiers: Hypotension type: unspecified hypotension type Qualified Code(s): I95.9 - Hypotension, unspecified (2) Abdominal pain: Status: Acute Qualifiers: Abdominal location: epigastric Qualified Code(s): R10.13 - Epigastric pain (3) Suicidal ideation: Status: Acute (4) Cardiomyopathy, dilated, nonischemic: Status: Acute (5) Chronic cholecystitis: Status: Chronic (6) COPD (chronic obstructive pulmonary disease): Status: Chronic Qualifiers: COPD type: emphysema Emphysema type: unspecified Qualified Code(s): J43.9 - Emphysema, unspecified (7) Gastritis: Status: Acute Qualifiers: Chronicity: chronic Gastritis bleeding: presence of bleeding unspecified Gastritis type: unspecified gastritis Qualified Code(s): K29.50 - Unspecified chronic gastritis without bleeding (8) Seizure disorder: Status: Acute (9) Nicotine dependence, cigarettes, with unspecified nicotine-induced disorders: Status: Acute (10) Generalized epilepsy: Status: Acute (11) Pulmonary nodule: Status: Acute (12) Lesion of liver: Status: Acute (13) Hematochezia: Status: Acute (14) Acalculous cholecystitis: Status: Acute (15) Systolic and diastolic CHF w/reduced LV function, NYHA class 4: Status: Acute (16) Pulmonary HTN: Status: Acute (17) Chronic systolic heart failure: Status: Acute (18) Cardiomyopathy: Status: Acute Qualifiers: Cardiomyopathy type: other Qualified Code(s): I42.8 - Other cardiomyopathies (19) Edema, peripheral: Status: Acute (20) Deviation to one side on eyes closed straight line walking test: Status: Acute (21) Uses LifeVest defibrillator: Status: Acute (22) Neuropathy: Status: Acute (23) CHF exacerbation: Status: Acute Qualifiers: Heart failure type: unspecified Qualified Code(s): I50.9 - Heart failure, unspecified Reason for Visit Reason for Visit: chest pain, throbbing, low blood pressure Hospital Course Hospital Course Maryjo is a 60-year-old female who presented to the emergency department with chest discomfort, abdominal discomfort and nausea. She has a history of nonischemic cardiomyopathy with EF of 5 to 10% and a recent angiogram that was negative for any atherosclerotic flow-limiting lesions. On admission her lactate was elevated, sodium was slightly low and mild transaminitis was presen t. Troponin was 38 and repeat 36. BNP elevated at 12,783. Blood pressure was markedly low. All of the above findings were concerning for poor perfusion secondary to her nonischemic cardiomyopathy. She has a history of chronic cholecystitis and this was also a possible concern. She was placed in the ICU, and cardiology consultation was obtained. She was given a small bolus of fluids secondary to her hypotension. Dobutamine was initiated, and was tolerated ultimately at 5 mcg/kg/min. With this treatment she felt better, nausea went away as well as abdominal discomfort. Cardiology had previously evaluated her, and went over all of her records again. They believed she might be benefited from an left ventricular outflow device, and that there were no other viable options considering her markedly low blood pressure. [facility] was contacted regarding her case, and Dr. Richards excepted her a conversation with her office machine punch operator Dr. Casper. Bed availability is an issue and it is unsure if she will go today or perhaps tomorrow. We will continue our stabilizing treatment until time that safe transfer can occur. Most recent echocardiogram was April demonstrating EF of 5 to 10%, severe global hypokinesis, 3/4 diastolic dysfunction, reduced RV function, moderate to severe mitral regurgitation, moderate tricuspid regurgitation and mild pulmonary hypertension. Angiogram was performed May 2020 which demonstrated no flow-limiting lesions. Ejection fraction 10% per angiogram. There was concern on arrival to the hospital regarding suicidal ideation, but after review with psychiatry this was found to not be a concern, and the patient did not need one-on-one services. Physical Exam Narrative: EXAM NARRATIVE: General exam is a thin appearing female, in no distress Neck is supple no lymphadenopathy or thyromegaly Cardiovascular tachycardic, no murmur Lungs clear but with diminished breath sounds at the bases Abdomen is soft with positive bowel sounds Extremities no cyanosis clubbing or edema TS Data Data Completed and Pending: Completed Studies During Hospitalization Category Date Time Status XR abdomen 1V* [id number] [id number] Routine Exams 09/01/20 09:54 Completed XR chest 1V maria dolores ble [id number] Stat Exams 08/31/20 20:11 Completed Pending at discharge Category Date Time Status Complete Blood Co unt w/Auto AM LABS Lab 09/03/20 04:00 Ordered Comprehensive Met abolic Panel AM LA BS Lab 09/03/20 04:00 Ordered Levetiracetam Kep pra Stat Lab 09/01/20 02:34 Received Magnesium AM LABS Lab 09/03/20 04:00 Ordered Labs from last 24 hours 09/02/20 09/02/20 09/01/20 04:56 04:56 19:48 WBC 8.4 RBC 3.95 L Hgb 12.5 Hct 39.1 MCV 99.0 MCH 31.6 MCHC 32.0 RDW 15.9 H Plt Count 132 MPV 12.1 H Neut % (Auto) 81.2 Lymph % (Auto) 8.5 Leake % (Auto) 9.6 Eos % (Auto) 0.1 Baso % (Auto) 0.1 Neut # (Auto) 6.85 Lymph # (Auto) 0.7 L Leake # (Auto) 0.8 Eos # (Auto) 0.0 Baso # (Auto) 0.0 Nucleated RBC % (a uto) 0.2 Nucleated RBCs # 0.0 Sodium 129 L Potassium 4.2 Chloride 95 L Carbon Dioxide 22 Anion Gap 16.2 BUN 27 H Creatinine 1.0 H GFR Calculation 56.4 L Glucose 77 Calculated Osmolal ity 272 L Lactate 1.5 Calcium 8.2 L Total Bilirubin 0.9 AST 166 H ALT 135 H Alkaline Phosphata se 89 Total Protein 5.5 L Albumin 3.2 L Globulin 2.3 09/01/20 14:47 WBC RBC Hgb Hct MCV MCH MCHC RDW Plt Count MPV Neut % (Auto) Lymph % (Auto) Leake % (Auto) Eos % (Auto) Baso % (Auto) Neut # (Auto) Lymph # (Auto) Leake # (Auto) Eos # (Auto) Baso # (Auto) Nucleated RBC % (a uto) Nucleated RBCs # Sodium Potassium Chloride Carbon Dioxide Anion Gap BUN Creatinine GFR Calculation Glucose Calculated Osmolal ity Lactate 2.6 H Calcium Total Bilirubin AST ALT Alkaline Phosphata se Total Protein Albumin Globulin Vitals: Last Vital Signs Temp 97.6 F 09/02/20 09:00 Pulse 126 H 09/02/20 13:00 Resp 15 09/02/20 13:00 BP 88/64 09/02/20 13:00 Pulse Ox 99 09/02/20 13:00 TS Medications Medications Home Medications levetiracetam 500 mg tablet,extended release 24 hr 2,000 mg PO Q24H #120 tab 10/23/19 [Rx Confirmed 09/01/20] ondansetron 4 mg PO Q6H PRN #14 tab 02/25/20 [Rx Confirmed 09/01/20] lactulose 10 g PO DAILY PRN #15 ea 03/01/20 [Rx Confirmed 09/01/20] pantoprazole [Protonix] 40 mg PO BID@0900,199903/09/20 [History Confirmed 09/01/20] albuterol sulfate 90 mcg/actuation aerosol inhaler 2 inh INHALATION Q4H PRN #6.7 gm 04/16/20 [Rx Confirmed 09/01/20] diclofenac sodium [Voltaren Arthritis Pain] 2 g TOPICAL QID #100 g 04/28/20 [Rx Confirmed 09/01/20] albuterol sulfate 2.5 mg INHALATION QID PRN #180 ml 05/12/20 [Rx Confirmed 09/01/20] fluticasone propionate 50 mcg/actuation nasal spray,suspension 2 spray INTRANASAL DAILY@0900 #16 g 05/12/20 [Rx Confirmed 09/01/20] guaifenesin 600 mg tablet, extended release 12 hr 600 mg PO BID PRN #60 tab 05/12/20 [Rx Confirmed 09/01/20] nitroglycerin 0.4 mg sublingual tablet 0.4 mg SUBLINGUAL Q5M PRN 30 Days #30 tab 05/27/20 [Rx Confirmed 09/01/20] cetirizine 10 mg PO DAILY@0900 PRN #90 cap 05/30/20 [Rx Confirmed 09/01/20] spironolactone 25 mg PO DAILY 30 Days #30 tab 05/30/20 [Rx Confirmed 09/01/20] polyethylene glycol 3350 17 gram oral powder packet 17 g PO DAILY PRN #30 ea 06/16/20 [Rx Confirmed 09/01/20] budesonide 160 mcg-glycopyr 9 mcg-formot 4.8 mcg/actuation HFA inhaler 2 inh INHALATION BID 30 Days #10.7 g 07/07/20 [Rx Confirmed 09/01/20] fluticasone 250 mcg-salmeterol 50 mcg/dose blistr powdr for inhalation 1 inh INHALATION BID@0900,1999 #60 ea 07/17/20 [Rx Confirmed 09/01/20] tiotropium bromide 18 mcg capsule with inhalation device 1 cap INHALATION DAILY@0900 #30 inh 07/17/20 [Rx Confirmed 09/01/20] metoprolol tartrate 25 mg tablet 12.5 mg PO Q12H #30 tab 07/21/20 [Rx Confirmed 09/01/20] cholecalciferol (vitamin D3) 50 mcg (2,000 unit) capsule 50 mcg PO DAILY@0900 #30 cap 08/10/20 [Rx Confirmed 09/01/20] Active Medications Acetaminophen (Acetaminophen 500 Mg Tablet) 500 mg PO Q4H PRN PRN Reason: fever Albuterol/Ipratropium (Ipratropium-Albuterol 3 Ml Neb) 3 ml INHALATION Q6H.RESPIRATORY PRN PRN Reason: SHORTNESS OF BREATH Enoxaparin Sodium (Enoxaparin 40 Mg/0.4 Ml Syringe) 40 mg SUBCUT Q24H [facility] Last Admin: 09/02/20 05:08 Dose: Not Given Documented by: Famotidine (Famotidine 20 Mg/2 Ml Inj) 20 mg IVP Q12H [facility] Last Admin: 09/02/20 12:03 Dose: 20 mg Documented by: Dobutamine HCl/Dextrose (Dobutamine Drip) 500 mg in 250 mls @ 0 mls/hr IV .Q0M [facility]; Protocol Last Titration: 09/02/20 12:12 Dose: 3 mcg/kg/hr, 0.05 mls/hr Documented by: Levetiracetam (Levetiracetam 500 Mg Tablet) 1,000 mg PO BID [facility] Last Admin: 09/02/20 08:06 Dose: 1,000 mg Documented by: Nitroglycerin (Nitroglycerin 0.4 Mg Sublingual Tablet) 0.4 mg SUBLINGUAL Q5M PRN PRN Reason: chest pain Ondansetron HCl (Ondansetron 2 Mg/Ml Sdv 2 Ml) 4 mg IVP Q4H PRN PRN Reason: NAUSEA AND VOMITING Last Admin: 09/01/20 14:28 Dose: 4 mg Documented by: Fluticasone/Salmeterol (Fluticasone-Salmeterol 250-50 Diskus) 1 puff INHALATION BID.RESPIRATORY [facility]ANETTE Last Admin: 09/02/20 10:19 Dose: 1 puff Documented by: Tiotropium [place] (Tiotropium 18 Mcg Mdi) 18 mcg INHALATION DAILY.RESPIRATORY JEANETTE Last Admin: 09/02/20 10:19 Dose: 1 puff Documented by: Discharge Plan Discharge Patient Disposition: Xfer Short-Term Hosp Condition: Stable Prescriptions: No Action nitroglycerin [Nitrostat] 0.4 mg tablet, sublingual 0.4 mg sublingual Q5M PRN (Reason: chest pain) 30 Days Qty: 30 RF: 0 Breztri Aerosphere 160-9-4.8 mcg/actuation HFA aerosol inhaler 2 inh inhalation BID 30 Days Qty: 10.7 RF: 4 metoprolol tartrate 25 mg tablet 12.5 mg PO Q12H Qty: 30 RF: 5 levetiracetam 500 mg tablet extended release 24 hr 2,000 mg PO Q24H Qty: 120 RF: 11 albuterol sulfate 90 mcg/actuation HFA aerosol inhaler 2 inh INHALATION Q4H PRN (Reason: shortness of breath or wheezing) Qty: 6.7 RF: 2 albuterol sulfate 2.5 mg /3 mL (0.083 %) solution for nebulization 2.5 mg INHALATION QID PRN (Reason: shortness of breath or wheezing) Qty: 180 RF: 3 polyethylene glycol 3350 [Miralax] 17 gram powder in packet 17 g PO DAILY PRN (Reason: Constipation) Qty: 30 RF: 0 Spiriva with HandiHaler 18 mcg capsule, w/inhalation device 1 cap INHALATION DAILY@0900 Qty: 30 RF: 2 fluticasone propion-salmeterol [Advair Diskus] 250-50 mcg/dose blister with device 1 inh INHALATION BID@0900,2000 Qty: 60 RF: 3 cholecalciferol (vitamin D3) 50 mcg (2,000 unit) capsule 50 mcg PO DAILY@0900 Qty: 30 RF: 2 guaifenesin 600 mg tablet extended release 12hr 600 mg PO BID PRN (Reason: Congestion) Qty: 60 RF: 2 pantoprazole [Protonix] 40 mg tablet,delayed release (DR/EC) 40 mg PO BID@0900,1999 RF: 0 fluticasone propionate [Flonase Allergy Relief] 50 mcg/actuation spray,suspension 2 spray INTRANASAL DAILY@0900 Qty: 16 RF: 5 diclofenac sodium [Voltaren Arthritis Pain] 1 % gel 2 g topical QID Qty: 100 RF: 0 spironolactone 25 mg tablet 25 mg PO DAILY 30 Days Qty: 30 RF: 0 cetirizine 10 mg capsule 10 mg PO DAILY@0900 PRN (Reason: allergies) Qty: 90 RF: 1 ondansetron 4 mg tablet,disintegrating 4 mg PO Q6H PRN (Reason: nausea and vomiting) Qty: 14 RF: 0 lactulose 10 gram packet 10 g PO DAILY PRN (Reason: constipation) Qty: 15 RF: 0 Discharge Orders: Transfer Out of Facility (Order); Ordered 09/02/20 Ordered By: Jairo Ham Referrals: Emma oNvoa DO [Primary Care Provider] - Transfer Attestations Time Spent in Transfer Care*: greater than 30 min Quality Metrics Clinical Quality Measures: During this hospital stay, did patient experience: None Coding Level of Care Code Acute General Foreman for Chg Fwd Diagnoses Hypotension I95.9 Hypotension type: unspecified hypotension type Abdominal pain R10.13 Abdominal location: epigastric Suicidal ideation R45.851 Cardiomyopathy, dilated, nonischemic I42.0 Chronic cholecystitis K81.1 COPD (chronic obstructive pulmonary disease) J43.9 COPD type: emphysema Emphysema type: unspecified Gastritis K29.50 Chronicity: chronic Gastritis bleeding: presence of bleeding unspecified Gastritis type: unspecified gastritis Seizure disorder G40.909 Nicotine dependence, cigarettes, with unspecified nicotine-induced disorders F17.219 Generalized epilepsy G40.309 Pulmonary nodule R91.1 Lesion of liver K76.9 Hematochezia K92.1 Acalculous cholecystitis K81.9 Systolic and diastolic CHF w/reduced LV function, NYHA class 4 I50.40 Pulmonary HTN I27.20 Chronic systolic heart failure I50.22 Cardiomyopathy I42.8 Cardiomyopathy type: other Edema, peripheral R60.9 Deviation to one side on eyes closed straight line walking test Uses LifeVest defibrillator Z95.810 Neuropathy G62.9 CHF exacerbation I50.9 Heart failure type: unspecified
--- NOTE | 2020-09-02 17:15 | PM.PN ---
Subjective Subjective: Interval history: Patient is feeling little better. Her mean arterial pressure has been staying above 65. The heart rate was going up into the 120s with the Dobutrex dose of 5 mics per KG per minute. Currently she is on Dobutrex 3 mics per KG per minute. Medications: Reviewed: Yes Medication Review Details: Current Medications Acetaminophen (Acetaminophen 500 Mg Tablet) 500 mg PO Q4H PRN PRN Reason: fever Albuterol/Ipratropium (Ipratropium-Albuterol 3 Ml Neb) 3 ml INHALATION Q6H.RESPIRATORY PRN PRN Reason: SHORTNESS OF BREATH Enoxaparin Sodium (Enoxaparin 40 Mg/0.4 Ml Syringe) 40 mg SUBCUT Q24H [facility] Last Admin: 09/02/20 05:08 Dose: Not Given Documented by: Famotidine (Famotidine 20 Mg/2 Ml Inj) 20 mg IVP Q12H [facility] Last Admin: 09/02/20 12:03 Dose: 20 mg Documented by: Dobutamine HCl/Dextrose (Dobutamine Drip) 500 mg in 250 mls @ 0 mls/hr IV .Q0M [facility]; Protocol Last Titration: 09/02/20 12:12 Dose: 3 mcg/kg/hr, 0.05 mls/hr Documented by: Levetiracetam (Levetiracetam 500 Mg Tablet) 1,000 mg PO BID [facility] Last Admin: 09/02/20 08:06 Dose: 1,000 mg Documented by: Nitroglycerin (Nitroglycerin 0.4 Mg Sublingual Tablet) 0.4 mg SUBLINGUAL Q5M PRN PRN Reason: chest pain Ondansetron HCl (Ondansetron 2 Mg/Ml Sdv 2 Ml) 4 mg IVP Q4H PRN PRN Reason: NAUSEA AND VOMITING Last Admin: 09/01/20 14:28 Dose: 4 mg Documented by: Fluticasone/Salmeterol (Fluticasone-Salmeterol 250-50 Diskus) 1 puff INHALATION BID.RESPIRATORY JEANETTE Last Admin: 09/02/20 10:19 Dose: 1 puff Documented by: Tiotropium [place] (Tiotropium 18 Mcg Mdi) 18 mcg INHALATION DAILY.RESPIRATORY JEANETTE Last Admin: 09/02/20 10:19 Dose: 1 puff Documented by: Vitals/I&O/Wt Last Vital Signs Temp 97.6 F 09/02/20 09:00 Pulse 117 H 09/02/20 14:00 Resp 13 09/02/20 14:00 BP 91/61 09/02/20 14:00 Pulse Ox 99 09/02/20 14:00 09/02/20 09/02/20 09/02/20 06:59 14:59 22:59 Intake Total 250 / 850.203 241.276 / 241.276 Output Total 450 / 850 950 / 950 Balance -200 / 0.203 -708.724 / -708.724 Weight last 48 hrs Weight 74 lb Physical Exam Narrative: EXAM NARRATIVE: GENERAL: The patient is alert and oriented times three. Appears to be anxious. Chronically emaciated. HEENT: No significant pallor, icterus or lymphadenopathy. The pupils are symmetrical . Oral cavity: There are no mucous membrane lesions. Funduscopic examination: The disk margins appear to be sharp with no exudates or hemorrhages. NECK: Trachea appears to be central. No masses noted. No JVD or thyromegaly appreciated. No carotid bruit. RESPIRATORY: Chest is symmetrical. No intercostals muscle retraction or any accessory muscle activation. There is no chest wall tenderness. Breath sounds are heard bilaterally. Few fine rales at the bases. No evidence of any consolidation. BREASTS: Deferred. HEART: The heart sounds are muffled. Soft S3. Short systolic murmur at the left sternal border. No diastolic murmurs. ABDOMEN: No vessel pulsations or distention. No tenderness. No organomegaly appreciated. No abdominal bruit. Bowel sounds are normally heard. : Deferred. RECTAL: Deferred. LYMPHATIC: No lymphadenopathy noted in the neck or groin. EXTREMITIES: No edema or cyanosis. No clubbing. The peripheral pulses are palpable but of low volume and amplitude. Extremities are relatively cold MUSCULOSKELETAL: No acute joint deformities or swelling SKIN: There are no significant scars or skin rash noted. NEUROPSYCHIATRIC: The patient is alert and oriented x3. Appears to be in a good mood. The higher functions are grossly within normal limits. No tremors or rigidity noted. Data : 09/02/20 04:56 09/02/20 04:56 A&P Assessment and plan (1) Acute on chronic systolic heart failure: Patient seems to have end-stage heart disease. In view of the hypotension, medication options are limited. For the time being, we may continue on the Dobutrex. Left ventricular assist device/BiV pacing are considerations. I contacted Dr. Adolfo Richards of the heart failure services at the [facility] in [place]. As of now they do not have any beds available in the ICU. As soon as a bed becomes available, they will contacting us Status: Acute (2) Nonischemic cardiomyopathy: Cardiac catheterization report as mentioned above. Patient was found to have only mild coronary artery disease. Status: Deleted (3) Hypotension: Most likely from the severe LV systolic dysfunction. Apparently the patient has not been taking the digoxin for a while. I may go ahead and restart this. Status: Acute Qualifiers: Hypotension type: unspecified hypotension type Qualified Code(s): I95.9 - Hypotension, unspecified (4) Suicidal ideation: Patient is being evaluated by the psychiatry. Status: Resolved (5) Abdominal pain: Etiology is not clear. She may have an element of congestive hepatopathy. Other etiologies cannot be excluded. Abdominal pain is better today Status: Resolved Qualifiers: Abdominal location: epigastric Qualified Code(s): R10.13 - Epigastric pain (6) Moderate to severe mitral regurgitation: Most likely this is secondary mitral regurgitation. We will continue on the current measures. Status: Acute (7) Pulmonary hypertension: At this point because of the hypotension, we may hold off on any specific intervention. Status: Acute (8) COPD exacerbation: Patient continues to smoke. She is strongly advised to quit smoking. Status: Resolved Additional A&P Information I contacted Dr. Adolfo Richards of the heart failure services at the [facility] in [place]. As of now they do not have any beds available in the ICU. As soon as a bed becomes available, they will be contacting us. Discussed with Dr. Jairo Ham. Attestations Medical Necessity Statement*: Possible transfer to the [facility] tonight or in the morning Coding Level of Care Code Acute Registered Representative for Chg Fwd Diagnoses Acute on chronic systolic heart failure I50.23 Nonischemic cardiomyopathy I42.8 Hypotension I95.9 Hypotension type: unspecified hypotension type Suicidal ideation R45.851 Abdominal pain R10.13 Abdominal location: epigastric Moderate to severe mitral regurgitation I34.0 Pulmonary hypertension I27.20 COPD exacerbation J44.1
--- NOTE | 2020-09-02 20:15 | PC.NURSE ---
AO x4, no c/o at this time, patient was informed that a bed is available at [facility], denied need to call family, patient signed transfer paperwork
--- NOTE | 2020-09-02 21:01 | PC.NURSE ---
patient out of unit at this time with [facility] heading to [facility]
--- NOTE | 2020-09-04 09:44 | PC.RESP ---
SMOKING CESSATION AND PULMONARY REHAB INFORMATION SENT TO PATIENT.
== END 2020-09-02 21:05 | disposition short-term general hospital (02) | DRG 314 ==
LOC: ER 09-01 00:58 → ER IP 09-01 05:54 → ICU 09-01 13:53
PROVIDERS: Emergency Medicine; Admitting Provider Internal Medicine; Emergency Provider Family Medicine; PCP Family Medicine; Visit Provider Internal Medicine
DX: I42.0 Dilated cardiomyopathy (principal); I50.23 Acute on chronic systolic (congestive) heart failure; R45.851 Suicidal ideations; K92.1 Melena; I73.9 Peripheral vascular disease, unspecified; F17.210 Nicotine dependence, cigarettes, uncomplicated; Z99.81 Dependence on supplemental oxygen; J43.9 Emphysema, unspecified; I27.20 Pulmonary hypertension, unspecified; K59.09 Other constipation; K21.9 Gastro-esophageal reflux disease without esophagitis; Z95.810 Presence of automatic (implantable) cardiac defibrillator; I95.9 Hypotension, unspecified; K81.1 Chronic cholecystitis; K29.50 Unspecified chronic gastritis without bleeding; Z79.51 Long term (current) use of inhaled steroids; G40.409 Other generalized epilepsy and epileptic syndromes, not intractable, without status epilepticus; R91.8 Other nonspecific abnormal finding of lung field; K76.9 Liver disease, unspecified; G62.9 Polyneuropathy, unspecified; I34.0 Nonrheumatic mitral (valve) insufficiency; I50.84 End stage heart failure
CPT/HCPCS: 36415; 36416; 71045; 74018; 80053; 80177; 80306; 80307; 81001; 82962; 83605; 83690; 83880; 84443; 84484; 85025; 85378; 93005; 94640; 96361; 96374; 96375; 99285; G0378; J1160; J1250; J1650; J1940; J2270; J2405; J3490; J7050